=== PATIENT | female | born 1970 | race Caucasian/White ===

== ENCOUNTER → 2017-04-25 07:00 | Outpatient (CLI) | payer OTHER, SELFPAY ==
--- NOTE | 2017-04-25 07:08 | HPBI_ITS ---
MAMMOGRAPHY - BILATERAL SCREENING REASON FOR EXAM: Female, 47 years old. Routine annual screening examination. PERTINENT HISTORY: Mother with breast cancer. TECHNIQUE: Digital bilateral breast jose (3D mammographic acquisition) in the CC and MLO projections. 2-D mediolateral oblique (MLO) and craniocaudad (CC) views of both breasts were obtained. CAD: Full Field Digital Mammography with Computer Added Detection was performed. COMPARISON: Comparison is made with prior study dated April 17, 2016 and April 14, 2015. FINDINGS: Breast Composition: The breasts are heterogeneously dense, which may obscure small masses. There are no dominant masses or suspicious calcifications. A tissue clip marker is once again seen a small nodular density in the upper slightly lateral aspect of the left breast. No other significant abnormalities are identified. There has been no significant change since the prior study. HPBI/SCREENING MAMM (CAD), BILAT IMPRESSION: Stable bilateral screening mammogram. Yearly follow-up mammogram recommended. (A) ASSESSMENT CATEGORY: BIRADS Category 2: Benign. A letter regarding these results will be sent to the patient by the facility within 30 days. Approximately 10% of breast cancers are not detected by mammography. A normal mammogram should not delay biopsy of a clinically suspicious abnormality. [id number] Electronically Signed: Niels Alanis MD at 10:38 EST Tel [phone], Service support ,
== END ==
PROVIDERS: Family Provider Family Medicine; PCP Family Medicine; Visit Provider Family Medicine
DX: Z00.00 Encounter for general adult medical examination without abnormal findings (principal); Z12.31 Encounter for screening mammogram for malignant neoplasm of breast
CPT/HCPCS: 77063; 77067

== ENCOUNTER → 2017-05-16 12:13 | Outpatient (CLI) | payer OTHER, SELFPAY ==
--- NOTE | 2017-05-16 12:17 | RAD_ITS ---
STUDY: X-RAY - LEFT FOOT CLINICAL: Female, 47 years old. Pain TECHNIQUE: 3 view(s) of the foot. COMPARISON: None. FINDINGS: There is a plantar calcaneal spur. Normal visualized subtalar, talonavicular, calcaneocuboid, tarsal and tarsometatarsal articulations. Normal metatarsi. Normal metatarsophalangeal joint of the great toe. Normal tibial and fibular sesamoid bones. Normal interphalangeal joint of the great toe. Normal phalanges of the great toe. Normal second through fifth metatarsophalangeal joints. Normal interphalangeal joints and phalanges of the lesser toes. The soft tissue structures are unremarkable. There is no demonstrated fracture. RAD/Foot min 3 Views IMPRESSION: Small heel spur. No fracture. Electronically Signed: Kye Ma MD at 20:31 EST , Service support ,
== END ==
PROVIDERS: Family Provider Family Medicine; PCP Family Medicine; Visit Provider Podiatrist
DX: M77.40 Metatarsalgia, unspecified foot (principal)
CPT/HCPCS: 73630

== ENCOUNTER → 2017-07-16 06:26 | Outpatient (CLI) | payer OTHER, SELFPAY ==
--- NOTE | 2017-07-16 06:30 | CT_ITS ---
STUDY: CT MAXILLOFACIAL SINUSES REASON FOR EXAM: Female, 47 years old. Sinusitis times years RADIATION DOSAGE (If Supplied By Facility): CTDIvol = ( 33.06 ) mGy, DLP = ( 837.98 ) mGycm TECHNIQUE: The patient was scanned in a multi detector CT scanner. High resolution axial imaging was performed without the administration of intravenous contrast material. Sagittal and coronal images were reconstructed. Individualized dose optimization techniques were used for this CT. COMPARISON: None. FINDINGS: FRONTAL SINUSES: Normal aeration, without mucosal inflammatory disease. ETHMOIDAL SINUSES: Normal aeration, without mucosal inflammatory disease. MAXILLARY SINUSES: Normal aeration, with a right 0.6 cm round mucosal inflammatory disease likely retention cyst.. SPHENOIDAL SINUSES: Normal aeration, without mucosal inflammatory disease. There is patency of the bilateral maxillary infundibuli with normal uncinate processes, ethmoid bullae, and hiatus semilunaris. Normal bilateral middle turbinates. Normal bilateral inferior turbinates. There is a left sided nasal septal deviation with a left sided nasal septal spur. There is patency of the bilateral nasal airways. The visualized osseous structures are normal. The visualized bilateral orbital contents are normal. The bilateral mastoid air cells are clear. The mandible and bilateral temporomandibular joints are intact. CT/Sinus/Facial Bone IMPRESSION: Small right maxillary retention cyst. No acute or chronic sinus inflammation detected. Left sided nasal septum deviation with a left-sided small spur. Electronically Signed: Lucia Gómez MD at 7:07 EDT , Service support ,
== END ==
PROVIDERS: Family Provider Family Medicine; PCP Family Medicine; Visit Provider Otolaryngology
DX: J32.9 Chronic sinusitis, unspecified (principal)
CPT/HCPCS: 70486

== ENCOUNTER → 2018-02-11 07:04 | Outpatient (CLI) | payer OTHER, SELFPAY ==
[2018-02-11 08:37] LABS: Anion Gap 8 (5-15); BUN 16 mg/dL (7-18); BUN/Creat Ratio 19.7 RATIO (10-20); Calcium,Total 8.3 mg/dL (8.5-10.1); Chloride 106 mmol/L (98-107); Cholesterol 198 mg/dL (200); Creatinine, Serum 0.81 mg/dL (0.55-1.02); EST Glomerular Filtration Rate 79 mL/min (>60); Est Glom Filt Rate - Afr Amer 96 mL/min (>60); Glucose 81 mg/dL (74-106); High Density Lipoprotein 50 mg/dL; Potassium 4.1 mmol/L (3.5-5.1); Sodium Level 141 mmol/L (136-145); Thyroid Stim Hormone (TSH) 3.67 uIU/mL (0.358-3.74); Triglycerides 154 mg/dL; Very Low Density Lipoprotein 31 mg/dL (5-40)
--- OUTSIDE RECORDS SUMMARY | 2018-04-06 05:02 | XMS RPT_ITS ---
:1970 Author Organization OHIP Care Team Providers Name Role Phone Andrey Interiano Attending Unavailable Julianney, Christopher Primary Care Unavailable Andrey Interiano Attending Unavailable Ranney, Christopher Primary Care Unavailable Ranney, Christopher Primary Care Unavailable Referred, Self Attending Unavailable Gloria Juares Attending Unavailable Ranney, Christopher Primary Care Unavailable Carlos Hall Attending Unavailable Jaydon, Andrey Referring Unavailable Ranney, Christopher Primary Care Unavailable Anson Villanueva Attending Unavailable Jaydon, Christopher Primary Care Unavailable Anson Villanueva Referring Unavailable Andrey Interiano Attending Unavailable Jaydon, Andrey Referring Unavailable Ranney, Christopher Primary Care Unavailable Anson Villanueva Attending Unavailable Jaydon, Christopher Primary Care Unavailable Anson Villanueva Referring Unavailable PROBLEMS PROBLEMS DATE TYPE CONDITION / CODE ATTENDING STATUS SOURCE 05/16/2017 Unknown M77.40 - Gloria Juares Active [facility] Metatarsalgia, Community unspecified foot Hospital / M77.40(ICD-10) Repository 04/25/2017 Unknown Z12.31 - Jaydon, Active [facility] Encounter for [facility] mammogram for Repository malignant neoplasm of breast / Z12.31(ICD-10) PROCEDURES PROCEDURES No Procedure Records FoundRESULTS RESULTS Observed: 02/15/2018 Status: F Source: [place] CULTURE, THROAT 3:30 PM [facility] REPOSITORY Culture, Throat Normal throat michael isolated. No beta-hemolytic streptococcus isolated. Performed By: #### M100.1000 #### [facility] [address] [place], [address] BASIC METABOLIC Collected: 02/11/2018 Status: F Source: [place] PROFILE (BMP) 7:13 AM [facility] REPOSITORY Order Comment: Order Date: 08/27/17 Order Info: 0667-1 - BMP Order Info: 31141-4 - LIPID Order Info: 3016-3 - TSH TYPE CODE TESTS RESULT OUT OF RANGE REFERENCE UNITS LAB L501.0100 74-106 mg/dL Normal GLU 81 Result Comment: Please note revised GLUCOSE reference range effective 2017. LAB L501.1000 7-18 mg/dL Normal BUN 16 LAB L501.1100 0.55-1.02 mg/dL Normal CREAT,SERUM 0.81 Result Comment: The validity of the calculated GFR AND GFRAA in patients over 70 years has not been determined. Clinical correlation is essential. LAB L501.1110 >60 mL/min Normal EST GFR 79 Result Comment: Non- GFR Calc LAB L501.1115 >60 mL/min Normal EST GFR - AA 96 Result Comment: GFR Calc LAB L501.1300 10-20 RATIO Normal BUN/CRE 19.7 LAB L501.2200 8.5-10.1 mg/dL Low CA 8.3 LAB L501.5300 136-145 mmol/L NA Normal 141 LAB L501.5600 3.5-5.1 mmol/L K Normal 4.1 LAB L501.5900 98-107 mmol/L CL Normal 106 LAB L501.6100 21.0-32.0 mmol/L Normal CO2 27.0 LAB L501.6200 5-15 Normal GAP 8 Performed By: #### L500.2500, L500.4100, L501.9520 #### [facility] [address] [place], [place], [id number] LIPID PROFILE Collected: 02/11/2018 Status: F Source: NOHEMI 7:13 AM [facility] REPOSITORY Order Comment: Order Date: 08/27/17 Order Info: 0667-1 - BMP Order Info: 43821-3 - LIPID Order Info: 3016-3 - TSH TYPE CODE TESTS RESULT OUT OF RANGE REFERENCE UNITS LAB L501.4900 200 mg/dL Normal CHOL 198 Result Comment: <200 mg/dL Desirable 200-240 mg/dL Borderline >240 mg/dL High Risk LAB L501.5000 mg/dL Normal TRIG 154 Result Comment: The drugs N-Acetylcysteine and Metamizole may falsely depress this assay. Serum Triglycerides Reference Interval Normal <150 mg/dL Borderline high 150 - 199 mg/dL High 200 - 499 mg/dL Very High > or = 500 mg/dL LAB L501.6400 mg/dL Normal HDL 50 Result Comment: The drugs N-Acetylcysteine and Metamizole may falsely depress this assay. Reference Range HDL <40 mg/dL Low HDL Cholesterol HDL >or= 60 mg/dL High HDL Cholesterol LAB L501.6500 0-130 mg/dL Normal LDL 117 LAB L501.6600 5-40 mg/dL Normal VLDL 31 Performed By: #### L500.2500, L500.4100, L501.9520 #### [facility] [address] [place], [place], [address] THYROID STIM HORMONE Collected: 02/11/2018 Status: F Source: NOHEMI (TSH) 7:13 AM [facility] REPOSITORY Order Comment: Order Date: 08/27/17 Order Info: 0667- - BMP Order Info: 76111-1 - LIPID Order Info: 3016-3 - TSH TYPE CODE TESTS RESULT OUT OF RANGE REFERENCE UNITS LAB L501.9520 0.358-3.74 uIU/mL Normal TSH 3.67 Performed By: #### L500.2500, L500.4100, L501.9520 #### [facility] [address] [place], [address] SINUS/FACIAL BONE Observed: 07/16/2017 Status: F Source: NOHEMI 6:31 AM [facility] REPOSITORY [place] [facility] [address] [address] Sinus/Facial Bone MR#: [id number] Acct: [id number] Name: LEXY FREIRE Rep #: [id number] : 1970 F 47 From: Lucia Gómez MD PCP: Andrey Interiano MD Status: REG CLI Study: Sinus/Facial Bone Date of Exam: 07/16/17 Exam# [id number] Ordering Dr: Anson Villanueva MD STUDY: CT MAXILLOFACIAL SINUSES REASON FOR EXAM: Female, 47 years old. Sinusitis times years RADIATION DOSAGE (If Supplied By Facility): CTDIvol = ( 33.06 ) mGy, DLP = ( 837.98 ) mGycm TECHNIQUE: The patient was scanned in a multi detector CT scanner. High resolution axial imaging was performed without the administration of intravenous contrast material. Sagittal and coronal images were reconstructed. Individualized dose optimization techniques were used for this CT. COMPARISON: None. FINDINGS: FRONTAL SINUSES: Normal aeration, without mucosal inflammatory disease. ETHMOIDAL SINUSES: Normal aeration, without mucosal inflammatory disease. MAXILLARY SINUSES: Normal aeration, with a right 0.6 cm round mucosal inflammatory disease likely retention cyst.. SPHENOIDAL SINUSES: Normal aeration, without mucosal inflammatory disease. There is patency of the bilateral maxillary infundibuli with normal uncinate processes, ethmoid bullae, and hiatus semilunaris. Normal bilateral middle turbinates. Normal bilateral inferior turbinates. There is a left sided nasal septal deviation with a left sided nasal septal spur. There is patency of the bilateral nasal airways. The visualized osseous structures are normal. The visualized bilateral orbital contents are normal. The bilateral mastoid air cells are clear. The mandible and bilateral temporomandibular joints are intact. CT/Sinus/Facial Bone IMPRESSION: Small right maxillary retention cyst. No acute or chronic sinus inflammation detected. Left sided nasal septum deviation with a left-sided small spur. Electronically Signed: Lucia Gómez MD at 7:07 EDT , Service support , CC: Andrey Interiano MD; Andrey Villanueva MD Bowling Ball Grader: Signed URGENT CARE VISIT Observed: 06/14/2017 Status: F Source: [place] REPORT 9:21 AM [facility] [address] [place] [address] [address] [place] [address] OFFICE VISIT Date of Service: 06/14/17 MR#: [id number] Acct: [id number] Name: LEXY FREIRE Rep #: [id number] : 1970 Provider: Carlos MARINO Age/Sex: 47/F Location: [facility] Status: Signed Intake Vital Signs06/14/17 Height 5 ft 4 in 06/14/17 Weight: 213 lb 06/14/17 Body Mass Index (BMI) 36.6 06/14/17 Blood Pressure 124/82 Intake Visit Reasons: URI Chief Complaint: Sinus pressure and cough Proofer Apprentice Required: No Is patient in pain?: No Allergies Penicillins [PCN] Allergy (Verified 06/14/17 06:51) Rash Medications Calcium Carb/Magnesium Hydrox 1 tab PO QHS 11/04/15 [History Confirmed 06/14/17] Celebrex 1 tab PO DAILY 11/04/15 [History Confirmed 06/14/17] Vitamin D3 1 tab PO DAILY 11/04/15 [History Confirmed 06/14/17] azithromycin 250 mg tablet 250 mg PO QDAY #6 tab 06/14/17 [Rx Confirmed 06/14/17] benzonatate 200 mg capsule 200 mg PO TID PRN #20 cap 06/14/17 [Rx Confirmed 06/14/17] PFSH Medical History Back pain (Acute) Hay fever (Acute) Neck pain (Acute) Surgical History History of foot surgery (Acute) Social History Smoking Status: Never smoker alcohol intake: never HPI HPI Chief Complaint: Sinus pressure and cough Details: LEXY FREIRE, is a 47 F who presents to the office today for initial evaluation approximately 1 week history of progressively worsening sinus pressure and cough. Patient notes a moderate amount of postnasal drip, stating she feels she has a sinus infection. She notes associated chills though no complaints of fever, sweats, rash, chest pain/shortness of breath. She notes her cough is nonproductive but moist. No other members in her household with similar signs or symptoms. She is a non-smoker. She notes no other associated symptoms and no other alleviating or aggravating factors. ROS Const Constitutional: Positive for chills; no excessive sweating, abnormal sleep pattern, fever(s), night sweats or body ache Eyes Eyes: No change in vision ENT ENT: Positive for post nasal drip, sinus pressure and sinus pain; no abnormal hearing, ear pain, ear discharge, ear pressure, hearing loss or sore throat Resp Respiratory: Positive for cough Cough: Yes non-productive; no chest congestion Cardio Cardiology: No excessive sweating, chest pain at rest, chest pain with exertion, shortness of breath, dyspnea on exertion, irregular heart rhythm, generalized swelling or leg pain with exertion Gastro GI: No abdominal pain, change in stool character or change in bowel habits Musc Musculoskeletal: No joint pain, back pain or limited range of motion Skin Skin: No rash Neuro Neurology: No abnormal hearing, abnormal speech or abnormal movements Psych Psychiatric: No abnormal sleep pattern Endo Endocrine: No excessive sweating, change in body appearance, cold intolerance or heat intolerance Aller/Imm Allergy/Immunologic: No food intolerance Munir/Lymp Hematologic/Lymphatic: No easy bruising Exam Const General: cooperative, healthy appearing, no acute distress, uncomfortable Nutritional Appearance: average body habitus Orientation: alert, awake, oriented x3 HENWV Head: normal to inspection Ears: hearing grossly normal bilaterally, external ears normal, TM's normal bilaterally, EAC's normal Nose: external nose normal, nares normal, septum normal, no nasal discharge Face and sinus: normal facial exam, sinus tenderness maxillary, face symmetric Mouth: oral mucosae normal, lip normal, oropharynx normal, tongue normal Teeth and gingiva: dentition normal, gingiva normal Throat: uvula midline, tonsils normal, posterior oropharynx normal, postnasal drainage (Purulent) Eyes General: appearance normal, both eyes and all related structures Neck Neck: normal visual inspection, full ROM, no meningeal signs, supple, lymphadenopathy (Bilateral anterior cervical node swelling and tenderness to palpation) Neck mass: No Thyroid: thyroid normal Chest Chest palpation AND inspection: normal inspection of the chest Resp Effort AND Inspection: normal respiratory effort, able to speak in complete sentences, symmetric chest movement, cough Quality of cough: wet Auscultation: Bilateral: Clear to Auscultation Cardio Palpation: normal PMI Rate: regular rate Rhythm: regular rhythm Heart Sounds: S1 normal, S2 normal, no gallops, no murmurs, no rubs Pulses: radial pulses present GI Inspection: normal to inspection Palpation: soft Skin General: no rashes or lesions noted Neuro General: alert, awake, oriented x3, gait normal Cognition: normal cognition Speech: speech normal Gait: normal gait Motor: muscle tone normal throughout Sensory Exam: no sensory deficits noted Extrem General: normal to inspection Psych Appearance: grossly normal Mental Status: mental status grossly normal Mood: congruent mood Affect: normal affect Speech and Movement: speech and movement normal Attitude: cooperative Thought Process: normal Thought Content: normal Judgment: judgment good Assessment AND Plan Problems 1. Sinusitis J32.9 2. Bronchitis J40 Plan Augmentin and benzonatate as prescribed today. Clear fluids, rest, Tylenol, warm facial compresses as needed as instructed today. Avoid tobacco smoke exposure. Follow-up with PCP in 3-5 days should symptoms not improved, sooner should symptoms worsen or any other concerns develop. Patient states acknowledging understanding all the above. This note was generated with Calixar dictation software. It may contain incorrect words, spelling, and punctuation that were not noted in checking the note before signing. Medications New: azithromycin 2 tablets today, then 1 tablet daily on days 2 th250 mg PO QDAY rough 5 Coding Level of Care Code Off vis,new,level 3 Diagnoses Sinusitis J32.9 Bronchitis J40 06/14/17 0921 <Electronically signed by Carlos MARINO> Date Carlos MARINO Cosigner Signature: Date (if applicable) CC: FOOT MIN 3 VIEWS Observed: 05/16/2017 Status: F Source: NOHEMI 12:18 PM [facility] REPOSITORY [place] [facility] [address] [place] [address] Foot min 3 Views MR#: [id number] Acct: [id number] Name: LEXY FREIRE Rep #: [id number] : 1970 F 47 From: Kye Ma MD PCP: Andrey Interiano MD Status: REG CLI Study: Foot min 3 Views Date of Exam: 05/16/17 Exam# [id number] Ordering Dr: Gloria Juares STUDY: X-RAY - LEFT FOOT CLINICAL: Female, 47 years old. Pain TECHNIQUE: 3 view(s) of the foot. COMPARISON: None. FINDINGS: There is a plantar calcaneal spur. Normal visualized subtalar, talonavicular, calcaneocuboid, tarsal and tarsometatarsal articulations. Normal metatarsi. Normal metatarsophalangeal joint of the great toe. Normal tibial and fibular sesamoid bones. Normal interphalangeal joint of the great toe. Normal phalanges of the great toe. Normal second through fifth metatarsophalangeal joints. Normal interphalangeal joints and phalanges of the lesser toes. The soft tissue structures are unremarkable. There is no demonstrated fracture. RAD/Foot min 3 Views IMPRESSION: Small heel spur. No fracture. Electronically Signed: Kye Ma MD at 20:31 EST , Service support , CC: Andrey Interiano MD; Gloria Juares DPGeorges Bowling Ball Grader: Signed SCREENING MAMM (CAD), Observed: 04/25/2017 Status: F Source: NOHEMI PERRIN 7:08 AM [facility] REPOSITORY [place] [facility] [address] [place] [address] SCREENING MAMM (CAD), BILAT MR#: [id number] Acct: [id number] Name: LEXY FREIRE Rep #: [id number] : 1970 F 47 From: Niels Alanis MD PCP: Andrey Interiano MD Status: REG CLI Study: SCREENING MAMM (CAD), BILAT Date of Exam: 04/25/17 Exam# [id number] Ordering Dr: Anson Interiano MD MAMMOGRAPHY - BILATERAL SCREENING REASON FOR EXAM: Female, 47 years old. Routine annual screening examination. PERTINENT HISTORY: Mother with breast cancer. TECHNIQUE: Digital bilateral breast jose (3D mammographic acquisition) in the CC and MLO projections. 2-D mediolateral oblique (MLO) and craniocaudad (CC) views of both breasts were obtained. CAD: Full Field Digital Mammography with Computer Added Detection was performed. COMPARISON: Comparison is made with prior study dated April 17, 2016 and April 14, 2015. FINDINGS: Breast Composition: The breasts are heterogeneously dense, which may obscure small masses. There are no dominant masses or suspicious calcifications. A tissue clip marker is once again seen a small nodular density in the upper slightly lateral aspect of the left breast. No other significant abnormalities are identified. There has been no significant change since the prior study. HPBI/SCREENING MAMM (CAD), BILAT IMPRESSION: Stable bilateral screening mammogram. Yearly follow-up mammogram recommended. (A) ASSESSMENT CATEGORY: BIRADS Category 2: Benign. A letter regarding these results will be sent to the patient by the facility within 30 days. Approximately 10% of breast cancers are not detected by mammography. A normal mammogram should not delay biopsy of a clinically suspicious abnormality. [id number] Electronically Signed: Niels Alanis MD at 10:38 EST Tel [phone], Service support , CC: Andrey Interiano MD Bowling Ball Grader: Signed ALLERGIES ALLERGIES DATE TYPE / CODE NAME / CODE REACTION SEVERITY SOURCE 06/14/2017 Drug Penicillins/ Rash Unknown [facility] Allergy/4160 [id number]([facility] 39897(SNOMED XNORM) Repository CT) ENCOUNTERS ENCOUNTERS ADMIT/DISCHARGE ACCOUNT ADMITTING ENCOUNTER LOCATION SOURCE NUMBER CLASS 02/15/2018 [id number] Ambulatory [place] [facility] ing:LABSPEC Repository 02/11/2018 [id number] Ambulatory [place] [facility] ing:LAB Repository 07/16/2017 [id number] Ambulatory [place] [facility] ing:CT Repository 06/14/2017/ [id number] Ambulatory BMSBuilding:B [place] 8 3 [facility] Repository 05/16/2017 [id number] Ambulatory [place] [facility] ing:RAD.FUTUR Repository E 05/02/2017 [id number] Ambulatory [place] 1 [facility] ing:MASS Repository 04/25/2017 [id number] Ambulatory [place] [facility] ing:BI Repository 02/27/2017 [id number] Ambulatory [place] [facility] ing:LABSPEC Repository PAYERS PAYERS ENCOUNTER GUARANTOR PAYER SUBSCRIBER SOURCE 02/15/2018 LEXY A Primary Insurance:MED ZULLY E [place] [id number] [facility] THOMPSONDOB: [facility] Number: [id number] [id number] Repository [address]Xrn: 330) Date:1376-65-92IZ [phone] ( [address], [place] [address]IW: CHECK WEBSITE 02/15/2018 Secondary NOT GIVENUNK [place] Insurance:SELF PAY [facility] Number: Effective Repository Date:2018-02-15 02/11/2018 LEXY A Primary Insurance:MED ZULLY E [place] [id number] [employer] THOMPSONDOB: [facility] Number: [id number], [place] [id number] Repository [address]Uqm: ([phone]) Date:6328-08-24MC [phone] (HP) [address]JDPC[place]QU, [place] [address]FQ: CHECK WEBSITE 02/11/2018 Secondary NOT GIVENUNK [place] Insurance:SELF PAY [facility] Number: Effective Repository Date:2018-02-11 07/16/2017 LEXY A Primary Insurance:MED ZULLY E [place] [id number] [employer] THOMPSONDOB: [facility] Number: [id number], [place] [id number] Repository [address]Vsx: Date:2388-46-61TY [phone] [address]VXBZJUXFT, [place] -4 () [phone]: CHECK WEBSITE 07/16/2017 Secondary NOT GIVENUNK [place] Insurance:SELF PAY [facility] Number: Effective Repository Date:2017-07-02 06/14/2017 LEXY A Primary Insurance:MED ZULLY E [place] [id number] [employer] THOMPSONDOB: [facility] Number: [id number], [place] [id number] Repository [address]Cgr: Date:9014-49-24IB [phone]~330 [address]CAHUEGUT, [place] -4 () [address]WM: CHECK WEBSITE 06/14/2017 Secondary NOT GIVENUNK [place] Insurance:SELF PAY [facility] Number: Effective Repository Date:2017-06-14 05/16/2017 LEXY A Primary Insurance:MED ZULLY E [place] [id number] [employer] THOMPSONDOB: [facility] Number: [id number], [place] [id number] Repository [address]Sko: ([phone]) Date:9711-61-85HX [phone] (HP) [address]XCQUYQOXZ, [place] [address]SD: CHECK WEBSITE 05/16/2017 Secondary NOT GIVENUNK [place] Insurance:SELF PAY [facility] Number: Effective Repository Date:2017-05-15 05/02/2017 LEXY A Primary NOT GIVENUNK [place] [id number] Insurance:SELF PAY [place] Number: Effective Repository [address]Pov: (330) Date:2017-04-20 [phone] () 04/25/2017 Lexy A Primary Insurance:MED ZULLY E [place] [id number] MUTUAL TPAPolicy THOMPSONDOB: [facility] Number: [id number], [place] [id number] Repository [address]Upu: (330) Date:9130-49-50HM [phone] () [address]BOLKELBFW, [place] [address]RI: CHECK WEBSITE 04/25/2017 Secondary NOT GIVENUNK [place] Insurance:SELF PAY [facility] Number: Effective Repository Date:2017-03-02 02/27/2017 Lexy A Primary Insurance:MED ZULLY E [place] [id number] MUTUAL TPAPolicy THOMPSONDOB: [facility] Number: [id number], [place] [id number] Repository [address]Nic: (330) Date:1066-55-89LC [phone] () [address]CYELEGWBP, [place] [address]JG: CHECK WEBSITE 02/27/2017 Secondary NOT GIVENUNK [place] Insurance:SELF PAY [facility] Number: Effective Repository Date:2017-02-27
== END ==
PROVIDERS: Family Provider Family Medicine; PCP Family Medicine; Referring Provider Family Medicine; Visit Provider Family Medicine
DX: Z13.1 Encounter for screening for diabetes mellitus (principal); Z13.29 Encounter for screening for other suspected endocrine disorder; Z13.220 Encounter for screening for lipoid disorders
CPT/HCPCS: 36415; 80048; 80061; 84443

== ENCOUNTER → 2018-02-15 18:09 | Outpatient (CLI) | payer OTHER, SELFPAY | PROVIDERS: Family Provider Family Medicine; PCP Family Medicine; Referring Provider Otolaryngology; Visit Provider Otolaryngology | DX: J02.9 Acute pharyngitis, unspecified (principal) | CPT/HCPCS: 87070 ==

== ENCOUNTER → 2018-04-29 07:50 | Outpatient (CLI) | payer OTHER, SELFPAY ==
--- NOTE | 2018-04-29 07:57 | BI_ITS ---
MAMMOGRAPHY - BILATERAL SCREENING REASON FOR EXAM: Female, 48 years old. Routine annual screening examination. PERTINENT HISTORY: Mother with breast cancer. Remote bilateral stereotactic breast biopsies. TECHNIQUE: Digital bilateral breast jose (3D mammographic acquisition) in the CC and MLO projections. 2-D mediolateral oblique (MLO) and craniocaudad (CC) views of both breasts were obtained. CAD: Full Field Digital Mammography with Computer Added Detection was performed. COMPARISON: Comparison is made with prior study dated April 25, 2017 and April 17, 2016. FINDINGS: Breast Composition: The breasts are heterogeneously dense, which may obscure small masses. There are no dominant masses or suspicious calcifications. Stable small bilateral axillary lymph nodes. A tissue clip marker is once again seen in the small nodular density in the upper slightly outer aspect of the left breast as well as in the superior lateral area of the right breast. No other significant abnormalities are identified. There has been no significant change since the prior study. BI/SCREENING MAMM (CAD), BILAT IMPRESSION: Stable bilateral screening mammogram. Yearly follow-up mammogram recommended. (A) ASSESSMENT CATEGORY: BIRADS Category 2: Benign. A letter regarding these results will be sent to the patient by the facility within 30 days. Approximately 10% of breast cancers are not detected by mammography. A normal mammogram should not delay biopsy of a clinically suspicious abnormality. [id number] Electronically Signed: Niels Alanis MD at 11:10 EST , Service support ,
== END ==
PROVIDERS: Family Provider Family Medicine; PCP Family Medicine; Referring Provider Family Medicine; Visit Provider Family Medicine
DX: Z00.00 Encounter for general adult medical examination without abnormal findings (principal); Z12.31 Encounter for screening mammogram for malignant neoplasm of breast
CPT/HCPCS: 77063; 77067

== ENCOUNTER → 2018-07-15 | Outpatient (CLI) | payer OTHER, SELFPAY ==
[2017-06-14 06:50] VITALS: BMI 36.6
[2018-07-15 11:25] LABS: Anion Gap 8 (5-15); BUN 12 mg/dL (7-18); BUN/Creat Ratio 14.1 RATIO (10-20); Calcium,Total 8.5 mg/dL (8.5-10.1); Chloride 107 mmol/L (98-107); Cholesterol 211 mg/dL (200); Creatinine, Serum 0.85 mg/dL (0.55-1.02); EST Glomerular Filtration Rate 75 mL/min (>60); Est Glom Filt Rate - Afr Amer 91 mL/min (>60); Glucose 82 mg/dL (74-106); High Density Lipoprotein 49 mg/dL; Potassium 4.3 mmol/L (3.5-5.1); Sodium Level 140 mmol/L (136-145); Triglycerides 179 mg/dL; Very Low Density Lipoprotein 36 mg/dL (5-40)
== END | disposition home or self-care (01) ==
LOC: MTLAB 07:40
PROVIDERS: Family Provider Family Medicine; PCP Family Medicine; Referring Provider Family Medicine; Visit Provider Family Medicine
DX: I10 Essential (primary) hypertension (principal)
CPT/HCPCS: 36415; 80048; 80061

== ENCOUNTER → 2018-12-25 07:18 | Outpatient (CLI) | payer OTHER, SELFPAY ==
[2018-12-25 10:13] LABS: Hematocrit 34.4 % (37-47); Hemoglobin 10.2 g/dL (12.0-15.0); Mean Corp Hgb Conc 29.7 g/dL (32-36); Mean Corpuscular Hgb 23.4 pg (27.0-32.0); Mean Corpuscular Volume 79.1 fL (81-99); Mean Platelet Vol. 10.8 fl (6.2-12.0); Platelet Count 290 K/mm3 (150-450); RBC Distribution Width CV 17.3 % (11.6-14.6); RBC Distribution Width SD 50.1 fl (35.1-43.9); Red Blood Count 4.35 M/mm3 (4.2-5.4); White Blood Count 4.9 K/mm3 (4.4-11.0)
[2018-12-25 10:28] LABS: Vitamin B12 606 pg/mL (211-911); Vitamin D,25 Hydroxy 61.3 ng/mL (29.95-100.01)
[2018-12-25 11:09] LABS: BUN 16 mg/dL (7-18); Creatinine, Serum 0.93 mg/dL (0.55-1.02); Glucose 88 mg/dL (74-106)
[2018-12-25 11:10] LABS: Anion Gap 11 (5-15); BUN/Creat Ratio 17.3 RATIO (10-20); Calcium,Total 8.5 mg/dL (8.5-10.1); Chloride 104 mmol/L (98-107); EST Glomerular Filtration Rate 68 mL/min (>60); Est Glom Filt Rate - Afr Amer 82 mL/min (>60); Follicle Stimulating Hormone 57.8 mIU/mL; Free T3 2.8 pg/mL (2.18-3.98); Iron 31 ug/dL (50-170); Sodium Level 139 mmol/L (136-145); T4 Free Direct 0.98 ng/dL (0.76-1.46)
== END ==
PROVIDERS: Family Provider Family Medicine; PCP Family Medicine; Referring Provider Family Medicine; Visit Provider Family Medicine
DX: N95.1 Menopausal and female climacteric states (principal); R53.83 Other fatigue
CPT/HCPCS: 36415; 80048; 82306; 82607; 83001; 83002; 83540; 84439; 84443; 84481; 85027

== ENCOUNTER → 2018-12-26 15:55 | Outpatient (CLI) | payer OTHER, SELFPAY ==
[2017-06-14 06:50] VITALS: BMI 36.6
[2019-01-02 11:41] LABS: Cortisol, Free 24Ur 14 ug/24 hr (6-42); Cortisol, Urinary Free 11 ug/L (Undefined)
== END ==
PROVIDERS: Family Provider Family Medicine; PCP Family Medicine; Referring Provider Family Medicine; Visit Provider Family Medicine
DX: R53.83 Other fatigue (principal)
CPT/HCPCS: 82530

== ENCOUNTER → 2019-04-30 09:13 | Outpatient (CLI) | payer OTHER, SELFPAY ==
--- NOTE | 2019-04-30 09:16 | BI_ITS ---
MAMMOGRAPHY - BILATERAL SCREENING REASON FOR EXAM: Female, 49 years old. Routine annual screening examination. PERTINENT HISTORY: Mother with breast cancer. Remote bilateral stereotactic breast biopsies. TECHNIQUE: Digital bilateral breast rajiv (3D mammographic acquisition) in the CC and MLO projections. 2-D mediolateral oblique (MLO) and craniocaudad (CC) views of both breasts were obtained. CAD: Full Field Digital Mammography with Computer Added Detection was performed. COMPARISON: Comparison is made with prior study dated April 29, 2018 and April 25, 2017. FINDINGS: Breast Composition: The breasts are heterogeneously dense, which may obscure small masses. There are no dominant masses or suspicious calcifications. Once again, a tissue clip marker is seen in the small nodular density in the upper slightly outer aspect of the left breast. A tissue clip marker is also seen in the superior lateral stable benign-appearing bilateral axillary lymph nodes. No other significant abnormalities are identified. There has been no significant change since the prior study. BI/SCREEN MAMM (CAD) W/RAJIV BILAT IMPRESSION: Stable bilateral screening mammogram. Yearly follow-up mammogram recommended. (A) ASSESSMENT CATEGORY: BIRADS Category 2: Benign. A letter regarding these results will be sent to the patient by the facility within 30 days. Approximately 10% of breast cancers are not detected by mammography. A normal mammogram should not delay biopsy of a clinically suspicious abnormality. [id number] Electronically Signed: Niels Alanis, at 10:29 EST , Service support ,
== END ==
PROVIDERS: Family Provider Family Medicine; PCP Family Medicine; Referring Provider Family Medicine; Visit Provider Family Medicine
DX: Z12.31 Encounter for screening mammogram for malignant neoplasm of breast (principal)
CPT/HCPCS: 77063; 77067

== ENCOUNTER 2019-11-05 10:00 | Outpatient (RCR) | payer OTHER, SELFPAY ==
[2019-05-24 08:26] VITALS: BMI 36.6
--- NOTE | 2019-10-23 08:09 | HP.PTEVAL ---
Patient's Visit Information MADDIE FREIRE is a 49 year old F referred to Physical Therapy by Dr. Anson Interiano MD with a diagnosis of Bilateral Radial Nerve Entrapment. Date of Evaluation: 10/22/19 Physical Therapist: Magalie Garcia DPT - Visit Plan Frequency: 1x/Week Plan: Patient wants to hold until she has her nerve conduction study. HEP given: postural correction, cervical retractions, median nerve glide, soft tisssue rolling to forearm - Subjective Patient reports that she has lateral epicondylitis bilaterally- insidious onset. Both the pain is the same. Pain is located in the elbow and down to the hand. She goes next sunday to have the nerve test done. Has had injections in the brachioradialis bilaterally and worked for about 5 days then came back with a vengence. They do not think its carpal tunnel. Describes the pain as sharp painful- N/T. It effects all of her fingers. Drops things and report its hard to hold onto things- hard to drink a cup of cofee in the AM. Worst: 11/19 was just put on gabapentin which is helping. Agg: anything Eases: nothing Best: 11/19. Throbbing. No shoulder or neck pain. 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 Is only working through Dr. Interiano is not seeing and ortho currently. No MRI at this time. Sleep: disturbed- wakes her up and is hard to get comfortable- very miserable. PMHx: back issues- 3 bulging discs- surgery on her feet- Meds: gabapentin, Vitamin D and iron, calcium and magnesium - Objective Posture: FH, RS- can correct but is unable to maintain. Gait: no deviation noted- good arm swing and trunk rotation. Palpatoin: tender along medial and lateral elbow down the forearm and into the hand. ROM: WNL in all planes from cervical to the fingers bilaterally. Strength: Scap: fair, Shoulder: 4+/5 throughout, Elbow: 4+/5 Wrist: 4-/5 throughout Lateral Pinch: 15-20# Tripod: 10-15 Senior Java Data Architect: Left: 40 right: 50. Special Test: Median nerve glide: positive, Spurlings: negative, Radial nerve glide: negative - Goals Goal 1:: Patient will be I with HEP and progression Goal Time Frame: 4-6 Weeks Goal 2:: Patient will have no pain with median nerve glide Goal Time Frame: 4-6 Weeks Goal 3:: Patient will report no dropping things for 1 week Goal Time Frame: 4-6 Weeks - Rehabilitation Potential Physical Therapy Diagnosis: Patient presents with hypomobility- she has decreased ROM,strength and muscular endurance leading to poor posture and increased pain with ADL's. Rehabilitation Potential: Fair - Anticipated Interventions Patient/Client Instruction: Educate patient on: Benefits of Fitness Program Therapeutic Exercise to Include: Strength training, Endurance training, Body mechanics, Postural training, Neuromotor development, Scapular Strength/Stabilization For the Purpose of:: To improve muscle performance and motor function Manual Therapy Techniques to Include: Mobilization, Functional dry needling, Soft tissue mobilization For the Purpose of:: To increase oxygenation perfusion TENS: Yes Cryotherapy (ice pack, ice massage): Yes Thermo therapy (hot pack): Yes Ultrasound (thermal/non thermal): Yes Thank you for the opportunity to evaluate your patient. For Medicare and Medicare HMO plans, please review the plan of care and approve it. It will need to be FAXED BACK to us at [phone] for Medicare purposes. For Medicare only, by signing this I certify the plan of care. Please let me know if there are questions or concerns regarding this plan of care. Physician Signature: Date:
--- NOTE | 2020-02-19 11:45 | HP.PT.NRP ---
MADDIE FREIRE was seen in my office for initial evaluation on 10/22/19. The following Plan of Care was established for this patient: Initial Frequency: 1x/Week Patient/Client Instruction: Educate patient on: Benefits of Fitness Program Therapeutic Exercise to Include: Strength training, Endurance training, Body mechanics, Postural training, Neuromotor development, Scapular Strength/Stabilization For the Purpose of:: To improve muscle performance and motor function Manual Therapy Techniques to Include: Mobilization, Functional dry needling, Soft tissue mobilization For the Purpose of:: To increase oxygenation perfusion TENS: Yes Cryotherapy (ice pack, ice massage): Yes Thermo therapy (hot pack): Yes Ultrasound (thermal/non thermal): Yes This patient was last seen in our office . Pertinent comments regarding their Physical therapy will appear below: Patient has not returned to PT in over 8 weeks- appropriate for discharge and return to MD for further evaluation. At this point I will be discontinuing this patient from physical therapy. I would be happy to see this patient again in the future if found appropriate by the physician. Thank you! Magalie Garcia DPT
== END 2019-11-05 19:00 | disposition home or self-care (01) ==
LOC: PT 10:00
PROVIDERS: PCP Family Medicine; Referring Provider Family Medicine; Visit Provider Family Medicine
DX: G58.8 Other specified mononeuropathies (principal)
CPT/HCPCS: 97110; 97162

== ENCOUNTER → 2020-01-09 | Outpatient (CLI) | payer OTHER, SELFPAY ==
[2019-05-24 08:26] VITALS: BMI 36.6
== END | disposition home or self-care (01) ==
PROVIDERS: PCP Family Medicine; Referring Provider Registered Nurse; Visit Provider Registered Nurse
DX: J06.9 Acute upper respiratory infection, unspecified (principal)
CPT/HCPCS: 87635; U0003

== ENCOUNTER → 2020-03-11 09:38 | Outpatient (CLI) | payer OTHER, SELFPAY ==
[2019-05-24 08:26] VITALS: BMI 36.6
[2020-03-11 12:41] LABS: Vitamin D,25 Hydroxy 59.8 ng/mL
[2020-03-11 12:45] LABS: Anion Gap 4 (5-15); BUN 15 mg/dL (7-18); BUN/Creat Ratio 16.7 RATIO (10-20); Calcium,Total 8.7 mg/dL (8.5-10.1); Chloride 105 mmol/L (98-107); Cholesterol 227 mg/dL (200); EST Glomerular Filtration Rate 70 mL/min (>60); Est Glom Filt Rate - Afr Amer 85 mL/min (>60); Glucose 78 mg/dL (74-106); High Density Lipoprotein 69 mg/dL; Potassium 3.9 mmol/L (3.5-5.1); Sodium Level 137 mmol/L (136-145); Thyroid Stim Hormone (TSH) 2.61 uIU/mL (0.358-3.74); Triglycerides 91 mg/dL; Very Low Density Lipoprotein 18 mg/dL (5-40)
[2020-03-25 15:19] LABS: HPV Reflexed? NOT INDICATED
== END ==
PROVIDERS: PCP Family Medicine; Referring Provider Family Medicine; Visit Provider Family Medicine
DX: Z01.419 Encounter for gynecological examination (general) (routine) without abnormal findings (principal); E55.9 Vitamin D deficiency, unspecified; Z13.220 Encounter for screening for lipoid disorders; Z13.1 Encounter for screening for diabetes mellitus; Z13.29 Encounter for screening for other suspected endocrine disorder
CPT/HCPCS: 36415; 80048; 80061; 82306; 84443; 88175; G0145

== ENCOUNTER → 2020-04-28 13:48 | Outpatient (CLI) | payer OTHER, SELFPAY ==
[2019-05-24 08:26] VITALS: BMI 36.6
--- NOTE | 2020-04-28 13:50 | US_ITS ---
STUDY: ULTRASOUND OF THE FEMALE PELVIS - COMPLETE REASON FOR EXAM: Female, 50 years old. AUB -- TUBAL LIGATION 10 YEARS AGO LMP: 04/09/2020. TECHNIQUE: Transvaginal TECHNICAL QUALITY: Adequate. COMPARISON: None. FINDINGS: The uterus is anteverted and is in a midline position. The uterus measures 9 cm x 5.2 cm x 5.2 cm. There is a Nabothian cyst of the cervix. The endometrium measures 7 mm in thickness, and is heterogeneous (striated). There is no demonstrated endometrial mass. 3 uterine fibroids are seen. The largest fibroid measures 2.7 cm x 2 cm x 2.2 cm. I.U.D. - The patient does not have an I.U.D. The right ovary is visualized. The right ovary measures 2.5 cm x 1.9 cm x 1.4 cm. There is no right ovarian cyst or ovarian mass. There is no visualized right adnexal mass or complex lesion. There is normal arterial and normal venous vascularity. The left ovary is visualized. The left ovary measures 3.4 cm x 2 cm x 1.5 cm. There is a 1.3 cm x 1.8 cm x 1.4 cm dominant left ovarian follicle. There is no visualized left adnexal mass or complex lesion. There is normal arterial and normal venous vascularity. There is no fluid in the cul-de-sac. US/Transvaginal Non- IMPRESSION: Mildly enlarged fibroid uterus. Dominant follicle measuring 1.3 cm x 1.8 cm x 1.4 cm is seen in the left ovary. Electronically Signed: Niels Alanis MD at 15:28 EST , Service support ,
== END ==
PROVIDERS: PCP Family Medicine; Referring Provider Family Medicine; Visit Provider Family Medicine
DX: N93.8 Other specified abnormal uterine and vaginal bleeding (principal)
CPT/HCPCS: 76830

== ENCOUNTER → 2020-05-03 07:37 | Outpatient (CLI) | payer OTHER, SELFPAY ==
[2019-05-24 08:26] VITALS: BMI 36.6
--- NOTE | 2020-05-03 07:41 | BI_ITS ---
MAMMOGRAPHY - BILATERAL SCREENING REASON FOR EXAM: Female, 50 years old. Routine annual screening examination. PERTINENT HISTORY: Mother with breast cancer. Remote right stereotactic and left stereotactic breast biopsies. TECHNIQUE: Digital bilateral breast rajiv (3D mammographic acquisition) in the CC and MLO projections. 2-D mediolateral oblique (MLO) and craniocaudad (CC) views of both breasts were obtained. CAD: Full Field Digital Mammography with Computer Added Detection was performed. COMPARISON: Comparison is made with prior study dated 04/30/2019 and 04/29/2018. FINDINGS: Breast Composition: The breasts are heterogeneously dense, which may obscure small masses. There are no dominant masses or suspicious calcifications. A tissue clip marker is once again seen in the small nodular density in the upper slightly outer aspect of the left breast. A tissue clip marker is also seen in the superior lateral aspect of the right breast. Stable benign-appearing bilateral axillary lymph nodes. No other significant abnormalities are identified. BI/SCRN MAMM (CAD)W/RAJIV BILAT IMPRESSION: Stable bilateral screening mammogram. Yearly follow-up mammogram recommended. (A) ASSESSMENT CATEGORY: BIRADS Category 2: Benign. A letter regarding these results will be sent to the patient by the facility within 30 days. Approximately 10% of breast cancers are not detected by mammography. A normal mammogram should not delay biopsy of a clinically suspicious abnormality. [id number] Electronically Signed: Niels Alanis MD at 9:01 EST , Service support ,
== END ==
PROVIDERS: PCP Family Medicine; Referring Provider Family Medicine; Visit Provider Family Medicine
DX: Z00.00 Encounter for general adult medical examination without abnormal findings (principal); Z12.31 Encounter for screening mammogram for malignant neoplasm of breast
CPT/HCPCS: 77063; 77067

== ENCOUNTER → 2020-05-19 14:38 | Outpatient (CLI) | payer OTHER, SELFPAY ==
--- NOTE | 2020-05-19 | EMB_PTH ---
PATIENT: MADDIE FREIRE LOC: [facility]#:[id number] AGE/SX: 54/F ROOM: RE05/19/[address]: Dr. Ileana Su MD : 1970 BED: DIS: SPEC #: [id number] RECD: 05/19/20 15:52 STATUS: JOHAN RELan #: [id number] VIRA: 05/19/20 00:[address]: Ileana Su DEPT: SURGICAL PATHOLOGY RECD BY: Andrea Vásquez ENTERED: 05/20/20 07:54 SP TYPE: ENDOM BX/C KATARINA DR: Dr. Andrey Interiano MD Tissues: Endometrium, NOS Procedures: Surgery Specimen Level IV HEADER OPERATION: Endometrial biopsy PRE-OP DIAGNOSIS: Abnormal uterine bleeding TISSUE SUBMITTED: Endometrial lining MICROSCOPIC DIAGNOSIS Endometrium, biopsy: Weakly proliferative endometrium with focal glandular breakdown. AM:alvaro 05/21/2020 MICROSCOPIC DESCRIPTION Slides are reviewed. GROSS DESCRIPTION Received is one container labeled with the patient's name and not further designated. The specimen consists of multiple irregular fragments of breen soft tissue that in aggregate measure 2.5 x 0.3 x 0.1 cm. The specimen is totally submitted in one cassette. / SJ:alvaro 05/20/20 TC:5 CPT: 29458
[2020-05-19 13:30] VITALS: BMI 41.0
[2020-05-19 14:51] LABS: Absolute Lymphocyte Count 1.63 X10^3/uL (0.83-4.51); Absolute Neutrophil Count 5.1 X10^3/uL (2.0-7.7); Basophil# 0.06 X10^3/uL; Basophil% 0.8 % (0-1); Eosinophil# 0.17 X10^3/uL; Eosinophils% 2.3 % (0-5); Hematocrit 42.8 % (37-47); Hemoglobin 13.5 g/dL (12.0-15.0); Lymphocyte # 1.63 X10^3/ul (4.0); Lymphocyte % 21.6 % (19-41); Mean Corp Hgb Conc 31.5 g/dL (32-36); Mean Corpuscular Hgb 28.4 pg (27.0-32.0); Mean Corpuscular Volume 90.1 fL (81-99); Mean Platelet Vol. 10.4 fl (6.2-12.0); Monocyte# 0.56 X10^3/uL; Monocyte% 7.4 % (0-10); NRBC Flagged by Analyzer 0 % (0-5); Neutrophil % 67.6 % (47-70); Platelet Count 284 K/mm3 (150-450); RBC Distribution Width CV 15.7 % (11.6-14.6); RBC Distribution Width SD 52.4 fl (35.1-43.9); Red Blood Count 4.75 M/mm3 (4.2-5.4); White Blood Count 7.5 K/mm3 (4.4-11.0)
[2020-05-19 15:28] LABS: Prolactin 9.2 ng/mL; Thyroid Stim Hormone (TSH) 2.96 uIU/mL (0.358-3.74)
== END ==
PROVIDERS: PCP Family Medicine; Referring Provider Obstetrics & Gynecology; Visit Provider Obstetrics & Gynecology
DX: N93.9 Abnormal uterine and vaginal bleeding, unspecified (principal)
CPT/HCPCS: 36415; 84146; 84443; 85025; 88305

== ENCOUNTER → 2020-07-26 13:10 | Outpatient (CLI) | payer OTHER, SELFPAY ==
[2020-06-09 14:15] VITALS: BMI 40.2
--- NOTE | 2020-07-26 13:16 | RAD_ITS ---
STUDY: X-RAY - CERVICAL SPINE REASON FOR EXAM: Female, 50 years old. Neck pain TECHNIQUE: 8 view(s) of the cervical spine were obtained. COMPARISON: None FINDINGS: Normal anterior atlantoaxial articulation. Normal odontoid process. Normal cervical lordosis. Normal vertebral bodies and endplates. Normal disc space heights. Normal visualized intervertebral neuroforamina. No instability on the flexion or extension views The soft tissue structures are unremarkable. RAD/Cerv Spine Obl/Flex/Ext Comp IMPRESSION: Normal x-ray examination of the visualized cervical spine. Electronically Signed: Cesar Pedro MD at 13:50 EDT , Service support ,
== END ==
PROVIDERS: PCP Family Medicine; Referring Provider Family Medicine; Visit Provider Family Medicine
DX: M54.2 Cervicalgia (principal)
CPT/HCPCS: 72052

== ENCOUNTER → 2020-09-20 | Outpatient (CLI) | payer OTHER, SELFPAY ==
[2020-06-09 14:15] VITALS: BMI 40.2
== END | disposition home or self-care (01) ==
PROVIDERS: Referring Provider Family Medicine; Visit Provider Family Medicine
DX: R30.0 Dysuria (principal)
CPT/HCPCS: 87086; 87088

== ENCOUNTER → 2020-10-04 12:34 | Outpatient (CLI) | payer OTHER, SELFPAY ==
[2020-06-09 14:15] VITALS: BMI 40.2
--- NOTE | 2020-10-04 12:45 | CT_ITS ---
STUDY: CT ABDOMEN AND PELVIS WITH CONTRAST REASON FOR EXAM: Female, 50 years old. Rule out diverticulitis or appendicitis RADIATION DOSAGE (If Supplied By Facility): CTDIvol = ( 14.98 ) mGy, DLP = ( 984.69 ) mGycm TECHNIQUE: Transaxial images were obtained from the dome of the diaphragm to the symphysis pubis with oral contrast. Oral and amp; IV GASTROGRAFIN and amp; 100ML ISOVUE 300 was administered. Sagittal and coronal images were reconstructed. Individualized dose optimization techniques were used for this CT. COMPARISON: None. FINDINGS: The visualized lung bases are unremarkable. The visualized portions of the heart are within normal limits. There is decreased attenuation of the liver consistent with steatosis. Normal gallbladder and extrahepatic biliary system. Normal spleen. Normal pancreas. Normal bilateral adrenal glands. Normal right kidney. Normal left kidney. Normal visualized stomach. Normal small intestine. Normal colon. The appendix is visualized and appears normal. Small benign-appearing lymph nodes are seen in the mesenteric fat in the right lower quadrant is suggestive of mesenteric adenitis. Normal abdominal aorta. Normal inferior vena cava. There is borderline retroperitoneal lymphadenopathy with enlarged nodes no greater than 10mm in the short axis diameter. Normal urinary bladder. ESSURE device is seen in both fallopian tubes. Normal abdominal wall. Normal osseous structures. CT/Abdomen/Pelvis WITH Contrast IMPRESSION: Fatty infiltration of the liver. Small lymph nodes are seen within the mesenteric fat in the right lower quadrant suggestive of mesenteric adenitis. Electronically Signed: Niels Alanis MD at 15:38 EDT , Service support ,
[2020-10-04 13:36] LABS: Absolute Lymphocyte Count 1.55 X10^3/uL (0.83-4.51); Absolute Neutrophil Count 3.7 X10^3/uL (2.0-7.7); Basophil# 0.04 X10^3/uL; Basophil% 0.7 % (0-1); Eosinophil# 0.11 X10^3/uL; Eosinophils% 1.9 % (0-5); Hematocrit 42.9 % (37-47); Hemoglobin 13.4 g/dL (12.0-15.0); Lymphocyte # 1.55 X10^3/ul (0.83-4.51); Lymphocyte % 26.5 % (19-41); Mean Corp Hgb Conc 31.2 g/dL (32-36); Mean Corpuscular Hgb 27.3 pg (27.0-32.0); Mean Corpuscular Volume 87.6 fL (81-99); Mean Platelet Vol. 10.5 fl (6.2-12.0); Monocyte% 6.8 % (0-10); NRBC Flagged by Analyzer 0 % (0-5); Neutrophil # 3.71 X10^3/uL (2.7-7.7); Neutrophil % 63.6 % (47-70); Platelet Count 275 K/mm3 (150-450); RBC Distribution Width CV 15.8 % (11.6-14.6); RBC Distribution Width SD 50.7 fl (35.1-43.9); White Blood Count 5.8 K/mm3 (4.4-11.0)
== END ==
PROVIDERS: PCP Family Medicine; Referring Provider Family Medicine; Visit Provider Family Medicine
DX: R10.31 Right lower quadrant pain (principal)
CPT/HCPCS: 36415; 74177; 85025; Q9967

== ENCOUNTER → 2020-11-10 10:54 | Outpatient (CLI) | payer OTHER, SELFPAY ==
--- NOTE | 2020-11-10 11:05 | MRI_ITS ---
STUDY: MRI LUMBAR SPINE WITHOUT CONTRAST REASON FOR EXAM: Female, 50 years old. DISC DISPLACEMENT TECHNIQUE: Standardized fat and water weighted pulse sequences were obtained in the sagittal and axial planes. COMPARISON: 05/29/2016. FINDINGS: The lumbar spine visualized. No evidence of spondylolisthesis is seen. The lumbar vertebral bodies demonstrate unremarkable contours, no evidence of compression deformity is seen. Heterogeneous signal intensity visualized within the marrow of the lumbar vertebral bodies with no evidence of T2 prolongation is visualized to suggest fracture, edema or infiltrative process. Disc desiccation visualized in the L3-4, L4-5 and L5-S1 intervertebral disc spaces. The cord terminates at the level of the L1-2 intervertebral disc space, no abnormal signal intensity visualized within the terminal cord. Terminal nerve fibers demonstrate no evidence of thickening or clumping to suggest arachnoiditis. 1 cm low signal area within the T12 vertebral body with circumferential T2 prolongation is visualized but demonstrates no significant change in comparison to the prior study. T12-L1: No significant degenerative changes seen, no significant narrowing of the spinal canal or neural foramina seen. L1-2: No significant degenerative changes seen, no significant narrowing of the spinal canal or neural foramina seen. L2-3: Mild degenerative changes in the intervertebral disc and facet joints but no significant narrowing of the spinal canal or neural foramina seen at this level. L3-4: Degenerative changes in the intervertebral disc and facet joints but no significant narrowing of the spinal canal or neural foramina seen at this level. L4-5: Left paracentral disc bulge visualized, hypertrophic changes in the facet joints and ligamentum flavum, a 0.6 cm) is visualized along the medial aspect of the left facet joint, mild narrowing of the spinal canal, mild narrowing of the right neural foramina and moderate narrowing of the left neuroforamina seen at this level. L5-S1: Degenerative changes visualized with no significant narrowing of the spinal canal is visualized, moderate narrowing of bilateral neural foramina seen at this level. Normal visualized sacral ala. Normal visualized paraspinous soft tissue structures. MRI/Spine Lumbar (Routine) IMPRESSION: Degenerative changes of the lumbar spine visualized most prominent at L4-L5 seen that demonstrate progression in comparison to the prior study.. Electronically Signed: Mustapha Cervantes MD at 16:18 EDT Tel , Service support ,
== END ==
PROVIDERS: PCP Family Medicine
DX: M51.26 Other intervertebral disc displacement, lumbar region (principal)
CPT/HCPCS: 72148

== ENCOUNTER → 2020-12-06 09:37 | Outpatient (CLI) | payer OTHER, SELFPAY ==
[2020-12-06 12:40] LABS: Anion Gap 9 (5-15); BUN 19 mg/dL (7-18); BUN/Creat Ratio 19.2 RATIO (10-20); Calcium,Total 9.2 mg/dL (8.5-10.1); Chloride 102 mmol/L (98-107); Creatinine, Serum 0.99 mg/dL (0.55-1.02); EST Glomerular Filtration Rate 63 mL/min (>60); Est Glom Filt Rate - Afr Amer 76 mL/min (>60); Glucose 87 mg/dL (74-106); Potassium 4.2 mmol/L (3.5-5.1); Sodium Level 138 mmol/L (136-145)
== END ==
PROVIDERS: PCP Family Medicine; Visit Provider Family Medicine
DX: I10 Essential (primary) hypertension (principal)
CPT/HCPCS: 36415; 80048

== ENCOUNTER 2021-03-16 07:34 | Outpatient (CLI) | payer OTHER, SELFPAY ==
[2021-03-16 10:26] LABS: Vitamin D,25 Hydroxy 69.4 ng/mL
[2021-03-16 10:27] LABS: Anion Gap 8 (5-15); BUN 18 mg/dL (7-18); BUN/Creat Ratio 21.1 RATIO (10-20); Chloride 105 mmol/L (98-107); Cholesterol 238 mg/dL (200); Creatinine, Serum 0.85 mg/dL (0.55-1.02); EST Glomerular Filtration Rate 74 mL/min (>60); Est Glom Filt Rate - Afr Amer 90 mL/min (>60); Glucose 86 mg/dL (74-106); High Density Lipoprotein 60 mg/dL; Potassium 4.1 mmol/L (3.5-5.1); Sodium Level 140 mmol/L (136-145); Triglycerides 118 mg/dL; Very Low Density Lipoprotein 24 mg/dL (5-40)
== END 2021-03-16 23:59 | disposition short-term general hospital (02) ==
LOC: MTLAB 07:35
PROVIDERS: PCP Family Medicine; Referring Provider Family Medicine; Visit Provider Family Medicine
DX: I10 Essential (primary) hypertension (principal); M51.36 Other intervertebral disc degeneration, lumbar region
CPT/HCPCS: 36415; 80048; 80061; 82306

== ENCOUNTER 2021-05-04 08:36 | Outpatient (CLI) | payer OTHER, SELFPAY ==
--- NOTE | 2021-05-04 08:38 | BI_ITS ---
MAMMOGRAPHY - BILATERAL SCREENING REASON FOR EXAM: Female, 51 years old. Routine annual screening examination. PERTINENT HISTORY: Mother with breast cancer. Bilateral stereotactic breast biopsies. TECHNIQUE: Digital bilateral breast jose (3D mammographic acquisition) in the CC and MLO projections. 2-D mediolateral oblique (MLO) and craniocaudad (CC) views of both breasts were obtained. CAD: Full Field Digital Mammography with Computer Added Detection was performed. COMPARISON: Comparison is made with prior study dated 05/03/2020 and 04/30/2019. FINDINGS: Breast Composition: The breasts are heterogeneously dense, which may obscure small masses. There are no dominant masses or suspicious calcifications. Stable small benign appearing bilateral axillary lymph nodes. A tissue clip marker is once again seen in the upper lateral anterior aspect of the right breast. A tissue clip marker is seen within a small nodule in the upper lateral aspect of the left breast. No other significant abnormalities are identified. There has been no significant change since the prior study. BI/SCREENING MAMM (CAD), BILAT IMPRESSION: Stable bilateral screening mammogram. Yearly follow-up mammogram recommended. (A) ASSESSMENT CATEGORY: BIRADS Category 2: Benign. A letter regarding these results will be sent to the patient by the facility within 30 days. Approximately 10% of breast cancers are not detected by mammography. A normal mammogram should not delay biopsy of a clinically suspicious abnormality. [id number] Electronically Signed: Niels Alanis MD at 9:44 EST ,
== END 2021-05-04 23:59 | disposition home or self-care (01) ==
PROVIDERS: PCP Family Medicine; Visit Provider Family Medicine
DX: Z12.31 Encounter for screening mammogram for malignant neoplasm of breast (principal)
CPT/HCPCS: 77067

== ENCOUNTER → 2021-08-31 | Outpatient (CLI) | payer OTHER, SELFPAY | END | disposition home or self-care (01) | LOC: LABSPEC 10:15 | PROVIDERS: PCP Family Medicine; Visit Provider Family Medicine | DX: R30.0 Dysuria (principal) | CPT/HCPCS: 87086; 87088 ==

== ENCOUNTER → 2022-03-18 | Outpatient (CLI) | payer OTHER, SELFPAY ==
[2022-03-18 08:10] LABS: Anion Gap 4 (5-15); BUN 17 mg/dL (7-18); BUN/Creat Ratio 19.4 RATIO (10-20); Calcium,Total 8.7 mg/dL (8.5-10.1); Chloride 107 mmol/L (98-107); Cholesterol 251 mg/dL (200); Creatinine, Serum 0.88 mg/dL (0.55-1.02); EST Glomerular Filtration Rate 71 mL/min (>60); Est Glom Filt Rate - Afr Amer 86 mL/min (>60); Glucose 96 mg/dL (74-106); High Density Lipoprotein 66 mg/dL; Sodium Level 140 mmol/L (136-145); Thyroid Stim Hormone (TSH) 4.44 uIU/mL (0.358-3.74); Triglycerides 130 mg/dL; Very Low Density Lipoprotein 26 mg/dL (5-40)
[2022-03-20 08:06] LABS: Vitamin D,25 Hydroxy 65.4 ng/mL
[2022-03-20 08:41] LABS: T4 Free Direct 0.92 ng/dL (0.76-1.46)
== END | disposition home or self-care (01) ==
LOC: LAB 07:19
PROVIDERS: PCP Family Medicine; Visit Provider Family Medicine
DX: Z13.29 Encounter for screening for other suspected endocrine disorder (principal); I10 Essential (primary) hypertension; E78.5 Hyperlipidemia, unspecified; E55.9 Vitamin D deficiency, unspecified
CPT/HCPCS: 36415; 80048; 80061; 82306; 84439; 84443

== ENCOUNTER → 2022-05-05 | Outpatient (CLI) | payer OTHER, SELFPAY ==
--- NOTE | 2022-05-05 12:12 | BI_ITS ---
MAMMOGRAPHY - BILATERAL SCREENING REASON FOR EXAM: Female, 52 years old. Routine annual screening examination. PERTINENT HISTORY: Mother with breast cancer. Prior bilateral stereotactic breast biopsy. TECHNIQUE: Digital bilateral breast rajiv (3D mammographic acquisition) in the CC and MLO projections. 2-D mediolateral oblique (MLO) and craniocaudad (CC) views of both breasts were obtained. CAD: Full Field Digital Mammography with Computer Added Detection was performed. COMPARISON: Comparison is made with prior examination dated 05/04/2021 and 05/03/2020. FINDINGS: Breast Composition: The breasts are heterogeneously dense, which may obscure small masses. There are no dominant masses or suspicious calcifications. A tissue clip marker is seen in the anterior upper slightly lateral aspect of the left breast. A similar appearing tissue clip marker is seen along the anterior upper lateral aspect of the left breast. Stable small benign-appearing bilateral axillary lymph nodes. No other significant abnormalities are identified. There has been no significant change since the prior study. BI/SCRN MAMM (CAD)W/RAJIV BILAT IMPRESSION: Stable bilateral screening mammogram. Yearly follow-up mammogram recommended. (A) ASSESSMENT CATEGORY: BIRADS Category 2: Benign. A letter regarding these results will be sent to the patient by the facility within 30 days. Approximately 10% of breast cancers are not detected by mammography. A normal mammogram should not delay biopsy of a clinically suspicious abnormality. [id number] Electronically Signed: Niels Alanis MD at 13:17 EST ,
== END | disposition home or self-care (01) ==
LOC: OPBI 12:11
PROVIDERS: PCP Family Medicine; Visit Provider Family Medicine
DX: Z00.00 Encounter for general adult medical examination without abnormal findings (principal); Z12.31 Encounter for screening mammogram for malignant neoplasm of breast
CPT/HCPCS: 77063; 77067

== ENCOUNTER → 2022-07-03 | Outpatient (CLI) | payer OTHER, SELFPAY ==
[2022-07-03 10:22] LABS: Bacteria 0 SEEN /hpf (None Seen); Mucous, Urine 0 SEEN /hpf (<or=2+); Red Blood Cells-Urine 0 SEEN /hpf (0-5); Squamous Epithelial Cells - UA 0 SEEN /hpf (5-10); White Blood Cells 0 SEEN /hpf (0-5)
[2022-07-03 10:40] LABS: Glucose, Dipstick Normal (Normal); Ketone-Dipstick Negative (Negative); Leukocyte Esterase-Dipstick 25 /ul (Negative); Nitrite-Dipstick Positive (Negative); Occult Blood-Urine 25 /ul (Negative); Protein-Dipstick 15 mg/dl (Negative); Urine Clarity Sl. Cloudy (Clear); Urine Urobilinogen 1 mg/dl (Normal)
[2022-07-03 10:50] LABS: Color, Urine SEE COMMENT BELOW (Yellow); Urine Bilirubin Dipstick 1 mg/dL (Negative)
[2022-07-03 10:56] LABS: Amorphous Sediment 3+
== END | disposition home or self-care (01) ==
LOC: LABSPEC 10:02
PROVIDERS: PCP Family Medicine; Referring Provider Physician Assistant; Visit Provider Physician Assistant
DX: M54.9 Dorsalgia, unspecified (principal); R35.0 Frequency of micturition
CPT/HCPCS: 81001; 87086; 87088

== ENCOUNTER → 2022-07-05 | Outpatient (CLI) | payer OTHER, SELFPAY ==
--- NOTE | 2022-07-05 12:39 | CT_ITS ---
STUDY: CT ABDOMEN AND PELVIS WITH CONTRAST REASON FOR EXAM: Female, 52 years old. Appendicitis RADIATION DOSAGE (If Supplied By Facility): CTDIvol = ( 16.12 ) mGy, DLP = ( 1146.08 ) mGycm TECHNIQUE: Transaxial images were obtained from the dome of the diaphragm to the symphysis pubis without oral contrast. Oral and IV Gastrografin and 100mL Isovue-300 was administered. Sagittal and coronal images were reconstructed. Individualized dose optimization techniques were used for this CT. COMPARISON: None. FINDINGS: The visualized lung bases are unremarkable. The visualized portions of the heart are within normal limits. Normal liver. Normal gallbladder and extrahepatic biliary system. Normal spleen. Normal pancreas. Normal bilateral adrenal glands. Normal right kidney. Normal left kidney. Normal visualized stomach. Normal small intestine. Normal colon. The appendix is not visualized. Normal abdominal aorta. Normal inferior vena cava. Normal retroperitoneum. Normal urinary bladder. Normal abdominal wall. Normal osseous structures. CT/Abdomen/Pelvis WITH Contrast IMPRESSION: No CT evidence of appendicitis. Electronically Signed: Narinder Norman DO at 18:07 EDT Reading Location ID and State: [facility] / [place] Tel [phone], Service support ,
[2022-07-05 15:35] LABS: Bacteria 0 SEEN /hpf (None Seen); Mucous, Urine 0 SEEN /hpf (<or=2+); Red Blood Cells-Urine 0 SEEN /hpf (0-5); White Blood Cells 0 SEEN /hpf (0-5)
[2022-07-05 15:42] LABS: Color, Urine Yellow (Yellow); Glucose, Dipstick Normal (Normal); Ketone-Dipstick Negative (Negative); Leukocyte Esterase-Dipstick Negative /ul (Negative); Nitrite-Dipstick Negative (Negative); Occult Blood-Urine 10 /ul (Negative); Protein-Dipstick Negative (Negative); Urine Bilirubin Dipstick Negative (Negative); Urine Clarity Clear (Clear); Urine Urobilinogen Normal (Normal); Urine pH 6.5 (5.0 - 8.0)
[2022-07-05 15:52] LABS: Squamous Epithelial Cells - UA 0-5 SEEN /hpf (5-10)
== END | disposition home or self-care (01) ==
PROVIDERS: PCP Family Medicine; Visit Provider Nurse Practitioner Family
DX: R10.31 Right lower quadrant pain (principal); M54.50 Low back pain, unspecified
CPT/HCPCS: 74177; 81001; Q9967

== ENCOUNTER → 2022-07-05 | Outpatient (CLI) | payer OTHER, SELFPAY ==
[2022-07-05 12:41] LABS: Hematocrit 44.6 % (37-47); Hemoglobin 13.8 g/dL (12.0-15.0); Mean Corp Hgb Conc 30.9 g/dL (32-36); Mean Corpuscular Hgb 27.7 pg (27.0-32.0); Mean Corpuscular Volume 89.4 fL (81-99); Mean Platelet Vol. 10.9 fl (6.2-12.0); Platelet Count 262 K/mm3 (150-450); RBC Distribution Width CV 15.7 % (11.6-14.6); RBC Distribution Width SD 51.3 fl (35.1-43.9); Red Blood Count 4.99 M/mm3 (4.2-5.4); White Blood Count 6.2 K/mm3 (4.4-11.0)
[2022-07-05 13:26] LABS: ALB/GLOB Ratio 1.1 RATIO (0.9-2.4); AST(SGOT) 14 U/L (15-37); Alanine Aminotransfer ALT/SGPT 33 U/L (13-56); Albumin, Serum 3.9 g/dL (3.2-5.0); Alkaline Phosphatase 80 U/L (45-117); Anion Gap 3 (5-15); BUN 23 mg/dL (7-18); BUN/Creat Ratio 26.7 RATIO (10-20); Calcium,Total 9.6 mg/dL (8.5-10.1); Chloride 103 mmol/L (98-107); Creatinine, Serum 0.86 mg/dL (0.55-1.02); EST Glomerular Filtration Rate 73 mL/min (>60); Est Glom Filt Rate - Afr Amer 88 mL/min (>60); Globulin 3.4 g/dL (2.2-4.2); Glucose 82 mg/dL (74-106); Protein, Total 7.3 g/dL (6.4-8.2); Sodium Level 133 mmol/L (136-145)
== END | disposition home or self-care (01) ==
PROVIDERS: PCP Family Medicine; Visit Provider Nurse Practitioner Family
DX: M54.50 Low back pain, unspecified (principal); R10.31 Right lower quadrant pain
CPT/HCPCS: 36415; 80053; 85027

== ENCOUNTER → 2022-09-02 | Outpatient (CLI) | payer OTHER, SELFPAY ==
[2022-09-02 08:30] LABS: Cholesterol 239 mg/dL (200); High Density Lipoprotein 62 mg/dL; T4 Free Direct 0.89 ng/dL (0.76-1.46); Thyroid Stim Hormone (TSH) 3.17 uIU/mL (0.358-3.74); Triglycerides 100 mg/dL; Very Low Density Lipoprotein 20 mg/dL (5-40)
== END | disposition home or self-care (01) ==
LOC: LAB 07:01
PROVIDERS: PCP Family Medicine; Referring Provider Family Medicine; Visit Provider Family Medicine
DX: I10 Essential (primary) hypertension (principal); R79.89 Other specified abnormal findings of blood chemistry; Z13.29 Encounter for screening for other suspected endocrine disorder
CPT/HCPCS: 36415; 80061; 84439; 84443

== ENCOUNTER → 2023-02-21 | Outpatient (CLI) | payer OTHER, SELFPAY ==
[2023-02-21 07:31] LABS: Bacteria 0 SEEN /hpf (None Seen); Mucous, Urine 0 SEEN /hpf (<or=2+); Red Blood Cells-Urine 0 SEEN /hpf (0-5)
[2023-02-21 10:38] LABS: Color, Urine Yellow (Yellow); Glucose, Dipstick Normal (Normal); Ketone-Dipstick Negative (Negative); Leukocyte Esterase-Dipstick 25 /ul (Negative); Nitrite-Dipstick Negative (Negative); Occult Blood-Urine 25 /ul (Negative); Protein-Dipstick Negative (Negative); Urine Bilirubin Dipstick Negative (Negative); Urine Clarity Sl. Cloudy (Clear); Urine Urobilinogen Normal (Normal)
[2023-02-21 11:09] LABS: Squamous Epithelial Cells - UA 0-5 SEEN /hpf (5-10); White Blood Cells 0-5 SEEN /hpf (0-5)
[2023-02-21 11:58] LABS: Cholesterol 220 mg/dL (200); High Density Lipoprotein 62 mg/dL; Triglycerides 118 mg/dL; Very Low Density Lipoprotein 24 mg/dL (5-40)
== END | disposition home or self-care (01) ==
LOC: MTLAB 07:29
PROVIDERS: PCP Family Medicine; Referring Provider Family Medicine; Visit Provider Family Medicine
DX: Z00.00 Encounter for general adult medical examination without abnormal findings (principal)
CPT/HCPCS: 36415; 80061; 81001; 83036

== ENCOUNTER → 2023-04-09 | Outpatient (CLI) | payer OTHER, SELFPAY ==
--- OUTSIDE RECORDS SUMMARY | 2023-04-09 12:44 | XMS RPT_ITS | CCD ---
Author Name Unknown Address [address] [place] [address] Organization [facility] Care Team Providers Care International Controller Name Role Phone Sonia Bryan LPN Unavailable [phone] Carlos Triplett Unavailable [phone] Preeti Hazel LPN Unavailable Unavailab JENNA Navas DPM Unavailable Unavailable JENNA BANERJEE DPM Unavailable Unavailable JENNA BANERJEE DPM Unavailable Unavailable Royer Interiano MD Primary Care Provider Royer Interiano MD Primary Care Provider Royer Interiano MD Primary Care Provider Royer Interiano MD Primary Care Provider Royer Interiano MD Primary Care Provider JANET ESPARZA Attending Unavailable ROYER INTERIANO Primary Care Unavailabl e BOBBY, LAVERN P Attending Unavailable BOBBY, LAVERN P Referring Unavailable ROYER INTERIANO Primary Care Unavailabl e BOBBY, LAVERN P Attending Unavailable BOBBY, LAVERN P Referring Unavailable ROYER INTERIANO Primary Care Unavailabl e BOBBY, LAVERN P Referring Unavailable ROYER INTERIANO Primary Care Unavailabl e BOBBY, LAVERN P Referring Unavailable ROYER INTERIANO Primary Care Unavailabl e BOBBY, LAVERN P Attending Unavailable ROYER INTERIANO Primary Care Unavailabl e BOBBY, LAVERN P Attending Unavailable BOBBY, LAVERN P Referring Unavailable ROYER INTERIANO Primary Care Unavailabl e BOBBY, LAVERN P Attending Unavailable BOBBY, LAVERN P Referring Unavailable RANNEY, CHRISTOPHER B Primary Care Unavailabl e BOBBY, LAVERN P Attending Unavailable ROYER INTERIANO Primary Care Unavailabl e POLO, TOBY K Attending Unavailable JARRETTABERDEENROYER Primary Care Unavailabl e POLO, TOBY K Attending Unavailable POLO, TOBY K Referring Unavailable BANNER, JORGEER Catherine Primary Care Unavailabl e POLO, TOBY K Attending Unavailable JARRETTABERDEEN, JORGEER Catherine Primary Care Unavailabl e BOBBY, LAVERN P Attending Unavailable BOBBY, LAVERN P Referring Unavailable BANNERJORGEER B Primary Care Unavailabl e BOBBY, LAVERN P Attending Unavailable BOBBY, LAVERN P Referring Unavailable BANNERJORGEER Catherine Primary Care Unavailabl e BOBBY, LAVERN P Referring Unavailable BANNERROYER Primary Care Unavailabl e Allergies Allergy Classification Reported Allergen(s) Allergy Type Date of Onset Reaction(s) Facility (3 sources) penicillin v drug allergy 11-21-19 [facility] Work Phone: (3 sources) sulfamethoxazole / trimethoprim drug allergy 11-21-19 [facility] Work Phone: (1 source) penicillin Drug Allergy [facility] Repository (20 sources) Citalopram; Translations: [CITALOPRAM] Drug Allergy 03-27-19 19 Rash [facility] (20 sources) Desvenlafaxine; Translations: [DESVENLAFAXINE SUCCINATE] Drug Allergy 03-27-19 19 Diarrhea [facility] (20 sources) DULoxetine; Translations: [DULOXETINE] Drug Allergy 03-27-19 Other: See Comments [facility] (20 sources) Penicillins; Translations: [PENICILLINS] Propensity to adverse reactions 09-20-19 07 Vomiting [facility] Work Phone: (20 sources) Sertraline; Translations: [SERTRALINE] Drug Allergy 03-27-19 19 Diarrhea [facility] (20 sources) Sulfonamides (Antibiotic); Translations: [SULFA (SULFONAMIDE ANTIBIOTICS)] Drug Allergy 03-27-19 Itching [facility] (20 sources) vortioxetine; Translations: [VORTIOXETINE] Drug Allergy 03-27-19 19 Other: See Comments [facility] (20 sources) Homeopathic Products; Translations: [HOMEOPATHIC PRODUCTS] Propensity to adverse reactions 09-20-19 07 [facility] Work Phone: (19 sources) Lisinopril; Translations: [LISINOPRIL] Drug Allergy 06-10-19 21 Cough [facility] (19 sources) Cat Dander; Translations: [CAT DANDER] Drug Allergy 10-26-19 22 Other: See Comments [facility] (16 sources) Amoxicillin / Clavulanate; Translations: [AMOXICILLIN-POT CLAVULANATE] Drug Allergy 11-30-19 22 Intolerance [facility] Medications Current Medications Medication Drug Class(es) Dates Sig (Normalized) Sig (Original) benoxinate hydrochloride 4 mg/ml / fluorescein sodium 2.5 mg/ml ophthalmic solution (13 sources) Diagnostic Dye Start: 01-23-2023 End: 01-23-2023 fluorescein-benoxi janine 0.25-0.4 % 1 Drop (FLURESS) Completed/Discontinued Medications Medication Drug Class(es) Dates Sig (Normalized) Sig (Original) amLODIPine 5 mg oral tablet (18 sources) Dihydropyridine Calcium Channel Vinicio Start: 09-17-2021 take 1 tablet by mouth once daily amLODIPine (NORVASC) 5 mg tablet Take 5 mg by mouth once daily. 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] Onset: 02-28-2022 Chronic Other eye disorders (10 sources) Posterior vitreous detachment of left eye; Translations: [Vitreous degeneration, left eye] Onset: 10-11-2021 Chronic Other eye disorders (20 sources) Hemorrhage of left vitreous body; Translations: [Vitreous hemorrhage, left eye] Onset: 10-11-2021 Chronic Other eye disorders (20 sources) Bilateral posterior vitreous detachment; Translations: [Vitreous degeneration, bilateral] Onset: 10-11-2021 Chronic Other eye disorders (7 sources) Vitreomacular adhesion of left eye; Translations: [Vitreomacular adhesion, left eye] Chronic Other eye disorders (1 source) Vitreous hemorrhage, left eye; Translations: [Vitreous hemorrhage of left eye (HCC)] Onset: 10-11-2021 Chronic Other eye disorders (1 source) Vitreous degeneration, bilateral; Translations: [Posterior vitreous detachment of both eyes] Onset: 02-28-2022 Chronic Other nutritional; endocrine; and metabolic disorders (20 sources) Body mass index 40+ - severely obese; Translations: [Morbid (severe) obesity due to excess calories] Onset: 04-16-2018 04-16-2018 Chronic Past or Other Problems Problem Classification Problem Date Documented Da te Episodic/Chronic Other upper respiratory infections (12 sources) Acute laryngitis; Translations: [Upper respiratory infection] Onset: 11-20-2016 11-20-2016 Episodic Retinal detachments; defects; vascular occlusion; and retinopathy (20 sources) Retinal U tear; Translations: [Horseshoe tear of retina without detachment, left eye] Onset: 10-11-2021 Episodic Results Test Name Value Interpretation Reference Range Facil ity Vital Signs Date Time Vital Sign Value Performing Clinician Faci lity 11-20-2016 09:00-0400 BMI (Body Mass Index) 37.89 kg/m2 Preeti Hazel [facility] Work Phone: 11-20-2016 09:00-0400 Body Temperature 98.6 [degF] Preeti Hazel LPN [facility] Work Phone: 11-20-2016 09:00-0400 BP Diastolic 78 mm[Hg] Preeti Hazel LPN [facility] Work Phone: 11-20-2016 09:00-0400 BP Systolic 120 mm[Hg] Preeti Hazel LPN [facility] Work Phone: 11-20-2016 09:00-0400 Height 157.48 cm Preeti Hazel LPN [facility] Work Phone: 11-20-2016 09:00-0400 Pulse (Heart Rate) 95 /min [facility] Work Phone: 11-20-2016 09:00-0400 Respiratory Rate 14 /min Preeti Hazel [facility] Work Phone: 11-20-2016 09:00-0400 Weight 93.99 kg Preeti Hazel LPN [facility] Work Phone: Encounters Encounter Date Encounter Type Care Provider Facility Start: 01-23-2023 End: 01-23-2023 ambulatory LAVERN MALIN Facility:[facility] Start: 01-23-2023 End: 01-23-2023 Patient encounter procedure Lavern Malin MD Work Phone: Ophthalmology Procedures Date Procedure Procedure Detail Performing Clinician Start: 01-23-2023 Computerized ophthal jeff imaging retina Lavern Malin MD Work Phone: Start: 10-24-2022 End: 10-24-2022 Computerized ophthalmic imaging retina Janet Esparza PA-C Work Phone: Start: 07-18-2022 End: 07-18-2022 Computerized ophthalmic imaging retina Lavern Malin MD Work Phone: Start: 05-23-2022 End: 05-23-2022 Computerized ophthalmic imaging retina Lavern Malin MD Work Phone: Start: 04-25-2022 Ophthalmic ultrasoun d dx b-scan w/wo a-scan Lavern Malin MD Work Phone: Start: 04-25-2022 Computerized ophthal jeff imaging retina Lavern Malin MD Work Phone: Start: 04-11-2022 Ophthalmic ultrasoun d dx b-scan w/wo a-scan Lavern Malin MD Work Phone: Start: 04-11-2022 Computerized ophthal jeff imaging retina Lavern Malin MD Work Phone: Start: 04-04-2022 Ophthalmic ultrasoun d dx b-scan w/wo a-scan Lavern Malin MD Work Phone: Start: 04-04-2022 Fundus photography w/interpretation & report Lavern Malin MD Work Phone: Start: 03-30-2022 End: 03-30-2022 Computerized ophthalmic imaging retina Lavern Malin MD Work Phone: Start: 03-29-2022 Ophthalmic ultrasoun d dx b-scan w/wo a-scan Toby Polo MD Work Phone: Start: 03-29-2022 Computerized ophthal jeff imaging retina Toby Polo MD Work Phone: Start: 02-28-2022 Computerized ophthal jeff imaging retina Lavern Malin MD Work Phone: Start: 11-29-2021 End: 11-29-2021 Computerized ophthalmic imaging retina Janet Esparza PA-C Work Phone: Start: 11-09-2021 End: 11-09-2021 Computerized ophthalmic imaging retina Janet Esparza PA-C Work Phone: Start: 10-25-2021 Proph rta dtchmnt w/ o drg 1/> sess Lavern Malin MD Work Phone: Start: 10-25-2021 End: 10-25-2021 Computerized ophthalmic imaging retina Lavern Malin MD Work Phone: Start: 10-11-2021 Proph rta dtchmnt w/ o drg 1/> sess Lavern Malin MD Work Phone: Start: 10-11-2021 End: 10-11-2021 Computerized ophthalmic imaging retina Lavern Malin MD Work Phone: Start: 04-16-[address] MD Work Phone: Start: 11-20-2016 End: 11-20-2016 Rapid strep test Carlos MARINO Work Phone: Plan of Treatment Date Care Activity Detail Author Start: 03-04-2028 Urine microalbumin profile DTaP,Tdap,Td Vaccine (2 - Td or Tdap) [facility] Start: 02-07-2024 End: 07-16-2024 OCT MACULA CIRRUS OU (BOTH EYES) OCT MACULA CIRRUS OU (BOTH EYES) [facility] Imaging Routine Vitreous hemorrhage of left eye (HCC) Horseshoe retinal tear of left eye Posterior vitreous detachment of both eyes 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 Expected: 02/07/2024, Expires: 07/16/2024 [facility] Work Phone: Payers Date Payer Category Payer Private Health Insurance [employer] A ETNA CHOICE POS II [id number] 2021-Present [phone] [address] [place] [address] POS [id number] 2021 Private Health Insurance [id number] 2021 Private Health Insurance [id number] Unknown [id number] Social History Date Type Detail Facility Start: 10-25-2021 Tobacco smoking stat [facility] Never smoked tobacco [facility] Start: 10-11-2021 End: 01-23-2023 Alcohol intake Current drinker of alcohol (finding) [facility] Start: 1970 Sex Assigned At Not on file [facility] Start: 10-01-2021 End: 11-29-2021 Exposure to SARS-CoV-2 (event) Not sure [facility] Start: 10-25-2021 Tobacco use and exposure Smoke less tobacco non-user [facility] Start: 07-18-2022 End: 01-23-2023 History of Social function [facility] Start: 07-18-2022 End: 01-23-2023 Tobacco use panel [facility] National Score (1-10 0), lower number is lower risk 52 [facility] Clinical Notes 10-11-2021 to 01-23-2023 Adelina Whitfield - 01/23/2023 8:00 AM Janet Dougherty PA-C - 10/24/2022 10:45 AM Yaya Malin MD - 07/18/2022 8:23 AM EDTJupravin Malin MD - 05/23/2022 8:31 AM EDTPatient Instructions Note Date & Type Note Facility 01-23-2023 Note HNO ID: [id number] Author: Adelina Whitfield Service: ? Author Type: ? Type: Progress Notes Filed: 01/23/2023 8:27 AM Note Text: The documentation for the note below was completed in part by Adelina Whitfield acting as a scribe for Lavern Malin MD. 01/23/2023 8:27 AM. Scribe Attestation: By signing my name below, IAdelina, attest that the documentation in part for the note below and the encounter was completed in part by Adelina Whitfield acting as a scribe for Lavern Malin MD. Electronically Signed: Leeroy Crandall. January 23, 2023 8:27 AM. All problems with bold in text below addressed at this visit with patient 1. 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 Vitreous hemorrhage of left eye - Dense vitreous hemorrhage in left eye started 03/29/22 - B scan 05/22 with vitreous opacities at 6, 430 with mild traction, no RD, macula flat - Continue to observe non surgically, can consider PPV in future if worsening or highly symptomatic - VA remains excellent today - VH cleared on exam - Exam stable. Retinal tears well surrounded as above. Pigmented tuft inferotemporal and superonasal - Continue to monitor - Emphasized return to office precautions and patient will call with any changes in vision -F/U 4 months with NED Schwab; 8 months with me 3. Chronic PVD OD with vitreoretinal tuft - Emphasized return to office precautions and patient will call with any changes in vision - Remains stable on exam, continue to monitor 4. Not visually significant cataract OU (both eyes) - Stable, monitor 5. Ocular irritation OU (both eyes) - Tears PRN 6. Refractive error - Recently refracted by outside beader tender - Happy with prescription I, Lavern Malin MD, personally performed the services described in this documentation. All medical record entries made by the scribe were at my direction and in my presence. I have reviewed the chart and discharge instructions (if applicable) and agree that the record reflects my personal performance and is accurate and complete. I have confirmed and edited as necessary the relevant ophthalmic history, ROS, and the neuro exam findings as obtained by others. I have seen and examined Lexy Coy. I have discussed the case and the management of this patient's care with the Resident/Fellow, if applicable. I also have reviewed and agree with the assessment and plan as stated above and agree with all of its relevant components. Electronically Signed: Lavern Malin MD, January 23, 2023 8:19 AM [facility] 01-23-2023 History of Presen t illness Narrative The documentation for the note below was completed in part by Adelina Whitfield acting as a scribe for Lavern Malin MD. 01/23/2023 8:27 AM. Scribe Attestation: By signing my name below, I, Adelina Whitfield, attest that the documentation in part for the note below and the encounter was completed in part by Adelina Whitfield acting as a scribe for Lavern Malin MD. Electronically Signed: Leeroy Crandall. January 23, 2023 8:27 AM. All problems with bold in text below addressed at this visit with patient 1. 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 Vitreous hemorrhage of left eye - Dense vitreous hemorrhage in left eye started 03/29/22 - B scan 05/22 with vitreous opacities at 6, 430 with mild traction, no RD, macula flat - Continue to observe non surgically, can consider PPV in future if worsening or highly symptomatic - VA remains excellent today - VH cleared on exam - Exam stable. Retinal tears well surrounded as above. Pigmented tuft inferotemporal and superonasal - Continue to monitor - Emphasized return to office precautions and patient will call with any changes in vision -F/U 4 months with NED Schwab; 8 months with 3. Chronic PVD OD with vitreoretinal tuft - Emphasized return to office precautions and patient will call with any changes in vision - Remains stable on exam, continue to monitor 4. Not visually significant cataract OU (both eyes) - Stable, monitor 5. Ocular irritation OU (both eyes) - Tears PRN 6. Refractive error - Recently refracted by outside beader tender - Happy with prescription I, Lavern Malin MD, personally performed the services described in this documentation. All medical record entries made by the scribe were at my direction and in my presence. I have reviewed the chart and discharge instructions (if applicable) and agree that the record reflects my personal performance and is accurate and complete. I have confirmed and edited as necessary the relevant ophthalmic history, ROS, and the neuro exam findings as obtained by others. I have seen and examined Lexy Coy. I have discussed the case and the management of this patient's care with the Resident/Fellow, if applicable. I also have reviewed and agree with the assessment and plan as stated above and agree with all of its relevant components. Electronically Signed: Lavern Malin MD, January 23, 2023 8:19 AM documented in this encounter [facility] 10-24-2022 Note HNO ID: [id number] Author: Janet Esparza PA-C Service: ? Author Type: Physician Clinical Pharmacy Technician Type: Progress Notes Filed: 10/24/2022 11:05 AM Note Text: All problems with bold in text below addressed at this visit with patient 1. 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 Vitreous hemorrhage of left eye - Dense vitreous hemorrhage in left eye started 03/29/22 - B scan 05/22 with vitreous opacities at 6, 430 with mild traction, no RD, macula flat - Continue to observe non surgically, can consider PPV in future if worsening or highly symptomatic - VA excellent today - Emphasized return to office precautions and patient will call with any changes in vision - Remains stable on exam, continue to monitor - Follow up with Dr. Malin in 3 months 3. Chronic PVD OD with vitreoretinal tuft - Emphasized return to office precautions and patient will call with any changes in vision - Remains stable on exam, continue to monitor 4. Not visually significant cataract OU (both eyes) - Stable, monitor 5. Ocular irritation OU (both eyes) - Tears PRN 6. Refractive error - Recently refracted by outside beader tender I have seen and examined this patient. I have confirmed and edited as necessary the relevant ophthalmic history, medications, ROS, and the neuro and ophthalmic exam findings as obtained by others and myself. I have discussed the case and the management of this patient's care with the attending Physician, if applicable. I also have reviewed and agree with the assessment and plan as stated above and agree with all of its relevant components. I have discussed the treatment alternatives with the patient and the patient's family, if applicable. Follow-up as noted below, or sooner if new symptoms develop. [facility] 10-24-2022 History of Presen t illness Narrative All problems with bold in text below addressed at this visit with patient 1. 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 Vitreous hemorrhage of left eye - Dense vitreous hemorrhage in left eye started 03/29/22 - B scan 05/22 with vitreous opacities at 6, 430 with mild traction, no RD, macula flat - Continue to observe non surgically, can consider PPV in future if worsening or highly symptomatic - VA excellent today - Emphasized return to office precautions and patient will call with any changes in vision - Remains stable on exam, continue to monitor - Follow up with Dr. Malin in 3 months 3. Chronic PVD OD with vitreoretinal tuft - Emphasized return to office precautions and patient will call with any changes in vision - Remains stable on exam, continue to monitor 4. Not visually significant cataract OU (both eyes) - Stable, monitor 5. Ocular irritation OU (both eyes) - Tears PRN 6. Refractive error - Recently refracted by outside beader tender I have seen and examined this patient. I have confirmed and edited as necessary the relevant ophthalmic history, medications, ROS, and the neuro and ophthalmic exam findings as obtained by others and myself. I have discussed the case and the management of this patient's care with the attending Physician, if applicable. I also have reviewed and agree with the assessment and plan as stated above and agree with all of its relevant components. I have discussed the treatment alternatives with the patient and the patient's family, if applicable. Follow-up as noted below, or sooner if new symptoms develop. documented in this encounter [facility] 07-18-2022 Note HNO ID: [id number] Author: Lavern Malin MD Service: ? Author Type: Physician Type: Progress Notes Filed: 07/18/2022 8:58 AM Note Text: The documentation for the note below was completed in part by Wayne Mathew acting as a scribe for Lavern Malin MD. 07/18/2022 8:46 AM. Scribe Attestation: By signing my name below, I, Wayne Mathew, attest that the documentation in part for the note below and the encounter was completed in part by Wayne Mathew acting as a scribe for Lavern Malin MD. Electronically Signed: Leeroy Balderas. July 18, 2022 8:46 AM. All problems with bold in text below addressed at this visit with patient Last seen 05/23/22. 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 Vision is pretty good No new flashes or floaters OU 1. 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 Vitreous hemorrhage of left eye - Dense vitreous hemorrhage in left eye started 03/29/22 - B scan 05/22 with vitreous opacities at 6, 430 with mild traction, no RD, macula flat - Continue to observe non surgically, can consider PPV in future if worsening or highly symptomatic - VA 20/20 OU - Exam stable without new tears - RWS reviewed - F/U NED Schwab in 3 months; me in 6 months 3. Chronic PVD OD with vitreoretinal tuft - Onset of new floater OD initially, still there in November - Remains stable 4. Not visually significant cataract OU (both eyes) - Follow 5. Ocular irritation OU (both eyes) -PRN artifical tears QID (4 x a day) - can also consider ketotifen - symptoms are primarily itching 6. Refractive error - patient would like new mrx - already dilated today - refer to optometry- will go somewhere locally I, Lavern Malin MD, personally performed the services described in this documentation. All medical record entries made by the scribe were at my direction and in my presence. I have reviewed the chart and discharge instructions (if applicable) and agree that the record reflects my personal performance and is accurate and complete. I have confirmed and edited as necessary the relevant ophthalmic history, ROS, and the neuro exam findings as obtained by others. I have seen and examined Lexy Coy. I have discussed the case and the management of this patient's care with the Resident/Fellow, if applicable. I also have reviewed and agree with the assessment and plan as stated above and agree with all of its relevant components. Electronically Signed: Lavern Malin MD, July 18, 2022 8:54 AM [facility] 07-18-2022 History of Presen t illness Narrative The documentation for the note below was completed in part by Wayne Mathew acting as a scribe for Lavern Malin MD. 07/18/2022 8:46 AM. Scribe Attestation: By signing my name below, I, Wayne Mathew, attest that the documentation in part for the note below and the encounter was completed in part by Wayne Mathew acting as a scribe for Lavern Malin MD. Electronically Signed: Leeroy Balderas. July 18, 2022 8:46 AM. All problems with bold in text below addressed at this visit with patient Last seen 05/23/22. 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 Vision is pretty good No new flashes or floaters OU 1. 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 Vitreous hemorrhage of left eye - Dense vitreous hemorrhage in left eye started 03/29/22 - B scan 05/22 with vitreous opacities at 6, 430 with mild traction, no RD, macula flat - Continue to observe non surgically, can consider PPV in future if worsening or highly symptomatic - VA 20/20 OU - Exam stable without new tears - RWS reviewed - F/U [facility] in 3 months; me in 6 months 3. Chronic PVD OD with vitreoretinal tuft - Onset of new floater OD initially, still there in November - Remains stable 4. Not visually significant cataract OU (both eyes) - Follow 5. Ocular irritation OU (both eyes) -PRN artifical tears QID (4 x a day) - can also consider ketotifen - symptoms are primarily itching 6. Refractive error - patient would like new mrx - already dilated today - refer to optometry- will go somewhere locally I, Lavern Malin MD, personally performed the services described in this documentation. All medical record entries made by the scribe were at my direction and in my presence. I have reviewed the chart and discharge instructions (if applicable) and agree that the record reflects my personal performance and is accurate and complete. I have confirmed and edited as necessary the relevant ophthalmic history, ROS, and the neuro exam findings as obtained by others. I have seen and examined Lexy Coy. I have discussed the case and the management of this patient's care with the Resident/Fellow, if applicable. I also have reviewed and agree with the assessment and plan as stated above and agree with all of its relevant components. Electronically Signed: Lavern Malin MD, July 18, 2022 8:54 AM documented in this encounter [facility] 05-23-2022 Note HNO ID: [id number] Author: Lavern Malin MD Service: ? Author Type: Physician Type: Progress Notes Filed: 05/23/2022 9:11 AM Note Text: The documentation for the note below was completed in part by Lucy Garzon acting as a scribe for Lavern Malin MD. 05/23/2022 8:32 AM. Scribe Attestation: By signing my name below, I, Lucy Ninomore, attest that the documentation in part for the note below and the encounter was completed in part by Lucy Garzon acting as a scribe for Lavern Malin MD. Electronically Signed: Leeroy Lebron. May 23, 2022 8:32 AM. All problems with bold in text below addressed at this visit with patient Last seen 04/25/22. Persistence of floaters, vision subjectively blurrier. 1. 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 Vitreous hemorrhage of left eye - Dense vitreous hemorrhage in left eye started 03/29/22 - B scan today with vitreous opacities at 6, 430 with mild traction, no RD, macula flat - Continue to observe non surgically, can consider PPV in future if worsening or highly symptomatic - VA generally stable from last visit, 20/25 -2 today - Exam stable without new tears - RWS reviewed - Still fairly symptomatic. May consider PPV - Reassess in 6-8 weeks 3. Chronic PVD OD with vitreoretinal tuft - Onset of new floater OD initially, still there in November - Remains stable 4. Not visually significant cataract OU (both eyes) - Follow 5. Ocular irritation OU (both eyes) -PRN artifical tears QID (4 x a day) I, Lavern Malin MD, personally performed the services described in this documentation. All medical record entries made by the scribe were at my direction and in my presence. I have reviewed the chart and discharge instructions (if applicable) and agree that the record reflects my personal performance and is accurate and complete. I have confirmed and edited as necessary the relevant ophthalmic history, ROS, and the neuro exam findings as obtained by others. I have seen and examined Lexy Shanta Coy. I have discussed the case and the management of this patient's care with the Resident/Fellow, if applicable. I also have reviewed and agree with the assessment and plan as stated above and agree with all of its relevant components. Electronically Signed: Lavern Malin MD, May 23, 2022 8:57 AM [facility] 05-23-2022 History of Presen t illness Narrative The documentation for the note below was completed in part by Lucy Garzon acting as a scribe for Lavern Malin MD. 05/23/2022 8:32 AM. Scribe Attestation: By signing my name below, I, Lucy Garzon, attest that the documentation in part for the note below and the encounter was completed in part by Lucy Garzon acting as a scribe for Lavern Malin MD. Electronically Signed: Leeroy Lebron. May 23, 2022 8:32 AM. All problems with bold in text below addressed at this visit with patient Last seen 04/25/22. Persistence of floaters, vision subjectively blurrier. 1. 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 Vitreous hemorrhage of left eye - Dense vitreous hemorrhage in left eye started 03/29/22 - B scan today with vitreous opacities at 6, 430 with mild traction, no RD, macula flat - Continue to observe non surgically, can consider PPV in future if worsening or highly symptomatic - VA generally stable from last visit, 20/25 -2 today - Exam stable without new tears - RWS reviewed - Still fairly symptomatic. May consider PPV - Reassess in 6-8 weeks 3. Chronic PVD OD with vitreoretinal tuft - Onset of new floater OD initially, still there in November - Remains stable 4. Not visually significant cataract OU (both eyes) - Follow 5. Ocular irritation OU (both eyes) -PRN artifical tears QID (4 x a day) I, Lavern Malin MD, personally performed the services described in this documentation. All medical record entries made by the scribe were at my direction and in my presence. I have reviewed the chart and discharge instructions (if applicable) and agree that the record reflects my personal performance and is accurate and complete. I have confirmed and edited as necessary the relevant ophthalmic history, ROS, and the neuro exam findings as obtained by others. I have seen and examined Lexy Shanta Coy. I have discussed the case and the management of this patient's care with the Resident/Fellow, if applicable. I also have reviewed and agree with the assessment and plan as stated above and agree with all of its relevant components. Electronically Signed: Lavern Malin MD, May 23, 2022 8:57 AM documented in this encounter [facility] 04-25-2022 Note HNO ID: [id number] Author: Lavern Malin MD Service: ? Author Type: Physician Type: Progress Notes Filed: 04/25/2022 8:59 AM Note Text: All problems with bold in text below addressed at this visit with patient No flashing lights, vision somewhat improved left eye 1. 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 Vitreous hemorrhage of left eye - Dense vitreous hemorrhage in left eye started 03/29/22 - Vision significantly improved (20/20 today from 20/80 on 04/11/22) - B scan today with vitreous opacities at 6, 430 with mild traction, no RD, macula flat - Continue to observe non surgically, can consider PPV in future if worsening or highly symptomatic - Reassess in 4 weeks 3. Chronic PVD OD with vitreoretinal tuft - Onset of new floater OD initially, still there in November - Exam stable - RWS reviewed 4. Not visually significant cataract OU (both eyes) - Continue to observe 5. Ocular irritation OU (both eyes) -Continue with artifical tears QID (4 x a day) I have seen and examined Lexy Coy. I have confirmed and edited as necessary the relevant ophthalmic history, medications, ROS, and the neuro and ophthalmic exam findings as obtained by others and myself. I have discussed the case and the management of this patient's care with the Resident/Fellow, if applicable. I also have reviewed and agree with the assessment and plan as stated above and agree with all of its relevant components. I have discussed the treatment alternatives with the patient and the patient's family, if applicable. Follow-up as noted below, or sooner if new symptoms develop. [facility] 04-25-2022 History of Presen t illness Narrative \All problems with bold in text below addressed at this visit with patient No flashing lights, vision somewhat improved left eye 1. 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 Vitreous hemorrhage of left eye - Dense vitreous hemorrhage in left eye started 03/29/22 - Vision significantly improved (20/20 today from 20/80 on 04/11/22) - B scan today with vitreous opacities at 6, 430 with mild traction, no RD, macula flat - Continue to observe non surgically, can consider PPV in future if worsening or highly symptomatic - Reassess in 4 weeks 3. Chronic PVD OD with vitreoretinal tuft - Onset of new floater OD initially, still there in November - Exam stable - RWS reviewed 4. Not visually significant cataract OU (both eyes) - Continue to observe 5. Ocular irritation OU (both eyes) -Continue with artifical tears QID (4 x a day) I have seen and examined Lexy Coy. I have confirmed and edited as necessary the relevant ophthalmic history, medications, ROS, and the neuro and ophthalmic exam findings as obtained by others and myself. I have discussed the case and the management of this patient's care with the Resident/Fellow, if applicable. I also have reviewed and agree with the assessment and plan as stated above and agree with all of its relevant components. I have discussed the treatment alternatives with the patient and the patient's family, if applicable. Follow-up as noted below, or sooner if new symptoms develop. documented in this encounter [facility] 04-11-2022 Note HNO ID: [id number] Author: Lavern Malin MD Service: ? Author Type: Physician Type: Progress Notes Filed: 04/11/2022 9:18 AM Note Text: The documentation for the note below was completed in part by Wayne Mathew acting as a scribe for Lavern Malin MD. 04/11/2022 8:10 AM. Scribe Attestation: By signing my name below, I, Wayneed HendricksQuincy, attest that the documentation in part for the note below and the encounter was completed in part by Wayne Mathew acting as a scribe for Lavern Malin MD. Electronically Signed: Lu Balderasibe. April 11, 2022 8:10 AM. All problems with bold in text below addressed at this visit with patient No flashing lights, vision somewhat improved left eye 1. 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 Vitreous hemorrhage of left eye - Dense vitreous hemorrhage in left eye started 03/29/22 - No significant improvement in vision from last weeks visit, VA 20/80 - B scan today with vitreous opacities at 6, 430 with mild traction, no RD, macula flat - Continue to monitor for now non surgically, if worsening or no improvement can consider PPV in the future - Observe for now. Reassess in 2 weeks - If no improvement, plan scheduling PPV. 3. Chronic PVD OD with vitreoretinal tuft - Onset of new floater OD initially, still there in November - No new changes on exam - RWS reviewed 4. Not visually significant cataract OU (both eyes) - Continue to monitor 5. Ocular irritation OU (both eyes) -Continue with artifical tears QID (4 x a day) I, Lavern Malin MD, personally performed the services described in this documentation. All medical record entries made by the scribe were at my direction and in my presence. I have reviewed the chart and discharge instructions (if applicable) and agree that the record reflects my personal performance and is accurate and complete. I have confirmed and edited as necessary the relevant ophthalmic history, ROS, and the neuro exam findings as obtained by others. I have seen and examined Lexy Shanta Coy. I have discussed the case and the management of this patient's care with the Resident/Fellow, if applicable. I also have reviewed and agree with the assessment and plan as stated above and agree with all of its relevant components. Electronically Signed: Lavern Malin MD, April 11, 2022 9:18 AM [facility] 04-11-2022 History of Presen t illness Narrative The documentation for the note below was completed in part by Wayne Mathew acting as a scribe for Lavern Malin MD. 04/11/2022 8:10 AM. Scribe Attestation: By signing my name below, I, Wayne Mathew, attest that the documentation in part for the note below and the encounter was completed in part by Wayne Mathew acting as a scribe for Lavern Malin MD. Electronically Signed: Leeroy Balderas. April 11, 2022 8:10 AM. All problems with bold in text below addressed at this visit with patient No flashing lights, vision somewhat improved left eye 1. 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 Vitreous hemorrhage of left eye - Dense vitreous hemorrhage in left eye started 03/29/22 - No significant improvement in vision from last weeks visit, VA 20/80 - B scan today with vitreous opacities at 6, 430 with mild traction, no RD, macula flat - Continue to monitor for now non surgically, if worsening or no improvement can consider PPV in the future - Observe for now. Reassess in 2 weeks - If no improvement, plan scheduling PPV. 3. Chronic PVD OD with vitreoretinal tuft - Onset of new floater OD initially, still there in November - No new changes on exam - RWS reviewed 4. Not visually significant cataract OU (both eyes) - Continue to monitor 5. Ocular irritation OU (both eyes) -Continue with artifical tears QID (4 x a day) I, Lavern Malin MD, personally performed the services described in this documentation. All medical record entries made by the scribe were at my direction and in my presence. I have reviewed the chart and discharge instructions (if applicable) and agree that the record reflects my personal performance and is accurate and complete. I have confirmed and edited as necessary the relevant ophthalmic history, ROS, and the neuro exam findings as obtained by others. I have seen and examined Lexy Shanta Coy. I have discussed the case and the management of this patient's care with the Resident/Fellow, if applicable. I also have reviewed and agree with the assessment and plan as stated above and agree with all of its relevant components. Electronically Signed: Lavern Malin MD, April 11, 2022 9:18 AM documented in this encounter [facility] 04-04-2022 Note HNO ID: [id number] Author: Lavern Malin MD Service: ? Author Type: Physician Type: Progress Notes Filed: 04/04/2022 9:48 AM Note Text: The documentation for the note below was completed in part by Wayne Mathew acting as a scribe for Lavern Malin MD. 04/04/2022 9:25 AM. Scribe Attestation: By signing my name below, I, Wayne Mathew, attest that the documentation in part for the note below and the encounter was completed in part by Wayne Mathew acting as a scribe for Lavern Malin MD. Electronically Signed: Leeroy Balderas. April 04, 2022 9:25 AM. All problems with bold in text below addressed at this visit with patient No flashing lights, vision somewhat improved left eye 1. 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 Vitreous hemorrhage of left eye - Dense vitreous hemorrhage in left eye started 03/29/22 - No Retinal detachment on B-scan today - Recommend repeat formal B-scan next week - Sleep with HOB elevated - Call with any changes - RTC 04-11-22 3. Chronic PVD OD with vitreoretinal tuft - Onset of new floater OD initially, still there in November - Stable on exam - RWS reviewed 4. Not visually significant cataract OU (both eyes) - Observe for now 5. Ocular irritation OU (both eyes) - artifical tears QID (4 x a day) I, Lavern Malin MD, personally performed the services described in this documentation. All medical record entries made by the scribe were at my direction and in my presence. I have reviewed the chart and discharge instructions (if applicable) and agree that the record reflects my personal performance and is accurate and complete. I have confirmed and edited as necessary the relevant ophthalmic history, ROS, and the neuro exam findings as obtained by others. I have seen and examined Lexy Coy. I have discussed the case and the management of this patient's care with the Resident/Fellow, if applicable. I also have reviewed and agree with the assessment and plan as stated above and agree with all of its relevant components. Electronically Signed: Lavern Malin MD, April 04, 2022 9:44 AM [facility] 04-04-2022 History of Presen t illness Narrative The documentation for the note below was completed in part by Wayne Mathew acting as a scribe for Lavern Malin MD. 04/04/2022 9:25 AM. Scribe Attestation: By signing my name below, I, Wayne Mathew, attest that the documentation in part for the note below and the encounter was completed in part by Wayne Mathew acting as a scribe for Lavern Malin MD. Electronically Signed: Leeroy Balderas. April 04, 2022 9:25 AM. All problems with bold in text below addressed at this visit with patient No flashing lights, vision somewhat improved left eye 1. 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 Vitreous hemorrhage of left eye - Dense vitreous hemorrhage in left eye started 03/29/22 - No Retinal detachment on B-scan today - Recommend repeat formal B-scan next week - Sleep with HOB elevated - Call with any changes - RTC 04-11-22 3. Chronic PVD OD with vitreoretinal tuft - Onset of new floater OD initially, still there in November - Stable on exam - RWS reviewed 4. Not visually significant cataract OU (both eyes) - Observe for now 5. Ocular irritation OU (both eyes) - artifical tears QID (4 x a day) I, Lavern Malin MD, personally performed the services described in this documentation. All medical record entries made by the scribe were at my direction and in my presence. I have reviewed the chart and discharge instructions (if applicable) and agree that the record reflects my personal performance and is accurate and complete. I have confirmed and edited as necessary the relevant ophthalmic history, ROS, and the neuro exam findings as obtained by others. I have seen and examined Lexy Coy. I have discussed the case and the management of this patient's care with the Resident/Fellow, if applicable. I also have reviewed and agree with the assessment and plan as stated above and agree with all of its relevant components. Electronically Signed: Lavern Malin MD, April 04, 2022 9:44 AM documented in this encounter [facility] 03-30-2022 Note HNO ID: [id number] Author: Lavern Malin MD Service: ? Author Type: Physician Type: Progress Notes Filed: 03/30/2022 12:39 PM Note Text: All problems with bold in text below addressed at this visit with patient 1. 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 Vitreous hemorrhage of left eye - Dense vitreous hemorrhage in left eye started this morning at 11:30 AM - B-scan yesterday by Dr. Polo did not demonstrate RD - Recommend repeat formal B-scan next week -Sleep with HOB elevated - Call with any changes - RTC 04-04-22 3. Chronic PVD OD with vitreoretinal tuft - Onset of new floater OD initially, still there in November - Stable on exam - RWS reviewed 4. Not visually significant cataract OU (both eyes) - Observe for now 5. Ocular irritation OU (both eyes) - artifical tears QID (4 x a day) I have seen and examined Lexy Coy. I have confirmed and edited as necessary the relevant ophthalmic history, medications, ROS, and the neuro and ophthalmic exam findings as obtained by others and myself. I have discussed the case and the management of this patient's care with the Resident/Fellow, if applicable. I also have reviewed and agree with the assessment and plan as stated above and agree with all of its relevant components. I have discussed the treatment alternatives with the patient and the patient's family, if applicable. Follow-up as noted below, or sooner if new symptoms develop. [facility] 03-30-2022 History of Presen t illness Narrative All problems with bold in text below addressed at this visit with patient 1. 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 Vitreous hemorrhage of left eye - Dense vitreous hemorrhage in left eye started this morning at 11:30 AM - B-scan yesterday by Dr. Polo did not demonstrate RD - Recommend repeat formal B-scan next week -Sleep with HOB elevated - Call with any changes - RTC 04-04-22 3. Chronic PVD OD with vitreoretinal tuft - Onset of new floater OD initially, still there in November - Stable on exam - RWS reviewed 4. Not visually significant cataract OU (both eyes) - Observe for now 5. Ocular irritation OU (both eyes) - artifical tears QID (4 x a day) I have seen and examined Lexy Coy. I have confirmed and edited as necessary the relevant ophthalmic history, medications, ROS, and the neuro and ophthalmic exam findings as obtained by others and myself. I have discussed the case and the management of this patient's care with the Resident/Fellow, if applicable. I also have reviewed and agree with the assessment and plan as stated above and agree with all of its relevant components. I have discussed the treatment alternatives with the patient and the patient's family, if applicable. Follow-up as noted below, or sooner if new symptoms develop. documented in this encounter [facility] 03-30-2022 Miscellaneous Notes Images from the original note were not included. That's fine thank you MARCELO Alvarenga, CRNO, OSC Research Control Specialist, [facility] [place]-Guided [facility] and Advanced Imaging Research Clinical Pharmacy Technician to Lavern Malin MD [facility] [employer] [facility] [employer]hthalmic [facility] Vitreoretinal Service [facility] [phone] From: Elizabeth Anderson < > Sent: March 8:11:31 AM To: Lavern Malin < >; Андрей Garrido < >; Janet Esparza < >; Kori Gutierrez < >; eGmini Perez < > Subject: Lexy Coy [facility] [id number] FYDr. Ce Vasquez's office called to say they booked a former patient of yours in the open slot at 11 am She has a vitreous hemorrhage, they wanted to give you a heads up Toby Polo MD filed at 03/29/2022 2:54 PM Status: Signed ASSESSMENT/PLAN: 1. Vitreous hemorrhage of left eye (HCC) - ICD9: 379.23, ICD10: H43.12 - Dense vitreous hemorrhage in left eye started this morning at 11:30 AM - B-scan today shows retina appears intact - Consult Retina for further evaluation and treatment Lavern Malin MD filed at 02/28/2022 11:15 AM Status: Signed The documentation for the note below was completed in part by Lucy Garzon acting as a scribe for Lavern Malin MD. 02/28/2022 10:50 AM. Scribe Attestation: By signing my name below, I, Lucy Garzon, attest that the documentation in part for the note below and the encounter was completed in part by Lucy Garzon acting as a scribe for Lavern Malin MD. Electronically Signed: Leeroy Lebron. February 28, 2022 10:50 AM. Last seen 11/29/[address] Malin Pt reports vision in left eye stable New floater right eye for the past week, no photopsias All problems with bold in text below addressed at this visit with patient 1. 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 Chronic PVD OD with vitreoretinal tuft - Onset of new floater OD initially, still there in November - Denies any new flashes - Emphasized return to office precautions and patient will call with any changes in vision - Retinal detachment precautions - Follow up in 4 months with [facility] Schwab; 8 months with me 3. Not visually significant cataract OU (both eyes) -Observe 4. Ocular irritation OU (both eyes) -Use artifical tears QID (4 x a day) documented in this encounter [facility] 03-29-2022 Note HNO ID: [id number] Author: Toby Polo MD Service: ? Author Type: Physician Type: Progress Notes Filed: 03/29/2022 2:54 PM Note Text: ASSESSMENT/PLAN: 1. Vitreous hemorrhage of left eye (HCC) - ICD9: 379.23, ICD10: H43.12 - Dense vitreous hemorrhage in left eye started this morning at 11:30 AM - B-scan today shows retina appears intact - Consult Retina for further evaluation and treatment I have confirmed and edited as necessary the relevant ophthalmic history, review of systems, surgical history, and ophthalmological examination findings as obtained by the ophthalmic technical staff. I have seen and examined Lexy Coy. I have discussed the examination findings, diagnosis, and treatment options with Lexy Coy and/or her family. I have also reviewed and agree with the assessment and plan as stated above and agree with all its relevant components. I gave the patient the opportunity to ask questions about the findings, diagnosis, and treatment options. Toby Polo MD [facility] 03-29-2022 History of Presen t illness Narrative ASSESSMENT/PLAN: 1. Vitreous hemorrhage of left eye (HCC) - ICD9: 379.23, ICD10: H43.12 - Dense vitreous hemorrhage in left eye started this morning at 11:30 AM - B-scan today shows retina appears intact - Consult Retina for further evaluation and treatment I have confirmed and edited as necessary the relevant ophthalmic history, review of systems, surgical history, and ophthalmological examination findings as obtained by the ophthalmic technical staff. I have seen and examined Lexy Coy. I have discussed the examination findings, diagnosis, and treatment options with Lexy Coy and/or her family. I have also reviewed and agree with the assessment and plan as stated above and agree with all its relevant components. I gave the patient the opportunity to ask questions about the findings, diagnosis, and treatment options. Toby Polo MD documented in this encounter [facility] 03-03-2022 Note HNO ID: [id number] Author: Toby Polo MD Service: ? Author Type: Physician Type: Progress Notes Filed: 03/03/2022 10:52 AM Note Text: ASSESSMENT/PLAN: 1. Episcleritis of left eye - ICD9: 379.00, ICD10: H15.102 Current Ophthalmic Meds prednisoLONE acetate (PRED FORTE, ECONOPRED PLUS) 1 % ophthalmic suspension Use 1 Drop in the left eye four times daily. FOR 1 WEEK THEN STOP. Toby Polo MD I have confirmed and edited as necessary the relevant ophthalmic history, review of systems, surgical history, and ophthalmological examination findings as obtained by the ophthalmic technical staff. I have seen and examined Lexy Coy. I have discussed the examination findings, diagnosis, and treatment options with Lexy Coy and/or her family. I have also reviewed and agree with the assessment and plan as stated above and agree with all its relevant components. I gave the patient the opportunity to ask questions about the findings, diagnosis, and treatment options. [facility] 03-03-2022 Instructions Toby Polo MD - 03/03/2022 10:51 AM EST Current Ophthalmic Meds prednisoLONE acetate (PRED FORTE, ECONOPRED PLUS) 1 % ophthalmic suspension Use 1 Drop in the left eye four times daily. FOR 1 WEEK THEN STOP. If you have any questions please contact our office at [phone]. After office hours or on the weekend, please call Dr. Polo on his cell phone at [phone]. documented in this encounter [facility] 03-03-2022 History of Presen t illness Narrative ASSESSMENT/PLAN: 1. Episcleritis of left eye - ICD9: 379.00, ICD10: H15.102 Current Ophthalmic Meds prednisoLONE acetate (PRED FORTE, ECONOPRED PLUS) 1 % ophthalmic suspension Use 1 Drop in the left eye four times daily. FOR 1 WEEK THEN STOP. Toby Polo MD I have confirmed and edited as necessary the relevant ophthalmic history, review of systems, surgical history, and ophthalmological examination findings as obtained by the ophthalmic technical staff. I have seen and examined Lexy Womack Coy. I have discussed the examination findings, diagnosis, and treatment options with Lexy Womack Zbigniew and/or her family. I have also reviewed and agree with the assessment and plan as stated above and agree with all its relevant components. I gave the patient the opportunity to ask questions about the findings, diagnosis, and treatment options. documented in this encounter [facility] 03-01-2022 Note HNO ID: [id number] Author: Toby Polo MD Service: ? Author Type: Physician Type: Progress Notes Filed: 03/01/2022 5:04 PM Note Text: ASSESSMENT/PLAN: 1. Episcleritis of left eye - ICD9: 379.00, ICD10: H15.102 Current Ophthalmic Meds prednisoLONE acetate (PRED FORTE, ECONOPRED PLUS) 1 % ophthalmic suspension Use 1 Drop in the left eye four times daily. Toby Polo MD I have confirmed and edited as necessary the relevant ophthalmic history, review of systems, surgical history, and ophthalmological examination findings as obtained by the ophthalmic technical staff. I have seen and examined Lexy Womack Zbigniew. I have discussed the examination findings, diagnosis, and treatment options with Lexy Womack Zbigniew and/or her family. I have also reviewed and agree with the assessment and plan as stated above and agree with all its relevant components. I gave the patient the opportunity to ask questions about the findings, diagnosis, and treatment options. [facility] 03-01-2022 History of Presen t illness Narrative ASSESSMENT/PLAN: 1. Episcleritis of left eye - ICD9: 379.00, ICD10: H15.102 Current Ophthalmic Meds prednisoLONE acetate (PRED FORTE, ECONOPRED PLUS) 1 % ophthalmic suspension Use 1 Drop in the left eye four times daily. Toby Polo MD I have confirmed and edited as necessary the relevant ophthalmic history, review of systems, surgical history, and ophthalmological examination findings as obtained by the ophthalmic technical staff. I have seen and examined Lexy Coy. I have discussed the examination findings, diagnosis, and treatment options with Lexy Coy and/or her family. I have also reviewed and agree with the assessment and plan as stated above and agree with all its relevant components. I gave the patient the opportunity to ask questions about the findings, diagnosis, and treatment options. documented in this encounter [facility] 03-01-2022 Instructions Toby Polo MD - 03/01/2022 5:03 PM EST Current Ophthalmic Meds prednisoLONE acetate (PRED FORTE, ECONOPRED PLUS) 1 % ophthalmic suspension Use 1 Drop in the left eye four times daily. If you have any questions please contact our office at [phone]. After office hours or on the weekend, please call Dr. Polo on his cell phone at [phone]. documented in this encounter [facility] 03-01-2022 Miscellaneous Notes From: Zackary Ashton Sent: Tuesday, March 01, 2022 4:12 PM To: Elizabeth Anderson < >; Андрей Garrido < >; Lavern Malin < >; Gemini Perez < >; Janet Esparza < > Subject: Re: Lexy Coy Telephone Msg She sent me a photograph, and I spoke to her on the phone. She has conjunctivitis. She's going to follow up with her comprehensive eye provider. In the meantime, she is going to prevent contagion by practicing good hygiene and using artificial tears. From: Zackary Ashton Sent: Tuesday, March 01, 2022 4:02 PM To: Андрей Garrido < >; Elizabeth Anderson < >; Lavern Malin < >; Gemini Perez < >; Janet Esparza < > Subject: Re: Lexy Coy Telephone Msg Thank you for the page, will call her now Images from the original note were not included. Paged From: Андрей Garrido Sent: Tuesday, March 01, 2022 3:48 PM To: Elizabeth Anderson < >; Lavern Malin < >; Gemini Perez < >; Zackary Ashton < >; Janet Esparza < > Subject: Re: Lexy Coy Telephone Msg Please page Dr. Poli Garrido, CODYN, CRNO, OSC From: Elizabeth Anderson < > Sent: Tuesday, March 01, 2022 3:42:12 PM To: Lavern Malin < >; Bob Pereza < >; Андрей Garrido < >; Zackary Ashton < >; Janet Esparza < > Subject: RE: Lexy Coy Telephone Msg Patient calling back again [phone] Patient called and states bottom half of left eyeball and eyelid are red and sore. Vision is slightly blurry. No flashes or floaters. Was taking father to his doctor and father's doctor told her to call right away. Patient is very concerned. Please call. Lexy Coy [phone] FV-07/03/22 LV-02/21/22 Assessment & Plan Lavern Malin MD filed at 02/28/2022 11:15 AM Status: Signed The documentation for the note below was completed in part by Lucy Garzon acting as a scribe for Lavern Malin MD. 02/28/2022 10:50 AM. Scribe Attestation: By signing my name below, I, Lucy Garzon, attest that the documentation in part for the note below and the encounter was completed in part by Lucy Garzon acting as a scribe for Lavern Malin MD. Electronically Signed: Leeroy Lebron. February 28, 2022 10:50 AM. Last seen 11/29/[address] Malin Pt reports vision in left eye stable New floater right eye for the past week, no photopsias All problems with bold in text below addressed at this visit with patient 1. 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 Chronic PVD OD with vitreoretinal tuft - Onset of new floater OD initially, still there in November - Denies any new flashes - Emphasized return to office precautions and patient will call with any changes in vision - Retinal detachment precautions - Follow up in 4 months with [facility] Schwab; 8 months with me 3. Not visually significant cataract OU (both eyes) -Observe 4. Ocular irritation OU (both eyes) -Use artifical tears QID (4 x a day) documented in this encounter [facility] 02-28-2022 Note HNO ID: [id number] Author: Lavern Malin MD Service: ? Author Type: Physician Type: Progress Notes Filed: 02/28/2022 11:15 AM Note Text: The documentation for the note below was completed in part by Lucy Garzon acting as a scribe for Lavern Malin MD. 02/28/2022 10:50 AM. Scribe Attestation: By signing my name below, I, Lucy Garzon, attest that the documentation in part for the note below and the encounter was completed in part by Lucy Garzon acting as a scribe for Lavern Malin MD. Electronically Signed: Leeroy Lebron. February 28, 2022 10:50 AM. Last seen 11/29/[address] Malin Pt reports vision in left eye stable New floater right eye for the past week, no photopsias All problems with bold in text below addressed at this visit with patient 1. 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 Chronic PVD OD with vitreoretinal tuft - Onset of new floater OD initially, still there in November - Denies any new flashes - Emphasized return to office precautions and patient will call with any changes in vision - Retinal detachment precautions - Follow up in 4 months with [facility]ab; 8 months with me 3. Not visually significant cataract OU (both eyes) -Observe 4. Ocular irritation OU (both eyes) -Use artifical tears QID (4 x a day) ILavern MD, personally performed the services described in this documentation. All medical record entries made by the scribe were at my direction and in my presence. I have reviewed the chart and discharge instructions (if applicable) and agree that the record reflects my personal performance and is accurate and complete. I have confirmed and edited as necessary the relevant ophthalmic history, ROS, and the neuro exam findings as obtained by others. I have seen and examined Lexy Coy. I have discussed the case and the management of this patient's care with the Resident/Fellow, if applicable. I also have reviewed and agree with the assessment and plan as stated above and agree with all of its relevant components. Electronically Signed: Lavern Malin MD, February 28, 2022 11:09 AM [facility] 02-28-2022 History of Presen t illness Narrative The documentation for the note below was completed in part by Lucy Garzon acting as a scribe for Lavern Malin MD. 02/28/2022 10:50 AM. Scribe Attestation: By signing my name below, I, Lucy Garzon, attest that the documentation in part for the note below and the encounter was completed in part by Lucy Garzon acting as a scribe for Lavern Malin MD. Electronically Signed: Leeroy Lebron. February 28, 2022 10:50 AM. Last seen 11/29/[address] Malin Pt reports vision in left eye stable New floater right eye for the past week, no photopsias All problems with bold in text below addressed at this visit with patient 1. 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 Chronic PVD OD with vitreoretinal tuft - Onset of new floater OD initially, still there in November - Denies any new flashes - Emphasized return to office precautions and patient will call with any changes in vision - Retinal detachment precautions - Follow up in 4 months with [facility]; 8 months with me 3. Not visually significant cataract OU (both eyes) -Observe 4. Ocular irritation OU (both eyes) -Use artifical tears QID (4 x a day) I, Lavern Malin MD, personally performed the services described in this documentation. All medical record entries made by the scribe were at my direction and in my presence. I have reviewed the chart and discharge instructions (if applicable) and agree that the record reflects my personal performance and is accurate and complete. I have confirmed and edited as necessary the relevant ophthalmic history, ROS, and the neuro exam findings as obtained by others. I have seen and examined Lexy Coy. I have discussed the case and the management of this patient's care with the Resident/Fellow, if applicable. I also have reviewed and agree with the assessment and plan as stated above and agree with all of its relevant components. Electronically Signed: Lavern Malin MD, February 28, 2022 11:09 AM documented in this encounter [facility] 11-29-2021 History of Presen t illness Narrative Last seen 11/09/21 by Deana Mclean reports vision in left eye improved, pain OS minimal. Floater OS and OD stable. All problems with bold in text below addressed at this visit with patient 1. 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 Sub-Acute PVD OD - Onset of new floater OD initially, still there - Denies flashes - Emphasized return to office precautions and patient will call with any changes in vision - Will monitor - Follow up in 3 months 3. Not visually significant cataract OU (both eyes) -Observe I have seen and examined this patient. I have confirmed and edited as necessary the relevant ophthalmic history, medications, ROS, and the neuro and ophthalmic exam findings as obtained by others and myself. I have discussed the case and the management of this patient's care with the attending Physician, if applicable. I also have reviewed and agree with the assessment and plan as stated above and agree with all of its relevant components. I have discussed the treatment alternatives with the patient and the patient's family, if applicable. Follow-up as noted below, or sooner if new symptoms develop. documented in this encounter [facility] 11-09-2021 History of Presen t illness Narrative Pain OS and fuzzy peripheral vision. New floater OD. All problems with bold in text below addressed at this visit with patient 1. 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 Malin in 3 weeks 2. Acute PVD OD - Onset of new floater OD within past week - Denies flashes - Depressed exam performed by Dr. Potter; no holes/tears/detachments - Emphasized return to office precautions and patient will call with any changes in vision - Continue to monitor - Follow up with Dr. Malin as scheduled in 3 weeks 3. Myopia with astigmatism - Vision stable I have seen and examined this patient. I have confirmed and edited as necessary the relevant ophthalmic history, medications, ROS, and the neuro and ophthalmic exam findings as obtained by others and myself. I have discussed the case and the management of this patient's care with the attending Physician, if applicable. I also have reviewed and agree with the assessment and plan as stated above and agree with all of its relevant components. I have discussed the treatment alternatives with the patient and the patient's family, if applicable. Follow-up as noted below, or sooner if new symptoms develop. documented in this encounter [facility] 11-09-2021 Miscellaneous Notes Spoke with patient and she will be here at 2 PM today to see Deana Potter. Gemini Perez Tried reaching patient. Her line is busy. Will keep trying. Janet Esparza Sounds good thanks! Lavern Malin She should be seen. Can you please schedule her to see Deana today at 2 PM today? Please let the patient know that she will see Deana first and then Dr. Potter will also see her as soon as she finishes in the OR so there may just a little bit of a wait. Deana, if you could get her started and see her and then coordinate with Supa that would be fantastic. She will plan to see her as soon as she is done in the OR and you have seen her. Lexy Coy [facility] [id number] Patient calling eye is sore, also noticed yesterday in the periphery of left eye vision is fuzzy and now has a floater in OD No decrease in vision, no flashes, no floaters [facility] 11/29/21 [facility] 10/25/21 Lavern Malin MD filed at 10/25/2021 1:55 PM Status: Signed All problems with bold in text below addressed at this visit with patient 1. 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 - Pt wishes to proceed with Laser Retinopexy OS (left eye). 2. Myopia with astigmatism - Vision stable documented in this encounter [facility] 10-25-2021 History of Presen t illness Narrative All problems with bold in text below addressed at this visit with patient 1. 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 - Pt wishes to proceed with Laser Retinopexy OS (left eye). 2. Myopia with astigmatism - Vision stable I have seen and examined Lexy Coy. I have confirmed and edited as necessary the relevant ophthalmic history, medications, ROS, and the neuro and ophthalmic exam findings as obtained by others and myself. I have discussed the case and the management of this patient's care with the Resident/Fellow, if applicable. I also have reviewed and agree with the assessment and plan as stated above and agree with all of its relevant components. I have discussed the treatment alternatives with the patient and the patient's family, if applicable. Follow-up as noted below, or sooner if new symptoms develop. documented in this encounter [facility] 10-13-2021 Miscellaneous Notes Patient notified. Lavern Malin Yes, she can resume ibuprofen. Patient called and would like to know if she can resume taking Ibuprofen for her back pain. Please advise. Lexy Coy [phone] FV-10/25/21 LV-10/11/21 Assessment & Plan Lavern Malin MD filed at 10/11/2021 5:31 PM Status: Signed All problems with bold in text below addressed at this visit with patient 1. 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 - Pt wishes to proceed with Laser Retinopexy OS (left eye). 2. Myopia with astigmatism - Vision stable documented in this encounter [facility] 10-11-2021 History of Presen t illness Narrative All problems with bold in text below addressed at this visit with patient 1. 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 - Pt wishes to proceed with Laser Retinopexy OS (left eye). 2. Myopia with astigmatism - Vision stable I have seen and examined Lexy Coy. I have confirmed and edited as necessary the relevant ophthalmic history, medications, ROS, and the neuro and ophthalmic exam findings as obtained by others and myself. I have discussed the case and the management of this patient's care with the Resident/Fellow, if applicable. I also have reviewed and agree with the assessment and plan as stated above and agree with all of its relevant components. I have discussed the treatment alternatives with the patient and the patient's family, if applicable. Follow-up as noted below, or sooner if new symptoms develop. documented in this encounter [facility] Vitreous [facility] of left eye (HCC)- Primary Vitreous hemorrhage Horseshoe retinal tear of left eye Horseshoe tear of retina without detachment Posterior vitreous detachment of left eye Vitreous degeneration [facility] Vitreous hemorrhage of left eye (HCC)- Primary Vitreous hemorrhage Horseshoe retinal tear of left eye Horseshoe tear of retina without detachment Posterior vitreous detachment of left eye Vitreous degeneration [facility] Vitreous hemorrhage of left eye (HCC)- Primary Vitreous hemorrhage Horseshoe retinal tear of left eye Horseshoe tear of retina without detachment Posterior vitreous detachment of both eyes Vitreous degeneration Posterior vitreous detachment of left eye Vitreous degeneration [facility] 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 Horseshoe tear of retina without detachment Vitreous hemorrhage of left eye (HCC) Vitreous hemorrhage Posterior vitreous detachment of both eyes 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 [facility] Episcleritis of left eye- Primary Scleritis, unspecified [facility] Episcleritis of left eye- Primary Scleritis, unspecified [facility] Diagnosis Vitreous hemorrhage of left eye (HCC)- Primary Vitreous hemorrhage [facility] Diagnosis 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 Horseshoe tear of retina without detachment Vitreous hemorrhage of left eye (HCC) Vitreous hemorrhage Posterior vitreous detachment of both eyes 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 Vitreomacular adhesion 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 [facility] Diagnosis Vitreous hemorrhage of left eye (HCC)- Primary Vitreous hemorrhage Horseshoe retinal tear of left eye Horseshoe tear of retina without detachment Posterior vitreous detachment of both eyes 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 Vitreomacular adhesion [facility] Diagnosis Vitreous hemorrhage of left eye (HCC) Vitreous hemorrhage Horseshoe retinal tear of left eye Horseshoe tear of retina without detachment Posterior vitreous detachment of both eyes 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 Vitreomacular adhesion [facility] Diagnosis Vitreous hemorrhage of left eye (HCC)- Primary Vitreous hemorrhage Horseshoe retinal tear of left eye Horseshoe tear of retina without detachment Posterior vitreous detachment of both eyes 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 Vitreomacular adhesion [facility] Diagnosis 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 Horseshoe tear of retina without detachment Vitreous hemorrhage of left eye (HCC) Vitreous hemorrhage Posterior vitreous detachment of both eyes 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 Vitreomacular adhesion [facility] Diagnosis 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 Horseshoe tear of retina without detachment Vitreous hemorrhage of left eye (HCC) Vitreous hemorrhage Posterior vitreous detachment of both eyes 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 [facility] of left eye (HCC)- Primary Vitreous hemorrhage Horseshoe retinal tear of left eye Horseshoe tear of retina without detachment Posterior vitreous detachment of both eyes 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 Vitreomacular adhesion documented in this encounter [facility] Summary Purpose Family History No Family History Records FoundNo Family History Records Found Advance Directives No Advanced Directives Records FoundDocuments on File Type Date Recorded 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 In the event of a Fluress shortage, administer 1 drop of Frances-Fluor into both eyes as directed for applanation tonometry. Given 10/11/2021 3:30 PM EDT 1 Drop PHENYLephrine 2.5 % 1 Drop (AK-DILATE, FORTUNATO-SYNEPHRINE) 1 Drop, BOTH EYES, DIRECTED, Starting on Sun10/11/21 at 1530, Until Sun10/12/21 at 0329, Administer for dilation PROTECT FROM LIGHT Given 10/11/2021 3:30 PM EDT 1 Drop proparacaine 0.5 % 1 Drop (ALCAINE) 1 Drop, BOTH EYES, DIRECTED, Starting on Sun10/11/21 at 1530, Until Sun10/12/21 at 032, Administer for pneumo tonometry, tonopen tonometry, or pachymetry. In the event of a proparacaine shortage, administer 1 drop of tetracaine 0.5% ophthalmic drops into both eyes as directed for pneumo tonometry, tonopen tonometry, or pachymetry Given 10/11/2021 3:30 PM EDT 1 Drop tropicamide 1 % 1 Drop (MYDRIACYL) 1 Drop, BOTH EYES, DIRECTED, Starting on Sun10/11/21 at 1530, Until Sun10/12/21 at 0329, Administer for dilation Given 10/11/2021 3:30 PM EDT 1 Drop Active Administered Medications - up to 3 most recent administrations Medication Order MAR Action Action Date Dose Rate Site fluorescein-benoxinate 0.25-0.4 % 1 Drop (FLURESS) 1 Drop, BOTH EYES, DIRECTED, Starting on Sun10/25/21 at 1237, Until Sun10/26/21 at 0036, Administer for applanation tonometry. In the event of a Fluress shortage, administer Frances-Fluor 1 drop into both eyes as directed for applanation tonometry, [facility] ORD[facility] Given 10/25/2021 12:41 PM EDT 1 Drop PHENYLephrine 2.5 % 1 Drop (AK-DILATE, FORTUNATO-SYNEPHRINE) 1 Drop, LEFT EYE, DIRECTED, Starting on Sun10/25/21 at 1237, Until Sun10/26/21 at 0036, Administer for dilation PROTECT FROM LIGHT, [facility] MED ORDERS Given 10/25/2021 12:41 PM EDT 1 Drop tropicamide 1 % 1 Drop (MYDRIACYL) 1 Drop, LEFT EYE, DIRECTED, Starting on Sun10/25/21 at 1237, Until Sun10/26/21 at 0036, Administer for dilation, [facility] ORD[facility] Given 10/25/2021 12:41 PM EDT 1 Drop Active Administered Medications - up to 3 most recent administrations Medication Order MAR Action Action Date Dose Rate Site fluorescein-benoxinate 0.25-0.4 % 1 Drop (FLURESS) 1 Drop, BOTH EYES, DIRECTED, Starting on Sun11/29/21 at 1030, Until Sun11/29/21 at 2229, Administer for applanation tonometry. In the event of a Fluress shortage, administer 1 drop of Frances-Fluor into both eyes as directed for applanation tonometry., [facility] ORD[facility] Given 11/29/2021 10:27 AM EDT 1 Drop PHENYLephrine 2.5 % 1 Drop (AK-DILATE, FORTUNATO-SYNEPHRINE) 1 Drop, BOTH EYES, DIRECTED, Starting on Sun11/29/21 at 1030, Until Sun11/29/21 at 2229, Administer for dilation PROTECT FROM LIGHT, [facility] ORDERS Given 11/29/2021 10:27 AM EDT 1 Drop tropicamide 1 % 1 Drop (MYDRIACYL) 1 Drop, BOTH EYES, DIRECTED, Starting on Sun11/29/21 at 1030, Until Sun11/29/21 at 2229, Administer for dilation, [facility] ORDERS Given 11/29/2021 10:28 AM EDT 1 Drop Active Administered Medications - up to 3 most recent administrations Medication Order MAR Action Action Date Dose Rate Site fluorescein-benoxinate 0.25-0.4 % 1 Drop (FLURESS) 1 Drop, BOTH EYES, DIRECTED, Starting on Sun02/28/22 at 1000, Until Sun02/28/22 at 2159, Administer for applanation tonometry. In the event of a Fluress shortage, administer 1 drop of Frances-Fluor into both eyes as directed for applanation tonometry., [facility] ORD[facility] Given 02/28/2022 10:00 AM EST 1 Drop PHENYLephrine 2.5 % 1 Drop (AK-DILATE, FORTUNATO-SYNEPHRINE) 1 Drop, BOTH EYES, DIRECTED, Starting on Sun02/28/22 at 1000, Until Sun02/28/22 at 2159, Administer for dilation PROTECT FROM LIGHT, [facility] MED ORDERS Given 02/28/2022 10:00 AM EST 1 Drop tropicamide 1 % 1 Drop (MYDRIACYL) 1 Drop, BOTH EYES, DIRECTED, Starting on Sun02/28/22 at 1000, Until Sun02/28/22 at 2159, Administer for dilation, [facility] ORDERS Given 02/28/2022 10:00 AM EST 1 Drop Active Administered Medications - up to 3 most recent administrations Medication Order MAR Action Action Date Dose Rate Site PHENYLephrine 2.5 % 1 Drop (AK-DILATE, FORTUNATO-SYNEPHRINE) 1 Drop, BOTH EYES, DIRECTED, Starting on 03/29/22 at 1330, Until Kristi 03/30/22 at 0129, Administer for dilation PROTECT FROM LIGHT Given 03/29/2022 1:47 PM EST 1 Drop proparacaine 0.5 % 1 Drop (ALCAINE) 1 Drop, BOTH EYES, DIRECTED, Starting on Sun03/29/22 at 1330, Until Sun03/30/22 at 0129, Administer for pneumo tonometry, tonopen tonometry, or pachymetry. In the event of a proparacaine shortage, administer tetracaine 0.5% ophthalmic drops 1 drop in the left eye as directed for pneumo tonometry, tonopen tonometry, or pachymetry Given 03/29/2022 1:47 PM EST 1 Drop tropicamide 1 % 1 Drop (MYDRIACYL) 1 Drop, BOTH EYES, DIRECTED, Starting on Sun03/29/22 at 1330, Until Sun03/30/22 at 0129, Administer for dilation Given 03/29/2022 1:47 PM EST 1 Drop Active Administered Medications - up to 3 most recent administrations Medication Order MAR Action Action Date Dose Rate Site fluorescein-benoxinate 0.25-0.4 % 1 Drop (FLURESS) 1 Drop, BOTH EYES, DIRECTED, Starting on Sun03/30/22 at 1030, Until Sun03/30/22 at 2229, Administer for applanation tonometry. In the event of a Fluress shortage, administer 1 drop of Hardesty-Fluor into both eyes as directed for applanation tonometry., [facility] ORD[facility] Given 03/30/2022 10:30 AM EST 1 Drop PHENYLephrine 2.5 % 1 Drop (AK-DILATE, FORTUNATO-SYNEPHRINE) 1 Drop, BOTH EYES, DIRECTED, Starting on Sun03/30/22 at 1030, Until Sun03/30/22 at 2229, Administer for dilation PROTECT FROM LIGHT, [facility] ORDERS Given 03/30/2022 10:30 AM EST 1 Drop tropicamide 1 % 1 Drop (MYDRIACYL) 1 Drop, BOTH EYES, DIRECTED, Starting on Sun03/30/22 at 1030, Until Sun03/30/22 at 2229, Administer for dilation, [facility] ORD[facility] Given 03/30/2022 10:30 AM EST 1 Drop Active Administered Medications - up to 3 most recent administrations Medication Order MAR Action Action Date Dose Rate Site fluorescein-benoxinate 0.25-0.4 % 1 Drop (FLURESS) 1 Drop, BOTH EYES, DIRECTED, Starting on Sun04/04/22 at 0800, Until Sun04/04/22 at 1958, Administer for applanation tonometry. In the event of a Fluress shortage, administer Hardesty-Fluor 1 drop into both eyes as directed for applanation tonometry, [facility] ORD[facility] Given 04/04/2022 8:00 AM EST 1 Drop PHENYLephrine 2.5 % 1 Drop (AK-DILATE, FORTUNATO-SYNEPHRINE) 1 Drop, LEFT EYE, DIRECTED, Starting on Sun04/04/22 at 0800, Until Sun04/04/22 at 1958, Administer for dilation PROTECT FROM LIGHT, [facility] ORDERS Given 04/04/2022 8:00 AM EST 1 Drop proparacaine 0.5 % 1 Drop (ALCAINE) 1 Drop, BOTH EYES, DIRECTED, Starting on Sun04/04/22 at 0800, Until Sun04/04/22 at 1958, Administer for pneumo tonometry, tonopen tonometry, or pachymetry. In the event of a proparacaine shortage, administer tetracaine 0.5% ophthalmic drops 1 drop in both eyes as directed for pneumo tonometry, tonopen tonometry, or pachymetry, [facility] ORD[facility] Given 04/04/2022 8:00 AM EST 1 Drop tropicamide 1 % 1 Drop (MYDRIACYL) 1 Drop, LEFT EYE, DIRECTED, Starting on Sun04/04/22 at 0800, Until Sun04/04/22 at 1958, Administer for dilation, [facility] ORDERS Given 04/04/2022 8:00 AM EST 1 Drop Active Administered Medications - up to 3 most recent administrations Medication Order MAR Action Action Date Dose Rate Site fluorescein-benoxinate 0.25-0.4 % 1 Drop (FLURESS) 1 Drop, BOTH EYES, DIRECTED, Starting on Sun04/11/22 at 0800, Until Sun04/11/22 at 1958, Administer for applanation tonometry. In the event of a Fluress shortage, administer Hardesty-Fluor 1 drop into both eyes as directed for applanation tonometry, [facility] ORD[facility] Given 04/11/2022 8:10 AM EST 1 Drop PHENYLephrine 2.5 % 1 Drop (AK-DILATE, FORTUNATO-SYNEPHRINE) 1 Drop, LEFT EYE, DIRECTED, Starting on Sun04/11/22 at 0800, Until Sun04/11/22 at 1958, Administer for dilation PROTECT FROM LIGHT, [facility] ORDERS Given 04/11/2022 8:10 AM EST 1 Drop tropicamide 1 % 1 Drop (MYDRIACYL) 1 Drop, LEFT EYE, DIRECTED, Starting on Sun04/11/22 at 0800, Until Sun04/11/22 at 1958, Administer for dilation, [facility] ORD[facility] Given 04/11/2022 8:10 AM EST 1 Drop Active Administered Medications - up to 3 most recent administrations Medication Order MAR Action Action Date Dose Rate Site fluorescein-benoxinate 0.25-0.4 % 1 Drop (FLURESS) 1 Drop, BOTH EYES, DIRECTED, Starting on Sun04/25/22 at 0800, Until Sun04/25/22 at 1958, Administer for applanation tonometry. In the event of a Fluress shortage, administer Frances-Fluor 1 drop into both eyes as directed for applanation tonometry, [facility] ORD[facility] Given 04/25/2022 8:08 AM EST 1 Drop PHENYLephrine 2.5 % 1 Drop (AK-DILATE, FORTUNATO-SYNEPHRINE) 1 Drop, LEFT EYE, DIRECTED, Starting on Sun04/25/22 at 0800, Until Sun04/25/22 at 1958, Administer for dilation PROTECT FROM LIGHT, [facility] ORD[facility] Given 04/25/2022 8:08 AM EST 1 Drop tropicamide 1 % 1 Drop (MYDRIACYL) 1 Drop, LEFT EYE, DIRECTED, Starting on Sun04/25/22 at 0800, Until Sun04/25/22 at 1958, Administer for dilation, [facility] ORD[facility] Given 04/25/2022 8:08 AM EST 1 Drop Active Administered Medications - up to 3 most recent administrations Medication Order MAR Action Action Date Dose Rate Site fluorescein-benoxinate 0.25-0.4 % 1 Drop (FLURESS) 1 Drop, BOTH EYES, DIRECTED, Starting on Sun05/23/22 at 0830, Until Sun05/23/22 at 2028, Administer for applanation tonometry. In the event of a Fluress shortage, administer Hardesty-Fluor 1 drop into both eyes as directed for applanation tonometry, [facility] ORD[facility] Given 05/23/2022 8:23 AM EDT 1 Drop PHENYLephrine 2.5 % 1 Drop (AK-DILATE) 1 Drop, LEFT EYE, DIRECTED, Starting on Sun05/23/22 at 0830, Until Sun05/23/22 at 2028, Administer for dilation PROTECT FROM LIGHT, [facility] ORD[facility] Given 05/23/2022 8:23 AM EDT 1 Drop tropicamide 1 % 1 Drop (MYDRIACYL) 1 Drop, LEFT EYE, DIRECTED, Starting on Sun05/23/22 at 0830, Until Sun05/23/22 at 2028, Administer for dilation, [facility] ORD[facility] Given 05/23/2022 8:23 AM EDT 1 Drop Active Administered Medications - up to 3 most recent administrations Medication Order MAR Action Action Date Dose Rate Site fluorescein-benoxinate 0.25-0.4 % 1 Drop (FLURESS) 1 Drop, BOTH EYES, DIRECTED, Starting on Sun07/18/22 at 0800, Until Sun07/18/22 at 1958, Administer for applanation tonometry. In the event of a Fluress shortage, administer 1 drop of Hardesty-Fluor into both eyes as directed for applanation tonometry., [facility] ORD[facility] Given 07/18/2022 7:58 AM EDT 1 Drop PHENYLephrine 2.5 % 1 Drop (AK-DILATE, FORTUNATO-SYNEPHRINE) 1 Drop, BOTH EYES, DIRECTED, Starting on Sun07/18/22 at 0800, Until Sun07/18/22 at 1958, Administer for dilation PROTECT FROM LIGHT, [facility] ORDERS Given 07/18/2022 7:59 AM EDT 1 Drop tropicamide 1 % 1 Drop (MYDRIACYL) 1 Drop, BOTH EYES, DIRECTED, Starting on Sun07/18/22 at 0800, Until Sun07/18/22 at 1958, Administer for dilation, [facility] ORD[facility] Given 07/18/2022 7:59 AM EDT 1 Drop Additional Source Comments INFORMATION SOURCE (unrecogn ized section and content) DATE CREATED AUTHOR AUTHOR'S ORGANIZ ATION 01/24/2023 [facility] Source Comments (unrecognize d section and content) In the event this informatio n is protected by the Federal Confidentiality of Alcohol and Drug Abuse Patient Records regulations: The Federal rules restrict any use of the information to criminally investigate or prosecute any alcohol or drug abuse patient.[facility] event this information is protected by the Federal Confidentiality of Alcohol and Drug Abuse Patient Records regulations: The Federal rules restrict any use of the information to criminally investigate or prosecute any alcohol or drug abuse patient.[facility] the event this information is protected by the Federal Confidentiality of Alcohol and Drug Abuse Patient Records regulations: The Federal rules restrict any use of the information to criminally investigate or prosecute any alcohol or drug abuse patient.[facility] the event this information is protected by the Federal Confidentiality of Alcohol and Drug Abuse Patient Records regulations: The Federal rules restrict any use of the information to criminally investigate or prosecute any alcohol or drug abuse patient.[facility] the event this information is protected by the Federal Confidentiality of Alcohol and Drug Abuse Patient Records regulations: The Federal rules restrict any use of the information to criminally investigate or prosecute any alcohol or drug abuse patient.[facility] the event this information is protected by the Federal Confidentiality of Alcohol and Drug Abuse Patient Records regulations: The Federal rules restrict any use of the information to criminally investigate or prosecute any alcohol or drug abuse patient.[facility] the event this information is protected by the Federal Confidentiality of Alcohol and Drug Abuse Patient Records regulations: The Federal rules restrict any use of the information to criminally investigate or prosecute any alcohol or drug abuse patient.[facility] the event this information is protected by the Federal Confidentiality of Alcohol and Drug Abuse Patient Records regulations: The Federal rules restrict any use of the information to criminally investigate or prosecute any alcohol or drug abuse patient.[facility] the event this information is protected by the Federal Confidentiality of Alcohol and Drug Abuse Patient Records regulations: The Federal rules restrict any use of the information to criminally investigate or prosecute any alcohol or drug abuse patient.[facility] the event this information is protected by the Federal Confidentiality of Alcohol and Drug Abuse Patient Records regulations: The Federal rules restrict any use of the information to criminally investigate or prosecute any alcohol or drug abuse patient.[facility] the event this information is protected by the Federal Confidentiality of Alcohol and Drug Abuse Patient Records regulations: The Federal rules restrict any use of the information to criminally investigate or prosecute any alcohol or drug abuse patient.[facility] the event this information is protected by the Federal Confidentiality of Alcohol and Drug Abuse Patient Records regulations: The Federal rules restrict any use of the information to criminally investigate or prosecute any alcohol or drug abuse patient.[facility] the event this information is protected by the Federal Confidentiality of Alcohol and Drug Abuse Patient Records regulations: The Federal rules restrict any use of the information to criminally investigate or prosecute any alcohol or drug abuse patient.[facility] the event this information is protected by the Federal Confidentiality of Alcohol and Drug Abuse Patient Records regulations: The Federal rules restrict any use of the information to criminally investigate or prosecute any alcohol or drug abuse patient.[facility] the event this information is protected by the Federal Confidentiality of Alcohol and Drug Abuse Patient Records regulations: The Federal rules restrict any use of the information to criminally investigate or prosecute any alcohol or drug abuse patient.[facility] the event this information is protected by the Federal Confidentiality of Alcohol and Drug Abuse Patient Records regulations: The Federal rules restrict any use of the information to criminally investigate or prosecute any alcohol or drug abuse patient.[facility] the event this information is protected by the Federal Confidentiality of Alcohol and Drug Abuse Patient Records regulations: The Federal rules restrict any use of the information to criminally investigate or prosecute any alcohol or drug abuse patient.[facility] the event this information is protected by the Federal Confidentiality of Alcohol and Drug Abuse Patient Records regulations: The Federal rules restrict any use of the information to criminally investigate or prosecute any alcohol or drug abuse patient.[facility] the event this information is protected by the Federal Confidentiality of Alcohol and Drug Abuse Patient Records regulations: The Federal rules restrict any use of the information to criminally investigate or prosecute any alcohol or drug abuse patient.[facility] the event this information is protected by the Federal Confidentiality of Alcohol and Drug Abuse Patient Records regulations: The Federal rules restrict any use of the information to criminally investigate or prosecute any alcohol or drug abuse patient.[facility] Reason for Visit (unrecogniz ed section and content) Reason Comments Patient Question Reason Comments Horseshoe Tear Follow Up OS Reason Comments Blurred Vision Left Eye Reason Comments Vitreous Hemorrhage Follow Up Reason Comments Horseshoe retinal tear OS Reason Comments Horseshoe Tear Follow Up Vitreous Hemorrhage Follow Up Reason Comments Left eye red Reason Comments Red Eye Left Eye For 1 day Irritation Left Eye, for 1 day Reason Comments Episcleritis Follow Up Left Eye Reason Comments Visual Disturbance Left eye since this morning Reason Comments Appointment Reason Comments Vitreous Hemorrhage Follow Up Left eye Horseshoe Tear Follow Up S/P Laser Retin opexy OS 10/25/21 # 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 Reason Comments Vitreous Hemorrhage Follow Up OS Horseshoe Tear Follow Up -s/p Laser Reti nopexy OS 10/25/21 # 2 Posterior Vitreous Detachment OD Reason Comments Horseshoe Tear Follow Up Reason Comments Horseshoe retinal tear Vitreous Hemorrhage Follow Up Care Teams (unrecognized sec tion and content) International Controller Relationship Specialty Start Date End Date Royer Interiano MD [address] [place] [address] PCP - General 09/27/09 International Controller Relationship Specialty Start Date End Date Royer Interiano MD [address] [place], [place] [id number] PCP - General 09/27/09 International Controller Relationship Specialty Start Date End Date Royer Interiano MD [address] [place] [address] PCP - General 09/27/09 International Controller Relationship Specialty Start Date End Date Royer Interiano MD [address] [place] [address] PCP - General 09/27/09 International Controller Relationship Specialty Start Date End Date Royer Interiano MD [address] [place] [address] PCP - General 09/27/09 International Controller Relationship Specialty Start Date End Date Royer Interiano MD [address] [place] [address] PCP - General 09/27/09 International Controller Relationship Specialty Start Date End Date Royer Interiano MD [address] [place] [address] PCP - General 09/27/09 International Controller Relationship Specialty Start Date End Date Royer Interiano MD [address] [place] [address] PCP - General 09/27/09 International Controller Relationship Specialty Start Date End Date Royer Interiano MD [address] [place] [address] PCP - General 09/27/09 International Controller Relationship Specialty Start Date End Date Royer Interiano MD [address] [place] [address] PCP - General 09/27/09 International Controller Relationship Specialty Start Date End Date Royer Interiano MD [address] [place] [address] PCP - General 09/27/09 International Controller Relationship Specialty Start Date End Date Royer Interiano MD [address] [place] [address] PCP - General 09/27/09 International Controller Relationship Specialty Start Date End Date Royer Interiano MD [address] [place], [place] [address] PCP - General 09/27/09 International Controller Relationship Specialty Start Date End Date Royer Interiano MD [address] [facility] [place] [place], [place] [id number] PCP - General 09/27/09 International Controller Relationship Specialty Start Date End Date Royer Interiano MD [address] [place], [place] [address] PCP - General 09/27/09 International Controller Relationship Specialty Start Date End Date Royer Interiano MD [address] [place], [place] [id number] PCP - General 09/27/09 International Controller Relationship Specialty Start Date End Date Royer Interiano MD [address] [place], [place] [address] PCP - General 09/27/09 FOR RECORDS PERTAINING TO PATIENTS WHO ARE OR HAVE BEEN ENROLLED IN A CHEMICAL DEPENDENCY/SUBSTANCEABUSE PROGRAM, SOME INFORMATION MAY BE OMITTED. This clinical summary was aggregated from multiple sources. Caution should be exercised in using it in the provision of clinical care. This summary normalizes information from multiple sources, and as a consequence, information in this document may materially change the coding, format and clinical context of patient data. In addition, data may be omitted in some cases. CLINICAL DECISIONS SHOULD BE BASED ON THE PRIMARY CLINICAL RECORDS. [facility] [employer] provides no warranty or guarantee of the accuracy or completeness of information in this document.
[2023-04-12 00:07] LABS: HPV APTIMA, High Risk Negative (Negative)
[2023-04-12 14:01] LABS: HPV Reflexed? YES, CHARGE PATIENT
== END | disposition home or self-care (01) ==
LOC: LABSPEC 12:27
PROVIDERS: PCP Family Medicine; Referring Provider Nurse Practitioner Family; Visit Provider Nurse Practitioner Family
DX: Z01.419 Encounter for gynecological examination (general) (routine) without abnormal findings (principal)
CPT/HCPCS: 87624; 88175; G0145

== ENCOUNTER → 2023-05-07 | Outpatient (CLI) | payer OTHER, SELFPAY ==
--- NOTE | 2023-05-07 09:35 | BI_ITS ---
MAMMOGRAPHY - BILATERAL SCREENING REASON FOR EXAM: Female, 53 years old. Routine annual screening examination. PERTINENT HISTORY: Mother with breast cancer. History of prior bilateral stereotactic breast biopsies. TECHNIQUE: Digital bilateral breast rajiv (3D mammographic acquisition) in the CC and MLO projections. 2-D mediolateral oblique (MLO) and craniocaudad (CC) views of both breasts were obtained. CAD: Full Field Digital Mammography with Computer Added Detection was performed. COMPARISON: Comparison is made with prior study dated May 05, 2022 and May 04, 2021. FINDINGS: Breast Composition: The breasts are heterogeneously dense, which may obscure small masses. There are no dominant masses or suspicious calcifications. A tissue clip marker is once again seen in the anterior upper slightly lateral aspect of the left breast. A similar appearing tissue clip marker is seen along the anterior upper lateral aspect of the right breast. Stable small benign-appearing bilateral axillary lymph nodes. No other significant abnormalities are identified. There has been no significant change since the prior study. BI/SCRN MAMM (CAD)W/RAJIV BILAT IMPRESSION: Stable bilateral screening mammogram. Yearly follow-up mammogram recommended. (A) ASSESSMENT CATEGORY: BIRADS Category 2: Benign. A letter regarding these results will be sent to the patient by the facility within 30 days. Approximately 10% of breast cancers are not detected by mammography. A normal mammogram should not delay biopsy of a clinically suspicious abnormality. [id number] Electronically Signed: Niels Alanis MD at 10:54 EST ,
== END | disposition home or self-care (01) ==
LOC: OPBI 09:34
PROVIDERS: PCP Family Medicine; Referring Provider Family Medicine; Visit Provider Family Medicine
DX: Z12.31 Encounter for screening mammogram for malignant neoplasm of breast (principal); Z80.3 Family history of malignant neoplasm of breast
CPT/HCPCS: 77063; 77067

== ENCOUNTER → 2023-08-13 | Outpatient (CLI) | payer OTHER, SELFPAY ==
[2023-08-13 10:33] LABS: Hematocrit 43.3 % (37-47); Hemoglobin 13.8 g/dL (12.0-15.0); Mean Corp Hgb Conc 31.9 g/dL (32-36); Mean Corpuscular Hgb 28.3 pg (27.0-32.0); Mean Corpuscular Volume 88.9 fL (81-99); Platelet Count 266 K/mm3 (150-450); RBC Distribution Width CV 15.9 % (11.6-14.6); RBC Distribution Width SD 52.1 fl (35.1-43.9); Red Blood Count 4.87 M/mm3 (4.2-5.4); White Blood Count 4.9 K/mm3 (4.4-11.0)
[2023-08-13 10:50] LABS: Vitamin D,25 Hydroxy 92.6 ng/mL
[2023-08-13 11:01] LABS: Anion Gap 6 (5-15); BUN 21 mg/dL (7-18); BUN/Creat Ratio 23.6 RATIO (10-20); Calcium,Total 9.2 mg/dL (8.5-10.1); Chloride 106 mmol/L (98-107); Creatinine, Serum 0.89 mg/dL (0.55-1.02); EST Glomerular Filtration Rate 70 mL/min (>60); Est Glom Filt Rate - Afr Amer 84 mL/min (>60); Ferritin 68 ng/mL (8-252); Glucose 91 mg/dL (74-106); Iron 65 ug/dL (50-170); Potassium 4.1 mmol/L (3.5-5.1); Sodium Level 139 mmol/L (136-145)
== END | disposition home or self-care (01) ==
PROVIDERS: PCP Family Medicine; Referring Provider Family Medicine; Visit Provider Family Medicine
DX: E55.9 Vitamin D deficiency, unspecified (principal); D64.9 Anemia, unspecified; I10 Essential (primary) hypertension
CPT/HCPCS: 36415; 80048; 82306; 82728; 83540; 85027

== ENCOUNTER 2023-08-15 09:00 | Outpatient (RCR) | payer OTHER, SELFPAY ==
--- NOTE | 2023-05-30 12:48 | HP.PTEVAL ---
Patient's Visit Information Visit Information Visit Information: MADDIE FREIRE is a 53 year old F referred to Physical Therapy by MARIE Nogueira with a diagnosis of LEVATOR SPASMS. Date of Evaluation: 05/30/23 Physical Therapist: Kyleigh Nguyen PT, Cert MDT Visit Plan Frequency: 1x/Week Duration: 2-4 Months Plan: MANUAL PF THERAPY FOR STM, TRIGGER POINT RELEASE AND RELAXATION TRAINING. HEALTHY BLADDER HABIT EDUCATION. TRAINING IN COORDINATION OF PELVIC FLOOR MUSCULATURE WITH HIP AND CORE (TRANSVERSE ABDOMINUS) MUSCULATURE. CORE STRENGTHENING. VIKRAM LE ROM, STRETCHING AND STRENGTHENING. TRAINING IN ABDOMINAL CAVITY PRESSURE MGMT WITH ADL'S. POSTURE TRAINING. HEP AND SELF CARE EDUCATION. 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 Disability: NO Present symptoms: PATIENT REPORTS THE MAIN REASON SHE IS HERE IS PAIN WITH INTERCOURSE AND SHE HAS BACK PAIN. PATIENT STATES SHE IS NOT HERE FOR INCONTINENCE AND SHE DOES NOT WEAR PADS. STATES SHE JUST LEAKS WITH SNEEZING SOMETIMES. Present since: PAIN WITH INTERCOURSE STARTED ABOUT A YEAR AGO. LOW BACK PAIN RANGES 3-9/10. Is it getting better, worse or staying the same: STAYING THE SAME. Commenced as a result of: LOW BACK INJURY AT WORK 20 YEARS AGO. Dyspareunia STARTED WHEN PERIOD STOPPED ABOUT A YEAR AGO. Worse: UNKNOWN Better: LUBRICATION HELPS SOMETIMES. Previous history/Previous treatment: PT, MASSAGE AND EX FOR BACK IN THE PAST WITHOUT BENEFIT. CHIROPRACTIC WITH TEMPORARY RELIEF. NO BACK SURGERY OR INJECTIONS. NO TREATMENT FOR DYSPAREUNIA. Treatment this episode: ONE CONSULT WITH DR. PAYNE'S NURSE PRACTITIONER TISHA GALEANO. PATIENT REPORTS SHE TOLD HER EVERYTHING LOOKED GREAT WITH HER PELVIC EXAM EXCEPT FOR MUSCLE TIGHTNESS. Coughing/sneezing/straining: STRESS INCONTINENCE SYMPTOMS WITH SNEEZING. Gait: NORMAL How long can you delay the need to urinate: 30 TO 60 MINUTES. REPORTS SHE ALWAYS MAKES IT TO THE BATHROOM WITHOUT LEAKING. Prolapse (Falling out feeling): NO Frequency of Urination: EVERY 2-3 HOURS Ability to stop urine flow: YES Ability to initiate urine stream: YES. PATIENT DENIES DIFFICULTY STARTING THE STREAM. Dyspareunia: YES. Bowel Incontinence: NO Accidents: NO Unexplained weight loss: NO Imaging: NO PMH/Recent major surgery: BACK PAIN, NECK PAIN, FOOT SX. HAY FEVER. ARTHRITIS. OTHER: ONE BABY - VAGINAL WITH LONG LABOR AND EXTENSIVE TEARING. REPORTS FULL RECOVERY. Objective Objective: Sitting/Standing Posture: FAIR. INCREASED LORDOSIS. ANTERIOR PELVIC TILT. NO RELEVANT LATERAL SHIFT. Active Correction of posture: ABLE TO PARTIALLY CORRECT. DOES NOT MAINTAIN. Other Observations: INDEP GAIT AND TRANSFERS. Sensory deficit: VIKRAM LE LIGHT TOUCH SENSATION IS GROSSLY INTACT AND SYMMETRICAL ROM deficit: VIKRAM CALF TIGHTNESS R>L. VIKRAM HIP ROTATOR, HIP FLEXOR, HIP ADDUCTION TIGHTNESS. HS TIGHTNESS. Motor deficit: VIKRAM LE'S GROSSLY 5/5 EXCEPT HIP ROTATORS 4/5. PELVIC FLOOR WEAKNESS GRADED 3/5 X 3 X 4 SEC. Reflexes: 2/3 VIKRAM LE'S. Dural Signs: NEGATIVE VIKRAM LE'S. Lumbar mvmt loss: flex - MOD ext - MOD R SG - MOD L SG - MOD PATIENT C/O INCREASED LBP WITH LUMBAR ROM TESTING ALL PLANES - NW. Core strength: POOR. Palpation: NO ACUTE LUMBAR OR HIP TENDERNESS WITH LIGHT PALPATION. PELVIC FLOOR TENDERNESS AND HIGH TONE THROUGHOUT ESPECIALLY LEVATOR ANI VIKRAM WITH MULTIPLE TRIGGER POINTS. FUNCTIONAL SCREEN: Incontinence Impact Questionnaire Score: 19 Urogenital Distress Inventory Score: 7 Goals Goal 1:: PATIENT WILL BE ABLE TO HAVE SEXUAL RELATIONS WITH HER WITHOUT PAIN. Goal Time Frame: 8-12 Weeks Goal 2:: PATIENT WILL HAVE INCREASED CORE STRENGTH/STABILITY TO GOOD Goal Time Frame: 8-12 Weeks Goal 3:: PATIENT WILL BE ABLE TO MAINTAIN PROPER POSTURE THROUGHOUT PT SESSION Goal Time Frame: 6-8 Weeks Goal 4:: DEVELOP HEALTHY FLUID INTAKE HABITS WITH FLUID INTAKE OF ? BODY WEIGHT IN OUNCES PER DAY AND 2/3 BEING WATER. Goal Time Frame: 2-4 Weeks Goal 5:: NORMALIZE VOIDING FREQUENCEY TO EVERY 3-4 HOURS. Goal Time Frame: 2-4 Weeks Goal 6:: PATIENT WILL BE INDEP WITH A HEP/HOME INSTRUCTIONS FOR CONTINUED IMPROVEMENT ONCE FORMAL PHYSICAL THERAPY CONCLUDES Goal Time Frame: 8-12 Weeks Rehabilitation Potential Physical Therapy Diagnosis: HIGH TONE PELVIC FLOOR AND PELVIC FLOOR WEAKNESS. HYPOMOBILITY AND WEAKNESS IN TRUNK AND HIPS. Rehabilitation Potential: Good Anticipated Interventions Patient/Client Instruction: Educate patient on: Condition, Plan of Care and Risk Factors For the Purpose of:: To improve self management Therapeutic Exercise to Include: Strength training, Postural training, Flexibilty training and Relaxation training For the Purpose of:: To improve muscle performance and motor function, To improve ability of physical actions for home/community/work/leisure, To decrease soft tissue restriction and To increase flexibility/ROM Manual Therapy Techniques to Include: Trigger point massage and Soft tissue mobilization For the Purpose of:: To improve muscle performance and motor function and To decrease soft tissue restriction Text: Thank you for the opportunity to evaluate your patient. For Medicare and Medicare HMO plans, please review the plan of care and approve it. It will need to be FAXED BACK to us at [phone] for Medicare purposes. For Medicare only, by signing this I certify the plan of care. Please let me know if there are questions or concerns regarding this plan of care. Physician Signature: Date:
--- NOTE | 2023-08-15 13:53 | HP.PTDCSUM_ITS ---
Discharge Summary D/C summary: It has been my pleasure to treat MADDIE FREIRE referred by MARIE Nogueira, with the diagnosis of LEVATOR SPASMS for a total of 11 visit(s). Discharge Date: 08/15/23 Please see the following information for a summary of their discharge status. Subjective Subjective: PATIENT REPORTS ALL OF HER EX'S ARE GOING GOOD. NO Dyspareunia and no UI. FOLLOW UP ILIANA'T PENDING WITH DR. PAYNE SUNDAY. FOOT NEXT SUNDAY. RE-TRIED WALKING PROGRAM BUT LIMITED BY FOOT PAIN. Pain LOW BACK PAIN: Pain Intensity (Out of 10): 2 R HIP: Pain Intensity (Out of 10): 2 L HIP: Pain Intensity (Out of 10): 0 Overall Improvement % Improvement: 100 Objective Objective/Function: ALL PT GOALS HAVE BEEN MET AND PATIENT IS INDEP WITH A HEP. SHE IS APPROPRIATE FOR AND AGREEABLE TO DISCHARGE. FUNCTIONAL SCREEN: Incontinence Impact Questionnaire Score: 0 Urogenital Distress Inventory Score: 0 Goals Goal 1:: PATIENT WILL BE ABLE TO HAVE SEXUAL RELATIONS WITH HER WITHOUT PAIN. Goal Progress: Goal Met Goal 2:: PATIENT WILL HAVE INCREASED CORE STRENGTH/STABILITY TO GOOD Goal Progress: Goal Met Goal 3:: PATIENT WILL BE ABLE TO MAINTAIN PROPER POSTURE THROUGHOUT PT SESSION Goal Progress: Goal Met Goal 4:: DEVELOP HEALTHY FLUID INTAKE HABITS WITH FLUID INTAKE OF ? BODY WEIGHT IN OUNCES PER DAY AND 2/3 BEING WATER. Goal Progress: Goal Met Goal 5:: NORMALIZE VOIDING FREQUENCEY TO EVERY 3-4 HOURS. Goal Progress: Goal Met Goal 6:: PATIENT WILL BE INDEP WITH A HEP/HOME INSTRUCTIONS FOR CONTINUED I MPROVEMENT ONCE FORMAL PHYSICAL THERAPY CONCLUDES Goal Progress: Goal Met Plan Plan: D/C TO HEP D/C Information d/c sentence: If there are questions or concerns regarding this patient's physical therapy, please feel free to call me at [phone]. Thank you for the referral of this patient. Sincerely, Kyleigh Nguyen, PT, Cert MDT Balance/Gait/Functional tests Improvement % Improvement: 100
== END 2023-08-15 14:49 | disposition home or self-care (01) ==
LOC: PT 09:00
PROVIDERS: PCP Family Medicine; Referring Provider Nurse Practitioner Family; Visit Provider Nurse Practitioner Family
DX: H02.59 Other disorders affecting eyelid function (principal)
CPT/HCPCS: 97110; 97140; 97162; 97530

== ENCOUNTER → 2023-08-31 | Outpatient (CLI) | payer OTHER, SELFPAY ==
--- NOTE | 2023-08-31 12:44 | US_ITS ---
STUDY: ULTRASOUND BREAST - LEFT REASON FOR EXAM: Female, 53 years old. Palpable lump in the upper aspect of the left breast. TECHNIQUE: Axial and longitudinal images of the LEFT breast were performed with a high resolution ultrasound transducer. # OF IMAGES: 11 COMPARISON: Comparison is made with prior mammogram dated May 07, 2023. FINDINGS: LEFT Breast: The upper aspect of the left breast was examined with ultrasound. The palpable abnormality corresponds to a 2.1 cm x 2 cm x 1.3 cm slightly echogenic nodule just deep to the skin surface. This may represent a lipoma. US/Breast Limited Unilateral IMPRESSION: The palpable lump corresponds to a 2.1 cm x 2 cm x 1.3 cm echogenic nodule. This most likely represents a lipoma. ASSESSMENT CATEGORY: BIRADS Category 2: Benign. A letter regarding these results will be sent to the patient by the facility within 30 days. Electronically Signed: Neils Alanis MD at 9:50 EDT ,
== END | disposition home or self-care (01) ==
PROVIDERS: PCP Family Medicine; Referring Provider Family Medicine; Visit Provider Family Medicine
DX: N63.21 Unspecified lump in the left breast, upper outer quadrant (principal)
CPT/HCPCS: 76642

== ENCOUNTER → 2024-03-15 | Outpatient (CLI) | payer OTHER, SELFPAY ==
[2024-03-15 08:49] LABS: ALB/GLOB Ratio 1.2 RATIO (0.9-2.4); AST(SGOT) 19 U/L (15-37); Alanine Aminotransfer ALT/SGPT 39 U/L (13-56); Albumin, Serum 3.6 g/dL (3.2-5.0); Alkaline Phosphatase 75 U/L (45-117); Anion Gap 3 (5-15); BUN 17 mg/dL (7-18); BUN/Creat Ratio 17.1 RATIO (10-20); Calcium,Total 8.8 mg/dL (8.5-10.1); Chloride 109 mmol/L (98-107); Cholesterol 257 mg/dL (200); Creatinine, Serum 0.99 mg/dL (0.55-1.02); EST Glomerular Filtration Rate 62 mL/min (>60); Est Glom Filt Rate - Afr Amer 74 mL/min (>60); Globulin 3.1 g/dL (2.2-4.2); Glucose 95 mg/dL (74-106); High Density Lipoprotein 53 mg/dL; Potassium 4.3 mmol/L (3.5-5.1); Protein, Total 6.7 g/dL (6.4-8.2); Sodium Level 140 mmol/L (136-145); T4 Free Direct 0.87 ng/dL (0.76-1.46); Triglycerides 142 mg/dL; Very Low Density Lipoprotein 28 mg/dL (5-40)
== END | disposition home or self-care (01) ==
LOC: LAB 07:43
PROVIDERS: PCP Family Medicine; Referring Provider Family Medicine; Visit Provider Family Medicine
DX: E78.5 Hyperlipidemia, unspecified (principal); E03.9 Hypothyroidism, unspecified
CPT/HCPCS: 36415; 80053; 80061; 84439; 84443

== ENCOUNTER → 2024-04-16 | Outpatient (CLI) | payer OTHER, SELFPAY ==
[2024-04-16 10:44] LABS: Free T3 3.9 pg/mL (2.18-3.98); T4 Free Direct 1.15 ng/dL (0.76-1.46)
== END | disposition home or self-care (01) ==
LOC: MFPLAB 08:11
PROVIDERS: PCP Family Medicine; Referring Provider Family Medicine; Visit Provider Family Medicine
DX: E03.9 Hypothyroidism, unspecified (principal)
CPT/HCPCS: 36415; 84439; 84443; 84481

== ENCOUNTER → 2024-05-09 | Outpatient (CLI) | payer OTHER, SELFPAY ==
--- NOTE | 2024-05-09 12:18 | BI_ITS ---
PROCEDURE: SCRN MAMM (CAD)W/RAJIV BILAT REASON FOR EXAM: F, Age 54 y/o, presents for annual screening mammogram. Family history of breast cancer in her mother at age 50. TECHNIQUE: Bilateral screening digital breast tomosynthesis with 2D and 3D images. Computer aided detection. COMPARISON: 05/07/2023 FINDINGS: There are scattered areas of fibroglandular density. No suspicious masses, areas of developing architectural distortion, or suspicious calcifications. BI/SCRN MAMM (CAD)W/RAJIV BILAT IMPRESSION: There is no mammographic evidence of malignancy. BI-RADS 1: NEGATIVE. RECOMMEND ANNUAL MAMMOGRAPHIC SCREENING. Follow-up code: Routine Follow-up The patient will be notified of the results by letter. Reading Location: [id number]
== END | disposition home or self-care (01) ==
LOC: OPBI 12:14
PROVIDERS: PCP Family Medicine; Referring Provider Family Medicine; Visit Provider Family Medicine
DX: Z12.31 Encounter for screening mammogram for malignant neoplasm of breast (principal); Z80.3 Family history of malignant neoplasm of breast
CPT/HCPCS: 77063; 77067

== ENCOUNTER → 2024-07-02 | Outpatient (CLI) | payer OTHER, SELFPAY ==
[2024-07-02 11:22] LABS: Free T3 2.5 pg/mL (2.18-3.98)
== END | disposition home or self-care (01) ==
LOC: MFPLAB 07:58
PROVIDERS: PCP Family Medicine; Referring Provider Family Medicine; Visit Provider Family Medicine
DX: E03.9 Hypothyroidism, unspecified (principal)
CPT/HCPCS: 36415; 84439; 84443; 84481

== ENCOUNTER → 2024-10-25 | Outpatient (CLI) | payer OTHER, SELFPAY ==
--- OUTSIDE RECORDS SUMMARY | 2024-10-25 07:19 | XMS RPT_ITS | CCD ---
Author Organization [facility] Care Team Providers Care Insurance Follow Up Representative Name Role Phone Sonia Bryan LPN Unavailable Carlos Triplett Unavailable Preeti Hazel LPN Unavailable Unavailab le JENNA BANERJEE DPGeorges Unavailable Unavailable JENNA BANERJEE DPGeorges Unavailable Unavailable JENNA BANERJEE DPGeorges Unavailable Unavailable Andrey Interiano MD Primary Care Provider Andrey Interiano MD Primary Care Provider Andrey Interiano MD Primary Care Provider Andrey Interiano MD Primary Care Provider Dr. Anson Interiano Primary Care Provider [phone] Dr. Anson Interiano Referring Provider NED Burger Attending Provider Andrey Interiano MD Primary Care Provider Andrey Interiano MD Primary Care Provider Dr. Anson Interiano Primary Care Provider Dr. Anson Interiano Referring Provider NED Triplett Attending Provider Andrey Interiano MD Primary Care Provider Dr. Andrey Interiano MD Primary Care Provider Dr. Andrey Interiano MD Attending Provider Dr. Andrey Interiano MD Referring Provider Carlos Tripltet Attending Provider JAYDON, CHRISTIANER B Primary Care Unavailabl e CAROLYN NETTLES Attending Unavailable RANJASIEL, CHRISTOPHER B Primary Care Unavailabl e MANE ROSALES Referring Unavailable MANE ROSALES Attending Unavailable DELMER POLO Attending Unavailable RANNEY, CHRISTOPHER B Primary Care Unavailabl e Ranney, Christopher Primary Care Unavailable Carlos Triplett Attending Unavailable Ranney, Christopher Referring Unavailable Ranney, Christopher Primary Care Unavailable Ranney, Christopher Attending Unavailable Ranney, Christopher Referring Unavailable Ranney, Christopher Primary Care Unavailable Ranney, Christopher Attending Unavailable Ranney, Christopher Referring Unavailable Ranney, Christopher Primary Care Unavailable Ranney, Christopher Attending Unavailable Ranney, Christopher Referring Unavailable Ranney, Christopher Primary Care Unavailable Ranney, Christopher Attending Unavailable Ranney, Christopher Referring Unavailable Ranney, Christopher Attending Unavailable Ranney, Christopher Primary Care Unavailable Allergies Allergy Classification Reported Allergen(s) Allergy Type Date of Onset Reaction(s) Facility (3 sources) penicillin v drug allergy 11-21-[address] [facility] Work Phone: (3 sources) sulfamethoxazole / trimethoprim drug allergy 11-21-[address] [facility] Work Phone: (1 source) penicillin Drug Allergy [facility] (20 sources) Citalopram; Translations: [CITALOPRAM] Drug Allergy 03-27-19 19 Rash [facility] (11 sources) Desvenlafaxine Drug Allergy 06-10-19 21 diarrhea [facility] (20 sources) DULoxetine; Translations: [DULOXETINE] Drug Allergy 03-27-19 19 Other: See Comments [facility] (20 sources) Lisinopril; Translations: [LISINOPRIL] Drug Allergy 06-10-19 21 Cough [facility] (20 sources) Penicillins; Translations: [PENICILLINS] Allergy to substance 09-20-19 07 Vomiting [facility] Work Phone: (20 sources) Sertraline; Translations: [SERTRALINE] Drug Allergy 03-27-19 19 Diarrhea [facility] (20 sources) vortioxetine; Translations: [VORTIOXETINE] Drug Allergy 03-27-19 Other: See Comments [facility] (20 sources) Desvenlafaxine; Translations: [DESVENLAFAXINE SUCCINATE] Drug Allergy 03-27-19 Diarrhea [facility] (20 sources) Sulfonamides (Antibiotic); Translations: [SULFA (SULFONAMIDE ANTIBIOTICS)] Drug Allergy 03-27-19 Itching [facility] (20 sources) Homeopathic Products; Translations: [HOMEOPATHIC PRODUCTS] Propensity to adverse reactions 09-20-19 [facility] Work Phone: (20 sources) Cat Dander; Translations: [CAT DANDER] Drug Allergy 10-26-19 Other: See Comments [facility] (20 sources) Amoxicillin / Clavulanate; Translations: [AMOXICILLIN-POT CLAVULANATE] Drug Allergy 11-30-19 Intolerance [facility] (11 sources) gabapentin; Translations: [GABAPENTIN] Drug Allergy 04-27-19 Other: See Comments [facility] (11 sources) Losartan; Translations: [LOSARTAN POTASSIUM] Drug Allergy 04-27-19 Other: See Comments [facility] (11 sources) pregabalin; Translations: [PREGABALIN] Drug Allergy 04-27-19 Other: See Comments [facility] (1 source) Citalopram Drug Allergy 05-05-19 25 [facility] Repository (1 source) Desvenlafaxine Drug Allergy 05-05-19 25 [facility] Repository (1 source) DULoxetine Drug Allergy 05-05-19 25 [facility]ository (1 source) Lisinopril Drug Allergy 05-05-19 25 [facility] Repository (1 source) Sertraline Drug Allergy 05-05-19 25 [facility] Repository (1 source) vortioxetine Drug Allergy 05-05-19 25 [facility] Repository Medications Current Medications Medication Drug Class(es) Dates Sig (Normalized) Sig (Original) amLODIPine 5 mg oral tablet (20 sources) Dihydropyridine Calcium Channel Vinicio Start: 09-17-2021 take 1 tablet by mouth once daily amLODIPine (NORVASC) 5 mg tablet Take 5 mg by mouth once daily. 09/17/2021 Active Comment on above: Take 5 mg by mouth o nce daily. azithromycin 250 mg oral tablet (20 sources) Macrolide Antimicrobial Start: 05-05-2024 Azithromycin 250 mg tablet Active 0 PO .COMPLEX May 05, 2024 1:00am For 250 mg dose pack: take 500 mg today (day 1), then 250 mg for 4 days (days 2-5) PO Start: 12-05-2019 End: 05-19-2020 take 2-5 tablets by mouth once daily Azithromycin 250 mg tablet Discontinued 0 PO .COMPLEX December 05, 2019 12:00am May 19, 2020 2:27pm take 500 mg today (day 1), then 250 mg for 4 days (days 2-5) PO Start: 06-14-2017 End: 05-19-2020 Azithromycin 250 mg tablet Discontinued 250 mg PO daily May 24, 2019 12:00am December 05, 2019 7:12am 2 tablets today, then 1 tablet daily on days 2 through 11 Start: 11-20-2016 AZITHROMYCIN 2 50 MG TABS 2 tablets today, then 1 tablet daily for 4 days AZITHROMYCIN [id number] Carlos MARINO benoxinate hydrochloride 4 mg/ml / fluorescein sodium 3 mg/ml ophthalmic solution (17 sources) Diagnostic Dye Start: 01-29-2024 End: 01-29-2024 fluorescein-benoxinate 0.3-0.4 % 1 Drop (FLURESS) Start: 01-29-2024 End: 01-29-2024 1 Drop, BOTH EYES, DIRECT ED, Starting on Sun01/29/24 at 0800, Until Sun01/29/24 at 1959, Administer for applanation tonometry. In the event of a Fluress shortage, administer 1 drop of Frances-Fluor into both eyes as directed for applanation tonometry., OPHT CLINIC MED ORDERS Start: 09-25-2023 End: 09-25-2023 fluorescein-benoxinate 0.3-0 .4 % 1 Drop (FLURESS) Start: 05-23-2023 End: 05-23-2023 fluorescein-benoxinate 0.3-0 .4 % 1 Drop (FLURESS) Start: 01-23-2023 End: 01-23-2023 fluorescein-benoxinate 0.25- 0.4 % 1 Drop (FLURESS) Start: 10-24-2022 End: 10-24-2022 fluorescein-benoxinate 0.25- 0.4 % 1 Drop (FLURESS) Start: 07-18-2022 End: 07-18-2022 fluorescein-benoxinate 0.25- 0.4 % 1 Drop (FLURESS) Start: 05-23-2022 End: 05-23-2022 fluorescein-benoxinate 0.25- 0.4 % 1 Drop (FLURESS) Start: 04-25-2022 End: 04-25-2022 fluorescein-benoxinate 0.25- 0.4 % 1 Drop (FLURESS) Start: 04-11-2022 End: 04-11-2022 fluorescein-benoxinate 0.25- 0.4 % 1 Drop (FLURESS) Start: 04-04-2022 End: 04-04-2022 fluorescein-benoxinate 0.25- 0.4 % 1 Drop (FLURESS) Start: 03-30-2022 End: 03-30-2022 fluorescein-benoxinate 0.25- 0.4 % 1 Drop (FLURESS) Start: 02-28-2022 End: 02-28-2022 fluorescein-benoxinate 0.25- 0.4 % 1 Drop (FLURESS) Start: 11-29-2021 End: 11-29-2021 fluorescein-benoxinate 0.25- 0.4 % 1 Drop (FLURESS) Start: 11-09-2021 End: 11-10-2021 fluorescein-benoxinate 0.25- 0.4 % 1 Drop (FLURESS) Start: 10-25-2021 End: 10-26-2021 fluorescein-benoxinate 0.25- 0.4 % 1 Drop (FLURESS) Start: 10-11-2021 End: 10-12-2021 fluorescein-benoxinate 0.25- 0.4 % 1 Drop (FLURESS) benzonatate 200 mg oral capsule (17 sources) Non-narcotic Antitussive Start: 01-27-2023 End: 05-05-2024 take 1 capsule by mouth three times daily as needed for cough Benzonatate 200 mg capsule Active 200 mg PO THREE TIMES A DAY as needed for cough May 05, 2024 8:51am Start: 06-14-2017 End: 05-24-2019 take 1 capsule by mouth three times daily as needed for cough Benzonatate 200 mg capsule Discontinued 200 mg PO THREE TIMES A DAY as needed for cough June 14, 2017 12:00am May 24, 2019 8:24am calcium (12 sources) Phosphate Binder, Calcium Start: 05-19-2020 take 1 tablet by mouth once daily Calcium Carb-D3-Mag [id number] Active 1 TABLET PO DAILY May 19, 2020 12:00am administer with a meal Start: 05-19-2020 take 1 tablet by jessica th once daily Calcium Carb-D3-Mag [id number] Active 1 TABLET PO DAILY May 19, 2020 1:00am administer with a meal Start: 11-20-2016 CALCIUM 500 TA BS as directed [id number] D TABS [id number] Carlos MARINO Calcium Carb-D3-Mag [id number] [phone] em-pgoh-si-mg tablet (2 sources) Start: 05-19-2020 Calcium Carb-D 3-Mag [id number] [phone] yx-vocg-ln-mg tablet Active 1 {tbl} PO DAILY May 19, 2020 1:00am administer with a meal calcium carb/magnesium ox,carb (MERLE-MAG ORAL) (20 sources) take 1 tablet by mouth once daily calcium carb/magnesium ox,carb (MERLE-MAG ORAL) Take 1 tablet by mouth once daily. Active take 1 tablet by mouth once gera y calcium carb/magnesium ox,carb (MERLE-MAG ORAL) Take 1 tablet by mouth once daily. 0 Active calcium carb/mag nesium ox,carb (MERLE-MAG ORAL) Take by mouth. 0 Active Comment on above: Take by mouth. Take 1 tablet by jessica th once daily. celecoxib 200 mg oral capsule (20 sources) Nonsteroidal Anti-inflammatory Drug Start: 05-24-2019 End: 05-19-2020 Celecoxib 200 mg capsule Active mg PO as needed May 19, 2020 2:26pm Start: 05-24-2019 End: 05-19-2020 Celecoxib Active MG PO May 19, 2020 1:26pm Start: 11-04-2015 End: 05-24-2019 Celebrex 200 MG Discontinued 1 {tbl} PO DAILY November 04, 2015 12:00am May 24, 2019 8:24am Start: 11-04-2015 End: 05-24-2019 take 1 tablet by mouth once daily Celebrex Discontinued 1 TABLET PO DAILY November 03, 2015 11:00pm May 24, 2019 7:24am Start: 11-04-2015 End: 05-24-2019 take 1 tablet by mouth once daily Celebrex Discontinued 1 TABLET PO DAILY November 04, 2015 12:00am May 24, 2019 8:24am Comment on above: Take 200 mg by mouth twice daily. cholecalciferol 0.1 mg oral capsule (20 sources) Vitamin D Start: 05-24-19 take 1 capsule by mouth once daily cholecalciferol (vitamin D3) 4,000 unit capsule Active 4000 UNIT PO DAILY May 23, 2019 11:00pm Start: 11-20-2016 VITAMIN D3 CAP S as directed CHOLECALCIFEROL CAPS [id number] Carlos Hall PA take 1 capsule by mo ut once daily Cholecalciferol, Vitamin D3, 5,000 unit cap Take 5,000 Units by mouth once daily. Active Comment on above: Take 5,000 Units by mouth once daily. cholecalciferol (vitamin D3) 4,000 unit capsule (6 sources) Start: 05-24-19 take 1 capsule by mouth once daily cholecalciferol (vitamin D3) 4,000 unit capsule Active 4000 UNIT PO DAILY May 24, 2019 12:00am Start: 05-24-2019 take 1 capsule by mo uth once daily cholecalciferol (vitamin D3) 4,000 unit capsule Active 4000 UNIT PO DAILY May 23, 2019 11:00pm Cholecalciferol (Vitamin D3) 4,000 unit capsule (2 sources) Start: 05-24-2019 take 1 capsule by mouth once daily Cholecalciferol (Vitamin D3) 4,000 unit capsule Active 4000 U PO DAILY May 24, 2019 12:00am cyclobenzaprine hydrochloride 10 mg oral tablet (20 sources) Muscle Relaxant take 1 tablet by mouth every eight hours as needed cyclobenzaprine (FLEXERIL) 10 mg tablet Take 10 mg by mouth three times daily as needed. Active Comment on above: Take 10 mg by mouth three times daily as needed. diclofenac sodium 0.01 mg/mg topical gel (10 sources) Nonsteroidal Anti-inflammatory Drug apply 2 g topically three times daily diclofenac (VOLTAREN) 1 % topical gel Apply 2 g to affected area three times a day. Active Comment on above: Apply 2 g to affecte d area three times a day. doxycycline hyclate 100 mg oral capsule (20 sources) Tetracycline-clas s Drug Start: 11-22-2021 doxycycline hyclate (VIBRAMYCIN) 100 mg capsule 11/22/2021 Active Ethinyl Estradiol / Norethindrone (20 sources) Estrogen Start: 09-19-2006 Norethindrone-Eth Estradiol (NORTREL 0.5/35 (28)) 0.5-35 mg-mcg ORAL Tab Take by mouth. 0 09/19/2006 Active Start: 09-19-2006 take 1 tablet by jessica once daily Norethindrone-Eth Estradiol (NORTREL 0.5/35 (28)) 0.5-35 mg-mcg ORAL Tab Take one(1) tablet daily. 0 09/19/2006 Active Comment on above: Take one(1) tablet d aily. Take by mouth. famciclovir 125 mg oral tablet (20 sources) Herpes Simplex Virus Nucleoside Analog DNA Polymerase Inhibitor Start: 2 famciclovir (FAMVIR) 125 mg tablet as needed. 12/20/2021 Active Comment on above: as needed. ferrous sulfate 325 mg oral tablet (10 sources) take 1 tablet by mouth once daily ferrous sulfate 325 mg (65 mg iron) tablet Take 325 mg by mouth once daily. Active Comment on above: Take 325 mg by mouth once daily. FLUoxetine 10 mg oral capsule (20 sources) Serotonin Reuptake Inhibitor Start: 1 take 1 capsule by mouth once daily as needed Fluoxetine (Prozac) 10 mg capsule Active 10 mg PO DAILY as needed May 19, 2020 1:00am Comment on above: Take 10 mg by mouth once daily. fluticasone prp-sod.chl,bicarb 50 mcg- 0.9 % ksps (10 sources) fluticasone prp-sod.chl,bicarb 50 mcg- 0.9 % ksps Use 2 Sprays in the nose once daily. Active fluticasone prp- sod.chl,bicarb 50 mcg- 0.9 % ksps Use 2 Sprays in the nose once daily. 0 Active Comment on above: Use 2 Sprays in the nose once daily. ibuprofen 600 mg oral tablet (20 sources) Nonsteroidal Anti-inflammatory Drug Start: 2 take 1 tablet by mouth every eight hours as needed ibuprofen (MOTRIN) 600 mg tablet Take 600 mg by mouth three times daily as needed. 08/23/2021 Active Comment on above: Take 600 mg by mouth three times daily as needed. Iron Bisglycinate Chelate (5 sources) Start: 3 Iron Bisglycinate Chelate Active MG PO July 01, 2022 11:00pm Start: 07-02-2022 Iron Bisglycin ate Chelate Active MG PO July 02, 2022 12:00am Iron Bisglycinate Chelate 28 mg iron capsule (2 sources) Start: 07-02-2022 Iron Bisglycin ate Chelate 28 mg iron capsule Active mg PO July 02, 2022 12:00am ketoconazole 20 mg/ml topical cream (10 sources) Azole Antifungal ketoconazole (NIZORAL) 2 % cream Apply 1 g to affected area two times a day. Active Comment on above: Apply 1 g to affecte d area two times a day. Lactobacillus acidophilus (14 sources) take 1 tablet by mouth once daily Lactobacillus acidophilus (PROBIOTIC ORAL) Take 1 tablet by mouth once daily. Active take 1 tablet by mouth once gera y Lactobacillus acidophilus (PROBIOTIC ORAL) Take 1 tablet by mouth once daily. 0 Active Comment on above: Take 1 tablet by jessica th once daily. levothyroxine sodium 0.05 mg oral tablet (4 sources) l-Thyroxine Start: 5 take 1 tablet by mouth once daily Levothyroxine 50 mcg tablet Active 50 ug PO daily May 05, 2024 1:00am 24 hr loratadine 10 mg / pseudoephedrine sulfate 240 mg extended release oral tablet (10 sources) alpha-Adrenergic Agonist take 1 tablet by mouth once daily loratadine-pseudoephe drine ER (CLARITIN-D 24 HOUR) 10-240 mg Tb24 Take 1 tablet by mouth once daily. Active Comment on above: Take 1 tablet by jessica th once daily. Magnesium (10 sources) take 1 tablet by mouth once daily Magnesium 200 mg tab Take 1 tablet by mouth once daily. Active take 1 tablet by mouth once gera y Magnesium 200 mg tab Take 1 tablet by mouth once daily. 0 Active Comment on above: Take 1 tablet by [facility] once daily. meloxicam 15 mg oral tablet (20 sources) Nonsteroidal Anti-inflammatory Drug Start: 08-24-2021 take 1 tablet by mouth once daily meloxicam (MOBIC) 15 mg tablet Take 15 mg by mouth once daily. 08/24/2021 Active Comment on above: Take 15 mg by mouth once daily. OMEGA-3 FATTY ACIDS CAP (20 sources) Start: 02-18-2007 take 1 capsule by mouth once daily OMEGA-3 FATTY ACIDS CAP Take 1 capsule by mouth once daily. 0 02/18/2007 Active Start: 02-18-2007 OMEGA-3 FATTY ACIDS CAP one caps bid 0 02/18/2007 Active Comment on above: one caps bid Take 1 capsule by [facility] once daily. omeprazole 20 mg delayed release oral capsule (20 sources) Proton Pump Inhibitor Start: 04-24-19 take 1 capsule by mouth once daily omeprazole (PRILOSEC) 20 mg capsule Take 1 capsule by mouth once daily. 30 capsule 2 04/24/2018 Active Comment on above: Take 1 capsule by [facility] once daily. pantoprazole 40 mg delayed release oral tablet (2 sources) Proton Pump Inhibitor Start: 04-21-19 take 1 tablet by mouth once daily pantoprazole DR (PROTONIX) 40 mg tablet Take 40 mg by mouth once daily. 04/21/2024 Active penciclovir 10 mg/ml topical cream (20 sources) Herpesvirus Nucleoside Analog DNA Polymerase Inhibitor Start: 12-21-19 DENAVIR 1 % cream as needed. 12/20/2021 Active Comment on above: as needed. phenylephrine hydrochloride 25 mg/ml ophthalmic solution (19 sources) alpha-1 Adrenergic Agonist Start: 04-30-19 End: 04-30-19 PHENYLephrine 2.5 % 1 Drop (AK-DILATE, FORTUNATO-SYNEPHRINE) Start: 01-29-2024 End: 01-29-2024 PHENYLephrine 2.5 % 1 Drop ( AK-DILATE, FORTUNATO-SYNEPHRINE) Start: 01-29-2024 End: 01-29-2024 1 Drop, BOTH EYES, DIRECT ED, Starting on Sun01/29/24 at 0800, Until Sun01/29/24 at 1959, Administer for dilation PROTECT FROM LIGHT, OPHT CLINIC MED ORDERS Start: 09-25-2023 End: 09-25-2023 PHENYLephrine 2.5 % 1 Drop ( AK-DILATE, FORTUNATO-SYNEPHRINE) Start: 05-23-2023 End: 05-23-2023 PHENYLephrine 2.5 % 1 Drop ( AK-DILATE, FORTUNATO-SYNEPHRINE) Start: 01-23-2023 End: 01-23-2023 PHENYLephrine 2.5 % 1 Drop ( AK-DILATE, FORTUNATO-SYNEPHRINE) Start: 10-24-2022 End: 10-24-2022 PHENYLephrine 2.5 % 1 Drop ( AK-DILATE, FORTUNATO-SYNEPHRINE) Start: 07-18-2022 End: 07-18-2022 PHENYLephrine 2.5 % 1 Drop ( AK-DILATE, FORTUNATO-SYNEPHRINE) Start: 05-23-2022 End: 05-23-2022 PHENYLephrine 2.5 % 1 Drop ( AK-DILATE) Start: 04-25-2022 End: 04-25-2022 PHENYLephrine 2.5 % 1 Drop ( AK-DILATE, FORTUNATO-SYNEPHRINE) Start: 04-11-2022 End: 04-11-2022 PHENYLephrine 2.5 % 1 Drop ( AK-DILATE, FORTUNATO-SYNEPHRINE) Start: 04-04-2022 End: 04-04-2022 PHENYLephrine 2.5 % 1 Drop ( AK-DILATE, FORTUNATO-SYNEPHRINE) Start: 03-29-2022 End: 03-30-2022 PHENYLephrine 2.5 % 1 Drop ( AK-DILATE, FORTUNATO-SYNEPHRINE) Start: 02-28-2022 End: 02-28-2022 PHENYLephrine 2.5 % 1 Drop ( AK-DILATE, FORTUNATO-SYNEPHRINE) Start: 11-29-2021 End: 11-29-2021 PHENYLephrine 2.5 % 1 Drop ( AK-DILATE, FORTUNATO-SYNEPHRINE) Start: 11-09-2021 End: 11-10-2021 PHENYLephrine 2.5 % 1 Drop ( AK-DILATE, FORTUNATO-SYNEPHRINE) Start: 10-25-2021 End: 10-26-2021 PHENYLephrine 2.5 % 1 Drop ( AK-DILATE, FORTUNATO-SYNEPHRINE) Start: 10-11-2021 End: 10-12-2021 PHENYLephrine 2.5 % 1 Drop ( AK-DILATE, FORTUNATO-SYNEPHRINE) pregabalin 50 mg oral capsule (20 sources) Start: 08-10-2021 pregabalin (LY MUKUL) 50 mg capsule Take 50 mg by mouth as needed. 08/10/2021 Active Comment on above: Take 50 mg by mouth twice daily. Take 50 mg by mouth as needed. proparacaine hydrochloride 5 mg/ml ophthalmic solution (14 sources) Local Anesthetic Start: 04-30-2024 End: 04-30-2024 proparacaine 0.5 % 1 Drop (ALCAINE) Start: 01-29-2024 End: 01-29-2024 proparacaine 0.5 % 1 Drop (A LCAINE) Start: 09-25-2023 End: 09-25-2023 proparacaine 0.5 % 1 Drop (A LCAINE) Start: 05-23-2023 End: 05-23-2023 proparacaine 0.5 % 1 Drop (A LCAINE) Start: 01-23-2023 End: 01-23-2023 proparacaine 0.5 % 1 Drop (A LCAINE) Start: 10-24-2022 End: 10-24-2022 proparacaine 0.5 % 1 Drop (A LCAINE) Start: 07-18-2022 End: 07-18-2022 proparacaine 0.5 % 1 Drop (A LCAINE) Start: 04-04-2022 End: 04-04-2022 proparacaine 0.5 % 1 Drop (A LCAINE) Start: 03-29-2022 End: 03-30-2022 proparacaine 0.5 % 1 Drop (A LCAINE) Start: 02-28-2022 End: 02-28-2022 proparacaine 0.5 % 1 Drop (A LCAINE) Start: 11-29-2021 End: 11-29-2021 proparacaine 0.5 % 1 Drop (A LCAINE) Start: 11-09-2021 End: 11-10-2021 proparacaine 0.5 % 1 Drop (A LCAINE) Start: 10-25-2021 End: 10-26-2021 proparacaine 0.5 % 1 Drop (A LCAINE) Start: 10-11-2021 End: 10-12-2021 proparacaine 0.5 % 1 Drop (A LCAINE) propylene glycol 6 mg/ml oph thalmic solution (20 sources) propylene glycoL (SYSTANE COMPLETE) 0.6 % drop Use 1 Drop in both eyes twice daily. Active propylene glycoL (SYSTANE COMPLETE) 0.6 % drop Use 1 Drop in both eyes twice daily. 0 Active Comment on above: Use 1 Drop in both e yes twice daily. silver sulfADIAZINE 10 mg/ml topical cream (20 sources) Sulfonamide Antibacterial Start: 11-16-2021 silver sulfADIAZINE (SILVADENE,THERMAZENE) 1 % cream as needed. 11/16/2021 Active Comment on above: as needed. triamcinolone acetonide 0.0005 mg/mg topical ointment (10 sources) Corticosteroid Triamcinolone Ac etonide 0.05 % oint Apply 1 g to affected area two times a day. Active Comment on above: Apply 1 g to affecte d area two times a day. tropicamide 10 mg/ml ophthalmic solution (19 sources) Anticholinergic Start: 04-30-2024 End: 04-30-2024 tropicamide 1 % 1 Drop (MYDRIACYL) Start: 01-29-2024 End: 01-29-2024 tropicamide 1 % 1 Drop (MYDR IACYL) Start: 01-29-2024 End: 01-29-2024 1 Drop, BOTH EYES, DIRECT ED, Starting on Sun01/29/24 at 0800, Until Sun01/29/24 at 1959, Administer for dilation, OPHT CLINIC MED ORDERS Start: 09-25-2023 End: 09-25-2023 tropicamide 1 % 1 Drop (MYDR IACYL) Start: 05-23-2023 End: 05-23-2023 tropicamide 1 % 1 Drop (MYDR IACYL) Start: 01-23-2023 End: 01-23-2023 tropicamide 1 % 1 Drop (MYDR IACYL) Start: 10-24-2022 End: 10-24-2022 tropicamide 1 % 1 Drop (MYDR IACYL) Start: 07-18-2022 End: 07-18-2022 tropicamide 1 % 1 Drop (MYDR IACYL) Start: 05-23-2022 End: 05-23-2022 tropicamide 1 % 1 Drop (MYDR IACYL) Start: 04-25-2022 End: 04-25-2022 tropicamide 1 % 1 Drop (MYDR IACYL) Start: 04-11-2022 End: 04-11-2022 tropicamide 1 % 1 Drop (MYDR IACYL) Start: 04-04-2022 End: 04-04-2022 tropicamide 1 % 1 Drop (MYDR IACYL) Start: 03-29-2022 End: 03-30-2022 tropicamide 1 % 1 Drop (MYDR IACYL) Start: 02-28-2022 End: 02-28-2022 tropicamide 1 % 1 Drop (MYDR IACYL) Start: 11-29-2021 End: 11-29-2021 tropicamide 1 % 1 Drop (MYDR IACYL) Start: 11-09-2021 End: 11-10-2021 tropicamide 1 % 1 Drop (MYDR IACYL) Start: 10-25-2021 End: 10-26-2021 tropicamide 1 % 1 Drop (MYDR IACYL) Start: 10-11-2021 End: 10-12-2021 tropicamide 1 % 1 Drop (MYDR IACYL) Zinc (11 sources) Start: 05-19-2020 take 1 tablet by jessica th once daily Zinc 50 mg tablet Active 50 mg PO DAILY May 19, 2020 1:00am Start: 05-19-2020 take 50 mg by mouth once daily Zinc Active 50 MG PO DAILY May 19, 2020 12:00am Start: 05-19-2020 take 50 mg by mouth once daily Zinc Active 50 MG PO DAILY May 19, 2020 1:00am Zinc Acetate (20 sources) take 1 tablet by mouth once gera y ZINC ACETATE ORAL Take 1 tablet by mouth once daily. Active take 1 tablet by mouth once gera y ZINC ACETATE ORAL Take 1 tablet by mouth once daily. 0 Active Comment on above: Take 1 tablet by jessica th once daily. Completed/Discontinued Medications Medication Drug Class(es) Dates Sig (Normalized) Sig (Original) Calcium Carb/Magnesium Hydrox (11 sources) Start: 11-04-2015 End: 05-24-2019 Calcium Carb/Magnesium Hydrox Discontinued 1 {tbl} PO AT BEDTIME November 04, 2015 12:00am May 24, 2019 8:24am Start: 11-04-2015 End: 05-24-2019 take 1 tablet by mouth at bedtime Calcium Carb/Magnesium Hydrox Discontinued 1 TABLET PO AT BEDTIME November 03, 2015 11:00pm May 24, 2019 7:24am Start: 11-04-2015 End: 05-24-2019 take 1 tablet by mouth at bedtime Calcium Carb/Magnesium Hydrox Discontinued 1 TABLET PO AT BEDTIME November 04, 2015 12:00am May 24, 2019 8:24am calcium carbonate 1000 mg / magnesium hydroxide 200 mg chewable tablet (11 sources) Start: 05-24-2019 End: 05-19-2020 Calcium Carbonate-Mag Hydroxid (Antacid (Calcium Carb-Mag Hyd)) 1,000-200 mg tablet,chewable Discontinued {tbl} PO May 24, 2019 12:00am May 19, 2020 2:27pm CALCIUM-MAGNESIUM TABS (3 sources) Start: 11-20-2016 MERLE-MAG TABS as directed CALCIUM-MAGNESIUM TABS [id number] Carlos MARINO DESVENLAFAXINE SUCCINATE [id number] (3 sources) Serotonin and Norepinephrine Reuptake Inhibitor Start: 11-20-2016 PRISTIQ [id number] as directed DESVENLAFAXINE SUCCINATE [id number] Carlos MARINO dexamethasone 6 mg oral tablet (4 sources) Corticosteroid Start: 01-27-2023 End: 05-05-2024 take 1 tablet by mouth once daily Dexamethasone 6 mg tablet Discontinued 6 mg PO DAILY January 27, 2023 1:00am May 05, 2024 8:35am nitrofurantoin, macrocrystals 100 mg oral capsule (7 sources) Nitrofuran Antibacterial Start: 07-02-2022 End: 05-05-2024 take 1 capsule by mouth twice daily at mealtime Nitrofurantoin Macrocrystal 100 mg capsule Discontinued 100 mg PO TWICE A DAY July 02, 2022 12:00am May 05, 2024 8:35am must administer with a meal/food polyethylene glycol 3350 766501 mg / potassium chloride 2970 mg / sodium bicarbonate 6740 mg / sodium chloride 5860 mg / sodium sulfate 95628 mg powder for oral solution (1 source) Osmotic Laxative Start: 04-27-2023 End: 04-27-2023 peg 3350-Electrolytes (GOLYTELY) 236-22.74-6.74 -5.86 gram suspension Indications: Special screening for malignant neoplasms, colon Take 4,000 mL by mouth one time only for 1 dose. Refer to printed prep instructions from your provider. 4000 mL 0 04/27/2023 04/27/2023 Comment on above: Take 4,000 mL by jessica th one time only for 1 dose. Refer to printed prep instructions from your provider. prednisoLONE acetate 10 mg/ml ophthalmic suspension (3 sources) Corticosteroid Start: 03-01-2022 End: 03-29-2022 prednisoLONE acetate (PRED FORTE, ECONOPRED PLUS) 1 % ophthalmic suspension Use 1 Drop in the left eye four times daily. 5 mL 0 03/01/2022 03/29/2022 Discontinued (Course of therapy completed) Comment on above: Use 1 Drop in the le ft eye four times daily. Vitamin D3 (9 sources) Start: 11-04-2015 End: 05-24-2019 take 1 tablet by mouth once daily Vitamin D3 Discontinued 1 TABLET PO DAILY November 03, 2015 11:00pm May 24, 2019 7:25am Start: 11-04-2015 End: 05-24-2019 take 1 tablet by mouth once daily Vitamin D3 Discontinued 1 TABLET PO DAILY November 04, 2015 12:00am May 24, 2019 8:25am Vitamin D3 5000 IU Tab.Bp.24 h (2 sources) Start: 11-04-2015 End: 05-24-2019 Vitamin D3 5000 IU Tab.Bp.24 h Discontinued 1 {tbl} PO DAILY November 04, 2015 12:00am May 24, 2019 8:25am Problems Active Problems Problem Classification Problem Date Documented Date Episodic/Chronic Blindness and vision defects (2 sources) Bilateral regular astigmatism; Translations: [Regular astigmatism, bilateral] 04-30-2024 Episodic Cataract (4 sources) Nuclear sclerotic cataract; Translations: [Age-related nuclear cataract, bilateral] 05-22-2023 Chronic Chronic obstructive pulmonary disease and bronchiectasis (11 sources) Bronchitis; Translations: [Bronchitis, not specified as acute or chronic] 06-14-2017 Episodic Disorders of lipid metabolism (2 sources) Hyperlipidemia, unspecified; Translations: [Hyperlipidemia, unspecified] Onset: 04-10-2024 Chronic Essential hypertension (2 sources) Essential hypertension; Translations: [Essential (primary) hypertension] Onset: 10-21-2024 04-30-2024 Chronic Genitourinary symptoms and ill-defined conditions (3 sources) Frequency of micturition; Translations: [Urinary frequency] 07-02-2022 Episodic Inflammation; infection of eye (except that caused by tuberculosis or sexually transmitteddisease) (2 sources) Episcleritis of left eye; Translations: [Unspecified episcleritis, left eye] Episodic Other congenital anomalies (20 sources) Peripheral cystic retinal tuft; 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] Onset: 02-28-2022 Chronic Other eye disorders (10 sources) Posterior vitreous detachment of left eye; Translations: [Vitreous degeneration, left eye] Onset: 10-11-2021 Chronic Other eye disorders (20 sources) Hemorrhage of left vitreous body; Translations: [Vitreous hemorrhage, left eye] Onset: 10-11-2021 Chronic Other eye disorders (20 sources) Bilateral posterior vitreous detachment; Translations: [Vitreous degeneration, bilateral] Onset: 10-11-2021 Chronic Other eye disorders (8 sources) Vitreomacular adhesion of left eye; Translations: [Vitreomacular adhesion, left eye] Chronic Other nutritional; endocrine; and metabolic disorders (20 sources) Body mass index 40+ - severely obese; Translations: [Morbid (severe) obesity due to excess calories] Onset: 04-16-2018 04-16-2018 Chronic Other upper respiratory infections (11 sources) Sinusitis; Translations: [Chronic sinusitis, unspecified] 12-05-2019 Chronic Other upper respiratory infections (20 sources) Acute laryngitis; Translations: [Upper respiratory infection] Onset: 11-20-2016 11-20-2016 Episodic Spondylosis; intervertebral disc disorders; other back problems (3 sources) Dorsalgia, unspecified; Translations: [Backache, unspecified] 07-02-2022 Episodic Thyroid disorders (3 sources) Hypothyroidism; Translations: [Hypothyroidism, unspecified] Onset: 07-07-2024 04-30-2024 Chronic Urinary tract infections (10 sources) Urinary tract infectious disease; Translations: [Urinary tract infection, site not specified] 07-02-2022 Episodic Past or Other Problems Problem Classification Problem Date Documented Da te Episodic/Chronic Other screening for suspected conditions (not mental disorders or infectious disease) (3 sources) Patient encounter status; Translations: [Encounter for screening for malignant neoplasm of colon] Onset: 05-22-2024 04-27-2023 Episodic Retinal detachments; defects; vascular occlusion; and retinopathy (20 sources) Retinal U tear; Translations: [Horseshoe tear of retina without detachment, left eye] Onset: 10-11-2021 Episodic Results Test Name Value Interpretation Reference Range [facility]ADD[facility]Y ([id number]) 1970 F Date Time Provider Department [facility] During your visit today, we recorded the following information about you: Daniela Mclean 07/24/2024 12:39 PM Signed Patient is calling asking if there is any way she can continue her care with Dr. Polo. Patient no longer wants to come to [facility]. Patient can be contacted at the following number, . FV: None LV: 01/29/2024 Mane Rosales MD filed at 01/29/2024 8:51 AM Status: Signed The documentation for the note below was completed in part by Adelina Whitfield acting as a scribe for Mane Rosales MD. 01/29/2024 8:16 AM. Scribe Attestation: By signing my name below, I, Adelina Whitfield, attest that the documentation in part for the note below and the encounter was completed in part by Adelina Whitfield acting as a scribe for Mane Rosales MD. Electronically Signed: Leeroy Crandall. January 29, 2024 8:16 AM. All problems with bold in text below addressed at this visit with patient 1. 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 Vitreous hemorrhage of left eye - Dense vitreous hemorrhage in left eye started 03/29/22 - B scan 05/22 with vitreous opacities at 6, 430 with mild traction, no RD, macula flat - Pigmented tuft inferotemporal and superonasal - VA 20/20 - Discussed return to office precautions and patient will call with any changes in vision - DFE as above - Continue to follow - Follow up with Deana Nettles PA-C in 6 months 3. Chronic PVD OD with vitreoretinal tuft - Discussed return to office precautions and patient will call with any changes in vision - Exam today stable without progression - Continue to follow 4. Cataract OU (both eyes) - Remains stable - Continue to follow - Pt interested in evaluation with cataract surgeon, though still fairly minimal symptoms. - Consult Dr. Polo. 5. Ocular irritation OU (both eyes) - Continue using tears PRN I personally performed the services described in this [...] by others. I have seen and examined Maddie Shanta Coy. I have discussed the case and the management of this patient's care with the Resident/Fellow, if applicable. I also have reviewed and agree with the assessment and plan as stated above and agree with all of its relevant components. Daniela Mclean 07/25/2024 12:10 PM Signed Contacted the patient and left the following message on her VM. From: Андрей Garrido Sent: July 1:25 PM To: Daniela Mclean ; Mane Rosales Cc: Juan Mariano ; [address] Subject: Re: Maddie ShantaBarrie Zbigniwe - [phone] She needs a retina provider. There are some in [place] at [place] Андрей Garrido, CODYN, CRNO, OSC Retail Banker [facility]Guided [facility] and Advanced Imaging Research Wire Spiral Binder to Mane Rosales MD-Blood Donor Recruiter-Clinical Operations. The [facility] and Evie Narayanan Endowed [facility] for Ophthalmic Research Vitreoretinal Service [place] [facility] [phone] Allergies As of Date: 07/24/2024 Noted Allergy Reaction AMOXICILLIN-POT CLAVULANATE 11/29/2021 5 - Intolerance BRINTELLIX (VORTIOXETINE) 03/27/2018 14 - Other: See Comments Comments: dizzyness CAT DANDER 10/25/2021 14 - Other: See Comments Comments: sneezing CITALOPRAM 03/27/2018 2 - Rash Comments: sun sensitivity CYMBALTA (DULOXETINE) 03/27/2018 14 - Other: See Comments Comments: fatigue GABAPENTIN 04/27/2023 14 - Other: See Comments Comments: Dry mouth HAYFEVER (HOMEOPATHIC PRODUCTS) 09/19/2006 LOSARTAN POTASSIUM 04/27/2023 14 - Other: See Comments Comments: Headache and dizziness. LYRICA (PREGABALIN) 04/27/2023 14 - Other: See Comments Comments: Blurred vision PENICILLINS 09/19/2006 11 - Vomiting Comments: High fever PRISTIQ (DESVENLAFAXINE SUCCINATE)03/27/2018 6 - Diarrhea SERTRALINE 03/27/2018 6 - Diarrhea SULFA (SULFONAMIDE ANTIBIOTICS) 03/27/2018 9 - Itching LISINOPRIL 06/09/2020 3 - Cough Date Reviewed: 04/30/2024 Reviewed by: Delmer Polo MD - Fully Assessed Reason for Visit: Patient Question [1477] Prescriptions as of 07/25/2024 - levothyroxine (SYNTHROID) 50 mcg tablet Take 50 mcg by mouth once (more content not included)... Normal [facility] Free T3on 07-02-2024 Free T3 [Mass/Vol] 2.5 pg/mL Normal 2.18-3.98 [facility] Comment on above: Order Comment: Order Date: 05/21/24 Order Info: 3051-0 - T3F Order Info: 3016-3 - TSH Order Info: 3023-09 - T4F Performed By: #### L [id number], L506.0400, L501.9520 #### [facility] [address] [place], [address] Free F3Sdfwidm By: Christian Interiano on 07-02-2024 Free Triiodothyronine (T3) pg/dL 2.5 pg/mL 2.18-3.98 [facility] T4 Free Directon 07-02-2024 T4 FREE DIRECT 1.60 ng/dL High 0.76-1.46 [facility] Comment on above: Order Comment: Order Date: 03/14/24 Order Info: 0786-1 - CMP Order Info: [id number] - LIPID Order Info: 3 - TSH Order Info: 3023-09 - T4F Performed By: #### L 500.4100, L506.0400, L500.4050, L501.9520 #### [facility] [address] [place], [address] T4 freeOrdered By: Christian Interiano on 07-02-2024 Free T4 [Mass/Vol] 1.60 ng/dL High 0.76-1.46 [facility] TSH DL <= 0.005 mIU/L QnOrde red By: Andrey Interiano on 07-02-2024 Thyroid Stimulating Hormone (TSH) 1.410 uIU/mL 0.300-4.200 [facility] Thyroid Stim Hormone (TSH)on 07-02-2024 TSH 1.410 uIU/mL Normal 0.300-4.200 [facility] Comment on above: Order Comment: Order Date: 03/14/24 Order Info: 0786-1 - CMP Order Info: 23020-0 - LIPID Order Info: 3 - TSH Order Info: 3023-09 - T4F Performed By: #### L 500.4100, L506.0400, L500.4050, L501.9520 #### [facility] [address] [place], [address] Breast imaging reportOrdered By: Sravanthi Aguanunu on 05-09-2024 Study report [facility] Imaging Services [address] [place] [address] SCRN MAMM (CAD)W/RAJIV BILAT MR#: [id number] Acct: [id number] Name: MADDIE COY JEREMY Rep #: [id number] : 1970 F 54 From: Concha Lozada MD PCP: Dr. Andrey Interiano MD Status: REG CLI Study:SCRN MAMM (CAD)W/RAJIV BILAT Date of Exa m: 05/09/24 Exam# [id number] Ordering Dr: Seun Interiano MD PROCEDURE: SCRN MAMM (CAD)W/RAJIV BILAT REASON FOR EXAM: F, Age 54 y/o, presents for annual screening mammogram. Family history of breast cancer in her mother at age 50. TECHNIQUE: Bilateral screening digital breast tomosynthesis with 2D and 3D images. Computeraided detection. COMPARISON: 05/07/2023 FINDINGS: There are scattered areas of fibroglandular density. No suspicious masses, areas of developing architectural distortion, or suspicious calcifications. BI/SCRN MAMM (CAD)W/RAJIV BILAT IMPRESSION: There is no mammographic evidence of malignancy. BI-RADS 1: NEGATIVE. RECOMMEND ANNUAL MAMMOGRAPHIC SCREENING. Follow-up code: Routine Follow-up The patient will be notified of the results by letter. Reading Location: [id number] CC: Dr. Andrey Interiano MD ~ Emg Technician: Signed [facility] SCRN MAMM (CAD)W/RAJIV BILATo n 05-09-2024 SCRN MAMM (CAD)W/RAJIV BILAT [facility] Imaging Services [address] [place] [id number] SCRN MAMM (CAD)W/RAJIV BILAT MR#: [id number] Acct: [id number] Name: MADDIE COY JEREMY Rep #: [id number] : 1970 F 54 From: Sravanthi Lozada MD PCP: Dr. Andrey Interiano MD Status: REG CLI Study: SCRN MAMM (CAD)W/RAJIV BILAT Date of Exam: 04/13 11/03 Exam# [id number] Ordering Dr: Andrey Interiano PROCEDURE: SCRN MAMM (CAD)W/RAJIV BILAT REASON FOR EXAM: F, Age 54 y/o, presents for annual screening mammogram. Family history of breast cancer in her mother at age 50. TECHNIQUE: Bilateral screening digital breast tomosynthesis with 2D and 3D images. Computer aided detection. COMPARISON: 05/07/2023 FINDINGS: There are scattered areas of fibroglandular density. No suspicious masses, areas of developing architectural distortion, or suspicious calcifications. BI/SCRN MAMM (CAD)W/RAJIV BILAT IMPRESSION: There is no mammographic evidence of malignancy. BI-RADS 1: NEGATIVE. RECOMMEND ANNUAL MAMMOGRAPHIC SCREENING. Follow-up code: Routine Follow-up The patient will be notified of the results by letter. Reading Location: [facility] CC: Dr. Andrey Interiano MD Emg Technician: Signed Normal [facility] Urgent Care Visit Reporton 0 05-05-2024 Urgent Care Visit Report [facility] [address], [address] [place] [address] OFFICE VISIT Date of Service: 05/05/24 MR#: [id number] Acct: [id number] Name: MADDIE COY JEREMY Rep #: [id number] : 1970 Provider: NED Elam Age/Sex: 54/F Location: [facility] Status: Signed Intake Vital Signs 01/27/23 08:07 05/05/24 07:33 Height 5 ft 2 in BP 118/70 Blood Pressure Location Lt brachial Position Sitting Respiration 12 Pulse 112 H Pulse Source NIBP Temp 98.9 F Temp Source Oral Pulse Oximetry (%) 94 Oxygen Delivery Method room air Intake Visit Reasons: CONCERN FOR SINUS INFECTION Chief Complaint: Sinus infection Allergies citalopram Allergy (Mild, Verified 05/05/24 07:33) sun sensitivity desvenlafaxine (From Pristiq) Allergy (Mild, Verified 05/05/24 07:33) diarrhea duloxetine (From Cymbalta) Allergy (Mild, Verified 05/05/24 07:33) fatigue lisinopril Allergy (Mild, Verified 05/05/24 07:33) cough sertraline (From Zoloft) Allergy (Mild, Verified 05/05/24 07:33) diarrhea vortioxetine (From Brintellix) Allergy (Mild, Verified 05/05/24 07:33) dizziness Penicillins (PCN) Allergy (Verified 05/05/24 07:33) Rash Medications ???Medication ???Instructions ???Recorded ???Confirmed ???Type cholecalciferol (vitamin D3) 100 4,000 unit PO DAILY 05/24/1905/05 History mcg (4,000 unit) capsule calcium 333 mg-vit D3 200 1 tab PO DAILY 05/19/20 05/05/24 H istory unit-magnesium 133 mg-zinc 5 mg tablet celecoxib 200 mg capsule mg PO PRN 05/19/20 05/05/24 Histor y fluoxetine 10 mg capsule (Prozac) 10 mg PO DAILY PRN 05/19/2005/05 History omeprazole 20 mg capsule,delayed 20 mg PO DAILY PRN 05/19/20 History release zinc 50 mg tablet 50 mg PO DAILY 05/19/20 05/05/24 H istory amlodipine 5 mg tablet 5 mg PO DAILY 07/02/22 05/05/24 Hi story iron bisglycinate chelate mg PO 07/02/22 05/05/24 History azithromycin 250 mg tablet See Rx Instructions PO .COMPLEX #6 05/05/24 05/05/24 Rx tabs benzonatate 200 mg capsule 200 mg PO TID PRN cough #14 caps 0 05/05/24 05/05/24 Rx levothyroxine 50 mcg tablet 50 mcg PO QDAY 05/05/24 05/05/24 H istory Nurse's Note: patient here for cough, pain in cheeks and bilat ear pain x2 days. [facility] Medical History Back pain Neck pain Hay fever Surgical History History of foot surgery Family History Father Colon cancer Mother Breast cancer Social History Smoking Status: Never smoker alcohol intake: current details: occasionally substance use type: does not use caffeine: Yes what type of physical activity do you participate in: walking and other details: stretching frequency: 1-2 times per week seatbelt use: always do you feel safe at home: Yes additional social history: - Jasson HPI HPI Chief Complaint: Sinus infection Details: MADDIE COY, is a 54 F who presents to the office today [facility] for approximately 5 to 7-day history of progressively worsening facial pressure/congestion with purulent postnasal drip/cough. No complaints of fever, chills, myalgias, fatigue, runny nose, or nausea/vomiting/diar aimee. No complaints of chest pain/shortness of breath/dyspnea on exertion. No close contacts with similar complaints. No other associated symptoms and no other alleviating/aggravat ing factors. ROS Const Constitutional: No other (as above) Exam Const General: cooperative, healthy appearing and no acute distress Nutritional Appearance: average body habitus Orientation: alert, awake and oriented x3 HENMT Head: normal to inspection Ears: hearing grossly normal bilaterally, external ears normal, TM's normal bilaterally and EAC's normal Nose: external nose normal, nares normal, septum normal and no nasal discharge Face and sinus: normal facial exam, sinuses nontender (Though R>L maxillary fullness to palpation) and face symmetric Mouth: oral mucosae normal, lip normal, tongue normal and oropharynx normal Throat: posterior oropharynx normal, tonsils normal, uvula midline and postnasal drainage (Purulent) Eyes General: appearance normal, both eyes and all related structures Neck Neck: normal visual inspection, full ROM, no meningeal signs, supple and lymphadenopathy (R>L anterior cervical lymph node swelling/tender to palpation) Neck mass: No Thyroid: thyroid normal Chest Chest palpation inspection: normal inspection of the chest Resp Effort Inspection: normal respiratory effort and able to speak in complete sentences Auscultation: Bilateral: Sridevi (more content not included)... Normal [facility] CORNEAL TOPOGRAPHY ATLAS OU (BOTH EYES)on 04-30-2024 [facility] Radiology Study [facility]narrative[facility] IOL BIOMETRY W/ IOL CALC OU (BOTH EYES)on 04-30-2024 [facility] Radiology Study observation (narrative) [facility] OCT MACULA CIRRUS OU (BOTH E YES)on 04-30-2024 [facility] Radiology Study observation (narrative) [facility] [employer] [facility] Direct serum free thyroxine (FT4) measurementOrdered By: Andrey Interiano on 04-16-2024 Free T4 [Mass/Vol] 1.15 ng/dL 0.76-1.46 [facility] Free T3on 04-16-2024 Free T3 [Mass/Vol] 3.9 pg/mL Normal 2.18-3.98 [facility] Comment on above: Order Comment: Order Date: 03/26/24 Order Info: 3050 - T3F Order Info: 3 - TSH Order Info: 7 - T4F Performed By: #### L 501.53395, L501.9520, L506.0400 #### [facility] [address] [place], [place], [id number] Free D3Ouxuefb By: Christian Interiano on 04-16-2024 Free Triiodothyronine (T3) pg/dL 3.9 pg/mL 2.18-3.98 [facility] T4 Free Directon 04-16-2024 T4 FREE DIRECT 1.15 ng/dL Normal 0.76-1.46 [facility] Comment on above: Order Comment: Order Date: 03/26/24 Order Info: 3051-0 - T3F Order Info: 301-3 - TSH Order Info: 3027 - T4F Performed By: #### L 501.67079, L501.9520, L506.0400 #### [facility] [address] [place], [place], [id number] TSH QnOrdered By: Anson Interiano on 04-16-2024 Thyroid Stimulating Hormone (TSH) 1.260 uIU/mL 0.358-3.740 [facility] Thyroid Stim Hormone (TSH)on 04-16-2024 TSH 1.260 uIU/mL Normal 0.358-3.740 [facility] Comment on above: Order Comment: Order Date: 03/26/24 Order Info: 3051-0 - T3F Order Info: 3015-05 - TSH Order Info: 3023-09 - T4F Performed By: #### L 501.94117, L501.9520, L506.0400 #### [facility] [address] [place], [address] Albumin to globulin ratioOrd ered By: Andrey Interiano on 03-15-2024 Albumin/Globulin [Mass ratio] 1.2 {ratio} 0.9-2.4 [facility] Bilirubin, totalOrdered By: Andrey Interiano on 03-15-2024 Bilirubin [Mass/Vol] 0.30 mg/dL 0.20-1.00 [facility] Comment on above: For patients on eltr ombopag therapy, use of Dimension [place] TBIL is not recommended. Blood urea nitrogen (BUN)/cr eatinine ratioOrdered By: Andrey Interiano on 03-15-2024 Urea nitrogen/Creatinine [Mass ratio] 17.1 mg/mg 10-20 [facility] Carbon dioxide measurementOr dered By: Andrey Interiano on 03-15-2024 CO2 [Moles/Vol] 28.0 mmol/L 21.0-32.0 [facility] Chloride measurementOrdered By: Andrey Interiano on 03-15-2024 Chloride [Moles/Vol] 109 mmol/L High 98-107 [facility] Comprehensive Metabolic Prof ilon 03-15-2024 Albumin [Mass/Vol] 3.6 g/dL Normal 3.2-5.0 [facility] Comment on above: Order Comment: Order Date: 03/14/24 Order Info: 0786-1 - CMP Order Info: [id number] - LIPID Order Info: 3015-05 - TSH Order Info: 3023-09 - T4F Performed By: #### L 500.4100, L506.0400, L500.4050, L501.9520 #### [facility] [address] [place], [address] Albumin/Globulin [Mass ratio] 1.2 {ratio} Normal 0.9-2.4 [facility] Comment on above: Order Comment: Order Date: 03/14/24 Order Info: 0786-1 - CMP Order Info: [id number] - LIPID Order Info: 3016-3 - TSH Order Info: 3024-7 - T4F Performed By: #### L 500.4100, L506.0400, L500.4050, L501.9520 #### [facility] [address] [place], [address] ALK P 75 U/L Normal 45-117 [facility] Comment on above: Order Comment: Order Date: 03/14/24 Order Info: 785-1 - CMP Order Info: - LIPID Order Info: 3 - TSH Order Info: 7 - T4F Performed By: #### L 500.4100, L506.0400, L500.4050, L501.9520 #### [facility] [address] [place], [address] ALT [Catalytic activity/Vol] 39 U/L Normal 13-56 [facility] Comment on above: Order Comment: Order Date: 03/14/24 Order Info: 0786-1 - CMP Order Info: [id number] - LIPID Order Info: 3 - TSH Order Info: 3024-7 - T4F Performed By: #### L 500.4100, L506.0400, L500.4050, L501.9520 #### [facility] [address] [place], [address] AST [Catalytic activity/Vol] 19 U/L Normal 15-37 [facility] Comment on above: Order Comment: Order Date: 03/14/24 Order Info: 0786-1 - CMP Order Info: 14181-9 - LIPID Order Info: 3013 - TSH Order Info: 3024-7 - T4F Performed By: #### L 500.4100, L506.0400, L500.4050, L501.9520 #### [facility] [address] [place], [address] Bilirubin [Mass/Vol] 0.30 mg/dL Normal 0.20-1.00 [facility] Comment on above: Order Comment: Order Date: 03/14/24 Order Info: 0786-1 - CMP Order Info: [id number] - LIPID Order Info: 301-3 - TSH Order Info: 7 - T4F Result Comment: For patients on eltrombopag therapy, use of Dimension [place] TBIL is not recommended. Performed By: #### L 500.4100, L506.0400, L500.4050, [id number] #### [facility] [address] [place], [address] BUN/CRE 17.1 RATIO Normal 10-20 [facility] Comment on above: Order Comment: Order Date: 03/14/24 Order Info: [id number] - CMP Order Info: [id number] - LIPID Order Info: [id number] - TSH Order Info: 7 - T4F Performed By: #### L 500.4100, L506.0400, L500.4050, [id number] #### [facility] [address] [place], [address] CA,Total 8.8 mg/dL Normal 8.5-10.1 [facility] Comment on above: Order Comment: Order Date: 03/14/24 Order Info: [id number] - CMP Order Info: [id number] - LIPID Order Info: [id number] - TSH Order Info: 3024-7 - T4F Performed By: #### L 500.4100, L506.0400, L500.4050, [id number] #### [facility] [address] [place], [address] Chloride [Moles/Vol] 109 mmol/L High 98-107 [facility] Comment on above: Order Comment: Order Date: 03/14/24 Order Info: 785-1 - CMP Order Info: [id number] - LIPID Order Info: [id number] - TSH Order Info: 7 - T4F Performed By: #### L 500.4100, L506.0400, L500.4050, [id number] #### [facility] [address] [place], [address] CO2 [Moles/Vol] 28.0 mmol/L Normal 21.0-32.0 [facility] Comment on above: Order Comment: Order Date: 03/14/24 Order Info: 785-1 - CMP Order Info: [id number] - LIPID Order Info: [id number] - TSH Order Info: 7 - T4F Performed By: #### L 500.4100, L506.0400, L500.4050, [id number] #### [facility] [address] [place], [address] Creatinine [Mass/Vol] 0.99 mg/dL Normal 0.55-1.[address] [facility] Comment on above: Order Comment: Order Date: 03/14/24 Order Info: [id number]- - CMP Order Info: [id number] - LIPID Order Info: [id number] - TSH Order Info: 3023-09 - T4F Result Comment: The validity of the calculated GFR GFRAA in patients over 70 years has not been determined. Clinical correlation is essential. Performed By: #### L 500.4100, L506.0400, L500.4050, [id number] #### [facility] [address] [place], [address] EST GFR - AA 74 mL/min Normal >60 [facility] Comment on above: Order Comment: Order Date: 03/14/24 Order Info: 785-1 - CMP Order Info: [id number] - LIPID Order Info: [id number] - TSH Order Info: [id number] - T4F Result Comment: Afri can Mozambican GFR Calc Performed By: #### L 500.4100, L506.0400, L500.4050, [id number] #### [facility] [address] [place], [address] GAP 3 Low 5-15 [facility] Comment on above: Order Comment: Order Date: 03/14/24 Order Info: [id number] - CMP Order Info: [id number] - LIPID Order Info: [id number] - TSH Order Info: 7 - T4F Performed By: #### L 500.4100, L506.0400, L500.4050, [id number] #### [facility] [address] [place], [address] GFR/1.73 sq M.predicted among non-blacks MDRD (S/P/Bld) [Vol rate/Area] 62 mL/min/{1.73_m2} Normal >60 [facility] Comment on above: Order Comment: Order Date: 03/14/24 Order Info: [id number] - CMP Order Info: [id number] - LIPID Order Info: 3 - TSH Order Info: 7 - T4F Result Comment: Non- GFR Calc Performed By: #### L 500.4100, L506.0400, L500.4050, [id number] #### [facility] [address] [place], [address] Globulin (S) [Mass/Vol] 3.1 g/dL Normal 2.2-4.2 [facility] Comment on above: Order Comment: Order Date: 03/14/24 Order Info: 07-1 - CMP Order Info: [id number] - LIPID Order Info: [id number] - TSH Order Info: 3024-7 - T4F Performed By: #### L 500.4100, L506.0400, L500.4050, [id number] #### [facility] [address] [place], [address] Glucose [Mass/Vol] 95 mg/dL Normal 74-106 [facility] Comment on above: Order Comment: Order Date: 03/14/24 Order Info: [id number] - CMP Order Info: [id number] - LIPID Order Info: 3 - TSH Order Info: 3024-7 - T4F Performed By: #### L 500.4100, L506.0400, L500.4050, [id number] #### [facility] [address] [place], [address] Potassium [Moles/Vol] 4.3 mmol/L Normal 3.5-5.[address] [facility] Comment on above: Order Comment: Order Date: 03/14/24 Order Info: 07-1 - CMP Order Info: [id number] - LIPID Order Info: 3 - TSH Order Info: 47 - T4F Performed By: #### L 500.4100, L506.0400, L500.4050, [id number] #### [facility] [address] [place], [address] Sodium [Moles/Vol] 140 mmol/L Normal 136-145 [facility] Comment on above: Order Comment: Order Date: 03/14/24 Order Info: [id number] - CMP Order Info: [id number] - LIPID Order Info: 3 - TSH Order Info: [id number] - T4F Performed By: #### L 500.4100, L506.0400, L500.4050, L501.9520 #### [facility] [address] [place], [address] T PROT 6.7 g/dL Normal 6.4-8.2 [facility] Comment on above: Order Comment: Order Date: 03/14/24 Order Info: [id number] - CMP Order Info: [id number] - LIPID Order Info: 3 - TSH Order Info: [id number] - T4F Performed By: #### L 500.4100, L506.0400, L500.4050, L501.9520 #### [facility] [address] [place], [address] Urea nitrogen [Mass/Vol] 17 mg/dL Normal 7-18 [facility] Comment on above: Order Comment: Order Date: 03/14/24 Order Info: [id number] - CMP Order Info: [id number] - LIPID Order Info: [id number] - TSH Order Info: [id number] - T4F Performed By: #### L 500.4100, L506.0400, L500.4050, L501.9520 #### [facility] [address] [place], [place], [address] Direct serum free thyroxine (FT4) measurementOrdered By: Andrey Interiano on 03-15-2024 Free T4 [Mass/Vol] 0.87 ng/dL 0.76-1.46 [facility] Estimated glomerular filtrat ion rate (GFR) AmericanOrdered By: Andrey Interiano on 03-15-2024 Estimated GFR (MDRD) Amer 74 mL/min >60 [facility] Comment on above: GFR Calc Glomerular filtration rate ( GFR) estimationOrdered By: Andrey Interiano on 03-15-2024 Estimated GFR (MDRD) Non-Af Amer 62 mL/min >60 [facility] Comment on above: Non- GFR Calc Glucose measurementOrdered B y: Andrey Interiano on 03-15-2024 Glucose [Mass/Vol] 95 mg/dL 74-106 [facility] High density lipoprotein (HD L) measurementOrdered By: Andrey Interiano on 03-15-2024 Cholesterol in HDL [Mass/Vol] 53 mg/dL >40 [facility] Comment on above: The drugs N-Acetylcy steine and Metamizole may falsely depress this assay. Reference Range HDL <40 mg/dL Low HDL Cholesterol HDL >or= 60 mg/dL High HDL Cholesterol Laboratory - Chemistry and C hemistry - challengeOrdered By: Andrey Interiano on 03-15-2024 AST [Catalytic activity/Vol] 19 U/L 15-37 [facility] Lipid Profileon 03-15-2024 Cholesterol [Mass/Vol] 257 mg/dL High 200 [facility] Comment on above: Order Comment: Order Date: 03/14/24 Order Info: [id number] - CMP Order Info: [id number] - LIPID Order Info: 3 - TSH Order Info: 7 - T4F Result Comment: <200 mg/dL Desirable 200-240 mg/dL Borderline >240 mg/dL High Risk Performed By: #### L 500.4100, L506.0400, L500.4050, L501.9520 #### [facility] [address] [place], [address] Cholesterol in HDL [Mass/Vol] 53 mg/dL Normal [facility] Comment on above: Order Comment: Order Date: 03/14/24 Order Info: 0786 - CMP Order Info: - LIPID Order Info: 3 - TSH Order Info: [id number] - T4F Result Comment: The drugs N-Acetylcysteine and Metamizole may falsely depress this assay. Reference Range HDL <40 mg/dL Low HDL Cholesterol HDL >or= 60 mg/dL High HDL Cholesterol Performed By: #### L 500.4100, L506.0400, L500.4050, L501.9520 #### [facility] [address] [place], [address] Cholesterol in LDL [Mass/Vol] 176 mg/dL High 0-130 [facility] Comment on above: Order Comment: Order Date: 03/14/24 Order Info: [id number] - CMP Order Info: [id number] - LIPID Order Info: 3 - TSH Order Info: 7 - T4F Performed By: #### L 500.4100, L506.0400, L500.4050, L501.9520 #### [facility] [address] [place], [address] Cholesterol in VLDL [Mass/Vol] 28 mg/dL Normal 5-40 [facility] Comment on above: Order Comment: Order Date: 03/14/24 Order Info: [id number] - CMP Order Info: [id number] - LIPID Order Info: 6-3 - TSH Order Info: 7 - T4F Performed By: #### L 500.4100, L506.0400, L500.4050, L501.9520 #### [facility] [address] [place], [place], [address] Triglyceride [Mass/Vol] 142 mg/dL Normal [facility] Comment on above: Order Comment: Order Date: 03/14/24 Order Info: [id number] - CMP Order Info: [id number] - LIPID Order Info: 3 - TSH Order Info: [id number] - T4F Result Comment: The drugs N-Acetylcysteine and Metamizole may falsely depress this assay. Serum Triglycerides Reference Interval Normal <150 mg/dL Borderline high 150 - 199 mg/dL High 200 - 499 mg/dL Very High > or = 500 mg/dL Performed By: #### L 500.4100, L506.0400, L500.4050, L501.9520 #### [facility] [address] [place], [place], [address] Low density lipoprotein (LDL ) cholesterol measurementOrdered By: Andrey Interiano on 03-15-2024 Cholesterol in LDL [Mass/Vol] 176 mg/dL High 0-130 [facility] Potassium measurementOrdered By: Andrey Interiano on 03-15-2024 Potassium [Moles/Vol] 4.3 mmol/L 3.5-5.[address] [facility] Serum anion gap measurementO rdered By: Andrey Interiano on 03-15-2024 Anion gap [Moles/Vol] 3 mmol/L Low 5-[address] [facility] Serum globulin measurementOr dered By: Andrey Interiano on 03-15-2024 Globulin (S) [Mass/Vol] 3.1 g/dL 2.2-4.2 [facility] Serum or plasma alanine lee otransferase (ALT) measurementOrdered By: Andrey Interiano on 03-15-2024 ALT [Catalytic activity/Vol] 39 U/L 13-56 [facility] Serum or plasma albumin juan urement (mass/volume)Ordered By: Andrey Interiano on 03-15-2024 Albumin [Mass/Vol] 3.6 g/dL 3.2-5.0 [facility] Serum or plasma alkaline lamar sphatase measurementOrdered By: Andrey Interiano on 03-15-2024 ALP [Catalytic activity/Vol] 75 U/L 45-117 [facility] Serum or plasma calcium juan urement (mass/volume)Ordered By: Andrey Interiano on 03-15-2024 Calcium [Mass/Vol] 8.8 mg/dL 8.5-10.1 [facility] Serum or plasma cholesterol measurement (mass/volume)Ordered By: Andrey Interiano on 03-15-2024 Cholesterol [Mass/Vol] 257 mg/dL High <200 [facility] Comment on above: <200 mg/dL Desirable 200-240 mg/dL Borderline >240 mg/dL High Risk Serum or plasma creatinine m easurement (mass/volume)Ordered By: Andrey Interiano on 03-15-2024 Creatinine [Mass/Vol] 0.99 mg/dL 0.55-1.[address] [facility] Comment on above: The validity of the calculated GFR & GFRAA in patients over 70 years has not been determined. Clinical correlation is essential. Serum or plasma urea nitroge n measurement (mass/volume)Ordered By: Andrey Interiano on 03-15-2024 Urea nitrogen [Mass/Vol] 17 mg/dL 7-18 [facility] Sodium levelOrdered By: Can Interiano on 03-15-2024 Sodium [Moles/Vol] 140 mmol/L 136-145 [facility] T4 Free Directon 03-15-2024 T4 FREE DIRECT 0.87 ng/dL Normal 0.76-1.46 [facility] Comment on above: Order Comment: Order Date: 03/14/24 Order Info: [id number] - CMP Order Info: [id number] - LIPID Order Info: [id number] - TSH Order Info: 3024-7 - T4F Performed By: #### L 500.4100, L506.0400, L500.4050, L501.9520 #### [facility] [address] [place], [place], [address] TSH QnOrdered By: Anson Interiano on 03-15-2024 Thyroid Stimulating Hormone (TSH) 4.060 uIU/mL High 0.358-3.740 [facility] Thyroid Stim Hormone (TSH)on 03-15-2024 TSH 4.060 uIU/mL High 0.358-3.740 [facility] Comment on above: Order Comment: Order Date: 03/14/24 Order Info: [id number] - CMP Order Info: [id number] - LIPID Order Info: [id number] - TSH Order Info: 3024-7 - T4F Performed By: #### L 500.4100, L506.0400, L500.4050, L501.9520 #### [facility] [address] [place], [place], [address] Total proteinOrdered By: Cortes Interiano on 03-15-2024 Protein [Mass/Vol] 6.7 g/dL 6.4-8.2 [facility] Triglycerides measurementOrd ered By: Andrey Interiano on 03-15-2024 Triglyceride [Mass/Vol] 142 mg/dL <199 [facility] Comment on above: The drugs N-Acetylcy steine and Metamizole may falsely depress this assay.Serum Triglycerides Reference Interval Normal <150 mg/dL Borderline high 150 - 199 mg/dL High 200 - 499 mg/dL Very High > or = 500 mg/dL Very low density lipoprotein (VLDL) cholesterol measurementOrdered By: Andrey Interiano on 03-15-2024 VLDL Cholesterol 28 mg/dL 5-40 [facility] OCT MACULA CIRRUS OU (BOTH E YES)on 01-29-2024 [facility] Radiology Study observation [facility]narrative[facility]OTOS [facility] (BOTH EYES) on 09-25-2023 [facility] Radiology Study observation (narrative) [facility] OCT MACULA CIRRUS OU (BOTH E YES)on 09-25-2023 [facility] Radiology Study observation (narrative) [facility] CNPBrandi 06-27-2023 CNPN Telephone (MEPRAD) MADDIE COY ([id number]) 1970 F Date Time Provider Department 06/27/23 SJ LAM During your visit today, we recorded the following information about you: Sj Lam MD 06/27/2023 6:43 PM Signed FOLLOW UP ENDOSCOPY - RESULTS AND RECOMMENDATIONS NAME: Maddie Coy CLINIC NO.: [id number] : 1970 DATE: June 27, 2023 PRIMARY CARE PROVIDER: Andrey Interiano MD REFERRING PHYSICIAN: No ref. provider found Maddie Coy is a patient referred for endoscopy for a family history of colon cancer. I performed lower endoscopy on June 26, 2023. The patient was found to have: Lower Endoscopy Findings: The perianal and digital rectal examinations were normal. A diminutive polyp was found in the ileocecal valve. The polyp was sessile. The polyp was removed with a cold biopsy forceps. Resection and retrieval were complete. A few small-mouthed diverticula were found in the sigmoid colon. The exam was otherwise without abnormality on direct and retroflexion views. Pathology demonstrated: FINAL DIAGNOSIS Ileocecal valve polyp, biopsy: - Tubular adenoma. IMPRESSION: Diminutive polyp ileocecal valve family history of colon cancer PLAN: INSTRUCTIONS FOLLOWING A POLYP FOUND AT COLONOSCOPY You were found to have an adenomatous colon polyp. I recommend you undergo repeat endoscopy in 5 years. If you note bleeding, change in bowel habits, or other suspicious colon related symptoms before that time, those symptoms should be evaluated as necessary. If you have any difficulties or concerns, you should contact our office immediately. The patient is instructed to follow-up with me as needed. I have instructed my staff to forward the above information to the patient and to the appropriate providers Indiana Rust MA 07/03/2023 12:49 PM Signed Pebbles Mayer 07/03/23 8:14 AM Note Patient returned office call and was related message. Patient voiced understanding with no further questio Allergies As of Date: 06/27/2023 Noted Allergy Reaction AMOXICILLIN-POT CLAVULANATE 11/29/2021 5 - Intolerance BRINTELLIX (VORTIOXETINE) 03/27/2018 14 - Other: See Comments Comments: dizzyness CAT DANDER 10/25/2021 14 - Other: See Comments Comments: sneezing CITALOPRAM 03/27/2018 2 - Rash Comments: sun sensitivity CYMBALTA (DULOXETINE) 03/27/2018 14 - Other: See Comments Comments: fatigue GABAPENTIN 04/27/2023 14 - Other: See Comments Comments: Dry mouth HAYFEVER (HOMEOPATHIC PRODUCTS) 09/19/2006 LOSARTAN POTASSIUM 04/27/2023 14 - Other: See Comments Comments: Headache and dizziness. LYRICA (PREGABALIN) 04/27/2023 14 - Other: See Comments Comments: Blurred vision PENICILLINS 09/19/2006 11 - Vomiting Comments: High fever PRISTIQ (DESVENLAFAXINE SUCCINATE)03/27/2018 6 - Diarrhea SERTRALINE 03/27/2018 6 - Diarrhea SULFA (SULFONAMIDE ANTIBIOTICS) 03/27/2018 9 - Itching LISINOPRIL 06/09/2020 3 - Cough Date Reviewed: 06/26/2023 Reviewed by: Marsha Suggs RN - Fully Assessed Reason for Visit: Results [95] Prescriptions as of 07/03/2023 - fluticasone prp-sod.chl,bicarb 50 mcg- 0.9 % ksps Use 2 Sprays in the nose once daily. - Triamcinolone Acetonide 0.05 % oint Apply 1 g to affected area two times a day. - diclofenac (VOLTAREN) 1 % topical gel Apply 2 g to affected area three times a day. - loratadine-pseudoeph edrine ER (CLARITIN-D 24 HOUR) 10-240 mg Tb24 Take 1 tablet by mouth once daily. - ferrous sulfate 325 mg (65 mg iron) tablet Take 325 mg by mouth once daily. - ketoconazole (NIZORAL) 2 % cream Apply 1 g to affected area two times a day. - Magnesium 200 mg tab Take 1 tablet by mouth once daily. - Lactobacillus acidophilus (PROBIOTIC ORAL) Take 1 tablet by mouth once daily. - propylene glycoL (SYSTANE COMPLETE) 0.6 % drop Use 1 Drop in both eyes twice daily. - famciclovir (FAMVIR) 125 mg tablet as needed. - DENAVIR 1 % cream as needed. - doxycycline hyclate (VIBRAMYCIN) 100 mg capsule - silver sulfADIAZINE (SILVADENE,THERMAZEN E) 1 % cream as needed. - amLODIPine (NORVASC) 5 mg tablet Take 5 mg by mouth once daily. - ibuprofen (MOTRIN) 600 mg tablet Take 600 mg by mouth three times daily as needed. - meloxicam (MOBIC) 15 mg tablet Take 15 mg by mouth once daily. - pregabalin (LYRICA) 50 mg capsule Take 50 mg by mouth as needed. - ZINC ACETATE ORAL Take 1 tablet by mouth once daily. - omeprazole (PRILOSEC) 20 mg capsule Take 1 capsule by mouth once daily. - FLUoxetine (PROZAC) 10 mg capsule Take 10 mg by mouth once daily. - celecoxib (CELEBREX) 200 mg capsule Take 200 mg by mouth twice daily. - cyclobenzaprine (FLEXERIL) 10 mg tablet Take 10 mg by mouth three times daily as needed. - Cholecalciferol, Vitamin D3, 5,000 unit cap Take 5,000 Units by mouth once daily. - calcium (more content not included)... Normal [facility] Colonoscopy Study observatio non 06-26-2023 [facility] Cervical or vagninal specime n microscopic examination by cytology stain (reported asOrdered By: Tali Wyatt on 04-09-2023 Cytology report Cyto stain Doc (Cvx/Vag) Comment . [facility] Comment on above: The Pap smear is a s creening test designed to aid in thedetection of premalignant and malignant conditions of theuterine cervix. It is not a diagnostic procedure andshould not be used as the sole means of detecting cervicalcancer. Both false-positive and false-negative reports dooccur. Detection in cervical specim en of any of human papilloma virus (HPV) 16, 18, 31, 33,Ordered By: Tali Wyatt on 04-09-2023 HPV 16+18+31+33+35+39+45+51+ 52+56+58+59+66+68 DNA Probe+sig amp Ql (Cvx) Negative Negative [facility] Comment on above: This nucleic acid am plification test detects fourteen high-risk HPV types (16,18,31,33,35,39,45,51,52,56,58,59,66,68)without differentiation.Performed at: - [facility] [id number] Director: Paola Kelly MD, Phone: [phone] at: = - [facility] [address] [id number] Director: Paola Kelly MD, Phone: [phone] Laboratory - CytologyOrdered By: Tali Wyatt on 04-09-2023 Manager Metal Cyto stain Nom (Cvx/Vag) [ID] Comment . [facility] Comment on above: Magalie Mcdonald, Cytot echnologist (ASCP) Laboratory - Miscellaneous t estsOrdered By: Tali Wyatt on 04-09-2023 Service comment (Unsp spec) [Interp] . . [facility] Thin prep Papanicolaou smear with manual screeningOrdered By: Tali Wyatt on 04-09-2023 Thin prep Papanicolaou smear with manual screening Comment . [facility] Comment on above: NEGATIVE FOR INTRAEP ITHELIAL LESION OR MALIGNANCY. This liquid based Th inPrep(R) pap test was screened withthe use of an image guided system. Basophil percentageOrdered B y: Anson Interiano on 02-21-2023 Basophil percentage 0-5 SEEN /hpf 0-5 [facility] Cholesterol [Mass/Vol] 220 mg/dL <200 [facility] Comment on above: <200 mg/dL Desirable 200-240 mg/dL Borderline >240 mg/dL High Risk Triglyceride [Mass/Vol] 118 mg/dL <199 [facility] Comment on above: The drugs N-Acetylcy steine and Metamizole may falsely depress this assay.Serum Triglycerides Reference Interval Normal <150 mg/dL Borderline high 150 - 199 mg/dL High 200 - 499 mg/dL Very High > or = 500 mg/dL Bilirubin Test strip Ql (U)O rdered By: Anson Interiano on 02-21-2023 Bilirubin Ql (U) Negative Negative [facility] Ketones Test strip Ql (U)Ord ered By: Anson Interiano on 12-13-2023 Ketones Ql (U) Negative Negative [facility] Mucus LM Ql (Urine sed)Order ed By: Anson Interiano on 02-21-2023 Mucus Ql (Urine sed) 0 SEEN /hpf [facility] Nitrite Test strip Ql (U)Ord ered By: Anson Interiano on 02-21-2023 Nitrite Ql (U) Negative Negative [facility] Protein Test strip Ql (U)Ord ered By: Anson Interiano on 02-21-2023 Protein Ql (U) Negative Negative [facility] Serum or plasma cholesterol in HDL measurement (mass/volume)Ordered By: Anson Interiano on 02-21-2023 Cholesterol in HDL [Mass/Vol] 62 mg/dL >40 [facility] Comment on above: The drugs N-Acetylcy steine and Metamizole may falsely depress this assay. Reference Range HDL <40 mg/dL Low HDL Cholesterol HDL >or= 60 mg/dL High HDL Cholesterol Serum or plasma cholesterol in VLDL measurement (mass/volume)Ordered By: Anson Interiano on 02-21-2023 Cholesterol in VLDL [Mass/Vol] 24 mg/dL 5-40 [facility] Serum or plasma low density lipoprotein (LDL) cholesterol measurement (mass/volume)Ordered By: Anson Interiano on 02-21-2023 Cholesterol in LDL [Mass/Vol] 134 mg/dL 0-130 [facility] Squamous epithelial cells de tection in urine sediment by light microscopyOrdered By: Anson Interiano on 02-21-2023 Epithelial cells.squamous LM Ql (Urine sed) 0-5 SEEN /hpf 5-10 [facility] Urine blood detectionOrdered By: Anson Interiano on 02-21-2023 RBC Ql (U) 25 /ul Negative [facility] RBC Ql (U) 0 SEEN /hpf 0-5 [facility] Urine clarityOrdered By: Cortes Interiano on 02-21-2023 Clarity (U) Sl. Cloudy Clear [facility] Urine color determinationOrd ered By: Anson Interiano on 02-21-2023 Color (U) Yellow Yellow [facility] Urine glucose detectionOrder ed By: Anson Interiano on 02-21-2023 Glucose Ql (U) Normal mg/dl Normal [facility] Urine leukocyte esterase det ection by dipstickOrdered By: Anson Interiano on 02-21-2023 Leukocyte esterase Test strip Ql (U) 25 /ul Negative [facility] Urine pHOrdered By: Yolanda Interiano on 02-21-2023 pH (U) 6.0 [pH] 5.0 - 8.0 [facility] Urine sediment bacteria coun t by microscopy (number/high power field)Ordered By: Anson Interiano on 02-21-2023 Bacteria LM.HPF (Urine sed) [#/Area] 0 /[HPF] None Seen [facility] Urine specific gravity measu rementOrdered By: Anson Interiano on 02-21-2023 Specific gravity (U) [Rel density] 1.020 1.002-1.030 [facility] Urobilinogen Auto test strip Ql (U)Ordered By: Anson Interiano on 02-21-2023 Urobilinogen Ql (U) Normal mg/dl Normal [facility] Whole blood hemoglobin A1c/t otal hemoglobin ratio (mass fraction)Ordered By: Anson Interiano on 02-21-2023 HbA1c (Bld) [Mass fraction] 5.0 % 3.8-5.6 [facility] Comment on above: Normal < 5.7 % Predi abetic 5.7 - 6.4 % Diabetic >or= 6.5 % Please note range changes. Laboratory - Microbiology an d Antimicrobial susceptibilityon 01-27-2023 SARS-CoV-2 (COVID-19) RNA TRAVIS+probe Ql (Unsp spec) Detected [facility] No Panel Informationon 01-27 Influenza Types A,B Rapid (Clinic) Not detected [facility] Basophil percentageOrdered B y: Dr. Interiano on 09-02-2022 Cholesterol [Mass/Vol] 239 mg/dL <200 [facility] Comment on above: <200 mg/dL Desirable 200-240 mg/dL Borderline >240 mg/dL High Risk Triglyceride [Mass/Vol] 100 mg/dL <199 [facility] Comment on above: The drugs N-Acetylcy steine and Metamizole may falsely depress this assay.Serum Triglycerides Reference Interval Normal <150 mg/dL Borderline high 150 - 199 mg/dL High 200 - 499 mg/dL Very High > or = 500 mg/dL Laboratory - Chemistry and C hemistry - challengeOrdered By: Dr. Interiano on 09-02-2022 Free T4 [Mass/Vol] 0.89 ng/dL 0.76-1.46 [facility] No Panel InformationOrdered By: Dr. Interiano on 09-02-2022 Thyroid Stimulating Hormone (TSH) 3.17 uIU/mL 0.358-3.74 [facility] Serum or plasma cholesterol in HDL measurement (mass/volume)Ordered By: Dr. Interiano on 09-02-2022 Cholesterol in HDL [Mass/Vol] 62 mg/dL >40 [facility] Comment on above: The drugs N-Acetylcy steine and Metamizole may falsely depress this assay. Reference Range HDL <40 mg/dL Low HDL Cholesterol HDL >or= 60 mg/dL High HDL Cholesterol Serum or plasma cholesterol in VLDL measurement (mass/volume)Ordered By: Dr. Interiano on 09-02-2022 Cholesterol in VLDL [Mass/Vol] 20 mg/dL 5-40 [facility] Serum or plasma low density lipoprotein (LDL) cholesterol measurement (mass/volume)Ordered By: Dr. Interiano on 09-02-2022 Cholesterol in LDL [Mass/Vol] 157 mg/dL 0-130 [facility] Basophil percentageOrdered B y: Tali Wyatt on 07-05-2022 Basophil percentage 0 SEEN /hpf 0-5 [facility] Bilirubin [Mass/Vol] 0.40 mg/dL 0.20-1.00 [facility] Comment on above: For patients on eltr ombopag therapy, use of Dimension [place] TBIL is not recommended. Chloride [Moles/Vol] 103 mmol/L 98-107 [facility] Glucose [Mass/Vol] 82 mg/dL 74-106 [facility] Potassium [Moles/Vol] 4.0 mmol/L 3.5-5.[address] [facility] Protein [Mass/Vol] 7.3 g/dL 6.4-8.2 [facility] Sodium [Moles/Vol] 133 mmol/L 136-145 [facility] WBC (Bld) [#/Vol] 6.2 10*3/uL 4.4-11.0 [facility] Bilirubin Test strip Ql (U)O rdered By: Tali Wyatt on 07-05-2022 Bilirubin Ql (U) Negative Negative [facility] Blood erythrocytes count (nu mber/volume)Ordered By: Tali Wyatt on 07-05-2022 RBC (Bld) [#/Vol] 4.99 10*6/uL 4.2-5.4 [facility] Blood hemoglobin measurement (mass/volume)Ordered By: Tali Wyatt on 07-05-2022 Hemoglobin (Bld) [Mass/Vol] 13.8 g/dL 12.0-15.0 [facility] Blood platelet mean volumeOr dered By: Tali Wyatt on 07-05-2022 Platelet mean volume (Bld) [Entitic vol] 10.9 fL 6.2-12.0 [facility] Determination of erythrocyte mean corpuscular volume (MCV)Ordered By: Tali Wyatt on 07-05-2022 MCV (RBC) [Entitic vol] 89.4 fL 81-99 [facility] Hematocrit Auto (Bld) [Volum e fraction]Ordered By: Tali Wyatt on 07-05-2022 Hematocrit (Bld) [Volume fraction] 44.6 % 37-47 [facility] Ketones Test strip Ql (U)Ord ered By: Tali Wyatt on 07-05-2022 Ketones Ql (U) Negative Negative [facility] Laboratory - Chemistry and C hemistry - challengeOrdered By: Tali Wyatt on 07-05-2022 ALP [Catalytic activity/Vol] 80 U/L 45-117 [facility] ALT [Catalytic activity/Vol] 33 U/L 13-56 [facility] CO2 [Moles/Vol] 27.0 mmol/L 21.0-32.0 [facility] Globulin (S) [Mass/Vol] 3.4 g/dL 2.2-4.2 [facility] Urea nitrogen/Creatinine [Mass ratio] 26.7 mg/mg 10-20 [facility] Laboratory - Hematology and Cell countsOrdered By: Tali Wyatt on 07-05-2022 Erythrocyte distribution width (RBC) [Entitic vol] 51.3 fL 35.1-43.9 [facility] Erythrocyte distribution width (RBC) [Ratio] 15.7 % 11.6-14.6 [facility] MCH (RBC) [Entitic mass] 27.7 pg 27.0-32.0 [facility] MCHC Auto (RBC) [Mass/Vol]Or dered By: Tali Wyatt on 07-05-2022 MCHC (RBC) [Mass/Vol] 30.9 g/dL 32-[address] [facility] Mucus LM Ql (Urine sed)Order ed By: Tali Wyatt on 07-05-2022 Mucus Ql (Urine sed) 0 SEEN /hpf [facility] Nitrite Test strip Ql (U)Ord ered By: Tali Wyatt on 07-05-2022 Nitrite Ql (U) Negative Negative [facility] No Panel InformationOrdered By: Tali Wyatt on 07-05-2022 Estimated GFR (MDRD) Amer 88 mL/min >60 [facility] Comment on above: GFR Calc Estimated GFR (MDRD) Non-Af Amer 73 mL/min >60 [facility] Comment on above: Non- GFR Calc Platelets bldOrdered By: Antonio Wyatt on 07-05-2022 Platelets (Bld) [#/Vol] 262 10*3/uL 150-450 [facility] Protein Test strip Ql (U)Ord ered By: Tali Wyatt on 07-05-2022 Protein Ql (U) Negative Negative [facility] Serum or plasma albumin juan urement (mass/volume)Ordered By: Tali Wyatt on 07-05-2022 Albumin [Mass/Vol] 3.9 g/dL 3.2-5.0 [facility] Serum or plasma albumin/glob ulin mass ratioOrdered By: Tali Wyatt on 07-05-2022 Albumin/Globulin [Mass ratio] 1.1 {ratio} 0.9-2.4 [facility] Serum or plasma calcium juan urement (mass/volume)Ordered By: Tali Wyatt on 07-05-2022 Calcium [Mass/Vol] 9.6 mg/dL 8.5-10.1 [facility] Serum or plasma creatinine m easurement (mass/volume)Ordered By: Tali Wyatt on 07-05-2022 Creatinine [Mass/Vol] 0.86 mg/dL 0.55-1.[address] [facility] Comment on above: The validity of the calculated GFR & GFRAA in patients over 70 years has not been determined. Clinical correlation is essential. Serum or plasma urea nitroge n measurement (mass/volume)Ordered By: Tali Wyatt on 07-05-2022 Urea nitrogen [Mass/Vol] 23 mg/dL 7-18 [facility] Squamous epithelial cells de tection in urine sediment by light microscopyOrdered By: Tali Wyatt on 07-05-2022 Epithelial cells.squamous LM Ql (Urine sed) 0-5 SEEN /hpf 5-10 [facility] Thin prep Papanicolaou smear with manual screeningOrdered By: Tali Wyatt on 07-05-2022 Thin prep Papanicolaou smear with manual screening 14 U/L 15-37 [facility] Thin prep Papanicolaou smear with manual screening 3 5-15 [facility] Urine blood detectionOrdered By: Tali Wyatt on 07-05-2022 RBC Ql (U) 10 /ul Negative [facility] RBC Ql (U) 0 SEEN /hpf 0-5 [facility] Urine clarityOrdered By: Antonio Wyatt on 07-05-2022 Clarity (U) Clear Clear [facility] Urine color determinationOrd ered By: Tali Wyatt on 07-05-2022 Color (U) Yellow Yellow [facility] Urine glucose detectionOrder ed By: Tali Wyatt on 07-05-2022 Glucose Ql (U) Normal mg/dl Normal [facility] Urine leukocyte esterase det ection by dipstickOrdered By: Tali Wyatt on 07-05-2022 Leukocyte esterase Test strip Ql (U) Negative Negative [facility] Urine pHOrdered By: Tali rodriguez on 07-05-2022 pH (U) 6.5 [pH] 5.0 - 8.0 [facility] Urine sediment bacteria coun t by microscopy (number/high power field)Ordered By: Tali Wyatt on 07-05-2022 Bacteria LM.HPF (Urine sed) [#/Area] 0 /[HPF] None Seen [facility] Urine specific gravity measu rementOrdered By: Tali Wyatt on 07-05-2022 Specific gravity (U) [Rel density] 1.010 1.002-1.030 [facility] Urobilinogen Auto test strip Ql (U)Ordered By: Tali Wyatt on 07-05-2022 Urobilinogen Ql (U) Normal mg/dl Normal [facility] Culture, urineOrdered By: Parth Ayoub on 07-04-2022 Bacteria identified Cx Nom (U) Mixed Gram Pos & Gram Neg Org [facility] Amorphous sediment detection in urine sediment by light microscopyOrdered By: Jenny Ayoub on 07-03-2022 Amorphous sediment LM Ql (Urine sed) 3+ [facility] Basophil percentageOrdered B y: Jenny Ayoub on 07-03-2022 Basophil percentage 0 SEEN /hpf 0-5 [facility] Bilirubin Test strip Ql (U)O rdered By: Jenny Ayoub on 07-03-2022 Bilirubin Ql (U) 1 mg/dL Negative [facility] Comment on above: COLOR OF URINE MAY A FFECT DIPSTICK RESULTS. Ketones Test strip Ql (U)Ord ered By: Jenny Ayoub on 07-03-2022 Ketones Ql (U) Negative Negative [facility] Mucus LM Ql (Urine sed)Order ed By: Jenny Ayoub on 07-03-2022 Mucus Ql (Urine sed) 0 SEEN /hpf [facility] Nitrite Test strip Ql (U)Ord ered By: Jenny Ayoub on 07-03-2022 Nitrite Ql (U) Positive Negative [facility] Protein Test strip Ql (U)Ord ered By: Jenny Ayoub on 07-03-2022 Protein Ql (U) 15 mg/dl Negative [facility] Squamous epithelial cells de tection in urine sediment by light microscopyOrdered By: Jenny Ayoub on 07-03-2022 Epithelial cells.squamous LM Ql (Urine sed) 0 SEEN /hpf 5-10 [facility] Urine blood detectionOrdered By: Jenny Ayoub on 07-03-2022 RBC Ql (U) 25 /ul Negative [facility] RBC Ql (U) 0 SEEN /hpf 0-5 [facility] Urine clarityOrdered By: Bobby Ayoub on 07-03-2022 Clarity (U) Sl. Cloudy Clear [facility] Urine color determinationOrd ered By: Jenny Ayoub on 07-03-2022 Color (U) SEE COMMENT BELOW Yellow [facility] Comment on above: Visual Urine Color:O RANGE Urine glucose detectionOrder ed By: Jenny Ayoub on 07-03-2022 Glucose Ql (U) Normal mg/dl Normal [facility] Urine leukocyte esterase det ection by dipstickOrdered By: Jenny Ayoub on 07-03-2022 Leukocyte esterase Test strip Ql (U) 25 /ul Negative [facility] Urine pHOrdered By: Jenny rabago on 07-03-2022 pH (U) 6.0 [pH] 5.0 - 8.0 [facility] Urine sediment bacteria coun t by microscopy (number/high power field)Ordered By: Jenny Ayoub on 07-03-2022 Bacteria LM.HPF (Urine sed) [#/Area] 0 /[HPF] None Seen [facility] Urine specific gravity measu rementOrdered By: Jenny Ayoub on 07-03-2022 Specific gravity (U) [Rel density] 1.020 1.002-1.030 [facility] Urobilinogen Auto test strip Ql (U)Ordered By: Jenny Ayoub on 07-03-2022 Urobilinogen Ql (U) 1 mg/dl Normal [facility] Basophil percentageOrdered B y: Dr. Interiano on 03-18-2022 Chloride [Moles/Vol] 107 mmol/L 98-107 [facility] Cholesterol [Mass/Vol] 251 mg/dL <200 [facility] Comment on above: <200 mg/dL Desirable 200-240 mg/dL Borderline >240 mg/dL High Risk Glucose [Mass/Vol] 96 mg/dL 74-106 [facility] Potassium [Moles/Vol] 4.0 mmol/L 3.5-5.[address] [facility] Sodium [Moles/Vol] 140 mmol/L 136-145 [facility] Triglyceride [Mass/Vol] 130 mg/dL <199 [facility] Comment on above: The drugs N-Acetylcy steine and Metamizole may falsely depress this assay.Serum Triglycerides Reference Interval Normal <150 mg/dL Borderline high 150 - 199 mg/dL High 200 - 499 mg/dL Very High > or = 500 mg/dL Laboratory - Chemistry and C hemistry - challengeOrdered By: Dr. Interiano on 03-18-2022 CO2 [Moles/Vol] 29.0 mmol/L 21.0-32.0 [facility] Free T4 [Mass/Vol] 0.92 ng/dL 0.76-1.46 [facility] Urea nitrogen/Creatinine [Mass ratio] 19.4 mg/mg 10-20 [facility] No Panel InformationOrdered By: Dr. Interiano on 03-18-2022 Estimated GFR (MDRD) Amer 86 mL/min >60 [facility] Comment on above: GFR Calc Estimated GFR (MDRD) Non-Af Amer 71 mL/min >60 [facility] Comment on above: Non- GFR Calc Thyroid Stimulating Hormone (TSH) 4.44 uIU/mL 0.358-3.74 [facility] Vitamin D 25-Hydroxy 65.4 ng/mL [facility] Comment on above: Vitamin D 25(OH) Sta tus Range Deficiency <20 ng/mL (50nmol/L) Insufficiency 20 - 30 ng/mL (50 - 75 nmol/L) Sufficiency 30 - 100 ng/mL (75 - 250 nmol/L) Toxicity >100 ng/mL (>250 nmol/L) Serum or plasma calcium juan urement (mass/volume)Ordered By: Dr. Interiano on 03-18-2022 Calcium [Mass/Vol] 8.7 mg/dL 8.5-10.1 [facility] Serum or plasma cholesterol in HDL measurement (mass/volume)Ordered By: Dr. Interiano on 03-18-2022 Cholesterol in HDL [Mass/Vol] 66 mg/dL >40 [facility] Comment on above: The drugs N-Acetylcy steine and Metamizole may falsely depress this assay. Reference Range HDL <40 mg/dL Low HDL Cholesterol HDL >or= 60 mg/dL High HDL Cholesterol Serum or plasma cholesterol in VLDL measurement (mass/volume)Ordered By: Dr. Interiano on 03-18-2022 Cholesterol in VLDL [Mass/Vol] 26 mg/dL 5-40 [facility] Serum or plasma creatinine m easurement (mass/volume)Ordered By: Dr. Interiano on 03-18-2022 Creatinine [Mass/Vol] 0.88 mg/dL 0.55-1.[address] [facility] Comment on above: The validity of the calculated GFR & GFRAA in patients over 70 years has not been determined. Clinical correlation is essential. Serum or plasma low density lipoprotein (LDL) cholesterol measurement (mass/volume)Ordered By: Dr. Interiano on 03-18-2022 Cholesterol in LDL [Mass/Vol] 159 mg/dL 0-130 [facility] Serum or plasma urea nitroge n measurement (mass/volume)Ordered By: Dr. Interiano on 03-18-2022 Urea nitrogen [Mass/Vol] 17 mg/dL 7-18 [facility] Thin prep Papanicolaou smear with manual screeningOrdered By: Dr. Interiano on 03-18-2022 Thin prep Papanicolaou smear with manual screening 4 5-15 [facility] Microbiology: Culture, R/O S trep Aon 11-23-2016 GE use only - for [employer] import when terms are not otherwise specified . Invalid Interpretation Code [facility] Work Phone: Microbiology: (P) Culture, R /O Strep Aon 11-22-2016 GE use only - for [employer] import when terms are not otherwise specified . Invalid Interpretation Code [facility] Work Phone: Office Visit: UC: URI/ sinus itis/ pharyngitis/ laryngitison 11-20-2016 Documentation of current medications (procedure) Done Invalid Interpretation Code [facility] Work Phone: Fall risk assessment No Invalid Interpretation Code [facility] Work Phone: Rapid strep test Negative Invalid Interpretation Code [facility] Work Phone: Tobacco use [facility] Never smoker Invalid Interpretation Code [facility] Work Phone: HISTORY AND PHYSICALon 09-07 HISTORY AND PHYSICAL [facility] HISTORY & PHYSICAL NAME NUMBER SEX AGE ADMIT DISC TYPE MED.RECORD# MADDIE COY [id number] F 56 09/06/2016 OP [id number] ROOM: DATE OF :02/09/1960 PHYSICIAN NO.: PHYSICIAN NAME: PHYSICIAN:Jenna Banerjee DPM HISTORY HISTORY OF PRESENT ILLNESS: Patient is known to me from my private office where she had been treated for several months for chronic plantar fasciitis. The patient has undergone conservative treatments, which would include custom orthotics, stretching, physical therapy, ice, anti-inflammatories, cortisone injections and change in shoes. MRI confirmed patient is suffering from chronic plantar fasciitis and she had stated that she wished to undergo surgical intervention. Risks, complications, benefits, alternative treatments were given. No guarantees were given. Consent was reviewed and signed and all questions were answered. Patient will present to [facility] the morning of September 06, 2016, for outpatient surgical intervention. ALLERGIES: Penicillin. DIAGNOSIS: Left chronic plantar fasciitis. PROCEDURE: Left endoscopic plantar fasciotomy. SURGEON: Jenna Banerjee DPM. PHYSICAL EXAMINATION D: Jenna Banerjee DPM TD: 09/05/2016 21:04:52 JOB #: [id number] E-SIGN JENNA BANERJEE DPM 09/07/16 06:48 < > Transcribed by: ENRIQUE 09/05/2016 21:04:52 Copy for: CHRISS WEST DPM Update to H&P: [] No Changes: I have examined the patient and reviewed the H&P and there are no changes. HISTORY & PHYSICAL MADDIE COY 1 [facility] HISTORY & PHYSICAL NAME NUMBER SEX AGE ADMIT DISC TYPE MED.RECORD# MADDIE COY [id number] F 56 09/06/2016 OP [id number] ROOM: DATE OF :02/09/1960 PHYSICIAN NO.: PHYSICIAN NAME: PHYSICIAN:Jenna Banerjee DPM [] As previously dictated with the following changes: PHYSICIAN SIGNATURE: TIM E: DATE:_ HISTORY & PHYSICAL MADDIE COY 2 Normal [facility] OPERATIVE PROCEDURESon 09-07 OPERATIVE PROCEDURES [facility] OPERATIVE REPORT NAME NUMBER SEX AGE ADMIT DISC TYPE MED.RECORD# MADDIE COY [id number] F 46 09/06/2016 O/P [id number] ROOM:[facility] DATE OF :1970 PHYSICIAN NO.: PHYSICIAN NAME: PHYSICIAN:Jenna Banerjee DPM DATE OF SURGERY: 09/06/2016 SURGEON: Jenna Banerjee DPM ORCHID GROWER: None. ANESTHESIOLOGIST: DR. DANILO MD ANESTHETIC: General. HEMOSTASIS: Pneumatic ankle tourniquet set at 250 mmHg. PREOPERATIVE DIAGNOSIS: Chronic plantar fasciitis, left foot. POSTOPERATIVE DIAGNOSIS: Chronic plantar fasciitis, left foot. OPERATION PERFORMED: Endoscopic plantar fasciotomy, left foot. COMPLICATIONS: none ESTIMATED BLOOD LOSS: Minimal. DESCRIPTION OF OPERATION: Under mild sedation, the patient was brought to the OR and placed on the operating table in supine position. A pneumatic ankle tourniquet was placed about the patient's left ankle. Following sedation, the foot was scrubbed, prepped, and draped in the usual aseptic manner. The left limb was then elevated to exsanguinate, and the pneumatic ankle tourniquet was inflated to 250 mmHg. Attention was then directed to the left plantar foot at the origin of the plantar fascia medially where approximately a 1.5-cm linear longitudinal incision was made at this juncture. The incision was then penetrated with a probe transversely as the lateral skin was tented, and a stab incision was made at that point to allow for exit of the endoscopic system. The probe was then removed, and the cannula was placed medially to laterally. The wound was flushed with copious amounts of normal sterile saline. At this point, the camera was placed laterally and the probe medially. The plantar fascia was then located and probed to about 50% of the plantar fascia, which was then incised in a transverse manner. At that point, muscle belly was then located. The plantar fascia was probed again to insure complete transection of the fascia, which was noted to be true. There was no bleeding. Instruments were removed, and the wound was flushed with copious amounts of normal sterile saline. The cannula was removed as well. The medial and lateral incisions were then reapproximated and coapted utilizing 3-0 Prolene sutures. Upon completion of the procedure, a postoperative block consisting of 10 mL of 1% lidocaine plain was. The pneumatic ankle tourniquet was deflated, and a prompt hyperemic response was noted to all digits of left foot, and a postoperative dressing consisting of Xeroform, 4x4s, and Kerlix was applied. An Bandar wrap was then applied. The patient tolerated the procedure and the anesthesia well. She was transferred to the recovery room with vital signs stable and vascular status intact to all toes of the left foot. Following a period of postoperative monitoring, she will be discharged home with written and oral postoperative instructions. She is to keep the dressing clean, dry, intact; avoid excessive ambulation; remaining nonweightbearing on the left foot; rest, ice, elevate left foot; wear a surgical shoe at all times while ambulating. Contact Dr. Banerjee for all postoperative followup care and if any problems arise. A prescription OPERATIVE REPORT COY MADDIE 1 [facility] OPERATIVE REPORT NAME NUMBER SEX AGE ADMIT DISC TYPE MED.RECORD# MADDIE COY [id number] F 46 09/06/2016 O/P [id number] ROOM:[facility] DATE OF :1970 PHYSICIAN NO.: PHYSICIAN NAME: PHYSICIAN:Jenna Banerjee DPM was written for Vicodin. The patient is to take it as directed. Electronically reviewed and signed by: D: Jenna Banerjee DPM TD: 09/06/2016 08:26:22 JOB #: [id number] E-SIGN JENNA BANERJEE DPM 09/07/16 06:55 Transcribed by: NMT 09/06/2016 08:26:22 Copy for: CHRISS WEST DPM OPERATIVE REPORT MADDIE COY [address] [facility] URINEon 09-06-2016 EXTERNAL QC DONE? YES Normal [facility] Comment on above: Performed By: #### [id number] ####[facility],[address] [place] [id number] INTERNAL QC PASS Normal [facility] Comment on above: Performed By: #### [id number] ####[facility],[address] [place] [id number] UR Negative Normal NEGATIVE [facility] Comment on above: Performed By: #### [id number] ####[facility],[address] [place] [id number] Culture, urine Bacteria identified Cx Nom (U) Mixed Gram Pos & Gram Neg Org [facility] Work Phone: No Panel Information [facility] Vital Signs Date Time Vital Sign Value Performing Clinician Faci lity 05-05-2024 07:33-0500 Body temperature 98.9 [degF] Dr. Andery Interiano MD Work Phone: [facility] 05-05-2024 07:33-0500 Diastolic blood pressure 70 mm[Hg] Dr. Andrey Interiano MD Work Phone: [facility] 05-05-2024 07:33-0500 Heart rate 112 /min Dr. Andrey Interiano MD Work Phone: [facility] 05-05-2024 07:33-0500 Respiratory rate 12 /min Dr. Andrey Interiano MD Work Phone: [facility] 05-05-2024 07:33-0500 SaO2% (BldA) [Mass fraction] 94 % Dr. Andrey Interiano MD Work Phone: [facility] 05-05-2024 07:33-0500 Systolic blood pressure 118 mm[Hg] Dr. Andrey Interiano MD Work Phone: [facility] 06-26-2023 08:56-0400 Heart rate 81 /min Sj Lam MD Work Phone: [facility] 06-26-2023 08:56-0400 SaO2% (BldA) [Mass fraction] 100 % Sj Lam MD Work Phone: [facility] 06-26-2023 08:46-0400 Diastolic blood pressure 75 mm[Hg] Sj Lam MD Work Phone: [facility] 06-26-2023 08:46-0400 Respiratory rate 16 /min Sj Lam MD Work Phone: [facility] 06-26-2023 08:46-0400 Systolic blood pressure 130 mm[Hg] Sj Lam MD Work Phone: [facility] 06-26-2023 07:05-0400 Body temperature 97.5 [degF] Sj Lam MD Work Phone: [facility] 06-26-2023 07:05-0400 Body weight 98.9 kg Sj Lam MD Work Phone: [facility] 04-27-2023 13:17-0500 Body height 157.5 cm Sj Lam MD Work Phone: [facility] 04-27-2023 13:17-0500 Body temperature 97.5 [degF] Sj Lam MD Work Phone: [facility] 04-27-2023 13:17-0500 Body weight 98.88 kg Sj Lam MD Work Phone: [facility] [facility] 04-27-2023 13:17-0500 Diastolic blood pressure 80 mm[Hg] Sj Lam MD Work Phone: [facility] 04-27-2023 13:17-0500 Heart rate 107 /min Sj Lam MD Work Phone: [facility] 04-27-2023 13:17-0500 SaO2% (BldA) [Mass fraction] 97 % Sj Lam MD Work Phone: [facility] 04-27-2023 13:17-0500 Systolic blood pressure 128 mm[Hg] Sj Lam MD Work Phone: [facility] 01-27-2023 08:07-0500 Body height 157.[address] Anson Interiano Work Phone: [facility] 01-27-2023 08:07-0500 Body mass index (BMI) [Ratio] 39.3 kg/m2 Dr. Anson Interiano Work Phone: [facility] 01-27-2023 08:07-0500 Body temperature 97.5 [degF] Dr. Anson Interiano Work Phone: [facility] 01-27-2023 08:07-0500 Body weight 97.[address] Anson Interiano Work Phone: [facility] 01-27-2023 08:07-0500 Diastolic blood pressure 80 mm[Hg] Dr. Anson Interiano Work Phone: [facility] 01-27-2023 08:07-0500 Heart rate 107 /min Dr. Anson Interiano Work Phone: [facility] 01-27-2023 08:07-0500 Respiratory rate 16 /min Dr. Anson Interiano Work Phone: [facility] 01-27-2023 08:07-0500 SaO2% (BldA) [Mass fraction] 94 % Dr. Anson Interiano Work Phone: [facility] 01-27-2023 08:07-0500 Systolic blood pressure 139 mm[Hg] Dr. Anson Interiano Work Phone: [facility] 07-02-2022 11:18-0400 Body mass index (BMI) [Ratio] 38.2 kg/m2 Dr. Anson Interiano Work Phone: [facility] 07-02-2022 11:18-0400 Diastolic blood pressure 92 mm[Hg] Dr. Anson Interiano Work Phone: [facility] 07-02-2022 11:18-0400 Systolic blood pressure 142 mm[Hg] Dr. Anson Interiano Work Phone: [facility] 07-02-2022 10:02-0400 Body height 157.[address] Anson Interiano Work Phone: [facility] 07-02-2022 10:02-0400 Body temperature 98.4 [degF] Dr. Anson Interiano Work Phone: [facility] 07-02-2022 10:02-0400 Body weight 94.[address] Anson Interiano Work Phone: [facility] 07-02-2022 10:02-0400 Heart rate 96 /min Dr. Anson Interiano Work Phone: [facility] 07-02-2022 10:02-0400 Respiratory rate 16 /min Dr. Anson Interiano Work Phone: [facility] 07-02-2022 10:02-0400 SaO2% (BldA) [Mass fraction] 96 % Dr. Anson Interiano Work Phone: [facility] 11-20-2016 09:00-0400 BMI (Body Mass Index) 37.89 kg/m2 Preeti Hazel LPN [facility] Work Phone: 11-20-2016 09:00-0400 Body Temperature 98.6 [degF] Preeti Hazel LPN [facility] Work Phone: 11-20-2016 09:00-0400 BP Diastolic 78 mm[Hg] Preeti Hazel LPN [facility] Work Phone: 11-20-2016 09:00-0400 BP Systolic 120 mm[Hg] Preeti Hazel LPN [facility] Work Phone: 11-20-2016 09:00-0400 Height 157.48 cm Preeti Hazel LPN [facility] Work Phone: 11-20-2016 09:00-0400 Pulse (Heart Rate) 95 /min Preeti Hazel [facility] Work Phone: 11-20-2016 09:00-0400 Respiratory Rate 14 /min Preeti Hazel [facility] Work Phone: 11-20-2016 09:00-0400 Weight 93.99 kg Preeti Hazel [facility] Work Phone: Encounters Encounter Date Encounter Type Care Provider Facility Start: 10-21-2024 ambulatory Andrey Interiano [facility] lity:[facility] Start: 07-24-2024 End: 07-25-2024 Telephone encounter Mane Rosales MD Work Phone: Ophthalmology Comment on above: Patient Question Start: 07-02-2024 End: 07-02-[address] Andrey Interiano MD Work Phone: [facility] Work Phone: Start: 07-02-2024 End: 07-02-[address] Andrey Interiano MD -[facility], [facility] Start: 07-02-2024 End: 07-02-2024 ambulatory Andrey Interiano Facility:[facility] Start: 05-09-2024 End: 05-09-[address] Andrey Interiano MD Work Phone: [facility] Work Phone: Start: 05-09-2024 End: 05-09-[address] Andrey Interiano MD -Outpatient Breast Imaging Work Phone: Start: 05-09-2024 End: 05-09-2024 ambulatory Andrey Interiano Facility:[facility] Start: 05-05-2024 End: 05-05-2024 Patient encounter procedure Carlos Hall PA -[facility] Work Phone: Start: 05-05-2024 End: 05-05-2024 ambulatory Andrey Interiano Facility:[facility] Start: 04-30-2024 End: 04-30-2024 ambulatory DELMER POLO Facility:[facility] Start: 04-30-2024 End: 04-30-2024 Patient encounter procedure Delmer Polo MD Work Phone: Ophthalmology Comment on above: Combined forms of ag e-related cataract of right eye (Primary Dx); Combined forms of age-related cataract of left eye; Regular astigmatism of both eyes; High myopia, bilateral; Horseshoe tear of retina of left eye; Vitreous hemorrhage of left eye (HCC); Essential hypertension; Hypothyroidism, unspecified type Start: 04-16-2024 End: 04-16-[address] Andrey Interiano MD -Laboratory, [facility] Start: 04-16-2024 End: 04-16-2024 [facility] Start: 03-15-2024 End: 03-15-[address] Andrey Interiano MD -Laboratory Work Phone: Start: 03-15-2024 End: 03-15-2024 ambulatory Pawnee Jaydon Facility:[facility] Start: 01-29-2024 End: 01-29-2024 ambulatory [facility] Facility:[facility] Start: 01-29-2024 End: 01-29-2024 Patient encounter procedure Mane Rosales MD Work Phone: Ophthalmology Comment on above: Vitreous hemorrhage of left eye (HCC) (Primary Dx); Horseshoe retinal tear of left eye; Posterior vitreous detachment of both eyes; Cystic retinal tuft; Vitreomacular adhesion of left eye Start: 09-25-2023 End: 09-25-2023 Patient encounter procedure Carolyn Nettles PA-C Work Phone: Ophthalmology Comment on above: Vitreous hemorrhage of left eye (HCC) (Primary Dx); Horseshoe retinal tear of left eye; Posterior vitreous detachment of both eyes; Cystic retinal tuft; Nuclear sclerotic cataract of both eyes Start: 09-25-2023 End: 09-25-2023 [facility] Start: 07-03-2023 Telephone encounter Sj Lam MD Work Phone: General Surgery Comment on above: Results Start: 06-27-2023 Telephone encounter Sj Lam MD Work Phone[facility] Comment on above: Results Start: 06-26-2023 End: 06-26-2023 Subsequent hospital visit by physician Sj Lam MD Work Phone: Ambulatory Surgery Comment on above: Special screening fo r malignant neoplasms, colon [Z12.11] Start: 05-23-2023 End: 05-23-2023 Patient encounter procedure Carolyn Nettles PA-C Work Phone: Ophthalmology Comment on above: Vitreous hemorrhage of left eye (HCC) (Primary Dx); Horseshoe retinal tear of left eye; Posterior vitreous detachment of both eyes; Cystic retinal tuft; Nuclear sclerotic cataract of both eyes Start: 05-07-2023 End: 05-07-[address] Anson Itneriano Work Phone: [facility] Work Phone: Start: 05-07-2023 End: 05-07-[address] Anson Interiano Work Phone: [facility]-Outpatient Breast Imaging Work Phone: Start: 04-27-2023 End: 01-15-2024 Telephone encounter Sj Lam MD Work Phone: General Surgery Comment on above: 06/26/2023 [facility] Start: 04-27-2023 End: 04-27-2023 Patient encounter procedure Sj Lam MD Work Phone: General Surgery Comment on above: Special screening fo r malignant neoplasms, colon (Primary Dx) Start: 04-09-2023 End: 04-09-[address] Anson Interiano Work Phone: [facility]-Laboratory, Specimen Work Phone: Start: 02-21-2023 End: 02-21-[address] Anson Interiano Work Phone: [facility] Work Phone: Start: 02-21-2023 End: 02-21-[address] Anson Interiano [facility] Work [facility] Start: 01-27-2023 End: 01-27-[address] Anson Interiano Work Phone: [facility] Work Phone: Start: 01-23-2023 End: 01-23-2023 Patient encounter procedure Mane Rosales MD Work Phone: Ophthalmology Comment on above: Vitreous hemorrhage of left eye (HCC) (Primary Dx); Horseshoe retinal tear of left eye; Posterior vitreous detachment of both eyes; Cystic retinal tuft; Vitreomacular adhesion of left eye Start: 10-24-2022 End: 10-24-2022 Patient encounter procedure Carolyn Nettles PA-C Work Phone: Ophthalmology Comment on above: Horseshoe retinal te ar of left eye (Primary Dx); Vitreous hemorrhage of left eye (HCC); Posterior vitreous detachment of both eyes; Cystic retinal tuft Start: 09-02-2022 End: 09-02-[address] Anson Interiano Work Phone: [facility] Work Phone: Start: 09-02-2022 End: 09-02-[address] Anson Interiano Work Phone: [facility]-Laboratory Start: 07-18-2022 End: 07-18-2022 Patient encounter procedure Mane Rosales MD Work Phone: Ophthalmology Comment on above: Horseshoe retinal te ar of left eye (Primary Dx); Vitreous hemorrhage of left eye (HCC); Posterior vitreous detachment of both eyes; Cystic retinal tuft; Vitreomacular adhesion of left eye Start: 07-05-2022 End: 07-05-[address] Anson Interiano Work Phone: [facility] Work Phone: Start: 07-05-2022 End: 07-05-[address] Anson Interiano Work Phone: [facility]-Cat Scan, H Start: 07-03-2022 End: 07-03-[address] Anson Interiano Work Phone: [facility] Work Phone: Start: 07-03-2022 End: 07-03-[address] Anson Interiano Work Phone: [facility]-Laboratory, Specimen Start: 07-02-2022 End: 07-02-[address] Anson Interiano Work Phone: [facility] Start: 05-23-2022 End: 05-23-2022 Patient encounter procedure Mane Rosales MD Work Phone: Ophthalmology Comment on above: Vitreous hemorrhage of left eye (HCC) (Primary Dx); Horseshoe retinal tear of left eye; Posterior vitreous detachment of both eyes; Cystic retinal tuft; Vitreomacular adhesion of left eye Start: 05-05-2022 End: 05-05-2022 ambulatory [facility] Work Phone: Start: 05-05-2022 End: 05-05-2022 Patient encounter procedure [facility]-Outpatient Breast Imaging Start: 04-25-2022 End: 04-25-2022 Patient encounter procedure Mane Rosales MD Work Phone: Ophthalmology Comment on above: Vitreous hemorrhage of left eye (HCC); Horseshoe retinal tear of left eye; Posterior vitreous detachment of both eyes; Cystic retinal tuft; Vitreomacular adhesion of left eye Start: 04-11-2022 End: 04-11-2022 Patient encounter procedure Mane Rosales MD Work Phone: Ophthalmology Comment on above: Vitreous hemorrhage of left eye (HCC); Horseshoe retinal tear of left eye; Posterior vitreous detachment of both eyes; Cystic retinal tuft; Vitreomacular adhesion of left eye Start: 04-04-2022 End: 04-04-2022 Patient encounter procedure Mane Rosales MD Work Phone: Ophthalmology Comment on above: Vitreous hemorrhage of left eye (HCC) (Primary Dx); Horseshoe retinal tear of left eye; Posterior vitreous detachment of both eyes; Cystic retinal tuft; Vitreomacular adhesion of left eye Start: 03-30-2022 Telephone encounter Mane chavez MD Work Phone: Ophthalmology Comment on above: Appointment Start: 03-30-2022 End: 03-30-2022 Patient encounter procedure Mane Rosales MD Work Phone: Ophthalmology Comment on above: Horseshoe retinal te ar of left eye (Primary Dx); Vitreous hemorrhage of left eye (HCC); Posterior vitreous detachment of both eyes; Vitreomacular adhesion of left eye; Cystic retinal tuft Start: 03-29-2022 End: 03-29-2022 Patient encounter procedure Delmer Polo MD Work Phone: Ophthalmology Comment on above: Vitreous hemorrhage of left eye (HCC) (Primary Dx) Start: 03-18-2022 End: 03-18-2022 ambulatory [facility] Work Phone: Start: 03-18-2022 End: 03-18-2022 Patient encounter procedure [facility]-Laboratory Start: 03-03-2022 End: 03-03-2022 Patient encounter procedure Delmer Polo MD Work Phone: Ophthalmology Comment on above: Episcleritis of left eye (Primary Dx) Start: 03-01-2022 End: 03-01-2022 Patient encounter procedure Delmer Polo MD Work Phone: Ophthalmology Comment on above: Episcleritis of left eye (Primary Dx) Start: 03-01-2022 Telephone encounter Mane chavez MD Work Phone: Ophthalmology Comment on above: Left eye red Start: 02-28-2022 End: 02-28-2022 Patient encounter procedure Mane Rosales MD Work Phone: Ophthalmology Comment on above: Horseshoe retinal te ar of left eye (Primary Dx); Vitreous hemorrhage of left eye (HCC); Posterior vitreous detachment of both eyes; Cystic retinal tuft Start: 11-29-2021 End: 11-29-2021 Patient encounter procedure Mane Rosales MD Work Phone: Ophthalmology Comment on above: Vitreous hemorrhage of left eye (HCC) (Primary Dx); Horseshoe retinal tear of left eye; Posterior vitreous detachment of both eyes; Posterior vitreous detachment of left eye Start: 11-09-2021 End: 11-09-2021 Patient encounter procedure Carolyn Nettles PA-C Work Phone: Ophthalmology Comment on above: Vitreous hemorrhage of left eye (HCC) (Primary Dx); Horseshoe retinal tear of left eye; Posterior vitreous detachment of left eye Start: 11-09-2021 Telephone encounter Mane chavez MD Work Phone: Ophthalmology Comment on above: Blurred Vision Left Eye Start: 10-25-2021 End: 10-25-2021 Patient encounter procedure Mane Rosales MD Work Phone: Ophthalmology Comment on above: Vitreous hemorrhage of left eye (HCC) (Primary Dx); Horseshoe retinal tear of left eye; Posterior vitreous detachment of left eye Start: 10-13-2021 Telephone encounter Mane chavez MD Work Phone: Ophthalmology Comment on above: Patient Question Start: 10-11-2021 End: 10-11-2021 Patient encounter procedure Mane Rosales MD Work Phone: Ophthalmology Comment on above: Horseshoe retinal te ar of left eye (Primary Dx); Posterior vitreous detachment of left eye; Vitreous hemorrhage of left eye (HCC) Start: 08-31-2021 End: 08-31-2021 Patient encounter procedure [facility]-Laboratory, Specimen Start: 09-06-2016 End: 09-06-2016 Ambulatory JENNA DPM [facility] Procedures Date Procedure Procedure Detail Performing Clinician Start: 05-09-2024 Screening mammography Alexus Interiano MD Work Phone: Start: 04-30-2024 IOL BIOMETRY W/ IOL CALC OU (BOTH EYES) Delmer Polo MD Work Phone: Start: 04-30-2024 End: 04-30-2024 Computerized ophthalmic imaging retina Delmer Polo MD Work Phone: Start: 01-29-2024 Computerized ophthal jeff imaging retina Mane Rosales MD Work Phone: Start: 09-25-2023 End: 09-25-2023 Computerized ophthalmic imaging retina Carolyn Nettles PA-C Work Phone: Start: 06-26-2023 Colonoscopy flx dx w /collj spec when pfrmd Sj Lam MD Work Phone: Start: 06-26-2023 Colonoscopy Sj ford MD Work Phone: Start: 05-23-2023 End: 05-23-2023 Computerized ophthalmic imaging retina Carolyn Nettles PA-C Work Phone: Start: 05-07-2023 Screening mammography Alexus Interiano Work Phone: Start: 01-23-2023 Computerized ophthal jeff imaging retina Mane Rosales MD Work Phone: Start: 10-24-2022 End: 10-24-2022 Computerized ophthalmic imaging retina Carolyn Nettles PA-C Work Phone: Start: 07-18-2022 End: 07-18-2022 Computerized ophthalmic imaging retina Mane Rosales MD Work Phone: Start: 07-05-2022 Computed tomography of abdomen and pelvis with contrast Dr. Anson Interiano Work Phone: Start: 05-23-2022 End: 05-23-2022 Computerized ophthalmic imaging retina Mane Rosales MD Work Phone: Start: 05-05-2022 Screening mammography Start: 04-25-2022 Ophthalmic ultrasoun d dx b-scan w/wo a-scan Mane Rosales MD Work Phone: Start: 04-25-2022 Computerized ophthal jeff imaging retina Mane Rosales MD Work Phone: Start: 04-11-2022 Ophthalmic ultrasoun d dx b-scan w/wo a-scan Mane Rosales MD Work Phone: Start: 04-11-2022 Computerized ophthal jeff imaging retina Mane Rosales MD Work Phone: Start: 04-04-2022 Ophthalmic ultrasoun d dx b-scan w/wo a-scan Mane Rosales MD Work Phone: Start: 04-04-2022 Fundus photography w/interpretation & report Mane Rosales MD Work Phone: Start: 03-30-2022 End: 03-30-2022 Computerized ophthalmic imaging retina Mane Rosales MD Work Phone: Start: 03-29-2022 Ophthalmic ultrasoun d dx b-scan w/wo a-scan Delmer Polo MD Work Phone: Start: 03-29-2022 Computerized ophthal jeff imaging retina Delmer Polo MD Work Phone: Start: 02-28-2022 Computerized ophthal jeff imaging retina Mane Rosales MD Work Phone: Start: 11-29-2021 End: 11-29-2021 Computerized ophthalmic imaging retina Carolyn Nettles PA-C Work Phone: Start: 11-09-2021 End: 11-09-2021 Computerized ophthalmic imaging retina Carolyn Nettles PA-C Work Phone: Start: 10-25-2021 Proph rta dtchmnt w/ o drg 1/> sess Mane Rosales MD Work Phone: Start: 10-25-2021 End: 10-25-2021 Computerized ophthalmic imaging retina Mane Rosales MD Work Phone: Start: 10-11-2021 Proph rta dtchmnt w/ o drg 1/> sess Mane Rosales MD Work Phone: Start: 10-11-2021 End: 10-11-2021 Computerized ophthalmic imaging retina Mane Rosales MD Work Phone: Start: 04-16-[address] MD Work Phone: Start: 11-20-2016 End: 11-20-2016 Rapid strep test Carlos MARINO Work Phone: Urine culture Urine culture Dr. Anson Interiano Work Phone: Plan of Treatment Date Care Activity Detail Author Start: 06-25-2028 Screening for malign ant neoplasm of colon [facility] Start: 03-04-2028 Urine microalbumin profile DTaP,Tdap,Td Vaccine (2 - Td or Tdap) [facility] Start: 02-12-2025 End: 07-22-2025 OCT MACULA CIRRUS OU (BOTH EYES) OCT MACULA CIRRUS OU (BOTH EYES) [facility] Imaging Routine Vitreous hemorrhage of left eye (HCC) Horseshoe retinal tear of left eye Posterior vitreous detachment of both eyes 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 Expected: 02/12/2025, Expires: 07/22/2025 [facility] Work Phone: Comment on above: Expected: 02/12/2025 , Expires: 07/22/2025 Start: 11-10-2024 Influenza vaccination Influenz a Vaccine (Season Ended) [facility] Start: 10-27-2024 End: 10-27-2024 Patient encounter procedure 10/27/2024 9:15 AM EDT Office [place] [address] [place] [address] [facility] Comment on above: [facility] Start: 07-28-2024 End: 07-28-2024 Patient encounter procedure 07/28/2024 12:45 PM EDT Office Visit [facility] [address] [address] Carolyn Nettles PA-C [address] [place] [address] Deana Nettles PA-C in 6 months Ophthalmology Comment on above: Deana Nettles PA-C i n 6 months Start: 04-30-2024 End: 04-30-2024 Patient encounter procedure 04/30/2024 8:00 AM EST Office Visit [facility] [address] [place] [address] Delmer Polo MD [address] [place] [address] Deana Nettles PA-C in 6 months Ophthalmology Comment on above: Deana Nettles PA-C i n 6 months Start: 02-07-2024 End: 07-16-2024 OCT MACULA CIRRUS OU (BOTH EYES) OCT MACULA CIRRUS OU (BOTH EYES) [facility] Imaging Routine Vitreous hemorrhage of left eye (HCC) Horseshoe retinal tear of left eye Posterior vitreous detachment of both eyes 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 Expected: 02/07/2024, Expires: 07/16/2024 [facility] Work Phone: Comment on above: Expected: 02/07/2024 , Expires: 07/16/2024 Start: 01-29-2024 End: 01-29-2024 Patient encounter procedure 01/29/2024 8:00 AM EST Office Visit [facility] [address] [id number] Mane Rosales MD [address] [place] [address] Cancel November appt with Dr. Rosales Ophthalmology Comment on above: Cancel November [place] with Dr. Rosales Start: 11-11-2023 Covid-19 Vaccine ( season) Covid-19 Vaccine ( season) [facility] Start: 11-11-2023 Influenza vaccination [facility] Start: 09-25-2023 End: 09-25-2023 Patient encounter procedure 09/25/2023 8:00 AM EDT Office Visit [facility] [address] [address] Mane Rosales MD [address] [place] [address] 4 months with NED Schwab; [address] Rosales Ophthalmology Comment on above: 4 months with NED Schwab; [address] Rosales Start: 08-02-2023 End: 01-09-2024 OCT MACULA CIRRUS OU (BOTH EYES) OCT MACULA CIRRUS OU (BOTH EYES) [facility] Imaging Routine Vitreous hemorrhage of left eye (HCC) Horseshoe retinal tear of left eye Posterior vitreous detachment of both eyes 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 Expected: 08/02/2023, Expires: 01/09/2024 [facility] Work Phone: Comment on above: Expected: 08/02/2023 , Expires: 01/09/2024 Start: 06-07-2023 End: 11-14-2023 Camera fundoscopy FUNDUS PHOTOS OU (BOTH EYES) [facility] Routine Vitreous hemorrhage of left eye (HCC) Horseshoe retinal tear of left eye Posterior vitreous detachment of both eyes 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 Expected: 06/07/2023, Expires: 11/14/2023 [facility] Work Phone: Comment on above: Expected: 06/07/2023 , Expires: 11/14/2023 Start: 06-07-2023 End: 11-14-2023 OCT MACULA CIRRUS OU (BOTH EYES) OCT MACULA CIRRUS OU (BOTH EYES) [facility] Routine Vitreous hemorrhage of left eye (HCC) Horseshoe retinal tear of left eye Posterior vitreous detachment of both eyes 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 Expected: 06/07/2023, Expires: 11/14/2023 [facility] Work Phone: Comment on above: Expected: 06/07/2023 , Expires: 11/14/2023 Start: 05-10-2023 End: 10-17-2023 Camera fundoscopy FUNDUS PHOTOS OS (LEFT EYE) [facility] Routine Vitreous hemorrhage of left eye (HCC) Horseshoe retinal tear of left eye Posterior vitreous detachment of both eyes 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 Expected: 05/10/2023, Expires: 10/17/2023 [facility] Work Phone: Comment on above: Expected: 05/10/2023 , Expires: 10/17/2023 Start: 05-10-2023 End: 10-17-2023 OCT MACULA CIRRUS OS (LEFT EYE) OCT MACULA CIRRUS OS (LEFT EYE) [facility] Imaging Routine Vitreous hemorrhage of left eye (HCC) Horseshoe retinal tear of left eye Posterior vitreous detachment of both eyes 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 Expected: 05/10/2023, Expires: 10/17/2023 [facility] Work Phone: Comment on above: Expected: 05/10/2023 , Expires: 10/17/2023 Start: 04-26-2023 End: 10-03-2023 BSCAN OS (LEFT EYE) BSCAN OS (LEFT EYE) [facility] Routine Vitreous hemorrhage of left eye (HCC) Horseshoe retinal tear of left eye Posterior vitreous detachment of both eyes 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 Expected: 04/26/2023, Expires: 10/03/2023 [facility] Work Phone: Comment on above: Expected: 04/26/2023 , Expires: 10/03/2023 Start: 04-26-2023 End: 10-03-2023 OCT MACULA CIRRUS OS (LEFT EYE) OCT MACULA CIRRUS OS (LEFT EYE) [facility] Routine Vitreous hemorrhage of left eye (HCC) Horseshoe retinal tear of left eye Posterior vitreous detachment of both eyes 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 Expected: 04/26/2023, Expires: 10/03/2023 [facility] [facility] [place] Work Phone: Comment on above: Expected: 04/26/2023 , Expires: 10/03/2023 Start: 04-19-2023 End: 09-26-2023 BSCAN OS (LEFT EYE) BSCAN OS (LEFT EYE) OPHT Imaging Routine Vitreous hemorrhage of left eye (HCC) Horseshoe retinal tear of left eye Posterior vitreous detachment of both eyes 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 Expected: 04/19/2023, Expires: 09/26/2023 [facility] [place] Work Phone: Comment on above: Expected: 04/19/2023 , Expires: 09/26/2023 Start: 04-16-2023 Colonoscopy COLONOSCOPY [facility] Start: 04-16-2023 COLORECTAL CANCER SCREENING COLORECTAL CANCER SCREENING [facility] Start: 04-16-2023 Screening for malign ant neoplasm of colon [facility] Start: 04-14-2023 End: 09-21-2023 BSCAN OS (LEFT EYE) BSCAN OS (LEFT EYE) OPHT Imaging Routine Vitreous hemorrhage of left eye (HCC) Horseshoe retinal tear of left eye Posterior vitreous detachment of both eyes 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 Expected: 04/14/2023, Expires: 09/21/2023 [facility] [place] Work Phone: Comment on above: Expected: 04/14/2023 , Expires: 09/21/2023 Start: 04-14-2023 End: 09-21-2023 Camera fundoscopy FUNDUS PHOTOS OS (LEFT EYE) OPHT Imaging Routine Vitreous hemorrhage of left eye (HCC) Horseshoe retinal tear of left eye Posterior vitreous detachment of both eyes 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 Expected: 04/14/2023, Expires: 09/21/2023 [facility] [place] Work Phone: Comment on above: Expected: 04/14/2023 , Expires: 09/21/2023 Start: 03-15-2023 End: 08-22-2023 OCT MACULA CIRRUS OU (BOTH EYES) OCT MACULA CIRRUS OU (BOTH EYES) OPHT Imaging Routine Vitreous hemorrhage of left eye (HCC) Horseshoe retinal tear of left eye Posterior vitreous detachment of both eyes Cystic retinal tuft Expected: 03/15/2023, Expires: 08/22/2023 [facility] [place] Work Phone: Comment on above: Expected: 03/15/2023 , Expires: 08/22/2023 Start: 03-12-2023 Behavioral Health Screening Behavioral Health Screening [facility] Start: 03-12-2023 Depression Assessment Depression Ass essment [facility] Start: 12-14-2022 End: 05-23-2023 OCT MACULA CIRRUS OU (BOTH EYES) OCT MACULA CIRRUS OU (BOTH EYES) OPHT Imaging Routine Vitreous hemorrhage of left eye (HCC) Horseshoe retinal tear of left eye Posterior vitreous detachment of both eyes Expected: 12/14/2022, Expires: 05/23/2023 [facility] [place] Work Phone: Comment on above: Expected: 12/14/2022 , Expires: 05/23/2023 Start: 11-24-2022 End: 05-03-2023 OCT MACULA CIRRUS OU (BOTH EYES) OCT MACULA CIRRUS OU (BOTH EYES) OPHT Imaging Routine Vitreous hemorrhage of left eye (HCC) Horseshoe retinal tear of left eye Posterior vitreous detachment of left eye Expected: 11/24/2022, Expires: 05/03/2023 [facility] [place] Work Phone: Comment on above: Expected: 11/24/2022 , Expires: 05/03/2023 Start: 11-10-2022 Covid-19 Vaccine () Covid-19 Vaccine () [facility] Start: 11-10-2022 Influenza vaccination [facility] Start: 11-09-2022 End: 04-18-2023 Camera fundoscopy FUNDUS PHOTOS OS (LEFT EYE) OPHT Imaging Routine Vitreous hemorrhage of left eye (HCC) Horseshoe retinal tear of left eye Posterior vitreous detachment of left eye Expected: 11/09/2022, Expires: 04/18/2023 [facility] [place] Work Phone: Comment on above: Expected: 11/09/2022 , Expires: 04/18/2023 Start: 10-26-2022 End: 04-04-2023 Camera fundoscopy FUNDUS PHOTOS OS (LEFT EYE) OPHT Imaging Routine Horseshoe retinal tear of left eye Posterior vitreous detachment of left eye Vitreous hemorrhage of left eye (HCC) Expected: 10/26/2022, Expires: 04/04/2023 [facility] [place] Work Phone: Comment on above: Expected: 10/26/2022 , Expires: 04/04/2023 Start: 10-26-2022 End: 04-04-2023 OCT MACULA CIRRUS OS (LEFT EYE) OCT MACULA CIRRUS OS (LEFT EYE) OPHT Imaging Routine Horseshoe retinal tear of left eye Posterior vitreous detachment of left eye Vitreous hemorrhage of left eye (HCC) Expected: 10/26/2022, Expires: 04/04/2023 [facility] [place] Work Phone: Comment on above: Expected: 10/26/2022 , Expires: 04/04/2023 Start: 03-12-2022 DEPRESSION ASSESSMENT DEPRESSION ASS [facility] Start: 11-10-2021 Influenza vaccination INFLUENZA (#1) [facility] Start: 03-12-2021 [facility]PRESSION [facility]ESSMENT [facility] Start: 03-11-2021 COVID-19 VACCINE (4 - Booster for David series) COVID-19 VACCINE (4 - Booster for David series) [facility] Start: 02-09-2018 Pneumococcal Vaccine : 50+ (1 of 1 - PCV) Pneumococcal Vaccine: 50+ (1 of 1 - PCV) [facility] Start: 02-09-2018 SHINGRIX VACCINE (1 of 2) SHINGRIX VACCINE (1 of 2) [facility] Start: 11-20-2016 End: 11-20-2016 Appointment Appointment [facility] Work Phone: Start: 11-20-2016 End: 11-20-2016 Streptococcus.beta-hemo lytic [Presence] in Throat by Organism specific culture *Culture, R/O Strep A Swab [facility] Work Phone: Start: 02-09-2013 COLOGUARD (FIT-DNA) COLOGUARD (FIT-D NA) [facility] Start: 02-09-[address] COLONOGRAPHY [facility] Start: 02-09-2013 DIABETES SCREEN DIABETES SCREEN [facility] Start: 02-09-2013 Diabetes Screening Diabetes Screenin g [facility] Start: 02-09-2013 FECAL OCCULT BLOOD FECAL OCCULT BLOO D [facility] Start: 02-09-2013 Lipid 1996 panel - Serum or Plasma Lipid Screening [facility] Start: 02-09-2013 Lipid panel Lipid Screening [facility] Start: 02-09-2013 LIPID SCREEN LIPID SCREEN [facility] Start: 02-09-2013 Screening for malign ant neoplasm of colon [facility] Start: 02-09-2013 SIGMOIDOSCOPY SIGMOIDOSCOPY [facility] Start: 2008 Mammography [facility] Start: 2008 Screening for malign ant neoplasm of breast Mammogram Screening [facility] Start: 02-09-1998 HPV TESTING HPV TESTING [facility] Start: 02-09-1998 Screening for malign ant neoplasm of cervix HPV Testing [facility] Start: 02-09-1989 PAP TESTING PAP TESTING [facility] Start: 02-09-1989 Screening for malign ant neoplasm of cervix [facility] Start: 02-09-1987 Hepatitis B Vaccine (1 of 3 - 19+ 3-dose series) Hepatitis B Vaccine (1 of 3 - 19+ 3-dose series) [facility] Start: 02-09-1987 Urine microalbumin profile DTAP,TDAP,TD (1 - Tdap) [facility] Start: 02-09-1986 Anxiety Screening Anxiety Screening [facility] Start: 02-09-1986 Depression Screening Depression Scre ing [facility] Start: 02-09-1986 HEPATITIS C SCREENING HEPATITIS C [facility] Start: 02-09-1986 Hepatitis C screening Hepatitis C [facility] Start: 02-09-1986 HIV SCREENING HIV SCREENING [facility] Start: 02-09-1986 HIV screening HIV Screening [facility] Start: 1980 Adult depression screening assessment DEPRESSION SCREENING [facility] Start: 1970 HEPATITIS B (1 of 3 - 3-dose series) HEPATITIS B (1 of 3 - 3-dose series) [facility] Start: 1970 Hepatitis B Vaccine (1 of 3 - 3-dose series) Hepatitis B Vaccine (1 of 3 - 3-dose series) [facility] Patient Education [facility] Work Phone: End: 04-27-2024 Screening colonoscopy COLONOSCOPY SCREENING Endoscopy Routine Special screening for malignant neoplasms, colon 1 Occurrences starting 04/27/2023 until 04/27/2024 [facility] [place] Work Phone: Comment on above: 1 Occurrences starti ng 04/27/2023 until 04/27/2024 SURGICAL PATHOLOGY [facility] [place] Work Phone: Comment on above: Release Upon Nohemi harris for 1 Occurrences starting 06/26/2023, 1 completed Vitamin D, 25-hydrox y measurement [facility] Work Phone: [facility] Payers Date Payer Category Payer Self-pay [id number] 2021 Private Health Insurance AETNA A ETNA CHOICE POS II [id number] 2021-[facility] [phone] [address] [place] [address] POS [id number] 2021 Private Health Insurance [id number] 2021 Private Health Insurance [id number] 2014 Unknown [id number] Unknown [id number] 62 Unknown [id number] 62 Unknown [id number] 62 Unknown [id number] 62 Unknown [id number] 62 Unknown [id number] Social History Date Type Detail Facility Start: 06-09-2020 End: 01-27-2023 Tobacco smoking status NHIS Unknown if ever smoked [facility] Start: 1970 Sex Assigned At Female [facility] Start: 10-25-2021 End: 01-27-2023 Tobacco smoking status NHIS Never smoked tobacco [facility] Start: 10-11-2021 End: 01-29-2024 Alcohol intake Current drinker of alcohol (finding) [facility] Start: 1970 Sex Assigned At Not on file [facility] Start: 10-01-2021 End: 11-29-2021 Exposure to SARS-CoV-2 (event) Not sure [facility] Start: 10-25-2021 Tobacco use and exposure Smokeless tobacco non-user [facility] Start: 07-18-2022 End: 01-29-2024 History of Social function [facility] Start: 07-18-2022 End: 01-29-2024 Tobacco use panel [facility] National Score (1-100), lower number is lower risk 52 [facility] Start: 05-22-2024 End: 07-07-2024 Sex Female (finding) [facility] Clinical Notes 10-11-2021 to 07-25-2024 Telephone Encounter - Daniela Mclean - 07/25/2024 12:09 PM EDTTelephone Encounter - Daniela Mclean - 07/25/2024 12:09 PM EDTTelephone Encounter - Daniela Mclean - 07/24/2024 12:31 PM EDT Note Date & Type Note Facility 07-25-2024 Telephone encounter Note Contacted the patient and left the following message on her VM. From: Андрей Garrido Sent: July 1:25 PM To: Daniela Mclean ; Mane Rosales Cc: Juan Mariano ; [address] Subject: Re: Maddie Coy - [id number] She needs a retina provider. There are some in [place] at [place] Андрей Garrido, CODYN, CRNO, OSC Retail Banker [facility] Image-Guided Surgery and Advanced Imaging Research Wire Spiral Binder to Mane Rosales MD-Blood Donor Recruiter-Clinical Operations. The [facility]ayan[facility] Endowed Chair for Ophthalmic Research Vitreoretinal Service [facility] [phone] [facility] 07-25-2024 Miscellaneous Notes Contacted the patient and left the following message on her VM. From: Андрей Garrido < > Sent: July 1:25 PM To: Daniela Mclean < >; Mane Rosales < > Cc: Juan Mariano < >; [address] < > Subject: Re: Maddie Coy - [id number] She needs a retina provider. There are some in [place] at [place] Андрей Garrido, BSN, CRNO, OSC Retail Banker [facility] in Image-Guided Surgery and Advanced Imaging Research Wire Spiral Binder to Mane Rosales MD-Blood Donor Recruiter-Clinical Operations. The [facility] Narayan[facility] Endowed [facility] for Ophthalmic Research Vitreoretinal Service [facility] [phone] Patient is calling asking if there is any way she can continue her care with Dr. Polo. Patient no longer wants to come to [facility]. Patient can be contacted at the following number, . FV: None LV: 01/29/2024 Mane Rosales MD filed at 01/29/2024 8:51 AM Status: Signed The documentation for the note below was completed in part by Adelina Whitfield acting as a scribe for Mane Rosales MD. 01/29/2024 8:16 AM. Scribe Attestation: By signing my name below, I, Adelina Whitfield, attest that the documentation in part for the note below and the encounter was completed in part by Adelina Whitfield acting as a scribe for Mane Rosales MD. Electronically Signed: Leeroy Crandall. January 29, 2024 8:16 AM. All problems with bold in text below addressed at this visit with patient 1. 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 Vitreous hemorrhage of left eye - Dense vitreous hemorrhage in left eye started 03/29/22 - B scan 05/22 with vitreous opacities at 6, 430 with mild traction, no RD, macula flat - Pigmented tuft inferotemporal and superonasal - [place] 20/20 - Discussed return to office precautions and patient will call with any changes in vision - DFE as above - Continue to follow - Follow up with Deana Nettles PA-C in 6 months 3. Chronic PVD OD with vitreoretinal tuft - Discussed return to office precautions and patient will call with any changes in vision - Exam today stable without progression - Continue to follow 4. Cataract OU (both eyes) - Remains stable - Continue to follow - Pt interested in evaluation with cataract surgeon, though still fairly minimal symptoms. - Consult Dr. Polo. 5. Ocular irritation OU (both eyes) - Continue using tears PRN I personally performed the services described in this [...] by others. I have seen and examined Maddie Womack Zbigniew. I have discussed the case and the management of this patient's care with the Resident/Fellow, if applicable. I also have reviewed and agree with the assessment and plan as stated above and agree with all of its relevant components. documented in this encounter [facility] 07-24-2024 Telephone encounter Note Patient is calling asking if there is any way she can continue her care with Dr. Polo. Patient no longer wants to come to [facility]. Patient can be contacted at the following number, . FV: None LV: 01/29/2024 Mane Rosales MD filed at 01/29/2024 8:51 AM Status: Signed The documentation for the note below was completed in part by Adelina Whitfield acting as a scribe for Mane Rosales MD. 01/29/2024 8:16 AM. Scribe Attestation: By signing my name below, I, Adelina Whitfield, attest that the documentation in part for the note below and the encounter was completed in part by Adelina Whitfield acting as a scribe for Mane Rosales MD. Electronically Signed: Leeroy Crandall. January 29, 2024 8:16 AM. All problems with bold in text below addressed at this visit with patient 1. 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 Vitreous hemorrhage of left eye - Dense vitreous hemorrhage in left eye started 03/29/22 - B scan 05/22 with vitreous opacities at 6, 430 with mild traction, no RD, macula flat - Pigmented tuft inferotemporal and superonasal - [place] 20/20 - Discussed return to office precautions and patient will call with any changes in vision - DFE as above - Continue to follow - Follow up with Deana Nettles PA-C in 6 months 3. Chronic PVD OD with vitreoretinal tuft - Discussed return to office precautions and patient will call with any changes in vision - Exam today stable without progression - Continue to follow 4. Cataract OU (both eyes) - Remains stable - Continue to follow - Pt interested in evaluation with cataract surgeon, though still fairly minimal symptoms. - Consult Dr. Polo. 5. Ocular irritation OU (both eyes) - Continue using tears PRN I personally performed the services described in this [...] by others. I have seen and examined Maddie Coy. I have discussed the case and the management of this patient's care with the Resident/Fellow, if applicable. I also have reviewed and agree with the assessment and plan as stated above and agree with all of its relevant components. [facility] 04-30-2024 Note Date of Procedure 04/30/2024. 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 Astigmatism Right Eye Regular. Left Eye Regular. [facility] 04-30-2024 Instructions Delmer Polo MD - 04/30/2024 9:20 AM EST Continue: Systane Complete solution instill 1 drop 3 times daily Both Eyes. If you have any questions please contact our office at [phone]. After office hours or on the weekend, please call Dr. Polo on his cell phone at [phone]. documented in this encounter [facility] 04-30-2024 Note HNO ID: [id number] Author: DELMER POLO MD Service: ? Author Type: Physician Type: Progress Notes Filed: 04/30/2024 09:20 Note Text: Fundus exam performed with a 90 D, 20 D, and Quadraspheric lens. ASSESSMENT/PLAN: 1. Combined forms of age-related cataract of right eye - ICD9: 366.19, ICD10: H25.811 (primary diagnosis) 2. Combined forms of age-related cataract of left eye - ICD9: 366.19, ICD10: H25.812 - IOL BIOMETRY W/ IOL CALC OU (BOTH EYES) - OCT MACULA CIRRUS OU (BOTH EYES) - CORNEAL TOPOGRAPHY ATLAS OU (BOTH EYES) Not visually significant Both Eyes. Recommended patient see Dr. Gauthier for refraction and glasses. Continue: Systane Complete solution instill 1 drop 3 times daily Both Eyes. 3. Regular astigmatism of both eyes - ICD9: 367.21, ICD10: H52.223 - CORNEAL TOPOGRAPHY ATLAS OU (BOTH EYES) Monitor 4. High myopia, bilateral - ICD9: 367.1, ICD10: H52.13 Monitor 5. Horseshoe tear of retina of left eye - ICD9: 361.32, ICD10: H33.312 Continue to monitor with Dr. Rosales. 6. Vitreous hemorrhage of left eye (HCC) - ICD9: 379.23, ICD10: H43.12 Continue to monitor with Dr. Rosales. 7. Essential hypertension - ICD9: 401.9, ICD10: I10 Continue to monitor with primary care physician. 8. Hypothyroidism, unspecified type - ICD9: 244.9, ICD10: E03.9 Continue to monitor with primary care physician. I have confirmed and edited as necessary the relevant HPI, ophthalmic history, ROS, and the neuro exam findings as obtained by others. I have seen and examined Maddie Womack Coy. I have discussed the case and the management of this patient's care with the Resident/Fellow, if applicable. I also have reviewed and agree with the assessment and plan as stated above and agree with all of its relevant components. [facility] 04-30-2024 History of Presen t illness Narrative Fundus exam performed with a 90 D, 20 D, and Quadraspheric lens. ASSESSMENT/PLAN: 1. Combined forms of age-related cataract of right eye - ICD9: 366.19, ICD10: H25.811 (primary diagnosis) 2. Combined forms of age-related cataract of left eye - ICD9: 366.19, ICD10: H25.812 - IOL BIOMETRY W/ IOL CALC OU (BOTH EYES) - OCT MACULA CIRRUS OU (BOTH EYES) - CORNEAL TOPOGRAPHY ATLAS OU (BOTH EYES) Not visually significant Both Eyes. Recommended patient see Dr. Gauthier for refraction and glasses. Continue: Systane Complete solution instill 1 drop 3 times daily Both Eyes. 3. Regular astigmatism of both eyes - ICD9: 367.21, ICD10: H52.223 - CORNEAL TOPOGRAPHY ATLAS OU (BOTH EYES) Monitor 4. High myopia, bilateral - ICD9: 367.1, ICD10: H52.13 Monitor 5. Horseshoe tear of retina of left eye - ICD9: 361.32, ICD10: H33.312 Continue to monitor with Dr. Rosales. 6. Vitreous hemorrhage of left eye (HCC) - ICD9: 379.23, ICD10: H43.12 Continue to monitor with Dr. Rosales. 7. Essential hypertension - ICD9: 401.9, ICD10: I10 Continue to monitor with primary care physician. 8. Hypothyroidism, unspecified type - ICD9: 244.9, ICD10: E03.9 Continue to monitor with primary care physician. I have confirmed and edited as necessary the relevant HPI, ophthalmic history, ROS, and the neuro exam findings as obtained by others. I have seen and examined Maddie Coy. I have discussed the case and the management of this patient's care with the Resident/Fellow, if applicable. I also have reviewed and agree with the assessment and plan as stated above and agree with all of its relevant components. documented in this encounter [facility] 04-30-2024 Note Date of Procedure 04/30/2024. Notes Measurements only - see Procedure Record under Scanned Documents for signed results. LENSTAR Right eye: AL 24.88 ACD 3.33 WTW 12.56 Left eye: AL 25.22 ACD 3.35 WTW 12.53 [facility] 04-30-2024 Note Date of Procedure 04/30/2024. OCT Macula Interpretation Right Eye Normal without fluid. Left Eye Normal without fluid. Interval Change Right Eye Initial. Left Eye Initial. [facility] 01-29-2024 Note Date of Procedure 01/29/2024. Interpretation Right Eye Normal foveal contour. Findings include Negative for Intraretinal fluid, Subretinal fluid. Left Eye Normal foveal contour. Findings include Negative for Intraretinal fluid, Subretinal fluid. Interval Change Right Eye Stable. Left Eye Stable. [facility] 01-29-2024 Note HNO ID: [id number] Author: MANE ROSALES MD Service: ? Author Type: Physician Type: Progress Notes Filed: 01/29/2024 08:51 Note Text: The documentation for the note below was completed in part by Adelina Whitfield acting as a scribe for Mane Rosales MD. 01/29/2024 8:16 AM. Scribe Attestation: By signing my name below, I, Adelina Whitfield, attest that the documentation in part for the note below and the encounter was completed in part by Adelnia Whitfield acting as a scribe for Mane Rosales MD. Electronically Signed: Leeroy Crandall. January 29, 2024 8:16 AM. All problems with bold in text below addressed at this visit with patient 1. 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 Vitreous hemorrhage of left eye - Dense vitreous hemorrhage in left eye started 03/29/22 - B scan 05/22 with vitreous opacities at 6, 430 with mild traction, no RD, macula flat - Pigmented tuft inferotemporal and superonasal - [place] 20/20 - Discussed return to office precautions and patient will call with any changes in vision - DFE as above - Continue to follow - Follow up with Deana Nettles PA-C in 6 months 3. Chronic PVD OD with vitreoretinal tuft - Discussed return to office precautions and patient will call with any changes in vision - Exam today stable without progression - Continue to follow 4. Cataract OU (both eyes) - Remains stable - Continue to follow - Pt interested in evaluation with cataract surgeon, though still fairly minimal symptoms. - Consult Dr. Polo. 5. Ocular irritation OU (both eyes) - Continue using tears PRN I personally performed the services described in this [...] by others. I have seen and examined Maddie Womack Zbigniew. I have discussed the case and the management of this patient's care with the Resident/Fellow, if applicable. I also have reviewed and agree with the assessment and plan as stated above and agree with all of its relevant components. [facility] 01-29-2024 History of Presen t illness Narrative The documentation for the note below was completed in part by Adelina Whitfield acting as a scribe for Mane Rosales MD. 01/29/2024 8:16 AM. Scribe Attestation: By signing my name below, I, Adelina Whitfield, attest that the documentation in part for the note below and the encounter was completed in part by Adelina Whitfield acting as a scribe for Mane Rosales MD. Electronically Signed: Leeroy Crandall. January 29, 2024 8:16 AM. All problems with bold in text below addressed at this visit with patient 1. 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 Vitreous hemorrhage of left eye - Dense vitreous hemorrhage in left eye started 03/29/22 - B scan 05/22 with vitreous opacities at 6, 430 with mild traction, no RD, macula flat - Pigmented tuft inferotemporal and superonasal - VA 20/20 - Discussed return to office precautions and patient will call with any changes in vision - DFE as above - Continue to follow - Follow up with Deana Nettles PA-C in 6 months 3. Chronic PVD OD with vitreoretinal tuft - Discussed return to office precautions and patient will call with any changes in vision - Exam today stable without progression - Continue to follow 4. Cataract OU (both eyes) - Remains stable - Continue to follow - Pt interested in evaluation with cataract surgeon, though still fairly minimal symptoms. - Consult Dr. Polo. 5. Ocular irritation OU (both eyes) - Continue using tears PRN I personally performed the services described in this [...] by others. I have seen and examined Maddie Coy. I have discussed the case and the management of this patient's care with the Resident/Fellow, if applicable. I also have reviewed and agree with the assessment and plan as stated above and agree with all of its relevant components. documented in this encounter [facility] 09-25-2023 Note HNO ID: [id number] Author: CAROLYN NETTLES PA-C Service: ? Author Type: Physician Wire Spiral Binder Type: Progress Notes Filed: 09/25/2023 11:38 Note Text: All problems with bold in text below addressed at this visit with patient 1. Horseshoe retinal tear, left eye with associated VH and acute PVD - s/p laser retinopexy 10/11/21 and 10/25/21 - Recurrent VH began 03/29/22, see #2 - RWS reviewed - No changes on DFE, observe - Follow up with Dr. Rosales in 4 months 2. Vitreous hemorrhage of left eye - Dense vitreous hemorrhage in left eye started 03/29/22 - B scan 05/22 with vitreous opacities at 6, 430 with mild traction, no RD, macula flat - Pigmented tuft inferotemporal and superonasal - VA unchanged - Emphasized return to office precautions and patient will call with any changes in vision - No changes on DFE, VH remains cleared - Observe - Follow up with Dr. Rosales in 4 months 3. Chronic PVD OD with vitreoretinal tuft - Emphasized return to office precautions and patient will call with any changes in vision - Remains stable on exam, continue to monitor 4. Not visually significant cataract OU (both eyes) - Stable, monitor 5. Ocular irritation OU (both eyes) - Tears PRN I have seen and examined this patient. I have confirmed and edited as necessary the relevant HPI, ophthalmic history, medications, ROS, and the neuro [...] below, or sooner if new symptoms develop. [facility] 09-25-2023 Note Date of Procedure 09/25/2023. Disc Right Eye Normal. Left Eye Normal. Macula Right Eye Normal. Left Eye Normal. Periphery Right Eye Pigmentation. Left Eye Laser scars. [facility] 09-25-2023 History of Presen t illness Narrative All problems with bold in text below addressed at this visit with patient 1. Horseshoe retinal tear, left eye with associated VH and acute PVD - s/p laser retinopexy 10/11/21 and 10/25/21 - Recurrent VH began 03/29/22, see #2 - RWS reviewed - No changes on DFE, observe - Follow up with Dr. Rosales in 4 months 2. Vitreous hemorrhage of left eye - Dense vitreous hemorrhage in left eye started 03/29/22 - B scan 05/22 with vitreous opacities at 6, 430 with mild traction, no RD, macula flat - Pigmented tuft inferotemporal and superonasal - VA unchanged - Emphasized return to office precautions and patient will call with any changes in vision - No changes on DFE, VH remains cleared - Observe - Follow up with Dr. Rosales in 4 months 3. Chronic PVD OD with vitreoretinal tuft - Emphasized return to office precautions and patient will call with any changes in vision - Remains stable on exam, continue to monitor 4. Not visually significant cataract OU (both eyes) - Stable, monitor 5. Ocular irritation OU (both eyes) - Tears PRN I have seen and examined this patient. I have confirmed and edited as necessary the relevant HPI, ophthalmic history, medications, ROS, and the neuro [...] new symptoms develop. documented in this encounter [facility] 09-25-2023 Note Date of Procedure 09/25/2023. Interpretation Right Eye Normal foveal contour. Findings include Negative for Intraretinal fluid, Subretinal fluid. Left Eye Normal foveal contour. Findings include Negative for Intraretinal fluid, Subretinal fluid. Interval Change Right Eye Stable. Left Eye Stable. [facility] 07-03-2023 Telephone encounter Note Patient returned office call and was related message. Patient voiced understanding with no further questions. [facility] Work Phone: 07-03-2023 Miscellaneous Notes Patient returned office call and was related message. Patient voiced understanding with no further questions. documented in this encounter [facility] 06-27-2023 Miscellaneous Notes FOLLOW UP ENDOSCOPY - RESULTS AND RECOMMENDATIONS NAME: Maddie Coy [facility] NO.: [id number] : 1970 DATE: June 27, 2023 PRIMARY CARE PROVIDER: Andrey Interaino MD REFERRING PHYSICIAN: No ref. provider found Maddie Coy is a patient referred for endoscopy for a family history of colon cancer. I performed lower endoscopy on June 26, 2023. The patient was found to have: Lower Endoscopy Findings: The perianal and digital rectal examinations were normal. A diminutive polyp was found in the ileocecal valve. The polyp was sessile. The polyp was removed with a cold biopsy forceps. Resection and retrieval were complete. A few small-mouthed diverticula were found in the sigmoid colon. The exam was otherwise without abnormality on direct and retroflexion views. Pathology demonstrated: FINAL DIAGNOSIS Ileocecal valve polyp, biopsy: - Tubular adenoma. IMPRESSION: Diminutive polyp ileocecal valve family history of colon cancer PLAN: INSTRUCTIONS FOLLOWING A POLYP FOUND AT COLONOSCOPY You were found to have an adenomatous colon polyp. I recommend you undergo repeat endoscopy in 5 years. If you note bleeding, change in bowel habits, or other suspicious colon related symptoms before that time, those symptoms should be evaluated as necessary. If you have any difficulties or concerns, you should contact our office immediately. The patient is instructed to follow-up with me as needed. I have instructed my staff to forward the above information to the patient and to the appropriate providers documented in this encounter [facility] 06-26-2023 Miscellaneous Notes The patient received a copy of Colonoscopy discharge instructions that contain information for how to contact the physician who performed the procedure and when to seek medical care. Marsha Suggs RN documented in this encounter [facility] 06-26-2023 Nurse Note Arrived in phase II via cart. Left lateral position. Sedated, but responds to verbal stimuli. Color normal; skin warm and dry. Respirations wnl and unlabored. Abdomen soft and with + bowel sounds in quads X 4. Patient resting comfortably. Family at bedside. Dr. Lam at bedside to review procedure and recommendations. Marsha Suggs RN documented in this encounter [facility] 06-26-2023 History and physical note UPDATED PROCEDURAL SEDATION HISTORY AND PHYSICAL EXAMINATION SERVICE DATE: 06/26/2023 SERVICE TIME: 7:28 AM PHYSICAL EXAM MUST BE COMPLETED ON ADMISSION PROCEDURE: Procedure Indications: The History and Physical (completed in the past 30 days) has been reviewed and the patient has been examined. The contents accurately reflect the patient's condition with the following additions or revisions since the H&P was completed. ASA Class: ASA Class:: Patient with mild systemic disease Examination indicates no changes. AIRWAY: Airway Visualization of Uvula: Yes Mouth opening greater than 2 fingerbreadths: Yes Neck Full Range of Motion: Yes LUNGS: Lungs clear to auscultation CARDIAC: Regular rhythm,Regular rate Provisional Diagnosis/Treatment Plan: family history of colon cancer - colonoscopy SEDATION GOAL: Moderate This H&P can be found in the attached. SIGNATURE: Sj Lam MD PATIENT NAME: Maddie Coy DATE: June 26, 2023 TIME: 7:28 AM Source Note - Sj Lam MD - 06/26/2023 7:30 AM EDT Images from the original note were not included. HISTORY AND PHYSICAL Maddie Coy 1970 REFERRING PHYSICIAN: No ref. provider found CHIEF COMPLAINT: Consult (Colonoscopy consultation.) HPI: The patient is a 53 year old female referred for endoscopy. Maddie notes no history of colon complaints. The patient notes no history of upper GI complaints. Maddie has undergone prior endoscopy. She had an unremarkable colonoscopy performed in April 16, 2018. She has a family history of colon cancer with her father being diagnosed with colon cancer in his 50s. The patient is being seen by me today at the request of Dr. Andrey Interiano MD for my opinion and advice regarding high risk screening for family history of colon cancer. PAST MEDICAL HISTORY PAST MEDICAL HISTORY Diagnosis Date Anemia Anxiety VERY MILD Back muscle spasm Cataracts, both eyes Cystic retinal tuft GERD (gastroesophageal reflux disease) Horseshoe tear of retina of left eye 10/11/2021 Hypertension Myopia of both eyes with astigmatism and presbyopia PVD (posterior vitreous detachment), left Sinus infection Vitamin D deficiency Vitreomacular adhesion of left eye Vitreous hemorrhage, left eye (HCC) PAST SURGICAL HISTORY PAST SURGICAL HISTORY Procedure Laterality Date BREAST LUMPECTOMY HX Right 02/2007 COLONOSCOPY FLX DX W/COLLJ SPEC WHEN PFRMD 04/16/2018 Colonoscopy ESOPHAGOGASTRODUODENOSCOPY TRANSORAL DIAGNOSTIC 04/16/2018 EGD FOOT SURGERY HX Left 2000 growth removed from side foot PAST SURGICAL HISTORY OF 02/2006 Right foot surgery RETINOPEXY LASER PROPHYLAXIS BREAK(S) OS (LEFT EYE) Left 10/11/2021 RETINOPEXY LASER PROPHYLAXIS BREAK(S) OS (LEFT EYE) Left 10/25/2021 RHINOPLASTY 06/2017 [facility] TUBAL LIGATION HX 2008 CURRENT MEDICATIONS Current Outpatient Medications Medication Sig fluticasone prp-sod.chl,bicarb 50 mcg- 0.9 % ksps Use 2 Sprays in the nose once daily. Triamcinolone Acetonide 0.05 % oint Apply 1 g to affected area two times a day. diclofenac (VOLTAREN) 1 % topical gel Apply 2 g to affected area three times a day. loratadine-pseudoephedrine ER (CLARITIN-D 24 HOUR) 10-240 mg Tb24 Take 1 tablet by mouth once daily. ferrous sulfate 325 mg (65 mg iron) tablet Take 325 mg by mouth once daily. ketoconazole (NIZORAL) 2 % cream Apply 1 g to affected area two times a day. Magnesium 200 mg tab Take 1 tablet by mouth once daily. Lactobacillus acidophilus (PROBIOTIC ORAL) Take 1 tablet by mouth once daily. amLODIPine (NORVASC) 5 mg tablet Take 5 mg by mouth once daily. ibuprofen (MOTRIN) 600 mg tablet Take 600 mg by mouth three times daily as needed. ZINC ACETATE ORAL Take 1 tablet by mouth once daily. FLUoxetine (PROZAC) 10 mg capsule Take 10 mg by mouth once daily. cyclobenzaprine (FLEXERIL) 10 mg tablet Take 10 mg by mouth three times daily as needed. Cholecalciferol, Vitamin D3, 5,000 unit cap Take 5,000 Units by mouth once daily. peg 3350-Electrolytes (GOLYTELY) 236-22.74-6.74 -5.86 gram suspension Take 4,000 mL by mouth one time only for 1 dose. Refer to printed prep instructions from your provider. propylene glycoL (SYSTANE COMPLETE) 0.6 % drop Use 1 Drop in both eyes twice daily. famciclovir (FAMVIR) 125 mg tablet as needed. (Patient not taking: Reported on 01/23/2023) DENAVIR 1 % cream as needed. doxycycline hyclate (VIBRAMYCIN) 100 mg capsule (Patient not taking: Reported on 04/11/2022) silver sulfADIAZINE (SILVADENE,THERMAZENE) 1 % cream as needed. meloxicam (MOBIC) 15 mg tablet Take 15 mg by mouth once daily. (Patient not taking: Reported on 01/23/2023) pregabalin (LYRICA) 50 mg capsule Take 50 mg by mouth as needed. (Patient not taking: Reported on 01/23/2023) omeprazole (PRILOSEC) 20 mg capsule Take 1 capsule by mouth once daily. (Patient taking differently: Take 20 mg by mouth as needed.) celecoxib (CELEBREX) 200 mg capsule Take 200 mg by mouth twice daily. (Patient not taking: Reported on 04/11/2022) calcium carb/magnesium ox,carb (MERLE-MAG ORAL) Take 1 tablet by mouth once daily. OMEGA-3 FATTY ACIDS CAP Take 1 capsule by mouth once daily. Norethindrone-Eth Estradiol (NORTREL 0.5/35 (28)) 0.5-35 mg-mcg ORAL Tab Take by mouth. (Patient not taking: Reported on 04/25/2022) No current facility-administered medications for this visit. ALLERGIES: Amoxicillin-Pot Clavulanate, Brintellix [Vortioxetine], Cat Dander, Citalopram, Cymbalta [Duloxetine], Gabapentin, Hayfever [Homeopathic Products], Losartan Potassium, Lyrica [Pregabalin], Penicillins, Pristiq [Desvenlafaxine Succinate], Sertraline, Sulfa (Sulfonamide Antibiotics), and Lisinopril PERSONAL HISTORY: SOCIAL HISTORY Social History Tobacco Use Smoking status: Never Smokeless tobacco: Never Vaping Use Vaping Use: Never used Substance Use Topics Alcohol use: Yes Comment: Occasionally Drug use: No FAMILY HISTORY: FAMILY HISTORY FAMILY HISTORY Problem Relation Age of Onset Breast Cancer Mother other (guillain-barre) Mother Cataract Father Colon Cancer Father 50s No Known Problems Sister No Known Problems Brother Alzheimer's Disease Paternal Grandmother Glaucoma No Family History Macular Degen No Family History Detached Retina No Family History Blindness No Family History Amblyopia No Family History Strabismus No Family History REVIEW OF SYMPTOMS: The review of systems data was entered by the nurse and reviewed by pa Nursing Notes: Danika Dean RN 04/27/2023 2:25 PM Signed REVIEW OF SYSTEMS: General: The patient denies fatigue, denies weight loss, denies weight gain, denies feeling hot, and denies feelings of cold. Eyes: The patient denies glaucoma, NOTES eye injury/surgery, does not wear glasses or contacts. Ear/Nose/Throat: The patient NOTES allergies, NOTES hayfever, denies ear infections, and denies bloody noses. Cardiovascular: The patient denies chest pain, denies heart disease, denies high blood pressure,denies cardiac stent, denies prior heart attack, denies irregular heart beat, denies high cholesterol, denies poor circulation, denies heart failure, other cardiac issues, denies claudication, denies cold feet, denies peripheral arterial stent. Respiratory: The patient denies tuberculosis, denies pneumonia, denies frequent cough, denies pulmonary embolism, denies shortness of breath, and denies coughing up blood. Gastrointestinal: The patient denies difficulty swallowing, NOTES acid reflux, denies ulcers, denies vomiting, denies jaundice/hepatitis, denies gallbladder problems, denies black or tarry stools, denies hemorrhoids, denies bleeding from rectum, denies diverticulitis, denies constipation, denies diarrhea, denies loss of stool control, and denies hernias. Kidney/Bladder: The patient denies kidney stones, denies urine infections, and denies bloody urine. Skin: The patient denies a history of skin cancer, denies bleeding/changing moles, and denies a history of skin rash. Neurologic: The patient denies a history of epilepsy/convulsions, denies headaches, denies head/spinal injuries, and denies stroke/TIA. Psychiatric: The patient denies psychiatric medications, denies depression, and denies voices, denies substance abuse. Endocrine: The patient denies thyroid disorders, denies diabetes, and denies hormonal problems. Hematologic: The patient denies a history of bruising, denies bleeding, and denies anemia, denies blood clots. Infections: The patient denies a history of measles and mumps, denies rheumatic fever, and denies sexually transmitted diseases. Musculoskeletal: The patient denies back pain/injury, NOTES back problems, denies sciatica, denies knee/foot trouble, denies arthritis, or denies gout. When was patient's last Mammogram screening? 2022 Last Colonoscopy: 2018 Danika Dean RN PHYSICAL EXAMINATION: General: The patient is 53 year old female, well nourished, well hydrated in no acute distress. The patient is oriented to time, place, and person. VITALS: Blood pressure 128/80, pulse 107, temperature 36.4 C (97.5 F), height 157.5 cm (5' 2), weight 98.9 kg (218 lb), SpO2 97%. Body mass index is 39.87 kg/m . HEENT: Normal cephalic, ataumatic, pupils are equally round, sclera are anicteric, mucous membranes are moist, oropharynx is clear. Neck has no masses, asymmetry or lymphadenopathy. Thyroid is unremarkable. Respiratory: Clear to auscultation and percussion. Normal respiratory excursion and pattern. Cardiac: Examination is regular rate and rhythm. Abdominal exam: Soft, nontender, with no palpable masses. No hepatosplenomegaly. No palpable hernias. Rectal exam: exam deferred Extremities: no clubbing, cyanosis or edema. No adenopathy. Other: LABORATORY VALUES: As Noted RADIOLOGIC STUDIES: As Noted Assessment IMPRESSION: High risk screening for colon cancer-paternal family history PLAN: I plan to perform lower endoscopy. We discussed the risks and benefits of the planned endoscopy. I have informed the patient that complications can occur including failure to complete the endoscopy and perforation. The patient had the opportunity to ask questions concerning the planned endoscopy. My staff has also explained the procedure to the patient in understandable terms and has given the patient printed material concerning the procedure. The patient freely consents to surgery. I plan to use golytely bowel preparation for endoscopy Diagnoses: (Z12.11) Special screening for malignant neoplasms, colon (primary encounter diagnosis) A letter was sent to Dr. Andrey Interiano MD indicating the above finding for this patient. Return to Clinic: The patient is instructed to follow-up with me after the testing has been completed. Sj Lam MD Images from the original note were not included. HISTORY AND PHYSICAL Maddie Womack Zbigniew 1970 REFERRING PHYSICIAN: No ref. provider found CHIEF COMPLAINT: Consult (Colonoscopy consultation.) HPI: The patient is a 53 year old female referred for endoscopy. Maddie notes no history of colon complaints. The patient notes no history of upper GI complaints. Maddie has undergone prior endoscopy. She had an unremarkable colonoscopy performed in April 16, 2018. She has a family history of colon cancer with her father being diagnosed with colon cancer in his 50s. The patient is being seen by me today at the request of Dr. Andrey Interiano MD for my opinion and advice regarding high risk screening for family history of colon cancer. PAST MEDICAL HISTORY PAST MEDICAL HISTORY Diagnosis Date Anemia Anxiety VERY MILD Back muscle spasm Cataracts, both eyes Cystic retinal tuft GERD (gastroesophageal reflux disease) Horseshoe tear of retina of left eye 10/11/2021 Hypertension Myopia of both eyes with astigmatism and presbyopia PVD (posterior vitreous detachment), left Sinus infection Vitamin D deficiency Vitreomacular adhesion of left eye Vitreous hemorrhage, left eye (HCC) PAST SURGICAL HISTORY PAST SURGICAL HISTORY Procedure Laterality Date BREAST LUMPECTOMY HX Right 02/2007 COLONOSCOPY FLX DX W/COLLJ SPEC WHEN PFRMD 04/16/2018 Colonoscopy ESOPHAGOGASTRODUODENOSCOPY TRANSORAL DIAGNOSTIC 04/16/2018 EGD FOOT SURGERY HX Left 2000 growth removed from side foot PAST SURGICAL HISTORY OF 02/2006 Right foot surgery RETINOPEXY LASER PROPHYLAXIS BREAK(S) OS (LEFT EYE) Left 10/11/2021 RETINOPEXY LASER PROPHYLAXIS BREAK(S) OS (LEFT EYE) Left 10/25/2021 RHINOPLASTY 06/2017 [facility] TUBAL LIGATION HX 2009 CURRENT MEDICATIONS Current Outpatient Medications Medication Sig fluticasone prp-sod.chl,bicarb 50 mcg- 0.9 % ksps Use 2 Sprays in the nose once daily. Triamcinolone Acetonide 0.05 % oint Apply 1 g to affected area two times a day. diclofenac (VOLTAREN) 1 % topical gel Apply 2 g to affected area three times a day. loratadine-pseudoephedrine ER (CLARITIN-D 24 HOUR) 10-240 mg Tb24 Take 1 tablet by mouth once daily. ferrous sulfate 325 mg (65 mg iron) tablet Take 325 mg by mouth once daily. ketoconazole (NIZORAL) 2 % cream Apply 1 g to affected area two times a day. Magnesium 200 mg tab Take 1 tablet by mouth once daily. Lactobacillus acidophilus (PROBIOTIC ORAL) Take 1 tablet by mouth once daily. amLODIPine (NORVASC) 5 mg tablet Take 5 mg by mouth once daily. ibuprofen (MOTRIN) 600 mg tablet Take 600 mg by mouth three times daily as needed. ZINC ACETATE ORAL Take 1 tablet by mouth once daily. FLUoxetine (PROZAC) 10 mg capsule Take 10 mg by mouth once daily. cyclobenzaprine (FLEXERIL) 10 mg tablet Take 10 mg by mouth three times daily as needed. Cholecalciferol, Vitamin D3, 5,000 unit cap Take 5,000 Units by mouth once daily. peg 3350-Electrolytes (GOLYTELY) 236-22.74-6.74 -5.86 gram suspension Take 4,000 mL by mouth one time only for 1 dose. Refer to printed prep instructions from your provider. propylene glycoL (SYSTANE COMPLETE) 0.6 % drop Use 1 Drop in both eyes twice daily. famciclovir (FAMVIR) 125 mg tablet as needed. (Patient not taking: Reported on 01/23/2023) DENAVIR 1 % cream as needed. doxycycline hyclate (VIBRAMYCIN) 100 mg capsule (Patient not taking: Reported on 04/11/2022) silver sulfADIAZINE (SILVADENE,THERMAZENE) 1 % cream as needed. meloxicam (MOBIC) 15 mg tablet Take 15 mg by mouth once daily. (Patient not taking: Reported on 01/23/2023) pregabalin (LYRICA) 50 mg capsule Take 50 mg by mouth as needed. (Patient not taking: Reported on 01/23/2023) omeprazole (PRILOSEC) 20 mg capsule Take 1 capsule by mouth once daily. (Patient taking differently: Take 20 mg by mouth as needed.) celecoxib (CELEBREX) 200 mg capsule Take 200 mg by mouth twice daily. (Patient not taking: Reported on 04/11/2022) calcium carb/magnesium ox,carb (MERLE-MAG ORAL) Take 1 tablet by mouth once daily. OMEGA-3 FATTY ACIDS CAP Take 1 capsule by mouth once daily. Norethindrone-Eth Estradiol (NORTREL 0.5/35 (28)) 0.5-35 mg-mcg ORAL Tab Take by mouth. (Patient not taking: Reported on 04/25/2022) No current facility-administered medications for this visit. ALLERGIES: Amoxicillin-Pot Clavulanate, Brintellix [Vortioxetine], Cat Dander, Citalopram, Cymbalta [Duloxetine], Gabapentin, Hayfever [Homeopathic Products], Losartan Potassium, Lyrica [Pregabalin], Penicillins, Pristiq [Desvenlafaxine Succinate], Sertraline, Sulfa (Sulfonamide Antibiotics), and Lisinopril PERSONAL HISTORY: SOCIAL HISTORY Social History Tobacco Use Smoking status: Never Smokeless tobacco: Never Vaping Use Vaping Use: Never used Substance Use Topics Alcohol use: Yes Comment: Occasionally Drug use: No FAMILY HISTORY: FAMILY HISTORY FAMILY HISTORY Problem Relation Age of Onset Breast Cancer Mother other (guillain-barre) Mother Cataract Father Colon Cancer Father 50s No Known Problems Sister No Known Problems Brother Alzheimer's Disease Paternal Grandmother Glaucoma No Family History Macular Degen No Family History Detached Retina No Family History Blindness No Family History Amblyopia No Family History Strabismus No Family History REVIEW OF SYMPTOMS: The review of systems data was entered by the nurse and reviewed by pa Nursing Notes: Danika Dean RN 04/27/2023 2:25 PM Signed REVIEW OF SYSTEMS: General: The patient denies fatigue, denies weight loss, denies weight gain, denies feeling hot, and denies feelings of cold. Eyes: The patient denies glaucoma, NOTES eye injury/surgery, does not wear glasses or contacts. Ear/Nose/Throat: The patient NOTES allergies, NOTES hayfever, denies ear infections, and denies bloody noses. Cardiovascular: The patient denies chest pain, denies heart disease, denies high blood pressure,denies cardiac stent, denies prior heart attack, denies irregular heart beat, denies high cholesterol, denies poor circulation, denies heart failure, other cardiac issues, denies claudication, denies cold feet, denies peripheral arterial stent. Respiratory: The patient denies tuberculosis, denies pneumonia, denies frequent cough, denies pulmonary embolism, denies shortness of breath, and denies coughing up blood. Gastrointestinal: The patient denies difficulty swallowing, NOTES acid reflux, denies ulcers, denies vomiting, denies jaundice/hepatitis, denies gallbladder problems, denies black or tarry stools, denies hemorrhoids, denies bleeding from rectum, denies diverticulitis, denies constipation, denies diarrhea, denies loss of stool control, and denies hernias. Kidney/Bladder: The patient denies kidney stones, denies urine infections, and denies bloody urine. Skin: The patient denies a history of skin cancer, denies bleeding/changing moles, and denies a history of skin rash. Neurologic: The patient denies a history of epilepsy/convulsions, denies headaches, denies head/spinal injuries, and denies stroke/TIA. Psychiatric: The patient denies psychiatric medications, denies depression, and denies voices, denies substance abuse. Endocrine: The patient denies thyroid disorders, denies diabetes, and denies hormonal problems. Hematologic: The patient denies a history of bruising, denies bleeding, and denies anemia, denies blood clots. Infections: The patient denies a history of measles and mumps, denies rheumatic fever, and denies sexually transmitted diseases. Musculoskeletal: The patient denies back pain/injury, NOTES back problems, denies sciatica, denies knee/foot trouble, denies arthritis, or denies gout. When was patient's last Mammogram screening? 2022 Last Colonoscopy: 2018 Danika Dean RN PHYSICAL EXAMINATION: General: The patient is 53 year old female, well nourished, well hydrated in no acute distress. The patient is oriented to time, place, and person. VITALS: Blood pressure 128/80, pulse 107, temperature 36.4 C (97.5 F), height 157.5 cm (5' 2), weight 98.9 kg (218 lb), SpO2 97%. Body mass index is 39.87 kg/m . HEENT: Normal cephalic, ataumatic, pupils are equally round, sclera are anicteric, mucous membranes are moist, oropharynx is clear. Neck has no masses, asymmetry or lymphadenopathy. Thyroid is unremarkable. Respiratory: Clear to auscultation and percussion. Normal respiratory excursion and pattern. Cardiac: Examination is regular rate and rhythm. Abdominal exam: Soft, nontender, with no palpable masses. No hepatosplenomegaly. No palpable hernias. Rectal exam: exam deferred Extremities: no clubbing, cyanosis or edema. No adenopathy. Other: LABORATORY VALUES: As Noted RADIOLOGIC STUDIES: As Noted Assessment IMPRESSION: High risk screening for colon cancer-paternal family history PLAN: I plan to perform lower endoscopy. We discussed the risks and benefits of the planned endoscopy. I have informed the patient that complications can occur including failure to complete the endoscopy and perforation. The patient had the opportunity to ask questions concerning the planned endoscopy. My staff has also explained the procedure to the patient in understandable terms and has given the patient printed material concerning the procedure. The patient freely consents to surgery. I plan to use golytely bowel preparation for endoscopy Diagnoses: (Z12.11) Special screening for malignant neoplasms, colon (primary encounter diagnosis) A letter was sent to Dr. Andrey Interiano MD indicating the above finding for this patient. Return to Clinic: The patient is instructed to follow-up with me after the testing has been completed. Sj Lam MD documented in this encounter [facility] 05-23-2023 History of Presen t illness Narrative All problems with bold in text below addressed at this visit with patient 1. Horseshoe retinal tear, left eye with associated VH and acute PVD - s/p laser retinopexy 10/11/21 and 10/25/21 - Recurrent VH began 03/29/22, see #2 - Emphasized return to office precautions and patient will call with any changes in vision - Remains stable on exam, continue to monitor - Follow up with Dr. Rosales in 4 months 2. Vitreous hemorrhage of left eye - Dense vitreous hemorrhage in left eye started 03/29/22 - B scan 05/22 with vitreous opacities at 6, 430 with mild traction, no RD, macula flat - Pigmented tuft inferotemporal and superonasal - VA great, stable - Only floater remains now - VH cleared on exam - RWS reviewed - Remains stable on exam, continue to monitor - Follow up with Dr. Rosales in 4 months 3. Chronic PVD OD with vitreoretinal tuft - RWS reviewed - No changes on DFE, observe 4. Not visually significant cataract OU (both eyes) - Observe 5. Ocular irritation OU (both eyes) - Tears PRN I have seen and examined this patient. I have confirmed and edited as necessary the relevant HPI, ophthalmic history, medications, ROS, and the neuro [...] new symptoms develop. documented in this encounter [facility] 04-27-2023 History of Presen t illness Narrative HISTORY AND PHYSICAL Maddie Coy 1970 REFERRING PHYSICIAN: No ref. provider found CHIEF COMPLAINT: Consult (Colonoscopy consultation.) HPI: The patient is a 53 year old female referred for endoscopy. Maddie notes no history of colon complaints. The patient notes no history of upper GI complaints. Maddie has undergone prior endoscopy. She had an unremarkable colonoscopy performed in April 16, 2018. She has a family history of colon cancer with her father being diagnosed with colon cancer in his 50s. The patient is being seen by me today at the request of Dr. Andrey Interiano MD for my opinion and advice regarding high risk screening for family history of colon cancer. PAST MEDICAL HISTORY Diagnosis Date Anemia Anxiety VERY MILD Back muscle spasm Cataracts, both eyes Cystic retinal tuft GERD (gastroesophageal reflux disease) Horseshoe tear of retina of left eye 10/11/2021 Hypertension Myopia of both eyes with astigmatism and presbyopia PVD (posterior vitreous detachment), left Sinus infection Vitamin D deficiency Vitreomacular adhesion of left eye Vitreous hemorrhage, left eye (HCC) PAST SURGICAL HISTORY Procedure Laterality Date BREAST LUMPECTOMY HX Right 02/2007 COLONOSCOPY FLX DX W/COLLJ SPEC WHEN PFRMD 04/16/2018 Colonoscopy ESOPHAGOGASTRODUODENOSCOPY TRANSORAL DIAGNOSTIC 04/16/2018 EGD FOOT SURGERY HX Left 2000 growth removed from side foot PAST SURGICAL HISTORY OF 02/2006 Right foot surgery RETINOPEXY LASER PROPHYLAXIS BREAK(S) OS (LEFT EYE) Left 10/11/2021 RETINOPEXY LASER PROPHYLAXIS BREAK(S) OS (LEFT EYE) Left 10/25/2021 RHINOPLASTY 06/2017 [place] TUBAL LIGATION HX 2008 Current Outpatient Medications Medication Sig fluticasone prp-sod.chl,bicarb 50 mcg- 0.9 % ksps Use 2 Sprays in the nose once daily. Triamcinolone Acetonide 0.05 % oint Apply 1 g to affected area two times a day. diclofenac (VOLTAREN) 1 % topical gel Apply 2 g to affected area three times a day. loratadine-pseudoephedrine ER (CLARITIN-D 24 HOUR) 10-240 mg Tb24 Take 1 tablet by mouth once daily. ferrous sulfate 325 mg (65 mg iron) tablet Take 325 mg by mouth once daily. ketoconazole (NIZORAL) 2 % cream Apply 1 g to affected area two times a day. Magnesium 200 mg tab Take 1 tablet by mouth once daily. Lactobacillus acidophilus (PROBIOTIC ORAL) Take 1 tablet by mouth once daily. amLODIPine (NORVASC) 5 mg tablet Take 5 mg by mouth once daily. ibuprofen (MOTRIN) 600 mg tablet Take 600 mg by mouth three times daily as needed. ZINC ACETATE ORAL Take 1 tablet by mouth once daily. FLUoxetine (PROZAC) 10 mg capsule Take 10 mg by mouth once daily. cyclobenzaprine (FLEXERIL) 10 mg tablet Take 10 mg by mouth three times daily as needed. Cholecalciferol, Vitamin D3, 5,000 unit cap Take 5,000 Units by mouth once daily. peg 3350-Electrolytes (GOLYTELY) 236-22.74-6.74 -5.86 gram suspension Take 4,000 mL by mouth one time only for 1 dose. Refer to printed prep instructions from your provider. propylene glycoL (SYSTANE COMPLETE) 0.6 % drop Use 1 Drop in both eyes twice daily. famciclovir (FAMVIR) 125 mg tablet as needed. (Patient not taking: Reported on 01/23/2023) DENAVIR 1 % cream as needed. doxycycline hyclate (VIBRAMYCIN) 100 mg capsule (Patient not taking: Reported on 04/11/2022) silver sulfADIAZINE (SILVADENE,THERMAZENE) 1 % cream as needed. meloxicam (MOBIC) 15 mg tablet Take 15 mg by mouth once daily. (Patient not taking: Reported on 01/23/2023) pregabalin (LYRICA) 50 mg capsule Take 50 mg by mouth as needed. (Patient not taking: Reported on 01/23/2023) omeprazole (PRILOSEC) 20 mg capsule Take 1 capsule by mouth once daily. (Patient taking differently: Take 20 mg by mouth as needed.) celecoxib (CELEBREX) 200 mg capsule Take 200 mg by mouth twice daily. (Patient not taking: Reported on 04/11/2022) calcium carb/magnesium ox,carb (MERLE-MAG ORAL) Take 1 tablet by mouth once daily. OMEGA-3 FATTY ACIDS CAP Take 1 capsule by mouth once daily. Norethindrone-Eth Estradiol (NORTREL 0.5/35 (28)) 0.5-35 mg-mcg ORAL Tab Take by mouth. (Patient not taking: Reported on 04/25/2022) No current facility-administered medications for this visit. ALLERGIES: Amoxicillin-Pot Clavulanate, Brintellix [Vortioxetine], Cat Dander, Citalopram, Cymbalta [Duloxetine], Gabapentin, Hayfever [Homeopathic Products], Losartan Potassium, Lyrica [Pregabalin], Penicillins, Pristiq [Desvenlafaxine Succinate], Sertraline, Sulfa (Sulfonamide Antibiotics), and Lisinopril PERSONAL HISTORY: Social History Tobacco Use Smoking status: Never Smokeless tobacco: Never Vaping Use Vaping Use: Never used Substance Use Topics Alcohol use: Yes Comment: Occasionally Drug use: No FAMILY HISTORY: FAMILY HISTORY Problem Relation Age of Onset Breast Cancer Mother other (guillain-barre) Mother Cataract Father Colon Cancer Father 50s No Known Problems Sister No Known Problems Brother Alzheimer's Disease Paternal Grandmother Glaucoma No Family History Macular Degen No Family History Detached Retina No Family History Blindness No Family History Amblyopia No Family History Strabismus No Family History REVIEW OF SYMPTOMS: The review of systems data was entered by the nurse and reviewed by pa Nursing Notes: Danika Dean RN 04/27/2023 2:25 PM Signed REVIEW OF SYSTEMS: General: The patient denies fatigue, denies weight loss, denies weight gain, denies feeling hot, and denies feelings of cold. Eyes: The patient denies glaucoma, NOTES eye injury/surgery, does not wear glasses or contacts. Ear/Nose/Throat: The patient NOTES allergies, NOTES hayfever, denies ear infections, and denies bloody noses. Cardiovascular: The patient denies chest pain, denies heart disease, denies high blood pressure,denies cardiac stent, denies prior heart attack, denies irregular heart beat, denies high cholesterol, denies poor circulation, denies heart failure, other cardiac issues, denies claudication, denies cold feet, denies peripheral arterial stent. Respiratory: The patient denies tuberculosis, denies pneumonia, denies frequent cough, denies pulmonary embolism, denies shortness of breath, and denies coughing up blood. Gastrointestinal: The patient denies difficulty swallowing, NOTES acid reflux, denies ulcers, denies vomiting, denies jaundice/hepatitis, denies gallbladder problems, denies black or tarry stools, denies hemorrhoids, denies bleeding from rectum, denies diverticulitis, denies constipation, denies diarrhea, denies loss of stool control, and denies hernias. Kidney/Bladder: The patient denies kidney stones, denies urine infections, and denies bloody urine. Skin: The patient denies a history of skin cancer, denies bleeding/changing moles, and denies a history of skin rash. Neurologic: The patient denies a history of epilepsy/convulsions, denies headaches, denies head/spinal injuries, and denies stroke/TIA. Psychiatric: The patient denies psychiatric medications, denies depression, and denies voices, denies substance abuse. Endocrine: The patient denies thyroid disorders, denies diabetes, and denies hormonal problems. Hematologic: The patient denies a history of bruising, denies bleeding, and denies anemia, denies blood clots. Infections: The patient denies a history of measles and mumps, denies rheumatic fever, and denies sexually transmitted diseases. Musculoskeletal: The patient denies back pain/injury, NOTES back problems, denies sciatica, denies knee/foot trouble, denies arthritis, or denies gout. When was patient's last Mammogram screening? 2022 Last Colonoscopy: 2018 Danika Dean RN PHYSICAL EXAMINATION: General: The patient is 53 year old female, well nourished, well hydrated in no acute distress. The patient is oriented to time, place, and person. VITALS: Blood pressure 128/80, pulse 107, temperature 36.4 C (97.5 F), height 157.5 cm (5' 2), weight 98.9 kg (218 lb), SpO2 97%. Body mass index is 39.87 kg/m . HEENT: Normal cephalic, ataumatic, pupils are equally round, sclera are anicteric, mucous membranes are moist, oropharynx is clear. Neck has no masses, asymmetry or lymphadenopathy. Thyroid is unremarkable. Respiratory: Clear to auscultation and percussion. Normal respiratory excursion and pattern. Cardiac: Examination is regular rate and rhythm. Abdominal exam: Soft, nontender, with no palpable masses. No hepatosplenomegaly. No palpable hernias. Rectal exam: exam deferred Extremities: no clubbing, cyanosis or edema. No adenopathy. Other: LABORATORY VALUES: As Noted RADIOLOGIC STUDIES: As Noted Assessment IMPRESSION: High risk screening for colon cancer-paternal family history PLAN: I plan to perform lower endoscopy. We discussed the risks and benefits of the planned endoscopy. I have informed the patient that complications can occur including failure to complete the endoscopy and perforation. The patient had the opportunity to ask questions concerning the planned endoscopy. My staff has also explained the procedure to the patient in understandable terms and has given the patient printed material concerning the procedure. The patient freely consents to surgery. I plan to use golytely bowel preparation for endoscopy Diagnoses: (Z12.11) Special screening for malignant neoplasms, colon (primary encounter diagnosis) A letter was sent to Dr. Andrey Interiano MD indicating the above finding for this patient. Return to Clinic: The patient is instructed to follow-up with me after the testing has been completed. Sj Lam MD documented in this encounter [facility] 04-27-2023 Telephone encounter Note 06/26/2023 COLON ASC [facility] 04-27-2023 Miscellaneous Notes 06/26/2023 COLON ASC documented in this encounter [facility] 04-27-2023 Instructions Sj Lam MD - 04/27/2023 2:34 PM EST Images from the original note were not included. Bowel Preparation Instructions for: Golytely, Nulytely, Trilyte or Colyte (polyethylene glycol 3350 and electrolytes) IF YOU DO NOT FOLLOW THESE DIRECTIONS, YOUR COLONOSCOPY WILL BE CANCELLED. [place] Instructions: Your bowel must be empty so that your doctor can clearly view your colon. Follow all of the instructions in this handout EXACTLY as they are written. Do NOT eat any solid food the ENTIRE day before your colonoscopy. Drink only clear liquids. Buy your bowel preparation at least 5 days before your colonoscopy. TRANSPORTATION on the Day of Your Exam A responsible person MUST be present with you at Check In prior to your colonoscopy and REMAIN in the endoscopy area until you are discharged. You are NOT ALLOWED to drive, take a taxi or bus, or leave the Endoscopy Center ALONE. If you do not have a responsible charter bus driver (family member or friend) with you to take you home, your exam cannot be done with sedation and will be cancelled. Please bring a list of all of your current medications, including any Over-the Counter medications with you. Medications If you take insulin, diabetic medications or blood thinners such as Coumadin (warfarin), Plavix (clopidogrel), Ticlid (ticlopidine hydrochloride), Agrylin (anagrelide), Xarelto (Rivaroxaban), Pradaxa (Dabigatran), Eliquis (Apixaban), and Effient (Prasugrel). You MUST call the doctors who orders those medicines for instructions on altering the dosage before your colonoscopy. All other medications should be taken the day of the exam with a sip of water including ASPIRIN. Five (5) Days Before Your Colonoscopy Do NOT take medicines that stop diarrhea - such as Imodium, Kaopectate, or Pepto Bismol. Do NOT take fiber supplements - such as Metamucil, Citrucel, or Perdiem. Do NOT take products that contain iron - such as multi-vitamins (the label lists what is in the products). Do NOT take Vitamin E. Buy the prescription bowel preparation solution at your local pharmacy or drugstore pharmacy. 02/2019 Bowel Preparation Instructions for: Golytely, Nulytely, Trilyte or Colyte (polyethylene glycol 3350 and electrolytes) Three (3) Days Before Your Colonoscopy Do NOT eat high-fiber foods - such as popcorn, beans, seeds (flax, sunflower, quinoa), multigrain bread, nuts, salad/vegetables, or fresh and dried fruit. One (1) Day Before Your Colonoscopy Only drink clear liquids the ENTIRE DAY before your colonoscopy. Do NOT eat any solid foods. Drink at least 8 ounces of clear liquids every hour after waking up. The clear liquids you can drink include: Clear Liquid (NO RED LIQUIDS) DO NOT DRINK Gatorade, Pedialyte or Powerade Clear broth or bouillon Coffee or tea (no milk or non-dairy creamer) Carbonated and non-carbonated soft drinks Sung-Aid or other fruit flavored drinks Strained fruit juices (no pulp) Jell-O, popsicles, hard candy Water Alcohol Milk or non-dairy creamers Noodles or vegetables in soup Juice with pulp Liquid you cannot see through Do not use tobacco/vaping products The bowel preparation solution will be consumed in two parts. Mix the solution the evening before your colonoscopy and refrigerate before drinking. You may add the flavor pack that came with the bowel preparation. Do NOT add ice, sugar or any other flavorings to the solution. Part 1 At 6:00 PM - Evening before your colonoscopy Drink an 8-oz glass of bowel preparation every 10 minutes until clear 2 02/2019 documented in this encounter [facility] 04-27-2023 Nurse Note REVIEW OF SYSTEMS: General: The patient denies fatigue, denies weight loss, denies weight gain, denies feeling hot, and denies feelings of cold. Eyes: The patient denies glaucoma, NOTES eye injury/surgery, does not wear glasses or contacts. Ear/Nose/Throat: The patient NOTES allergies, NOTES hayfever, denies ear infections, and denies bloody noses. Cardiovascular: The patient denies chest pain, denies heart disease, denies high blood pressure,denies cardiac stent, denies prior heart attack, denies irregular heart beat, denies high cholesterol, denies poor circulation, denies heart failure, other cardiac issues, denies claudication, denies cold feet, denies peripheral arterial stent. Respiratory: The patient denies tuberculosis, denies pneumonia, denies frequent cough, denies pulmonary embolism, denies shortness of breath, and denies coughing up blood. Gastrointestinal: The patient denies difficulty swallowing, NOTES acid reflux, denies ulcers, denies vomiting, denies jaundice/hepatitis, denies gallbladder problems, denies black or tarry stools, denies hemorrhoids, denies bleeding from rectum, denies diverticulitis, denies constipation, denies diarrhea, denies loss of stool control, and denies hernias. Kidney/Bladder: The patient denies kidney stones, denies urine infections, and denies bloody urine. Skin: The patient denies a history of skin cancer, denies bleeding/changing moles, and denies a history of skin rash. Neurologic: The patient denies a history of epilepsy/convulsions, denies headaches, denies head/spinal injuries, and denies stroke/TIA. Psychiatric: The patient denies psychiatric medications, denies depression, and denies voices, denies substance abuse. Endocrine: The patient denies thyroid disorders, denies diabetes, and denies hormonal problems. Hematologic: The patient denies a history of bruising, denies bleeding, and denies anemia, denies blood clots. Infections: The patient denies a history of measles and mumps, denies rheumatic fever, and denies sexually transmitted diseases. Musculoskeletal: The patient denies back pain/injury, NOTES back problems, denies sciatica, denies knee/foot trouble, denies arthritis, or denies gout. When was patient's last Mammogram screening? 2022 Last Colonoscopy: 2018 Danika Dean RN documented in this encounter [facility] 04-09-2023 Note [facility] Pap Smear Specimen Adequacy April 09, 2023 9:45am Comment . Satisfactory for evaluation. Comment on above: Satisfactory for clara matilde. 01-23-2023 History of Presen t illness Narrative The documentation for the note below was completed in part by Adelina Whitfield acting as a scribe for Mane Rosales MD. 01/23/2023 8:27 AM. Scribe Attestation: By signing my name below, I, Adelina Whitfield, attest that the documentation in part for the note below and the encounter was completed in part by Adelina Whitfield acting as a scribe for Mane Rosales MD. Electronically Signed: Leeroy Crandall. January 23, 2023 8:27 AM. All problems with bold in text below addressed at this visit with patient 1. 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 Vitreous [...] Refractive error - Recently refracted by outside production administrator - Happy with prescription I, Mane Rosales MD, personally performed the services described in this documentation. All medical record entries made by the zuhairibe were at my direction and in my presence. I have reviewed the chart and discharge instructions (if applicable) and agree that the record reflects my personal performance and is accurate and complete. I have confirmed and edited as necessary the relevant ophthalmic history, ROS, and the neuro exam findings as obtained by others. I have seen and examined Maddie Womack Zbigniew. I have discussed the case and the management of this patient's care with the Resident/Fellow, if applicable. I also have reviewed and agree with the assessment and plan as stated above and agree with all of its relevant components. Electronically Signed: Mane Rosales MD, January 23, 2023 8:19 AM documented in this encounter [facility] 10-24-2022 History of Presen t illness [...] to monitor - Follow up with Dr. Rosales in 3 months 3. Chronic PVD OD with vitreoretinal tuft - Emphasized return to office precautions and patient will call with any changes in vision - Remains stable on exam, continue to monitor 4. Not visually significant cataract OU (both eyes) - Stable, monitor 5. Ocular irritation OU (both eyes) - Tears PRN 6. Refractive error - Recently refracted by outside production administrator I have seen and examined this patient. [...] new symptoms develop. documented in this encounter [facility] 07-18-2022 History of Presen t illness Narrative The documentation for the note below was completed in part by Wayne Mathew acting as a scribe for Mane Rosales MD. 07/18/2022 8:46 AM. Scribe Attestation: By signing my name below, I, Wayne Mathew, attest that the documentation in part for the note below and the encounter was completed in part by Wayne Mathew acting as a scribe for Mane Rosales MD. Electronically Signed: Leeroy Balderas. July 18, 2022 8:46 AM. All problems with bold in text below addressed at this visit with patient Last seen 05/23/22. Floaters are much mineral economist. Vision is pretty good No new flashes [...] to optometry- will go somewhere locally I, Mane Rosales MD, personally performed the services described in [...] by others. I have seen and examined Maddie Coy. I have discussed the case and the management of this patient's care with the Resident/Fellow, if applicable. I also have reviewed and agree with the assessment and plan as stated above and agree with all of its relevant components. Electronically Signed: Mane Rosales MD, July 18, 2022 8:54 AM documented in this encounter [facility] 05-23-2022 History of Presen t illness Narrative The documentation for the note below was completed in part by Lucy Garzon acting as a scribe for Mane Rosales MD. 05/23/2022 8:32 AM. Scribe Attestation: By signing my name below, I, Lucy Garzon, attest that the documentation in part for the note below and the encounter was completed in part by Lucy Garzon acting as a scribe for Mane Rosales MD. Electronically Signed: Leeroy Lebron. May 23, [...] tears QID (4 x a day) I, Mane Rosales MD, personally performed the services described in [...] by others. I have seen and examined Maddie Coy. I have discussed the case and the management of this patient's care with the Resident/Fellow, if applicable. I also have reviewed and agree with the assessment and plan as stated above and agree with all of its relevant components. Electronically Signed: Mane Rosales MD, May 23, 2022 8:57 AM documented in this encounter [facility] 04-25-2022 History of Presen t illness [...] a day) I have seen and examined Maddie Coy. I have confirmed and edited as [...] new symptoms develop. documented in this encounter [facility] 04-11-2022 History of Presen t illness Narrative The documentation for the note below was completed in part by Wayne Mathew acting as a scribe for Mane Rosales MD. 04/11/2022 8:10 AM. Scribe Attestation: By signing my name below, I, Wayne Mathew, attest that the documentation in part for the note below and the encounter was completed in part by Wayne Mathew acting as a scribe for Mane Rosales MD. Electronically Signed: Leeroy Balderas. April 11, [...] tears QID (4 x a day) I, Mane Rosales MD, personally performed the services described in [...] by others. I have seen and examined Maddie Coy. I have discussed the case and the management of this patient's care with the Resident/Fellow, if applicable. I also have reviewed and agree with the assessment and plan as stated above and agree with all of its relevant components. Electronically Signed: Mane Rosales MD, April 11, 2022 9:18 AM documented in this encounter [facility] 04-04-2022 History of Presen t illness Narrative The documentation for the note below was completed in part by Wayne Mathew acting as a scribe for Mane Rosales MD. 04/04/2022 9:25 AM. Scribe Attestation: By signing my name below, I, Wayne Mathew, attest that the documentation in part for the note below and the encounter was completed in part by Wayne Mathew acting as a scribe for Mane Rosales MD. Electronically Signed: Leeroy Balderas. April 04, [...] tears QID (4 x a day) I, Mane Rosales MD, personally performed the services described in [...] by others. I have seen and examined Maddie Coy. I have discussed the case and the management of this patient's care with the Resident/Fellow, if applicable. I also have reviewed and agree with the assessment and plan as stated above and agree with all of its relevant components. Electronically Signed: Mane Rosales MD, April 04, 2022 9:44 AM documented in this encounter [facility] 03-30-2022 History of Presen t illness [...] a day) I have seen and examined Maddie Coy. I have confirmed and edited as [...] new symptoms develop. documented in this encounter [facility] 03-30-2022 Miscellaneous Notes Images from the original note were not included. That's fine thank you MARCELO Alvarenga, CRNO, OSC Research Nascar Driver, [facility] Image-Guided Surgery and Advanced Imaging Research Wire Spiral Binder to Mane Rosales MD [facility] Evie Narayanan Endowed Chair for Ophthalmic Research Vitreoretinal Service [facility] [phone] From: Elizabeth Anderson < > Sent: March 8:11:31 AM To: Mane Rosales < >; Андрей Garrido < >; Carolyn Nettles < >; Kori Gutierrez < >; Gemini Perez < > Subject: Maddie Coy [facility] [id number] Dr. Ce GRAYSON's office called to say they booked a former patient of yours in the open slot at 11 am She has a vitreous hemorrhage, they wanted to give you a heads up Delmer Polo MD filed at 03/29/2022 2:54 PM Status: Signed ASSESSMENT/PLAN: 1. Vitreous hemorrhage of left eye (HCC) - ICD9: 379.23, ICD10: H43.12 - Dense vitreous hemorrhage in left eye started this morning at 11:30 AM - B-scan today shows retina appears intact - Consult Retina for further evaluation and treatment Mane Rosales MD filed at 02/28/2022 11:15 AM Status: Signed The documentation for the note below was completed in part by Lucy Garzon acting as a scribe for Mane Rosales MD. 02/28/2022 10:50 AM. Scribe Attestation: By signing my name below, I, Lucy Ninomore, attest that the documentation in part for the note below and the encounter was completed in part by Lucy Garzon acting as a scribe for Mane Rosales MD. Electronically Signed: Leeroy Lebron. February 28, 2022 10:50 AM. Last seen 11/29/[address] Rosales Pt reports vision in left eye stable [...] x a day) documented in this encounter [facility] 03-29-2022 History of Presen t illness [...] technical staff. I have seen and examined Maddie Coy. I have discussed the examination findings, diagnosis, and treatment options with Maddie Coy and/or her family. I have also reviewed and agree with the assessment and plan as stated above and agree with all its relevant components. I gave the patient the opportunity to ask questions about the findings, diagnosis, and treatment options. Delmer Polo MD documented in this encounter [facility] 03-03-2022 Instructions Delmer Polo MD - 03/03/2022 10:51 AM EST Current Ophthalmic Meds prednisoLONE acetate (PRED FORTE, ECONOPRED PLUS) 1 % ophthalmic suspension Use 1 Drop in the left eye four times daily. FOR 1 WEEK THEN STOP. If you have any questions please contact our office at [phone]. After office hours or on the weekend, please call Dr. Polo on his cell phone at [phone]. documented in this encounter [facility] 03-03-2022 History of Presen t illness Narrative ASSESSMENT/PLAN: 1. Episcleritis of left eye - ICD9: 379.00, ICD10: H15.102 Current Ophthalmic Meds prednisoLONE acetate (PRED FORTE, ECONOPRED PLUS) 1 % ophthalmic suspension Use 1 Drop in the left eye four times daily. FOR 1 WEEK THEN STOP. Delmer Polo MD I have confirmed and edited as necessary the relevant ophthalmic history, review of systems, surgical history, and ophthalmological examination findings as obtained by the ophthalmic technical staff. I have seen and examined Maddie Coy. I have discussed the examination findings, diagnosis, and treatment options with Maddie Coy and/or her family. I have also reviewed and agree with the assessment and plan as stated above and agree with all its relevant components. I gave the patient the opportunity to ask questions about the findings, diagnosis, and treatment options. documented in this encounter [facility] 03-01-2022 History of Presen t illness Narrative ASSESSMENT/PLAN: 1. Episcleritis of left eye - ICD9: 379.00, ICD10: H15.102 Current Ophthalmic Meds prednisoLONE acetate (PRED FORTE, ECONOPRED PLUS) 1 % ophthalmic suspension Use 1 Drop in the left eye four times daily. Delmer Polo MD I have confirmed and edited as necessary the relevant ophthalmic history, review of systems, surgical history, and ophthalmological examination findings as obtained by the ophthalmic technical staff. I have seen and examined Maddie Coy. I have discussed the examination findings, diagnosis, and treatment options with Maddie Coy and/or her family. I have also reviewed and agree with the assessment and plan as stated above and agree with all its relevant components. I gave the patient the opportunity to ask questions about the findings, diagnosis, and treatment options. documented in this encounter [facility] 03-01-2022 Instructions Delmer Polo MD - 03/01/2022 5:03 PM EST Current Ophthalmic Meds prednisoLONE acetate (PRED FORTE, ECONOPRED PLUS) 1 % ophthalmic suspension Use 1 Drop in the left eye four times daily. If you have any questions please contact our office at [phone]. After office hours or on the weekend, please call Dr. Polo on his cell phone at [phone]. documented in this encounter [facility] 03-01-2022 Miscellaneous Notes From: Zackary Ashton Sent: Tuesday, March 01, 2022 4:12 PM To: Elizabeth Anderson < >; Андрей Garrido < >; Mane Rosales < >; Gemini Perez < >; Carolyn Nettles < > Subject: Re: Maddie Coy Telephone Msg She sent me a photograph, and I spoke to her on the phone. She has conjunctivitis. She's going to follow up with her comprehensive eye provider. In the meantime, she is going to prevent contagion by practicing good hygiene and using artificial tears. Electronically signed by Elizabethfrancis Anderson [facility] at 03/01/2022 4:59 PM EST From: Zackary Ashton Sent: Tuesday, March 01, 2022 4:02 PM To: Андрей Garrido < >; Elizabeth Anderson < >; Mane Rosales < >; [employer] fostera < >; Carolyn Nettles < > Subject: Re: Maddie Coy Telephone Msg Thank you for the page, will call her now Electronically signed by Elizabethfrancis Anderson [facility] at 03/01/2022 4:03 PM EST Images from the original note were not included. Paged From: Андрей Garrido Sent: Tuesday, March 01, 2022 3:48 PM To: Elizabeth Anderson < >; Mane Rosales < >; Bob Pereza < >; Zackary Ashton < >; Carolyn Nettles < > Subject: Re: Maddie Coy Telephone Msg Please page Dr. Poli Garrido, MARCELO, CRNO, OSC From: Elizabeth Anderson < > Sent: Tuesday, March 01, 2022 3:42:12 PM To: Mane Rosales < >; Gemini Perez < >; Андрей Garrido < >; Zackary Ashton < >; Carolyn Nettles < > Subject: RE: Maddie Coy Telephone Msg Patient calling back again [phone] Patient called and states bottom half of left eyeball and eyelid are red and sore. Vision is slightly blurry. No flashes or floaters. Was taking father to his doctor and father's doctor told her to call right away. Patient is very concerned. Please call. Maddie Coy [phone] FV-07/03/22 LV-02/21/22 Assessment & Plan Mane Rosales MD filed at 02/28/2022 11:15 AM Status: Signed The documentation for the note below was completed in part by Lucy Garzon acting as a scribe for Mane Rosales MD. 02/28/2022 10:50 AM. Scribe Attestation: By signing my name below, I, Lucy Garzon, attest that the documentation in part for the note below and the encounter was completed in part by Lucy Garzon acting as a scribe for Mane Rosales MD. Electronically Signed: Leeroy Lebron. February 28, 2022 10:50 AM. Last seen 11/29/[address] Rosales Pt reports vision in left eye stable [...] x a day) documented in this encounter [facility] 02-28-2022 History of Presen t illness Narrative The documentation for the note below was completed in part by Lucy Garzon acting as a scribe for Mane Rosales MD. 02/28/2022 10:50 AM. Scribe Attestation: By signing my name below, I, Lucy Garzon, attest that the documentation in part for the note below and the encounter was completed in part by Lucy Garzon acting as a scribe for Mane Rosales MD. Electronically Signed: Leeroy Lebron. February 28, 2022 10:50 AM. Last seen 11/29/[address] Rosales Pt reports vision in left eye stable [...] tears QID (4 x a day) I, Mane Rosales MD, personally performed the services described in [...] by others. I have seen and examined Maddie Coy. I have discussed the case and the management of this patient's care with the Resident/Fellow, if applicable. I also have reviewed and agree with the assessment and plan as stated above and agree with all of its relevant components. Electronically Signed: Mane Rosales MD, February 28, 2022 11:09 AM documented in this encounter [facility] 11-29-2021 History of Presen t illness [...] new symptoms develop. documented in this encounter [facility] 11-09-2021 History of Presen t illness [...] pain/discomfort - Keep follow up with Dr. Rosales in 3 weeks 2. Acute PVD OD - Onset of new floater OD within past week - Denies flashes - Depressed exam performed by Dr. Potter; no holes/tears/detachments - Emphasized return to office precautions and patient will call with any changes in vision - Continue to monitor - Follow up with Dr. Rosales as scheduled in 3 weeks 3. Myopia [...] new symptoms develop. documented in this encounter [facility] 11-09-2021 Miscellaneous Notes Spoke with patient and she will be here at 2 PM today to see Deana then Dr. Potter. Gemini Perez Tried reaching patient. Her line is busy. Will keep trying. Carolyn Nettles Sounds good thanks! Bobby, Mane She should be seen. Can you please [...] the OR and you have seen her. Maddie Coy [facility] [id number] Patient calling eye is sore, also noticed yesterday in the periphery of left eye vision is fuzzy and now has a floater in OD No decrease in vision, no flashes, no floaters [facility]V 11/29/21 LV 10/25/21 Mane Rosales MD filed at 10/25/2021 1:55 PM Status: [...] - Vision stable documented in this encounter [facility] 10-25-2021 History of Presen t illness [...] Vision stable I have seen and examined Maddie Coy. I have confirmed and edited as [...] new symptoms develop. documented in this encounter [facility] 10-13-2021 Miscellaneous Notes Patient notified. Mane Rosales Yes, she can resume ibuprofen. Patient called and would like to know if she can resume taking Ibuprofen for her back pain. Please advise. Maddie Coy [phone] FV-10/25/21 LV-10/11/21 Assessment & Plan Mane Rosales MD filed at 10/11/2021 5:31 PM Status: [...] - Vision stable documented in this encounter [facility] 10-11-2021 History of Presen t illness [...] Vision stable I have seen and examined Maddie Coy. I have confirmed and edited as [...] new symptoms develop. documented in this encounter [facility] Evaluation note No assessment inform ation available [facility] Work Phone: Evaluation note Diagnosis 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 Horseshoe tear of retina without detachment Posterior vitreous detachment of left eye Vitreous degeneration Vitreous hemorrhage of left eye (HCC) Vitreous hemorrhage [facility] Vitreous hemorrhage of left eye (HCC)- Primary Vitreous hemorrhage Horseshoe retinal tear of left eye Horseshoe tear of retina without detachment Posterior vitreous detachment of left eye Vitreous degeneration [facility] Vitreous hemorrhage of left eye (HCC)- Primary Vitreous hemorrhage Horseshoe retinal tear of left eye Horseshoe tear of retina without detachment Posterior vitreous detachment of left eye Vitreous degeneration [facility] Vitreous hemorrhage of left eye (HCC)- Primary Vitreous hemorrhage Horseshoe retinal tear of left eye Horseshoe tear of retina without detachment Posterior vitreous detachment of both eyes Vitreous degeneration Posterior vitreous detachment of left eye Vitreous degeneration [facility] 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 Horseshoe tear of retina without detachment Vitreous hemorrhage of left eye (HCC) Vitreous hemorrhage Posterior vitreous detachment of both eyes 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 [facility] Episcleritis of left eye- Primary Scleritis, unspecified [facility] Episcleritis of left eye- [...] degenerations peripheral retina [facility] Diagnosis Vitreous hemorrhage of left eye (HCC)- Primary Vitreous hemorrhage Horseshoe retinal tear of left eye Horseshoe tear of retina without detachment Posterior vitreous detachment of both eyes 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 Vitreomacular adhesion [facility] Vitreous hemorrhage of left [...] [facility] Onset Date Resolution Status UTI (urinary tract infection) acute Frequency of urination nonea ctive Back pain noneactive [facility] Work Phone: Evaluation note* Diagnosis 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 Horseshoe tear of retina without detachment Vitreous hemorrhage of left eye (HCC) Vitreous hemorrhage Posterior vitreous detachment of both eyes 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 Vitreomacular adhesion [facility] Diagnosis Horseshoe retinal tear of [...] [facility] Diagnosis Special screening for malignant neoplasms, colon- Primary [facility] Diagnosis Vitreous hemorrhage of left eye (HCC)- Primary Vitreous hemorrhage Horseshoe retinal tear of left eye Horseshoe tear of retina without detachment Posterior vitreous detachment of both eyes 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 Nuclear sclerotic cataract of both eyes Senile nuclear sclerosis [facility] Diagnosis Special screening for malignant neoplasms, colon- Primary [facility] Diagnosis Vitreous hemorrhage of left eye (HCC)- Primary Vitreous hemorrhage Horseshoe retinal tear of left eye Horseshoe tear of retina without detachment Posterior vitreous detachment of both eyes 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 Nuclear sclerotic cataract of both eyes Senile nuclear sclerosis [facility] Diagnosis Vitreous hemorrhage of left eye (HCC)- Primary Vitreous hemorrhage Horseshoe retinal tear of left eye Horseshoe tear of retina without detachment Posterior vitreous detachment of both eyes 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 Vitreomacular adhesion [facility] Diagnosis Combined forms of age-related cataract of right eye- Primary Other and combined forms of senile cataract Combined forms of age-related cataract of left eye Other and combined forms of senile cataract Regular astigmatism of both eyes Regular astigmatism High myopia, bilateral Myopia Horseshoe tear of retina of left eye Vitreous hemorrhage of left eye (HCC) Vitreous hemorrhage Essential hypertension Unspecified essential hypertension Hypothyroidism, unspecified type documented in this encounter [facility] for referral (narrative)* Outpatient Procedure (Routine) - Authorized Specialty Diagnoses / Procedures Referred By Akhil post Referred To Contact [facility] Diagnoses Special screening for malignant neoplasms, colon Procedures COLONOSCOPY SCREENING COLONOSCOPY FLX DX W/COLLJ SPEC WHEN Sj Mariano MD [address] [address] [facility] [place] [address] [place] [id number] Referral ID Status Reason Start Date Expiration Date Visits Requested Visits Authorized [id number] Authorized Auto-Generat ed Referral 04/27/2023 04/27/2024 [facility] Outpatient Procedure (Routine) - Closed Specialty Diagnoses / Procedures Referred By Akhil post Referred To Contact [facility] Diagnoses Special screening for malignant neoplasms, colon Procedures COLONOSCOPY SCREENING COLONOSCOPY FLX DX W/COLLJ SPEC WHEN Sj Mariano MD [address] [address] [facility] Disease [address] [address] Referral ID Status Reason Start Date Expiration Date V isits Requested Visits Authorized [id number] Closed Auto-Generate d Referral 04/27/2023 04/27/2024 1 1 [facility] for referral (narrative)No reason for [facility] Reason for visit Narrative* Outpatient Procedure (Routine) - Closed Specialty Diagnoses / Procedures Referred By Akhil post Referred To Contact [facility] Diagnoses Special screening for malignant neoplasms, colon Procedures COLONOSCOPY SCREENING COLONOSCOPY FLX DX W/COLLJ SPEC WHEN Sj Mariano MD [address] [address] [facility] Disease [address] [address] Referral ID Status Reason Start Date Expiration Date V isits Requested Visits Authorized [id number] Closed Auto-Generate d Referral 04/27/2023 04/27/2024 1 1 [facility] Summary Purpose Family History No Family History Records Found Relationship Condition Age at Onset Recorded Date/T kaelyn father Malignant neoplasm of colon Unknown mother Malignant neoplasm of breast Unknown Advance Directives No Advanced Directives Records FoundDocuments on File Type Date 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 Given 10/11/2021 3:30 PM EDT 1 Drop PHENYLephrine 2.5 % 1 Drop (AK-DILATE, FORTUNATO-SYNEPHRINE) 1 Drop, BOTH EYES, DIRECTED, Starting on Sun10/11/21 at 1530, Until Sun10/12/21 at 032, Administer for dilation PROTECT FROM LIGHT Given 10/11/2021 3:30 PM EDT 1 Drop proparacaine 0.5 % 1 Drop (ALCAINE) 1 Drop, BOTH EYES, DIRECTED, Starting on Sun10/11/21 at 1530, Until Sun10/12/21 at 0329, Administer for pneumo tonometry, tonopen tonometry, or [...] the event of a Fluress shortage, administer Kennedy-Fluor 1 drop into both eyes as directed [...] on Sun02/28/22 at 1000, Until Sun02/28/22 at 215, Administer for applanation tonometry. In the event [...] on Sun02/28/22 at 1000, Until Sun02/28/22 at 215, Administer for dilation, OPHT CLINIC MED ORDERS Given 02/28/2022 10:00 AM EST 1 Drop Active Administered Medications - up to 3 most recent administrations Medication Order MAR Action Action Date Dose Rate Site PHENYLephrine 2.5 % 1 Drop (AK-DILATE, FORTUNATO-SYNEPHRINE) 1 Drop, BOTH EYES, DIRECTED, Starting on Sun03/29/22 at 1330, Until Sun03/30/22 at 0129, Administer for dilation PROTECT FROM [...] on Sun04/04/22 at 0800, Until Sun04/04/22 at 1959, Administer for applanation tonometry. In the event [...] a Fluress shortage, administer 1 drop of Kennedy-Fluor into both eyes as directed for applanation [...] Given 07/18/2022 7:59 AM EDT 1 Drop Chief Complaint and Reason for Visit Chief Complaint SCREENING Chief Complaint SCREENING LOWER ABDOMINAL PAIN RADIATES TO BACK DORSALGIA, FREQUENCY OF MICTURITION ABD PAIN RLQ Reason for Visit UTI (urinary tract i nfection) Frequency of urination Back pain Chief Complaint LOWER ABDOMINAL PAIN RADIATES TO BACK DORSALGIA, FREQUENCY OF MICTURITION ABD PAIN RLQ EORDER Reason for Visit UTI (urinary tract i nfection) Frequency of urination Back pain Chief Complaint SINUS INFECTION EORDER SCREENING Chief Complaint SINUS INFECTION EORDER Chief Complaint Admit Date CONCERN FOR SINUS INFECTION April 6:47am SCREENING May 09, 2024 12:14pm Additional Source Comments INFORMATION SOURCE (unrecogn ized section and content) DATE CREATED AUTHOR 09/05/2017 Dustin Chongbryn [facility] DATE CREATED AUTHOR AUTHOR'S ORGANIZ ATION 07/04/2023 [facility] DATE CREATED AUTHOR AUTHOR'S ORGANIZ ATION 07/26/2024 [facility] DATE CREATED AUTHOR AUTHOR'S ORGANIZ ATION 10/22/2024 [facility] Goals (unrecognized section and content) Goals may be documented in a n alternate sectionGoals may be documented in an alternate sectionGoals may be documented in an alternate sectionGoals may be documented in an alternate sectionGoals may be documented in an alternate sectionGoals may be documented in an alternate sectionGoals may be documented in an alternate sectionGoals may be documented in an alternate sectionGoals may be documented in an alternate sectionGoals may be documented in an alternate sectionGoals may be documented in an alternate section Source Comments (unrecognize d section and content) In the event this informatio n is protected by the Federal Confidentiality of Alcohol and Drug Abuse Patient Records regulations: The Federal rules restrict any use of the information to criminally investigate or prosecute any alcohol or drug abuse patient.[facility] HospitalIn the event this information is protected by the Federal Confidentiality of Alcohol and Drug Abuse Patient Records regulations: The Federal rules restrict any use of the information to criminally investigate or prosecute any alcohol or drug abuse patient.[facility] HospitalIn the event this information is protected by the Federal Confidentiality of Alcohol and Drug Abuse Patient Records regulations: The Federal rules restrict any use of the information to criminally investigate or prosecute any alcohol or drug abuse patient.[facility] HospitalIn the event this information is protected by the Federal Confidentiality of Alcohol and Drug Abuse Patient Records regulations: The Federal rules restrict any use of the information to criminally investigate or prosecute any alcohol or drug abuse patient.[facility] HospitalIn the event this information is protected by the Federal Confidentiality of Alcohol and Drug Abuse Patient Records regulations: The Federal rules restrict any use of the information to criminally investigate or prosecute any alcohol or drug abuse patient.[facility] HospitalIn the event this information is protected by the Federal Confidentiality of Alcohol and Drug Abuse Patient Records regulations: The Federal rules restrict any use of the information to criminally investigate or prosecute any alcohol or drug abuse patient.[facility] HospitalIn the event this information is protected by the Federal Confidentiality of Alcohol and Drug Abuse Patient Records regulations: The Federal rules restrict any use of the information to criminally investigate or prosecute any alcohol or drug abuse patient.[facility] HospitalIn the event this information is protected by the Federal Confidentiality of Alcohol and Drug Abuse Patient Records regulations: The Federal rules restrict any use of the information to criminally investigate or prosecute any alcohol or drug abuse patient.[facility] HospitalIn the event this information is protected by the Federal Confidentiality of Alcohol and Drug Abuse Patient Records regulations: The Federal rules restrict any use of the information to criminally investigate or prosecute any alcohol or drug abuse patient.[facility] HospitalIn the event this information is protected by the Federal Confidentiality of Alcohol and Drug Abuse Patient Records regulations: The Federal rules restrict any use of the information to criminally investigate or prosecute any alcohol or drug abuse patient.[facility] ClinicIn the event this information is protected by the Federal Confidentiality of Alcohol and Drug Abuse Patient Records regulations: The Federal rules restrict any use of the information to criminally investigate or prosecute any alcohol or drug abuse patient.[facility] HospitalIn the event this information is protected by the Federal Confidentiality of Alcohol and Drug Abuse Patient Records regulations: The Federal rules restrict any use of the information to criminally investigate or prosecute any alcohol or drug abuse patient.[facility] HospitalIn the event this information is protected by the Federal Confidentiality of Alcohol and Drug Abuse Patient Records regulations: The Federal rules restrict any use of the information to criminally investigate or prosecute any alcohol or drug abuse patient.[facility] HospitalIn the event this information is protected by the Federal Confidentiality of Alcohol and Drug Abuse Patient Records regulations: The Federal rules restrict any use of the information to criminally investigate or prosecute any alcohol or drug abuse patient.[facility] HospitalIn the event this information is protected by the Federal Confidentiality of Alcohol and Drug Abuse Patient Records regulations: The Federal rules restrict any use of the information to criminally investigate or prosecute any alcohol or drug abuse patient.[facility] HospitalIn the event this information is protected by the Federal Confidentiality of Alcohol and Drug Abuse Patient Records regulations: The Federal rules restrict any use of the information to criminally investigate or prosecute any alcohol or drug abuse patient.[facility] HospitalIn the event this information is protected by the Federal Confidentiality of Alcohol and Drug Abuse Patient Records regulations: The Federal rules restrict any use of the information to criminally investigate or prosecute any alcohol or drug abuse patient.[facility] HospitalIn the event this information is protected by the Federal Confidentiality of Alcohol and Drug Abuse Patient Records regulations: The Federal rules restrict any use of the information to criminally investigate or prosecute any alcohol or drug abuse patient.[facility] HospitalIn the event this information is protected by the Federal Confidentiality of Alcohol and Drug Abuse Patient Records regulations: The Federal rules restrict any use of the information to criminally investigate or prosecute any alcohol or drug abuse patient.[facility] HospitalIn the event this information is protected by the Federal Confidentiality of Alcohol and Drug Abuse Patient Records regulations: The Federal rules restrict any use of the information to criminally investigate or prosecute any alcohol or drug abuse patient.[facility] HospitalIn the event this information is protected by the Federal Confidentiality of Alcohol and Drug Abuse Patient Records regulations: The Federal rules restrict any use of the information to criminally investigate or prosecute any alcohol or drug abuse patient.[facility] HospitalIn the event this information is protected by the Federal Confidentiality of Alcohol and Drug Abuse Patient Records regulations: The Federal rules restrict any use of the information to criminally investigate or prosecute any alcohol or drug abuse patient.[facility] HospitalIn the event this information is protected by the Federal Confidentiality of Alcohol and Drug Abuse Patient Records regulations: The Federal rules restrict any use of the information to criminally investigate or prosecute any alcohol or drug abuse patient.[facility] HospitalIn the event this information is protected by the Federal Confidentiality of Alcohol and Drug Abuse Patient Records regulations: The Federal rules restrict any use of the information to criminally investigate or prosecute any alcohol or drug abuse patient.[facility] HospitalIn the event this information is protected by the Federal Confidentiality of Alcohol and Drug Abuse Patient Records regulations: The Federal rules restrict any use of the information to criminally investigate or prosecute any alcohol or drug abuse patient.[facility] HospitalIn the event this information is protected by the Federal Confidentiality of Alcohol and Drug Abuse Patient Records regulations: The Federal rules restrict any use of the information to criminally investigate or prosecute any alcohol or drug abuse patient.[facility] HospitalIn the event this information is protected by the Federal Confidentiality of Alcohol and Drug Abuse Patient Records regulations: The Federal rules restrict any use of the information to criminally investigate or prosecute any alcohol or drug abuse patient.[facility] HospitalIn the event this information is protected by the Federal Confidentiality of Alcohol and Drug Abuse Patient Records regulations: The Federal rules restrict any use of the information to criminally investigate or prosecute any alcohol or drug abuse patient.[facility] HospitalIn the event this information is protected by the Federal Confidentiality of Alcohol and Drug Abuse Patient Records regulations: The Federal rules restrict any use of the information to criminally investigate or prosecute any alcohol or drug abuse patient.[facility] HospitalIn the event this information is protected by the Federal Confidentiality of Alcohol and Drug Abuse Patient Records regulations: The Federal rules restrict any use of the information to criminally investigate or prosecute any alcohol or drug abuse patient.[facility] Reason for Visit (unrecogniz ed section and content) Reason Comments Horseshoe Tear Evaluation Reason Comments Patient Question Reason Comments Horseshoe [...] Horseshoe retinal tear Vitreous Hemorrhage Follow Up Reason Comments Consult Colonoscopy consulta tion. Reason Comments Results Reason Comments 06/26/2023 [facility] Reason Comments Horseshoe Tear Follow Up Left eye Vitreous Hemorrhage Follow Up Left eye Posterior Vitreous Detachment Follow Up Both eyes Reason Comments Cataract Evaluation Glare Care Teams (unrecognized sec tion and content) Insurance Follow Up Representative Relationship Specialty Start Date End Date Andrey Interiano MD [address], [place] [id number] PCP - General 09/27/09 Insurance Follow Up Representative Relationship Specialty Start Date End Date Andrey Interiano MD [address] [facility] [facility] [facility] [address] [place] [place] [id number] PCP - General 09/27/09 Insurance Follow Up Representative Relationship Specialty Start Date End Date Andrey Interiano MD [address] [facility] [place] [address] PCP - General 09/27/09 Insurance Follow Up Representative Relationship Specialty Start Date End Date Andrey Interiano MD [address] [facility] [place] [address] PCP - General 09/27/09 Insurance Follow Up Representative Relationship Specialty Start Date End Date Andrey Interiano MD [address] [facility] [place] [address] PCP - General 09/27/09 Insurance Follow Up Representative Relationship Specialty Start Date End Date Andrey Interiano MD [address] [facility] [place] [address] PCP - General 09/27/09 Insurance Follow Up Representative Relationship Specialty Start Date End Date Andrey Interiano MD [address] [facility] [place] [address] PCP - General 09/27/09 Insurance Follow Up Representative Relationship Specialty Start Date End Date Andrey Interiano MD [address] [facility] [place] [address] PCP - General 09/27/09 Insurance Follow Up Representative Relationship Specialty Start Date End Date Andrey Interiano MD [address] [facility] [place] [address] PCP - General 09/27/09 Insurance Follow Up Representative Relationship Specialty Start Date End Date Andrey Interiano MD [address] [facility] [place] [address] PCP - General 09/27/09 Insurance Follow Up Representative Relationship Specialty Start Date End Date Andrey Interiano MD [address] [facility] [place] [address] PCP - General 09/27/09 Insurance Follow Up Representative Relationship Specialty Start Date End Date Andrey Interiano MD [address] [place] [address] PCP - General 09/27/09 Insurance Follow Up Representative Relationship Specialty Start Date End Date Andrey Interiano MD [address] [place] [address] PCP - General 09/27/09 Insurance Follow Up Representative Relationship Specialty Start Date End Date Andrey Interiano MD [address] [place] [address], [place] [address] PCP - General 09/27/09 Team Status: Active Member Role Status Dates Dr. Anson Interiano MD Family Provider Active Dr. Anson Interiano MD Primary Care Provider Activ e Team Status: Inactive Member Role Status Dates Dr. Anson Interiano MD Primary Care Provider, Atte nding Provider Active Insurance Follow Up Representative Relationship Specialty Start Date End Date Andrey Interiano MD [address] [place] [address], [place] [id number] PCP - General 09/27/09 Team Status: Inactive Member Role Status Dates Dr. Anson Interiano MD Primary Care Provider, Refe rring Provider Active NED Moya Attending Provider Active Team Status: Inactive Member Role Status Dates Dr. Anson Interiano MD Primary Care Provider Activ NED Wilks Attending Provider, Referring Provid er Active Team Status: Active Member Role Status Dates Dr. Anson Interiano MD Primary Care Provider Activ MARIE Molina Attending Provider Active Team Status: Active Member Role Status Dates Dr. Anson Interiano MD Primary Care Provider Activ MARIE Molina Attending Provider Active Martha Alva Referring Provider Active Team Status: Inactive Member Role Status Dates Dr. Anson Interiano MD Primary Care Provider Activ MARIE Molina Attending Provider Active Insurance Follow Up Representative Relationship Specialty Start Date End Date Andrey Interiano MD [address] [place] [address], [place] [id number] PCP - General 09/27/09 Team Status: Inactive Member Role Status Dates Dr. Anson Interiano MD Primary Care Provider Matias Wyatt NP-C Attending Provider Active Martha Alva Referring Provider Active Team Status: Inactive Member Role Status Dates Dr. Anson Interiano MD Primary Care Provider, Attending Provider, Referring Provider Active Insurance Follow Up Representative Relationship Specialty Start Date End Date Andrey Interiano MD [address] [place], [place] [address] PCP - General 09/27/09 Insurance Follow Up Representative Relationship Specialty Start Date End Date Andrey Interiano MD [address] [place] [address] PCP - General 09/27/09 Insurance Follow Up Representative Relationship Specialty Start Date End Date Andrey Interiano MD [address] [place] [address] PCP - General 09/27/09 Team Status: Inactive Member Role Status Dates Dr. Anson Interiano MD Primary Care Provider, Refe rring Provider Active Carlos MARINO, PA Attending Provider Active Team Status: Inactive Member Role Status Dates Dr. Anson Interiano MD Primary Care Provider Activ ping Wyatt , [employer]TR[employer] MANAGER-C Attending Provider, Referring Pr ovider Active Insurance Follow Up Representative Relationship Specialty Start Date End Date Andrey Interiano MD [address] [place] [address] PCP - General 09/27/09 Insurance Follow Up Representative Relationship Specialty Start Date End Date Andrey Interiano MD [address] [place] [address] PCP - General 09/27/09 Insurance Follow Up Representative Relationship Specialty Start Date End Date Andrey Interiano MD [address] [place], [place] [id number] PCP - General 09/27/09 Insurance Follow Up Representative Relationship Specialty Start Date End Date Andrey Interiano MD [address] [place] [address] PCP - General 09/27/09 Insurance Follow Up Representative Relationship Specialty Start Date End Date Andrey Interiano MD [address] [place], [place] [address] PCP - General 09/27/09 Insurance Follow Up Representative Relationship Specialty Start Date End Date Andrey Interiano MD [address] [place], [place] [id number] PCP - General 09/27/09 Insurance Follow Up Representative Relationship Specialty Start Date End Date Andrey Interiano MD [address] [place], [place] [address] PCP - General 09/27/09 Team Status: Active Member Role Status Dates Dr. Andrey Interiano MD Primary Care Provider Acti ve Team Status: Inactive Member Role Status Dates Dr. Andrey Interiano MD Primary Care Provider Acti ve Start: March 15, 2024 End: March 15, 2024 Dr. Andrey Interiano MD Attending Provider Active Start: March 15, 2024 End: March 15, 2024 Dr. Andrey Interiano MD Referring Provider Active Start: March 15, 2024 End: March 15, 2024 Team Status: Inactive Member Role Status Dates Dr. Andrey Interiano MD Primary Care Provider Acti ve Start: April 16, 2024 End: April 16, 2024 Dr. Andrey Interiano MD Attending Provider Active Start: April 16, 2024 End: April 16, 2024 Dr. Andrey Interiano MD Referring Provider Active Start: April 16, 2024 End: April 16, 2024 Team Status: Inactive Member Role Status Dates Dr. Andrey Interiano MD Primary Care Provider Acti ve Start: May 05, 2024 End: May 05, 2024 Dr. Andrey Interiano MD Referring Provider Active Start: May 05, 2024 End: May 05, 2024 Carlos Hall PA, [place] Attending Provider Active Start: May 05, 2024 End: May 05, 2024 Team Status: Inactive Member Role Status Dates Dr. Andrey Interiano MD Primary Care Provider Acti ve Start: May 09, 2024 End: May 09, 2024 Dr. Andrey Interiano MD Attending Provider Active Start: May 09, 2024 End: May 09, 2024 Dr. Andrey Interiano MD Referring Provider Active Start: May 09, 2024 End: May 09, 2024 Team Status: Inactive Member Role Status Dates Dr. Andrey Interiano MD Primary Care Provider Acti ve Start: July 02, 2024 End: July 02, 2024 Dr. Andrey Interiano MD Attending Provider Active Start: July 02, 2024 End: July 02, 2024 Dr. Andrey Interiano MD Referring Provider Active Start: July 02, 2024 End: July 02, 2024 Insurance Follow Up Representative Relationship Specialty Start Date End Date Andrey Interiano MD [address] [place] [address] PCP - General 09/27/09 Inactive Administered Medications - up to 3 most recent administrations Administered Medications (un recognized section and content) Medication Order MAR Action Action Date Dose Rate Site diphenhydrAMINE 12.5-50 mg injection (BENADRYL) 12.5-50 mg, INTRAVENOUS, DIRECTED, Starting on Sun06/26/23 at 0800, Until Sun06/26/23 at 1159, DOSING DIRECTED BY PHYSICIAN FOR PROCEDURAL SEDATION ONLY, Intraprocedure Given by LIP 06/26/2023 7:46 AM EDT 50 mg fentaNYL 50 mcg/mL 25-100 mcg injection (SUBLIMAZE) 25-100 mcg, INTRAVENOUS, DIRECTED, Starting on Sun06/26/23 at 0800, Until Sun06/26/23 at 1159, DOSING DIRECTED BY PHYSICIAN FOR PROCEDURAL SEDATION ONLY, Intraprocedure Given by LIP 06/26/2023 7:42 AM EDT 50 mcg Given by LIP 06/26/2023 7:40 AM EDT 50 mcg lactated ringers iv infusion 30 mL/hr, INTRAVENOUS, CONTINUOUS, Starting on Sun06/26/23 at 0730, Until Sun06/26/23 at 0821, Preprocedure New Bag/Syringe/Bottle 06/26/2023 7:10 AM EDT 30 mL/hr 30 mL/hr midazolam (PF) 1-5 mg injection (VERSED) 1-5 mg, INTRAVENOUS, DIRECTED, Starting on Sun06/26/23 at 0800, Until Sun06/26/23 at 1159, DOSING DIRECTED BY PHYSICIAN FOR PROCEDURAL SEDATION ONLY, Intraprocedure Given 06/26/2023 7:52 AM EDT 1 mg Given 06/26/2023 7:51 AM EDT 1 mg Given by LIP 06/26/2023 7:45 AM EDT 1 mg ondansetron (PF) 4 mg injection (ZOFRAN) 4 mg, INTRAVENOUS, DIRECTED, Starting on Sun06/26/23 at 0830, Until Sun06/26/23 at 1229, Dosing as directed for intraprocedural use only, Intraprocedure Given 06/26/2023 8:10 AM EDT 4 mg FOR RECORDS PERTAINING TO PATIENTS WHO ARE [...] BE BASED ON THE PRIMARY CLINICAL RECORDS. [employer] [facility]. provides no warranty or guarantee of the accuracy or completeness of information in this document.
[2024-10-25 09:03] LABS: Anion Gap 11 (5-15); BUN 18 mg/dL (4-19); BUN/Creat Ratio 20.0 RATIO (10-20); Calcium,Total 8.9 mg/dL (7.6-11.0); Carbon Dioxide 22.9 mmol/L (21.0-32.0); Chloride 105 mmol/L (98-108); Glucose 91 mg/dL (70-99); Potassium 4.4 mmol/L (3.3-5.1)
[2024-10-25 10:29] LABS: Cholesterol 238 mg/dL (<=200); Low Density Lipoprotein Calc. 152 mg/dL; Triglycerides 116 mg/dL; Very Low Density Lipoprotein 23 mg/dL (5-40); cholesterol:hdl ratio screen 3.79
== END | disposition home or self-care (01) ==
LOC: LAB 07:16
PROVIDERS: PCP Family Medicine; Referring Provider Family Medicine; Visit Provider Family Medicine
DX: E78.5 Hyperlipidemia, unspecified (principal); E03.9 Hypothyroidism, unspecified; I10 Essential (primary) hypertension
CPT/HCPCS: 36415; 80048; 80061; 84443